=== PATIENT | female | born 1935 | race Caucasian/White ===

== ENCOUNTER 2017-11-04 12:04 | Inpatient (IN) | payer MEDICARE, SELFPAY ==
[2017-11-04 13:09] VITALS: BP 139/64; PULSE 83; RESP 16; TEMP 37.3; O2SAT 90
[2017-11-04 13:35] VITALS: BMI 18.8
--- NOTE | 2017-11-04 13:47 | NURSING ---
Pt admitted to room 20 from [facility], call light system explained.
[2017-11-04 13:49] VITALS: BMI 18.9
--- NOTE | 2017-11-04 14:08 | PCM.HP.STD ---
Problem List (1) Fall Status: Acute (2) Closed right hip fracture Status: Acute (3) Right clavicle fracture Status: Acute (4) Anxiety Status: Chronic (5) Hypertension Status: Chronic (6) Vitamin D deficiency Status: Acute (7) Neuropathic pain Status: Chronic (8) Glaucoma Status: Chronic (9) Compression fracture of thoracic vertebra Status: Chronic (10) Compression fracture of lumbar vertebra Status: Chronic (11) Osteoporosis Status: Chronic (12) COPD (chronic obstructive pulmonary disease) Status: Acute Qualifiers: (13) Macular degeneration Status: Chronic Qualifiers: (14) Mass of right lung Status: Chronic Comment: enlarging since CT scan in 2014 History of Present Illness Date of Admission: 11/04/17 Chief Complaint: Here for rehabilitation, strengthening, prior to discharg home alone. The patient is a 82 year old Female with below past medical history presented to [facility] Emergency Department 10/31/2017 with fall. 10/31/2017 CT brain chronic involutional changes. 10/31/2017 Chest X-ray negative. 10/31/2017 EKG normal sinus rhythm, normal EKG. 10/31/2017 X-ray Cervical spine showed degenerative changes. 10/31/2017 X-ray right elbow normal. 10/31/2017 X-ray right forearm demineralization. 10/31/2017 X-ray right pelvis, right hip showed right hip fracture, constipation. 10/31/2017 X-ray right shoulder, right distal clavicle fracture. 10/31/2017 X-ray right clavicle, right distal clavicle fracture on healing old clavicle fracture. Fall backwards, Right upper extremity pain, Right hip pain. Headache, vomiting Multiple doses Morphine, Zofran given. 10/31/2017 CT right hip, comminuted impacted right intertrochanteric fracture, vertical fracture extending into proximal femoral shaft. 10/31/2017 Admit to Hospital. Recommend proceed with surgery. 11/01/2017 Dr. Shirley performed right hip cephalo-medullary nail fixation. Recommend non-operative management right clavicle fracture for now. 11/03/2017 CT chest right lower lobe spiculated nodule 2.6CM, right upper lobe spiculated nodule. Cancer until proven otherwise. Patient would like to consult with Dr. Huang regarding further evaluation of lung mass. Of note, she continues to smoke. 11/04/2017 Admit to TCU for rehabilitation, strengthening, prior to discharge home. Past Medical History Past Medical History (Chronic Problems): Chronic Problems Macular degeneration (Chronic) Mass of right lung (Chronic) enlarging since CT scan in 2015 Tobacco abuse (Chronic) Anxiety (Chronic) Hypertension (Chronic) Neuropathic pain (Chronic) Glaucoma (Chronic) Compression fracture of thoracic vertebra (Chronic) Compression fracture of lumbar vertebra (Chronic) Osteoporosis (Chronic) Allergies acetaminophen [From Percocet] Adverse Reaction (Verified 11/03/17 19:12) Itching oxycodone [From Percocet] Adverse Reaction (Verified 11/03/17 19:12) Itching Home Medications: Ambulatory Orders Medication Instructions Recorded Budesonide/Formoterol 160/4.5 2 puff INHALATION BID 08/05/14 [Symbicort 160/4.5 Mcg Inhaler (SP)] Lisinopril [Zestril] 5 mg PO BID 08/05/14 Lorazepam 0.25 mg PO TID 08/05/14 Tiotropium [place] [Spiriva] 1 puff INHALATION DAILY 08/05/14 Ergocalciferol [Vitamin D] 50,000 unit PO JOSE 10/31/17 Gabapentin [Neurontin] 100 mg PO TID PRN 10/31/17 Peg 400/Hypromellose/Glycerin 1 drop EACH EYE Q1H PRN 10/31/17 [Artificial Tears Drops] Travoprost 0.004% [Travatan-Z 1 drop EACHEYE DAILY 10/31/17 0.004% Eye Drop] Acetaminophen [Tylenol] 1,000 mg PO Q8H 11/04/17 Albuterol Aerosols [Ventolin 2.5 mg INHALATION Q2H PRN PRN 11/04/17 Aerosols] vial.neb. 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 Lives: Alone Smoking Status: Current every day smoker Tobacco Use: Cigarettes Alcohol: None Drugs: None - *Family History Maternal History Items: No pertinent history Paternal History Items: No pertinent history Review of Systems Constitutional: Denies: Chills, Fever, Weight Change HEENT: Denies: Head Aches, Sinus Congestion, Sinus Drainage Cardiovascular: Denies: Chest Pain, Palpitations Respiratory: Denies: Cough, Shortness of breath at rest, Sputum production Gastrointestinal: Denies: Abdominal Pain, Nausea, Vomiting Genitourinary: Denies: Dysuria Musculoskeletal: Denies: Joint Pain, Joint Tenderness Skin: Denies: Rash, Wounds Neurological: Denies: Numbness, Tingling, Focal weakness Psychiatric: Denies: Anxiety, Depression, Homicidal Ideations, Suicidal Ideations Hematologic/ Lymphatic: Denies: Easy Bruising, Easy Bleeding VTE Information - Inpt Only VTE Present on Admission: No VTE Mechan Device Prophylaxis: Knee High YANELIS Hose VTE Pharm Prophylaxis ordered?: Yes Patient Problems: Active and Suspected Problems Fall (Acute) Closed right hip fracture (Acute) Right clavicle fracture (Acute) Vitamin D deficiency (Acute) - Physical Exam General: Alert, Oriented x3, Cooperative HEENT: Atraumatic, PERRLA, EOMI, Normocephalic Neck: Supple, No JVD, Negative Carotid Bruits Lungs: Clear to auscultation, Normal air movement Cardiovascular: Regular rate, No murmurs Abdomen: Bowel Sounds Present, Soft, Non Tender Extremities: No edema, Capillary Refill Less than 3 Seconds Skin: No rashes, No breakdown Musculoskeletal: No Tenderness to Palpation of Joints or Extremities Neurological: Cranial nerves II-XII grossly intact Psych/Mental Status: Normal Affect, Appropriate Weight: 42.4 kg Body Mass Index (BMI) 18.8 Assessment/Plan Active and Suspected Problems Fall (Acute) Closed right hip fracture (Acute) Right clavicle fracture (Acute) Vitamin D deficiency (Acute) 82 year old female with below past medical history hospitalized after fall with right hip fracture, right clavicle fracture, underwent right hip cephalo-medullary nail fixation 11/01/[address] Shirley, complicated by right lower lobe and right upper lobe spiculated nodules highly suspicious for cancer, admitted to TCU for rehabilitation, strengthening, prior to discharge home. Debility - PT/OT. Pain - Tylenol 1000MG Q8H, Oxycodone 5MG Q4H PRN moderate to severe pain. Bowel - Miralax 17GM daily, Senna/colace 2 tablets BID, Dulcolax 10MG PO daily PRN, Mag citrate 300ML PO x 1 dose. Pneumonia vaccination - Administer Prevnar 13 and/or Pneumovax 23 as necessary. DVT prophylaxis - Lovenox 30MG SC daily. COPD - Symbicort 160/4.5MG 2 puffs BID, Spiriva 18MCG daily, Albuterol 2.5MG Q2H PRN. Dry eyes - Artificial Tears 1GTT OU Q1H PRN. Nutrition - Ensure Enlive 120ML 4x/day. Vitamin D deficiency - D2 50,000 units per week. Neuropathic pain - Gabapentin 100MG TID PRN. Glaucoma - Xalatan 0.005% 1GTT OU QHS, Travatan 0.004% 1GTT OU QHS. Hypertension - Lisinopril 5MG BID. Anxiety - Ativan 0.25MG TID (Beer's List drug chronic [facility] use) GERD - Pantoprazole 20MG daily, Mylanta 2 30ML Q6H PRN. Right lower lobe mass - Consult Dr. Huang for evaluation.
--- NOTE | 2017-11-04 14:22 | HP.PCM_ITS ---
Problem List (1) Fall Status: Acute (2) Closed right hip fracture Status: Acute (3) Right clavicle fracture Status: Acute (4) Anxiety Status: Chronic (5) Hypertension Status: Chronic (6) Vitamin D deficiency Status: Acute (7) Neuropathic pain Status: Chronic (8) Glaucoma Status: Chronic (9) Compression fracture of thoracic vertebra Status: Chronic (10) Compression fracture of lumbar vertebra Status: Chronic (11) Osteoporosis Status: Chronic (12) COPD (chronic obstructive pulmonary disease) Status: Acute Qualifiers: (13) Macular degeneration Status: Chronic Qualifiers: (14) Mass of right lung Status: Chronic Comment: enlarging since CT scan in 2014 History of Present Illness Date of Admission: 11/04/17 Chief Complaint: Here for rehabilitation, strengthening, prior to discharg home alone. The patient is a 82 year old Female with below past medical history presented to [facility] Emergency Department 10/31/2017 with fall. 10/31/2017 CT brain chronic involutional changes. 10/31/2017 Chest X-ray negative. 10/31/2017 EKG normal sinus rhythm, normal EKG. 10/31/2017 X-ray Cervical spine showed degenerative changes. 10/31/2017 X-ray right elbow normal. 10/31/2017 X-ray right forearm demineralization. 10/31/2017 X-ray right pelvis, right hip showed right hip fracture, constipation. 10/31/2017 X-ray right shoulder, right distal clavicle fracture. 10/31/2017 X-ray right clavicle, right distal clavicle fracture on healing old clavicle fracture. Fall backwards, Right upper extremity pain, Right hip pain. Headache, vomiting Multiple doses Morphine, Zofran given. 10/31/2017 CT right hip, comminuted impacted right intertrochanteric fracture, vertical fracture extending into proximal femoral shaft. 10/31/2017 Admit to Hospital. Recommend proceed with surgery. 11/01/2017 Dr. Shirley performed right hip cephalo-medullary nail fixation. Recommend non-operative management right clavicle fracture for now. 11/03/2017 CT chest right lower lobe spiculated nodule 2.6CM, right upper lobe spiculated nodule. Cancer until proven otherwise. Patient would like to consult with Dr. Huang regarding further evaluation of lung mass. Of note, she continues to smoke. 11/04/2017 Admit to TCU for rehabilitation, strengthening, prior to discharge home. Past Medical History Past Medical History (Chronic Problems): Chronic Problems Macular degeneration (Chronic) Mass of right lung (Chronic) enlarging since CT scan in 2015 Tobacco abuse (Chronic) Anxiety (Chronic) Hypertension (Chronic) Neuropathic pain (Chronic) Glaucoma (Chronic) Compression fracture of thoracic vertebra (Chronic) Compression fracture of lumbar vertebra (Chronic) Osteoporosis (Chronic) Allergies acetaminophen [From Percocet] Adverse Reaction (Verified 11/03/17 19:12) Itching oxycodone [From Percocet] Adverse Reaction (Verified 11/03/17 19:12) Itching Home Medications: Ambulatory Orders Medication Instructions Recorded Budesonide/Formoterol 160/4.5 2 puff INHALATION BID 08/05/14 [Symbicort 160/4.5 Mcg Inhaler (SP)] Lisinopril [Zestril] 5 mg PO BID 08/05/14 Lorazepam 0.25 mg PO TID 08/05/14 Tiotropium [place] [Spiriva] 1 puff INHALATION DAILY 08/05/14 Ergocalciferol [Vitamin D] 50,000 unit PO JOSE 10/31/17 Gabapentin [Neurontin] 100 mg PO TID PRN 10/31/17 Peg 400/Hypromellose/Glycerin 1 drop EACH EYE Q1H PRN 10/31/17 [Artificial Tears Drops] Travoprost 0.004% [Travatan-Z 1 drop EACHEYE DAILY 10/31/17 0.004% Eye Drop] Acetaminophen [Tylenol] 1,000 mg PO Q8H 11/04/17 Albuterol Aerosols [Ventolin 2.5 mg INHALATION Q2H PRN PRN 11/04/17 Aerosols] vial.neb. 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 Lives: Alone Smoking Status: Current every day smoker Tobacco Use: Cigarettes Alcohol: None Drugs: None - *Family History Maternal History Items: No pertinent history Paternal History Items: No pertinent history Review of Systems Constitutional: Denies: Chills, Fever, Weight Change HEENT: Denies: Head Aches, Sinus Congestion, Sinus Drainage Cardiovascular: Denies: Chest Pain, Palpitations Respiratory: Denies: Cough, Shortness of breath at rest, Sputum production Gastrointestinal: Denies: Abdominal Pain, Nausea, Vomiting Genitourinary: Denies: Dysuria Musculoskeletal: Denies: Joint Pain, Joint Tenderness Skin: Denies: Rash, Wounds Neurological: Denies: Numbness, Tingling, Focal weakness Psychiatric: Denies: Anxiety, Depression, Homicidal Ideations, Suicidal Ideations Hematologic/ Lymphatic: Denies: Easy Bruising, Easy Bleeding VTE Information - Inpt Only VTE Present on Admission: No VTE Mechan Device Prophylaxis: Knee High YANELIS Hose VTE Pharm Prophylaxis ordered?: Yes Patient Problems: Active and Suspected Problems Fall (Acute) Closed right hip fracture (Acute) Right clavicle fracture (Acute) Vitamin D deficiency (Acute) - Physical Exam General: Alert, Oriented x3, Cooperative HEENT: Atraumatic, PERRLA, EOMI, Normocephalic Neck: Supple, No JVD, Negative Carotid Bruits Lungs: Clear to auscultation, Normal air movement Cardiovascular: Regular rate, No murmurs Abdomen: Bowel Sounds Present, Soft, Non Tender Extremities: No edema, Capillary Refill Less than 3 Seconds Skin: No rashes, No breakdown Musculoskeletal: No Tenderness to Palpation of Joints or Extremities Neurological: Cranial nerves II-XII grossly intact Psych/Mental Status: Normal Affect, Appropriate Weight: 42.4 kg Body Mass Index (BMI) 18.8 Assessment/Plan Active and Suspected Problems Fall (Acute) Closed right hip fracture (Acute) Right clavicle fracture (Acute) Vitamin D deficiency (Acute) 82 year old female with below past medical history hospitalized after fall with right hip fracture, right clavicle fracture, underwent right hip cephalo- medullary nail fixation 11/01/[address] Shirley, complicated by right lower lobe and right upper lobe spiculated nodules highly suspicious for cancer, admitted to TCU for rehabilitation, strengthening, prior to discharge home. * Debility - PT/OT. * Pain - Tylenol 1000MG Q8H, Oxycodone 5MG Q4H PRN moderate to severe pain. * Bowel - Miralax 17GM daily, Senna/colace 2 tablets BID, Dulcolax 10MG PO daily PRN, Mag citrate 300ML PO x 1 dose. * Pneumonia vaccination - Administer Prevnar 13 and/or Pneumovax 23 as necessary. * DVT prophylaxis - Lovenox 30MG SC daily. * COPD - Symbicort 160/4.5MG 2 puffs BID, Spiriva 18MCG daily, Albuterol 2.5MG Q2H PRN. * Dry eyes - Artificial Tears 1GTT OU Q1H PRN. * Nutrition - Ensure Enlive 120ML 4x/day. * Vitamin D deficiency - D2 50,000 units per week. * Neuropathic pain - Gabapentin 100MG TID PRN. * Glaucoma - Xalatan 0.005% 1GTT OU QHS, Travatan 0.004% 1GTT OU QHS. * Hypertension - Lisinopril 5MG BID. * Anxiety - Ativan 0.25MG TID (Beer's List drug chronic half-way use) * GERD - Pantoprazole 20MG daily, Mylanta 2 30ML Q6H PRN. * Right lower lobe mass - Consult Dr. Huang for evaluation.
[2017-11-04] MEDS: LORazepam 0.5 MG Tablet 0.25 MG PO ×2 (15:12→21:23)
[2017-11-04] MEDS: Acetaminophen 500 MG Tablet 1000 MG PO ×2 (15:12→21:23)
[2017-11-04] MEDS: oxyCODONE 5 MG Tablet PO (16:18)
[2017-11-04] MEDS: Magnesium Citrate 300 ML PO (18:17)
[2017-11-04] MEDS: Senna/Docusate Sodium 1 Tablet 2 TABLET PO (18:21)
[2017-11-04] MEDS: Lisinopril 5 MG Tablet PO (18:21)
[2017-11-05] MEDS: LORazepam 0.5 MG Tablet 0.25 MG PO ×3 (06:19→21:16)
[2017-11-05] MEDS: Enoxaparin 30 MG/0.3 ML Syringe SC (06:20)
[2017-11-05] MEDS: Acetaminophen 500 MG Tablet 1000 MG PO ×3 (06:20→21:16)
[2017-11-05] MEDS: Polyethylene Glycol 3350 17 GM PACKET PO (06:20)
[2017-11-05 06:51] LABS: Absolute Lymphocyte Count 1.24 X10^3/ul (0.83-4.51); Absolute Neutrophil Count 2.7 X10^3/uL (2.0-7.7); Basophil# 0.01 X10^3/uL; Basophil% 0.2 % (0-1); Eosinophil# 0.16 X10^3/uL; Eosinophils% 3.6 % (0-5); Hematocrit 25.7 % (37-47); Hemoglobin 8.4 g/dl (12.0-15.0); Lymphocyte # 1.24 X10^3/ul (4.0); Lymphocyte % 27.9 % (19-41); Mean Corp Hgb Conc 32.7 g/gl (32-36); Mean Corpuscular Hgb 31.5 pg (27.0-32.0); Mean Corpuscular Volume 96.3 fL (81-99); Mean Platelet Vol. 9.6 fl (6.2-12.0); Monocyte# 0.34 X10^3/uL; Monocyte% 7.6 % (0-10); Neutrophil # 2.69 X10^3/uL (2.7-7.7); Neutrophil % 60.5 % (47-70); Platelet Count 299 K/mm3 (150-450); RBC Distribution Width CV 14.2 % (11.6-14.6); RBC Distribution Width SD 46.9 fl (35.1-43.9); Red Blood Count 2.67 M/mm3 (4.2-5.4); White Blood Count 4.5 K/mm3 (4.4-11.0)
[2017-11-05 06:57] LABS: POSITIVE COUNT NO; POSITIVE DIFFERENTIAL NO; POSITIVE MORPHOLOGY NO
[2017-11-05 07:27] LABS: Anion Gap 8 (5-15); BUN 15 mg/dL (7-18); Calcium,Total 8.4 mg/dL (8.5-10.1); Chloride 106 mmol/L (98-107); Creatinine, Serum 0.52 mg/dL (0.55-1.02); EST Glomerular Filtration Rate 120 mL/min (>60); Est Glom Filt Rate - Afr Amer 146 mL/min (>60); Estimated Creatinine Clearance 33.55 ml/min; Glucose 107 mg/dL (70-110); Potassium 4.4 mmol/L (3.5-5.1); Sodium Level 142 mmol/L (136-145)
[2017-11-05 08:04] VITALS: O2SAT 91
[2017-11-05] MEDS: Senna/Docusate Sodium 1 Tablet 2 TABLET PO ×2 (09:28→18:15)
[2017-11-05] MEDS: Pantoprazole Sodium 20 MG Tablet PO (09:28)
[2017-11-05] MEDS: Lisinopril 5 MG Tablet PO ×2 (09:28→18:16)
[2017-11-05] MEDS: oxyCODONE 5 MG Tablet PO ×2 (09:30→15:40)
[2017-11-05] MEDS: Tuberculin,Purif.prot.deriv. 50 TU/ML Vial 5 ML ID (12:00)
--- NOTE | 2017-11-05 14:24 | NURSING ---
Moderate amount of green drainage from left hip incision, no redness or warmth, pitting edema. Pt is afebrile. Dr. Shirley made aware, came to look at incision, states area looks good, continue to monitor.
--- NOTE | 2017-11-05 14:30 | PN.ORTHO_ITS ---
Patient Problems: Active and Suspected Problems Fall (Acute) Closed right hip fracture (Acute) Right clavicle fracture (Acute) Vitamin D deficiency (Acute) Subjective: Postop day 4 status post right hip cephalo-medullary nail for displaced intertrochanteric femur fracture. I was called by the nursing staff in the transitional care unit that they had concerns about the patient's right hip. He reported having some greenish colored drainage to the right hip. Patient denies any increasing pain to that site. Patient was noted not to have a white count or be febrile. There is simply asking for evaluation the wound if there was concerns. Patient does have jose j in place at this point time. No other issues at this point. - Physical Exam General: Alert, Oriented x3, Cooperative, No apparent distress Musculoskeletal: - - Right hip examination shows no signs of any erythema. Typical serous drainage currently to the wounds. Patient does have staple technique in place. I could not express any greenish fluid at this point time. That may have been response to the jose j and/or Xeroform gauze reaction. Wound otherwise looks well. Vital Signs Temp Pulse Resp BP Pulse Ox 99.1 F 83 16 139/64 H 91 11/04/17 13:09 11/04/17 13:09 11/04/17 13:09 11/04/17 13:09 11/05/17 08:04 Oxygen Delivery Method Room Air Weight: 108 lb 0.424 oz Body Mass Index (BMI) 18.8 Intake and Output for Last 24 Hours 11/03/17 11/04/17 11/05/17 23:59 23:59 23:59 Intake Total 120 / 120 360 / 360 Output Total 950 / 950 450 / 450 Balance -830 / -830 -90 / -90 Laboratory Tests Past 24 Hrs 11/05/17 11/05/17 06:31 06:31 WBC 4.5 RBC 2.67 L Hgb 8.4 L Hct 25.7 L MCV 96.3 MCH 31.5 MCHC 32.7 RDW 14.2 RDW Differential 46.9 H Plt Count 299 MPV 9.6 Immature Gran % (Auto) 0.200 Neut % (Auto) 60.5 Lymph % (Auto) 27.9 [place] % (Auto) 7.6 Eos % (Auto) 3.6 Baso % (Auto) 0.2 Absolute Neuts (auto) 2.7 Absolute Lymphs (auto) 1.24 Total Counted Not Reportable Sodium 142 Potassium 4.4 Chloride 106 Carbon Dioxide 28.0 Anion Gap 8 BUN 15 Creatinine 0.52 L Estim Creat Clear Calc 33.55 Est GFR (MDRD) Af Amer 146 Est GFR (MDRD) Non-Af 120 BUN/Creatinine Ratio 29.0 H Glucose 107 Calcium 8.4 L Assessment/Plan Active and Suspected Problems Fall (Acute) Closed right hip fracture (Acute) Right clavicle fracture (Acute) Vitamin D deficiency (Acute) Assessment: Postop day 4 status post right hip cephalo-medullary nail for displaced intertrochanteric femur fracture. Plan: At this point time the wound looks good. Reiterated to the family into the nursing staff that trochanteric fractures can drain for a period of time and not to be overly concerned. Just continue to apply apply a compressive wrap. If the patient is still on chemical prophylaxis this may increase the serosanguineous drainage. But currently there is no signs of infection there is no white count no shift and no changes in platelets. I would continue to follow this conservatively. If there is any other major concerns I will contact Dr. Rojo for evaluation during the week.
[2017-11-05 16:00] VITALS: BP 146/77; PULSE 93; RESP 14; TEMP 37.3; O2SAT 93
[2017-11-05] MEDS: Latanoprost 0.005% 1 Bottle 1 DRP EACH EYE (21:17)
[2017-11-06] MEDS: oxyCODONE 5 MG Tablet PO (06:48)
[2017-11-06] MEDS: Enoxaparin 30 MG/0.3 ML Syringe SC (06:49)
[2017-11-06] MEDS: LORazepam 0.5 MG Tablet 0.25 MG PO ×3 (06:49→20:59)
[2017-11-06] MEDS: Senna/Docusate Sodium 1 Tablet 2 TABLET PO (08:55)
[2017-11-06] MEDS: Iron Polysaccharide Complex 150 MG CAPSULE PO (08:55)
[2017-11-06] MEDS: Lisinopril 5 MG Tablet PO ×2 (08:55→17:00)
[2017-11-06] MEDS: Pantoprazole Sodium 20 MG Tablet PO (08:55)
[2017-11-06] MEDS: oxyCODONE 5 MG Tablet 10 MG PO (12:49)
[2017-11-06] MEDS: Acetaminophen 500 MG Tablet 1000 MG PO ×2 (14:05→20:58)
[2017-11-06 14:45] VITALS: O2SAT 94
--- NOTE | 2017-11-06 15:14 | PCM.PN.RX ---
<KaiaGonzalo blandon D - Last Filed: 11/06/17 15:14> Progress Note - Pharmacy Subjective: TCU Admission Objective: Allergies acetaminophen [From Percocet] Adverse Reaction (Verified 11/03/17 19:12) Itching oxycodone [From Percocet] Adverse Reaction (Verified 11/03/17 19:12) Itching Home Medications Medication Instructions Recorded Budesonide/Formoterol 160/4.5 2 puff INHALATION BID 08/05/14 [Symbicort 160/4.5 Mcg Inhaler (SP)] Lisinopril [Zestril] 5 mg PO BID 08/05/14 Lorazepam 0.25 mg PO TID 08/05/14 Tiotropium [place] [Spiriva] 1 puff INHALATION DAILY 08/05/14 Ergocalciferol [Vitamin D] 50,000 unit PO JOSE 10/31/17 Gabapentin [Neurontin] 100 mg PO TID PRN 10/31/17 Peg 400/Hypromellose/Glycerin 1 drop EACH EYE Q1H PRN 10/31/17 [Artificial Tears Drops] Travoprost 0.004% [Travatan-Z 1 drop EACHEYE DAILY 10/31/17 0.004% Eye Drop] Acetaminophen [Tylenol] 1,000 mg PO Q8H 11/04/17 Albuterol Aerosols [Ventolin 2.5 mg INHALATION Q2H PRN PRN 11/04/17 Aerosols] vial.neb. Bisacodyl [Dulcolax] 10 mg PO DAILY PRN PRN tablet 11/04/17 Enoxaparin [Lovenox] 40 mg SC DAILY@0600 11/04/17 Ensure Enlive 120 ml PO 4X/DAY 11/04/17 Latanoprost 0.005% [Xalatan 1 drop EACH EYE QHS 11/04/17 Opthalmic] Mag Hydrox/Al Hydrox/Simeth 30 ml PO Q6H PRN PRN udc 11/04/17 [Mylanta II] Magnesium Hydroxide [Milk Of 30 ml PO DAILY PRN PRN udc 11/04/17 Magnesia] Oxycodone [Oxyir] 5 mg PO Q4H PRN PRN #30 tablet 11/04/17 Pantoprazole Sodium [Protonix] 20 mg PO DAILY 11/04/17 Polyethylene Glycol 3350 [Miralax] 17 gm PO DAILY 11/04/17 Current Medications Generic Name Dose Route Start Last Admin Trade Name Freq PRN Reason Stop Dose Admin Acetaminophen 1,000 mg 11/04/17 14:00 11/06/17 14:05 Tylenol PO 1,000 mg Q8 [facility] Administration Al Hydroxide/Mg Hydroxide 30 ml 11/04/17 13:29 Mylanta Ii PO Q6H PRN PRN Gastric Burning Albuterol Sulfate 2.5 mg 11/04/17 13:29 Ventolin Aerosols INHALATION Q2H PRN PRN DYSPNEA Artificial Tears 1 drop 11/04/17 13:46 Tears Naturale, Artificial Tears EACH EYE Q1H PRN PRN DRY EYES Bisacodyl 10 mg 11/04/17 13:29 Dulcolax PO DAILY PRN PRN Constipation Enoxaparin Sodium 30 mg 11/05/17 06:00 11/06/17 06:49 Lovenox SC 30 mg DAILY@0600 [facility] Administration Ergocalciferol 50,000 unit 11/05/17 06:00 11/05/17 12:04 Vitamin D PO 50,000 unit JOSE [facility] Administration Gabapentin 100 mg 11/04/17 13:29 Neurontin PO TID PRN NERVE PAIN Latanoprost 1 drop 11/04/17 22:00 11/05/17 21:17 Xalatan Opthalmic EACH EYE 1 drop QHS [facility] Administration Lisinopril 5 mg 11/04/17 18:00 11/06/17 08:55 Zestril PO 5 mg BID [facility] Administration Lorazepam 0.25 mg 11/04/17 14:00 11/06/17 14:05 Ativan PO 0.25 mg TID [facility] Administration Nutritional Formula (Lactose Free) 120 ml 11/04/17 17:00 11/06/17 11:45 Ensure Enlive PO 120 ml 4X/DAY [facility] Administration Oxycodone HCl 10 mg 11/06/17 08:42 11/06/17 12:49 Oxyir PO 10 mg Q4H PRN PRN Administration MOD-SEVERE PAIN (4-10/10) Pantoprazole Sodium 20 mg 11/05/17 06:00 11/06/17 08:55 Protonix PO 20 mg DAILY [facility] Administration Polyethylene Glycol 17 gm 11/05/17 06:00 11/06/17 06:30 Miralax PO Not Given DAILY [facility] Polysaccharide Iron Complex 150 mg 11/06/17 08:00 11/06/17 08:55 Ferrex 150 PO 150 mg DAILYCM [facility] Administration Fluticasone/Salmeterol 1 puff 11/04/17 18:00 11/06/17 08:55 Advair 250/50 Mcg Diskus INHALATION 1 puff BID [facility] Administration Senna/Docusate Sodium 2 tablet 11/04/17 18:00 11/06/17 08:55 Senokot-S, Arianna-Colace PO 2 tablet BID [facility] Administration Tiotropium [place] 1 puff 11/05/17 06:00 11/06/17 08:55 Spiriva 18 Mcg INHALATION 1 puff DAILY [facility] Administration Tuberculin PPD 5 tu 11/12/17 10:00 Tubersol, Aplisol, Ppd ID 11/12/17 10:01 X1 ONE Problem List Fall (Acute) Closed right hip fracture (Acute) Right clavicle fracture (Acute) Anxiety (Chronic) Hypertension (Chronic) Vitamin D deficiency (Acute) Neuropathic pain (Chronic) Glaucoma (Chronic) Compression fracture of thoracic vertebra (Chronic) Compression fracture of lumbar vertebra (Chronic) Osteoporosis (Chronic) Vital Signs Temp Pulse Resp BP Pulse Ox 99.1 F 93 14 146/77 H 93 11/05/17 16:00 11/05/17 16:00 11/05/17 16:00 11/05/17 16:00 11/05/17 16:00 Oxygen Delivery Method Room Air Weight: 49 kg Body Mass Index (BMI) 18.8 Sodium 142 mmol/L (136-145) 11/05/17 06:31 Potassium 4.4 mmol/L (3.5-5.1) 11/05/17 06:31 Chloride 106 mmol/L (98-107) 11/05/17 06:31 Carbon Dioxide 28.0 mmol/L (21.0-32.0) 11/05/17 06:31 Anion Gap 8 (5-15) 11/05/17 06:31 BUN 15 mg/dL (7-18) 11/05/17 06:31 Creatinine 0.52 mg/dL (0.55-1.02) L 11/05/17 06:31 Est GFR (MDRD) Af Amer 146 mL/min (>60) 11/05/17 06:31 Est GFR (MDRD) Non-Af 120 mL/min (>60) 11/05/17 06:31 BUN/Creatinine Ratio 29.0 RATIO (10-20) H 11/05/17 06:31 Glucose 107 mg/dL (70-110) 11/05/17 06:31 Assessment/Plan: 1) Pain APAP scheduled, oxycodone for moderate-severe pain, gabapentin for nerve pain. Continue to monitor prn medication use, daily pain scores. 2) Pulm Tiotropium inh, Advair inh, albuterol aerosols prn. Continue to monitor prn medication use, for s/s exacerbation. 3) HTN Lisinopril daily. Avg BP near goal, K wnl, BUN/SCr at baseline. Continue to monitor BP/HR, renal function, electrolytes. 4) GI Pantoprazole daily, Maalox prn. Continue to monitor prn medication use, s/s GI distress. 5) Ophtho Latanoprost daily, tears as needed. Continue to monitor clinically. 6) DVT PPx Enoxaparin daily. Continue to monitor s/s bleeding/clot. 7) Nutrition Ergocalciferol, Fe, Ensure. Continue to monitor clinically. Psychotropic Medications: 8) Anxiety Lorazepam 3x daily. Continue to monitor for s/s anxiety. Unnecessary Medications: None Bowel Regimen: 9) Senna/s, PEG, prn bisacodyl. Continue to monitor prn medication use, for constipation/diarrhea. Date of Note:: 11/06/17 - Provider Comments Provider responsibility: Provider responsible to enter orders to implement recommendations <Donny Verma Chi - Last Filed: 11/06/17 17:14> Progress Note - Pharmacy Subjective: [] Objective: Allergies acetaminophen [From Percocet] Adverse Reaction (Verified 11/03/17 19:12) Itching oxycodone [From Percocet] Adverse Reaction (Verified 11/03/17 19:12) Itching Home Medications Medication Instructions Recorded Budesonide/Formoterol 160/4.5 2 puff INHALATION BID 08/05/14 [Symbicort 160/4.5 Mcg Inhaler (SP)] Lisinopril [Zestril] 5 mg PO BID 08/05/14 Lorazepam 0.25 mg PO TID 10/21/14 Tiotropium [place] [Spiriva] 1 puff INHALATION DAILY 08/05/14 Ergocalciferol [Vitamin D] 50,000 unit PO JOSE 10/31/17 Gabapentin [Neurontin] 100 mg PO TID PRN 10/31/17 Peg 400/Hypromellose/Glycerin 1 drop EACH EYE Q1H PRN 10/31/17 [Artificial Tears Drops] Travoprost 0.004% [Travatan-Z 1 drop EACHEYE DAILY 10/31/17 0.004% Eye Drop] Acetaminophen [Tylenol] 1,000 mg PO Q8H 11/04/17 Albuterol Aerosols [Ventolin 2.5 mg INHALATION Q2H PRN PRN 11/04/17 Aerosols] vial.neb. Bisacodyl [Dulcolax] 10 mg PO DAILY PRN PRN tablet 11/04/17 Enoxaparin [Lovenox] 40 mg SC DAILY@0600 11/04/17 Ensure Enlive 120 ml PO 4X/DAY 11/04/17 Latanoprost 0.005% [Xalatan 1 drop EACH EYE QHS 11/04/17 Opthalmic] Mag Hydrox/Al Hydrox/Simeth 30 ml PO Q6H PRN PRN udc 11/04/17 [Mylanta II] Magnesium Hydroxide [Milk Of 30 ml PO DAILY PRN PRN udc 11/04/17 Magnesia] Oxycodone [Oxyir] 5 mg PO Q4H PRN PRN #30 tablet 11/04/17 Pantoprazole Sodium [Protonix] 20 mg PO DAILY 11/04/17 Polyethylene Glycol 3350 [Miralax] 17 gm PO DAILY 11/04/17 Current Medications Generic Name Dose Route Start Last Admin Trade Name Freq PRN Reason Stop Dose Admin Acetaminophen 1,000 mg 11/04/17 14:00 11/06/17 14:05 Tylenol PO 1,000 mg Q8 [facility] Administration Al Hydroxide/Mg Hydroxide 30 ml 11/04/17 13:29 Mylanta Ii PO Q6H PRN PRN Gastric Burning Albuterol Sulfate 2.5 mg 11/04/17 13:29 Ventolin Aerosols INHALATION Q2H PRN PRN DYSPNEA Artificial Tears 1 drop 11/04/17 13:46 Tears Naturale, Artificial Tears EACH EYE Q1H PRN PRN DRY EYES Bisacodyl 10 mg 11/04/17 13:29 Dulcolax PO DAILY PRN PRN Constipation Enoxaparin Sodium 30 mg 11/05/17 06:00 11/06/17 06:49 Lovenox SC 30 mg DAILY@0600 [facility] Administration Ergocalciferol 50,000 unit 11/05/17 06:00 11/05/17 12:04 Vitamin D PO 50,000 unit JOSE [facility] Administration Gabapentin 100 mg 11/04/17 13:29 Neurontin PO TID PRN NERVE PAIN Latanoprost 1 drop 11/04/17 22:00 11/05/17 21:17 Xalatan Opthalmic EACH EYE 1 drop QHS [facility] Administration Lisinopril 5 mg 11/04/17 18:00 11/06/17 17:00 Zestril PO 5 mg BID [facility] Administration Lorazepam 0.25 mg 11/04/17 14:00 11/06/17 14:05 Ativan PO 0.25 mg TID [facility] Administration Nutritional Formula (Lactose Free) 120 ml 11/04/17 17:00 11/06/17 16:57 Ensure Enlive PO 120 ml 4X/DAY [facility] Administration Oxycodone HCl 10 mg 11/06/17 08:42 11/06/17 12:49 Oxyir PO 10 mg Q4H PRN PRN Administration MOD-SEVERE PAIN (4-10/10) Pantoprazole Sodium 20 mg 11/05/17 06:00 11/06/17 08:55 Protonix PO 20 mg DAILY [facility] Administration Polyethylene Glycol 17 gm 11/05/17 06:00 11/06/17 06:30 Miralax PO Not Given DAILY [facility] Polysaccharide Iron Complex 150 mg 11/06/17 08:00 11/06/17 08:55 Ferrex 150 PO 150 mg DAILYCM [facility] Administration Fluticasone/Salmeterol 1 puff 11/04/17 18:00 11/06/17 16:58 Advair 250/50 Mcg Diskus INHALATION 1 puff BID [facility] Administration Senna/Docusate Sodium 2 tablet 11/04/17 18:00 11/06/17 16:54 Senokot-S, Arianna-Colace PO Not Given BID [facility] Tiotropium [place] 1 puff 11/05/17 06:00 11/06/17 08:55 Spiriva 18 Mcg INHALATION 1 puff DAILY [facility] Administration Tuberculin PPD 5 tu 11/12/17 10:00 Tubersol, Aplisol, Ppd ID 11/12/17 10:01 X1 ONE Problem List Fall (Acute) Closed right hip fracture (Acute) Right clavicle fracture (Acute) Anxiety (Chronic) Hypertension (Chronic) Vitamin D deficiency (Acute) Neuropathic pain (Chronic) Glaucoma (Chronic) Compression fracture of thoracic vertebra (Chronic) Compression fracture of lumbar vertebra (Chronic) Osteoporosis (Chronic) Vital Signs Temp Pulse Resp BP Pulse Ox 99.0 F 87 16 134/60 H 94 11/06/17 15:41 11/06/17 15:41 11/06/17 15:41 11/06/17 15:41 11/06/17 15:41 Oxygen Delivery Method Room Air Weight: 49 kg Body Mass Index (BMI) 18.8 Sodium 142 mmol/L (136-145) 11/05/17 06:31 Potassium 4.4 mmol/L (3.5-5.1) 11/05/17 06:31 Chloride 106 mmol/L (98-107) 11/05/17 06:31 Carbon Dioxide 28.0 mmol/L (21.0-32.0) 11/05/17 06:31 Anion Gap 8 (5-15) 11/05/17 06:31 BUN 15 mg/dL (7-18) 11/05/17 06:31 Creatinine 0.52 mg/dL (0.55-1.02) L 11/05/17 06:31 Est GFR (MDRD) Af Amer 146 mL/min (>60) 11/05/17 06:31 Est GFR (MDRD) Non-Af 120 mL/min (>60) 11/05/17 06:31 BUN/Creatinine Ratio 29.0 RATIO (10-20) H 11/05/17 06:31 Glucose 107 mg/dL (70-110) 11/05/17 06:31 Assessment/Plan: Psychotropic Medications: Unnecessary Medications: Bowel Regimen: - Provider Comments Provider responsibility: Provider responsible to enter orders to implement recommendations Provider Comments to Recommendations by Pharmacy: Agree
--- NOTE | 2017-11-06 15:20 | PHA.CONS_ITS ---
<KaiaGonzalo blandon D - Last Filed: 11/06/17 15:14> Progress Note - Pharmacy Subjective: TCU Admission Objective: Allergies acetaminophen [From Percocet] Adverse Reaction (Verified 11/03/17 19:12) Itching oxycodone [From Percocet] Adverse Reaction (Verified 11/03/17 19:12) Itching Home Medications Medication Instructions Recorded Budesonide/Formoterol 160/4.5 2 puff INHALATION BID 08/05/14 [Symbicort 160/4.5 Mcg Inhaler (SP)] Lisinopril [Zestril] 5 mg PO BID 08/05/14 Lorazepam 0.25 mg PO TID 08/05/14 Tiotropium [place] [Spiriva] 1 puff INHALATION DAILY 08/05/14 Ergocalciferol [Vitamin D] 50,000 unit PO JOSE 10/31/17 Gabapentin [Neurontin] 100 mg PO TID PRN 10/31/17 Peg 400/Hypromellose/Glycerin 1 drop EACH EYE Q1H PRN 10/31/17 [Artificial Tears Drops] Travoprost 0.004% [Travatan-Z 1 drop EACHEYE DAILY 10/31/17 0.004% Eye Drop] Acetaminophen [Tylenol] 1,000 mg PO Q8H 11/04/17 Albuterol Aerosols [Ventolin 2.5 mg INHALATION Q2H PRN PRN 11/04/17 Aerosols] vial.neb. Bisacodyl [Dulcolax] 10 mg PO DAILY PRN PRN tablet 11/04/17 Enoxaparin [Lovenox] 40 mg SC DAILY@0600 11/04/17 Ensure Enlive 120 ml PO 4X/DAY 11/04/17 Latanoprost 0.005% [Xalatan 1 drop EACH EYE QHS 11/04/17 Opthalmic] Mag Hydrox/Al Hydrox/Simeth 30 ml PO Q6H PRN PRN udc 11/04/17 [Mylanta II] Magnesium Hydroxide [Milk Of 30 ml PO DAILY PRN PRN udc 11/04/17 Magnesia] Oxycodone [Oxyir] 5 mg PO Q4H PRN PRN #30 tablet 11/04/17 Pantoprazole Sodium [Protonix] 20 mg PO DAILY 11/04/17 Polyethylene Glycol 3350 [Miralax] 17 gm PO DAILY 11/04/17 Current Medications Generic Name Dose Route Start Last Admin Trade Name Freq PRN Reason Stop Dose Admin Acetaminophen 1,000 mg 11/04/17 14:00 11/06/17 14:05 Tylenol PO 1,000 mg Q8 [facility] Administration Al Hydroxide/Mg Hydroxide 30 ml 11/04/17 13:29 Mylanta Ii PO Q6H PRN PRN Gastric Burning Albuterol Sulfate 2.5 mg 11/04/17 13:29 Ventolin Aerosols INHALATION Q2H PRN PRN DYSPNEA Artificial Tears 1 drop 11/04/17 13:46 Tears Naturale, Artificial Tears EACH EYE Q1H PRN PRN DRY EYES Bisacodyl 10 mg 11/04/17 13:29 Dulcolax PO DAILY PRN PRN Constipation Enoxaparin Sodium 30 mg 11/05/17 06:00 11/06/17 06:49 Lovenox SC 30 mg DAILY@0600 [facility] Administration Ergocalciferol 50,000 unit 11/05/17 06:00 11/05/17 12:04 Vitamin D PO 50,000 unit JOSE [facility] Administration Gabapentin 100 mg 11/04/17 13:29 Neurontin PO TID PRN NERVE PAIN Latanoprost 1 drop 11/04/17 22:00 11/05/17 21:17 Xalatan Opthalmic EACH EYE 1 drop QHS [facility] Administration Lisinopril 5 mg 11/04/17 18:00 11/06/17 08:55 Zestril PO 5 mg BID [facility] Administration Lorazepam 0.25 mg 11/04/17 14:00 11/06/17 14:05 Ativan PO 0.25 mg TID [facility] Administration Nutritional Formula (Lactose Free) 120 ml 11/04/17 17:00 11/06/17 11:45 Ensure Enlive PO 120 ml 4X/DAY [facility] Administration Oxycodone HCl 10 mg 11/06/17 08:42 11/06/17 12:49 Oxyir PO 10 mg Q4H PRN PRN Administration MOD-SEVERE PAIN (4-10/10) Pantoprazole Sodium 20 mg 11/05/17 06:00 11/06/17 08:55 Protonix PO 20 mg DAILY [facility] Administration Polyethylene Glycol 17 gm 11/05/17 06:00 11/06/17 06:30 Miralax PO Not Given DAILY [facility] Polysaccharide Iron Complex 150 mg 11/06/17 08:00 11/06/17 08:55 Ferrex 150 PO 150 mg DAILYCM [facility] Administration Fluticasone/Salmeterol 1 puff 11/04/17 18:00 11/06/17 08:55 Advair 250/50 Mcg Diskus INHALATION 1 puff BID [facility] Administration Senna/Docusate Sodium 2 tablet 11/04/17 18:00 11/06/17 08:55 Senokot-S, Arianna-Colace PO 2 tablet BID [facility] Administration Tiotropium [place] 1 puff 11/05/17 06:00 11/06/17 08:55 Spiriva 18 Mcg INHALATION 1 puff DAILY [facility] Administration Tuberculin PPD 5 tu 11/12/17 10:00 Tubersol, Aplisol, Ppd ID 11/12/17 10:01 X1 ONE Problem List Fall (Acute) Closed right hip fracture (Acute) Right clavicle fracture (Acute) Anxiety (Chronic) Hypertension (Chronic) Vitamin D deficiency (Acute) Neuropathic pain (Chronic) Glaucoma (Chronic) Compression fracture of thoracic vertebra (Chronic) Compression fracture of lumbar vertebra (Chronic) Osteoporosis (Chronic) Vital Signs Temp Pulse Resp BP Pulse Ox 99.1 F 93 14 146/77 H 93 11/05/17 16:00 11/05/17 16:00 11/05/17 16:00 11/05/17 16:00 11/05/17 16:00 Oxygen Delivery Method Room Air Weight: 49 kg Body Mass Index (BMI) 18.8 Sodium 142 mmol/L (136-145) 11/05/17 06:31 Potassium 4.4 mmol/L (3.5-5.1) 11/05/17 06:31 Chloride 106 mmol/L (98-107) 11/05/17 06:31 Carbon Dioxide 28.0 mmol/L (21.0-32.0) 11/05/17 06:31 Anion Gap 8 (5-15) 11/05/17 06:31 BUN 15 mg/dL (7-18) 11/05/17 06:31 Creatinine 0.52 mg/dL (0.55-1.02) L 11/05/17 06:31 Est GFR (MDRD) Af Amer 146 mL/min (>60) 11/05/17 06:31 Est GFR (MDRD) Non-Af 120 mL/min (>60) 11/05/17 06:31 BUN/Creatinine Ratio 29.0 RATIO (10-20) H 11/05/17 06:31 Glucose 107 mg/dL (70-110) 11/05/17 06:31 Assessment/Plan: 1) Pain APAP scheduled, oxycodone for moderate-severe pain, gabapentin for nerve pain. Continue to monitor prn medication use, daily pain scores. 2) Pulm Tiotropium inh, Advair inh, albuterol aerosols prn. Continue to monitor prn medication use, for s/s exacerbation. 3) HTN Lisinopril daily. Avg BP near goal, K wnl, BUN/SCr at baseline. Continue to monitor BP/HR, renal function, electrolytes. 4) GI Pantoprazole daily, Maalox prn. Continue to monitor prn medication use, s/s GI distress. 5) Ophtho Latanoprost daily, tears as needed. Continue to monitor clinically. 6) DVT PPx Enoxaparin daily. Continue to monitor s/s bleeding/clot. 7) Nutrition Ergocalciferol, Fe, Ensure. Continue to monitor clinically. Psychotropic Medications: 8) Anxiety Lorazepam 3x daily. Continue to monitor for s/s anxiety. Unnecessary Medications: None Bowel Regimen: 9) Senna/s, PEG, prn bisacodyl. Continue to monitor prn medication use, for constipation/diarrhea. Date of Note:: 11/06/17 - Provider Comments Provider responsibility: Provider responsible to enter orders to implement recommendations <Donny Verma Chi - Last Filed: 11/06/17 17:14> Progress Note - Pharmacy Subjective: [] Objective: Allergies acetaminophen [From Percocet] Adverse Reaction (Verified 11/03/17 19:12) Itching oxycodone [From Percocet] Adverse Reaction (Verified 11/03/17 19:12) Itching Home Medications Medication Instructions Recorded Budesonide/Formoterol 160/4.5 2 puff INHALATION BID 08/05/14 [Symbicort 160/4.5 Mcg Inhaler (SP)] Lisinopril [Zestril] 5 mg PO BID 08/05/14 Lorazepam 0.25 mg PO TID 10/21/14 Tiotropium [place] [Spiriva] 1 puff INHALATION DAILY 08/05/14 Ergocalciferol [Vitamin D] 50,000 unit PO JOSE 10/31/17 Gabapentin [Neurontin] 100 mg PO TID PRN 10/31/17 Peg 400/Hypromellose/Glycerin 1 drop EACH EYE Q1H PRN 10/31/17 [Artificial Tears Drops] Travoprost 0.004% [Travatan-Z 1 drop EACHEYE DAILY 10/31/17 0.004% Eye Drop] Acetaminophen [Tylenol] 1,000 mg PO Q8H 11/04/17 Albuterol Aerosols [Ventolin 2.5 mg INHALATION Q2H PRN PRN 11/04/17 Aerosols] vial.neb. Bisacodyl [Dulcolax] 10 mg PO DAILY PRN PRN tablet 11/04/17 Enoxaparin [Lovenox] 40 mg SC DAILY@0600 11/04/17 Ensure Enlive 120 ml PO 4X/DAY 11/04/17 Latanoprost 0.005% [Xalatan 1 drop EACH EYE QHS 11/04/17 Opthalmic] Mag Hydrox/Al Hydrox/Simeth 30 ml PO Q6H PRN PRN udc 11/04/17 [Mylanta II] Magnesium Hydroxide [Milk Of 30 ml PO DAILY PRN PRN udc 11/04/17 Magnesia] Oxycodone [Oxyir] 5 mg PO Q4H PRN PRN #30 tablet 11/04/17 Pantoprazole Sodium [Protonix] 20 mg PO DAILY 11/04/17 Polyethylene Glycol 3350 [Miralax] 17 gm PO DAILY 11/04/17 Current Medications Generic Name Dose Route Start Last Admin Trade Name Freq PRN Reason Stop Dose Admin Acetaminophen 1,000 mg 11/04/17 14:00 11/06/17 14:05 Tylenol PO 1,000 mg Q8 [facility] Administration Al Hydroxide/Mg Hydroxide 30 ml 11/04/17 13:29 Mylanta Ii PO Q6H PRN PRN Gastric Burning Albuterol Sulfate 2.5 mg 11/04/17 13:29 Ventolin Aerosols INHALATION Q2H PRN PRN DYSPNEA Artificial Tears 1 drop 11/04/17 13:46 Tears Naturale, Artificial Tears EACH EYE Q1H PRN PRN DRY EYES Bisacodyl 10 mg 11/04/17 13:29 Dulcolax PO DAILY PRN PRN Constipation Enoxaparin Sodium 30 mg 11/05/17 06:00 11/06/17 06:49 Lovenox SC 30 mg DAILY@0600 [facility] Administration Ergocalciferol 50,000 unit 11/05/17 06:00 11/05/17 12:04 Vitamin D PO 50,000 unit JOSE [facility] Administration Gabapentin 100 mg 11/04/17 13:29 Neurontin PO TID PRN NERVE PAIN Latanoprost 1 drop 11/04/17 22:00 11/05/17 21:17 Xalatan Opthalmic EACH EYE 1 drop QHS [facility] Administration Lisinopril 5 mg 11/04/17 18:00 11/06/17 17:00 Zestril PO 5 mg BID [facility] Administration Lorazepam 0.25 mg 11/04/17 14:00 11/06/17 14:05 Ativan PO 0.25 mg TID [facility] Administration Nutritional Formula (Lactose Free) 120 ml 11/04/17 17:00 11/06/17 16:57 Ensure Enlive PO 120 ml 4X/DAY [facility] Administration Oxycodone HCl 10 mg 11/06/17 08:42 11/06/17 12:49 Oxyir PO 10 mg Q4H PRN PRN Administration MOD-SEVERE PAIN (4-10/10) Pantoprazole Sodium 20 mg 11/05/17 06:00 11/06/17 08:55 Protonix PO 20 mg DAILY [facility] Administration Polyethylene Glycol 17 gm 11/05/17 06:00 11/06/17 06:30 Miralax PO Not Given DAILY [facility] Polysaccharide Iron Complex 150 mg 11/06/17 08:00 11/06/17 08:55 Ferrex 150 PO 150 mg DAILYCM [facility] Administration Fluticasone/Salmeterol 1 puff 11/04/17 18:00 11/06/17 16:58 Advair 250/50 Mcg Diskus INHALATION 1 puff BID [facility] Administration Senna/Docusate Sodium 2 tablet 11/04/17 18:00 11/06/17 16:54 Senokot-S, Arianna-Colace PO Not Given BID [facility] Tiotropium Anderson 1 puff 11/05/17 06:00 11/06/17 08:55 Spiriva 18 Mcg INHALATION 1 puff DAILY [facility] Administration Tuberculin PPD 5 tu 11/12/17 10:00 Tubersol, Aplisol, Ppd ID 11/12/17 10:01 X1 ONE Problem List Fall (Acute) Closed right hip fracture (Acute) Right clavicle fracture (Acute) Anxiety (Chronic) Hypertension (Chronic) Vitamin D deficiency (Acute) Neuropathic pain (Chronic) Glaucoma (Chronic) Compression fracture of thoracic vertebra (Chronic) Compression fracture of lumbar vertebra (Chronic) Osteoporosis (Chronic) Vital Signs Temp Pulse Resp BP Pulse Ox 99.0 F 87 16 134/60 H 94 11/06/17 15:41 11/06/17 15:41 11/06/17 15:41 11/06/17 15:41 11/06/17 15:41 Oxygen Delivery Method Room Air Weight: 49 kg Body Mass Index (BMI) 18.8 Sodium 142 mmol/L (136-145) 11/05/17 06:31 Potassium 4.4 mmol/L (3.5-5.1) 11/05/17 06:31 Chloride 106 mmol/L (98-107) 11/05/17 06:31 Carbon Dioxide 28.0 mmol/L (21.0-32.0) 11/05/17 06:31 Anion Gap 8 (5-15) 11/05/17 06:31 BUN 15 mg/dL (7-18) 11/05/17 06:31 Creatinine 0.52 mg/dL (0.55-1.02) L 11/05/17 06:31 Est GFR (MDRD) Af Amer 146 mL/min (>60) 11/05/17 06:31 Est GFR (MDRD) Non-Af 120 mL/min (>60) 11/05/17 06:31 BUN/Creatinine Ratio 29.0 RATIO (10-20) H 11/05/17 06:31 Glucose 107 mg/dL (70-110) 11/05/17 06:31 Assessment/Plan: Psychotropic Medications: Unnecessary Medications: Bowel Regimen: - Provider Comments Provider responsibility: Provider responsible to enter orders to implement recommendations Provider Comments to Recommendations by Pharmacy: Agree
--- NOTE | 2017-11-06 15:27 | NURSING ---
pt having difficulty with urinary emptying, gregory reinserted today. Dr Verma aware, new order to consult urology.
[2017-11-06 15:41] VITALS: BP 134/60; PULSE 87; RESP 16; TEMP 37.2; O2SAT 94
--- NOTE | 2017-11-06 18:13 | PCM.CONS.U ---
Problem List (1) Urinary retention Status: Acute Reason for Consult Date of Consultation: 11/06/17 Reason for Consultation: Urinary retention after surgery for a broken hip History of Present Illness: The patient is a 82 year old female who fell at home and had a fractured hip she underwent anesthesia and placement of a nail. At this point she is in transitional care unit for improving and rehab. Catheter was removed and she was not able to urinate. About 600 cc came from the bladder she did not have any pressure or pain. No sense of retention of urine. She states that this happened to her also after gallbladder surgery. She has been moving her bowels okay. Not taking too much pain medicine. But she is not ambulatory. Past Medical History Past Medical History (Chronic Problems): Chronic Problems Macular degeneration (Chronic) Mass of right lung (Chronic) enlarging since CT scan in 2014 Tobacco abuse (Chronic) Anxiety (Chronic) Hypertension (Chronic) Neuropathic pain (Chronic) Glaucoma (Chronic) Compression fracture of thoracic vertebra (Chronic) Compression fracture of lumbar vertebra (Chronic) Osteoporosis (Chronic) Allergies acetaminophen [From Percocet] Adverse Reaction (Verified 11/03/17 19:12) Itching oxycodone [From Percocet] Adverse Reaction (Verified 11/03/17 19:12) Itching Home Medications: Ambulatory Orders Medication Instructions Recorded Budesonide/Formoterol 160/4.5 2 puff INHALATION BID 08/05/14 [Symbicort 160/4.5 Mcg Inhaler (SP)] Lisinopril [Zestril] 5 mg PO BID 08/05/14 Lorazepam 0.25 mg PO TID 08/05/14 Tiotropium [place] [Spiriva] 1 puff INHALATION DAILY 08/05/14 Ergocalciferol [Vitamin D] 50,000 unit PO JOSE 10/31/17 Gabapentin [Neurontin] 100 mg PO TID PRN 10/31/17 Peg 400/Hypromellose/Glycerin 1 drop EACH EYE Q1H PRN 10/31/17 [Artificial Tears Drops] Travoprost 0.004% [Travatan-Z 1 drop EACHEYE DAILY 10/31/17 0.004% Eye Drop] Acetaminophen [Tylenol] 1,000 mg PO Q8H 11/04/17 Albuterol Aerosols [Ventolin 2.5 mg INHALATION Q2H PRN PRN 11/04/17 Aerosols] vial.neb. Bisacodyl [Dulcolax] 10 mg PO DAILY PRN PRN tablet 11/04/17 Enoxaparin [Lovenox] 40 mg SC DAILY@0600 11/04/17 Ensure Enlive 120 ml PO 4X/DAY 11/04/17 Latanoprost 0.005% [Xalatan 1 drop EACH EYE QHS 11/04/17 Opthalmic] Mag Hydrox/Al Hydrox/Simeth 30 ml PO Q6H PRN PRN udc 11/04/17 [Mylanta II] Magnesium Hydroxide [Milk Of 30 ml PO DAILY PRN PRN udc 11/04/17 Magnesia] Oxycodone [Oxyir] 5 mg PO Q4H PRN PRN #30 tablet 11/04/17 Pantoprazole Sodium [Protonix] 20 mg PO DAILY 11/04/17 Polyethylene Glycol 3350 [Miralax] 17 gm PO DAILY 11/04/17 Surgical History: cataract Psychiatric History: Anxiety CRYSTAL SLICER History: No pertinent CRYSTAL SLICER history Lives: Alone Smoking Status: Current every day smoker Tobacco Use: Cigarettes Alcohol: None Drugs: None - *Family History Maternal History Items: No pertinent history Paternal History Items: No pertinent history Review of Systems Constitutional: Denies: Chills, Fever, Weight Change HEENT: Denies: Head Aches, Sinus Congestion, Sinus Drainage Cardiovascular: Denies: Chest Pain, Palpitations Respiratory: Denies: Cough, Shortness of breath at rest, Sputum production Gastrointestinal: Denies: Abdominal Pain, Nausea, Vomiting Genitourinary: Reports: Retention Musculoskeletal: Denies: Joint Pain, Joint Tenderness Skin: Denies: Rash, Wounds Neurological: Denies: Numbness, Tingling, Focal weakness Psychiatric: Denies: Anxiety, Depression, Homicidal Ideations, Suicidal Ideations Physical Exam - Physical Exam Vital Signs Temp 99.0 F 11/06/17 15:41 Pulse 87 11/06/17 15:41 Resp 16 11/06/17 15:41 BP 134/60 H 11/06/17 15:41 Pulse Ox 94 11/06/17 15:41 Intake & Output 11/04/17 11/05/17 11/06/17 23:59 23:59 23:59 Intake Total 120 / 120 600 / 600 480 / 480 Output Total 950 / 950 450 / 450 1450 / 1450 Balance -830 / -830 150 / 150 -970 / -970 Weight: 49 kg 49 kg Intake: Oral 120 / 120 600 / 600 480 / 480 Output: Urine 950 / 950 450 / 450 1450 / 1450 Other: Number of Bowel Movements 1 General: Alert, Oriented x3 HEENT: Atraumatic Oral: Moist Mucosa Neck: Supple Lungs: Normal air movement Cardiovascular: Regular rate Abdomen: Soft Rectal: Exam deferred Assessment/Plan Active and Suspected Problems Fall (Acute) Closed right hip fracture (Acute) Right clavicle fracture (Acute) Vitamin D deficiency (Acute) Urinary retention (Acute) 82-year-old female in transitional care unit for rehab, and improving, she developed acute urinary retention postop probably this is temporary. Has had problems with this before. We will have her try low-dose Flomax and bethanechol. We will start this today I think we can take the catheter out in about 2 days for voiding trial and do intermittent catheterization for 2-3 days if fails we can replace a Pierce. Call me with questions.
[2017-11-06] MEDS: BETHANECHOL CHLORIDE 25 MG TABLET PO (20:59)
[2017-11-06] MEDS: Latanoprost 0.005% 1 Bottle 1 DRP EACH EYE (21:16)
[2017-11-07] MEDS: LORazepam 0.5 MG Tablet 0.25 MG PO ×3 (05:45→21:21)
[2017-11-07] MEDS: Acetaminophen 500 MG Tablet 1000 MG PO ×3 (05:50→21:21)
[2017-11-07] MEDS: Enoxaparin 30 MG/0.3 ML Syringe SC (05:50)
[2017-11-07] MEDS: Pantoprazole Sodium 20 MG Tablet PO (05:50)
[2017-11-07] MEDS: Lisinopril 5 MG Tablet PO ×2 (05:50→17:42)
[2017-11-07] MEDS: BETHANECHOL CHLORIDE 25 MG TABLET PO ×3 (05:50→21:21)
[2017-11-07] MEDS: Iron Polysaccharide Complex 150 MG CAPSULE PO (08:02)
--- NOTE | 2017-11-07 10:45 | NURSING ---
notified Dr Rojo office to get order for staple removal, office will return call.
--- NOTE | 2017-11-07 10:56 | NURSING ---
Addendum entered by Hannah Alonzo 11/07/17 10:59: Reported to CARLOS A Palacios. Original Note: Resident reports feeling dizzy with activity. Physical therapy in room and wanting to work with resident. BP 142/64 sitting down and 89/41 while standing up. Pulse 95.
[2017-11-07 11:58] VITALS: O2SAT 95
--- NOTE | 2017-11-07 12:56 | CASEMGMT ---
Insurance Clinical information faxed. Pending continued stay approval at this time. Auth#[id number] Yoselin ZAIDI, MDS MANAGER
[2017-11-07 15:40] VITALS: BP 144/63; PULSE 80; RESP 16; TEMP 36.8; O2SAT 97
[2017-11-07] MEDS: oxyCODONE 5 MG Tablet 10 MG PO (16:28)
[2017-11-07] MEDS: Tamsulosin HCl 0.4 MG Capsule PO (17:40)
--- NOTE | 2017-11-07 18:38 | NURSING ---
Addendum entered by Trish Campbell 11/08/17 19:57: Ortho BPs taken again, Dr. Verma aware that pt agreed to 1L fluid bolus Original Note: Addendum entered by Trish Campbell 11/08/17 10:53: DR. VERMA AWARE PT REFUSED FLUID BOLUS LAST EVENING, N.O. TO RECHECK ORTHOSTATIC BPS Original Note: Addendum entered by Mary Brice 11/07/17 23:16: Reason for IVF explained to pt. Pt refusing one liter bolus. Pt stated, I do not feel that is necessary. I consume enough fluids as it is. I consume more fluids than I do water. Will update Dr Verma. Original Note: DR VERMA UPDATED ON PT DIZZINESS DURING THERAPY TODAY, BP LOW. NEW ORDER BOLUS 1 LITER, THEN RECHECK ORTHOSTATS. D/C LISINOPRIL
[2017-11-07] MEDS: Latanoprost 0.005% 1 Bottle 1 DRP EACH EYE (21:21)
[2017-11-08] MEDS: Senna/Docusate Sodium 1 Tablet 2 TABLET PO (06:03)
[2017-11-08] MEDS: Acetaminophen 500 MG Tablet 1000 MG PO ×3 (06:03→21:07)
[2017-11-08] MEDS: Enoxaparin 30 MG/0.3 ML Syringe SC (06:04)
[2017-11-08] MEDS: BETHANECHOL CHLORIDE 25 MG TABLET PO ×3 (06:04→21:07)
[2017-11-08] MEDS: LORazepam 0.5 MG Tablet 0.25 MG PO ×3 (06:04→21:06)
[2017-11-08] MEDS: Pantoprazole Sodium 20 MG Tablet PO (06:04)
[2017-11-08 07:11] VITALS: O2SAT 96
[2017-11-08] MEDS: Iron Polysaccharide Complex 150 MG CAPSULE PO (08:10)
[2017-11-08 10:55] VITALS: BP 123/77; BP 125/102; BP 129/52; PULSE 101; PULSE 62; PULSE 83
[2017-11-08] MEDS: 0.9% Normal Saline 1,000 ML 999 ML IV (13:27)
[2017-11-08] MEDS: oxyCODONE 5 MG Tablet 10 MG PO (15:10)
[2017-11-08 15:36] VITALS: BP 165/72; PULSE 92; RESP 24; TEMP 36.7; O2SAT 97
--- NOTE | 2017-11-08 16:53 | NURSING ---
Dr. Rojo here to see pt
[2017-11-08] MEDS: Tamsulosin HCl 0.4 MG Capsule PO (16:59)
[2017-11-08] MEDS: Latanoprost 0.005% 1 Bottle 1 DRP EACH EYE (21:09)
[2017-11-09] MEDS: Pantoprazole Sodium 20 MG Tablet PO (05:43)
[2017-11-09] MEDS: Acetaminophen 500 MG Tablet 1000 MG PO ×3 (05:43→21:52)
[2017-11-09] MEDS: BETHANECHOL CHLORIDE 25 MG TABLET PO ×3 (05:43→21:53)
[2017-11-09] MEDS: LORazepam 0.5 MG Tablet 0.25 MG PO ×3 (05:43→21:49)
[2017-11-09] MEDS: Senna/Docusate Sodium 1 Tablet 2 TABLET PO ×2 (05:43→17:10)
[2017-11-09] MEDS: Enoxaparin 30 MG/0.3 ML Syringe SC (05:49)
[2017-11-09 06:37] VITALS: O2SAT 95
--- NOTE | 2017-11-09 07:33 | NURSING ---
Per orders, Patient's gregory d/c'd at this time. Patient tolerated procedure well.
--- NOTE | 2017-11-09 08:20 | PCM.PN.ORT ---
Patient Problems: Active and Suspected Problems Urinary retention (Acute) Vitamin D deficiency (Acute) Right clavicle fracture (Acute) Closed right hip fracture (Acute) Fall (Acute) Subjective: Patient with questionable right hip erythema called by nursing staff for evaluation. Patient is status post right cephalo-medullary hip nailing for displaced inotropic and has ipsilateral clavicle fracture as well. Patient states no pain or fevers chills or other than normal postop pain she has clavicle pain but is not wearing her sling as she states it does not help her actually gets in her way of doing activities. She is having less pain in her clavicle. She has no shortness of breath chest pain fevers chills or other constitutional symptoms. - Physical Exam General: Alert, Oriented x3, Cooperative HEENT: Atraumatic, PERRLA, EOMI, Normocephalic Neck: Supple, No JVD, Negative Carotid Bruits Lungs: Clear to auscultation, Normal air movement Cardiovascular: Regular rate, No murmurs Abdomen: Bowel Sounds Present, Soft, Non Tender Extremities: No edema, Capillary Refill Less than 3 Seconds Skin: No rashes, No breakdown, Incision - Dry and intact no signs of infection no hematoma no fluctuance no erythema Musculoskeletal: Tenderness - Right clavicle, no fluctuance negative Homans no calf pain compartment soft sensation grossly intact active range of motion passive range of motion in ankle intact, Neurological: Cranial nerves II-XII grossly intact Psych/Mental Status: Normal Affect, Appropriate Vital Signs Temp Pulse Resp BP Pulse Ox 98.0 F 92 24 H 165/72 H 97 11/08/17 15:36 11/08/17 15:36 11/08/17 15:36 11/08/17 15:36 11/08/17 15:36 Oxygen Delivery Method Room Air Weight: 108 lb 0.424 oz Body Mass Index (BMI) 18.8 Orthostatic Vital Signs Start: 11/08/17 10:02 Freq: q24h Status: Active Protocol: Activity Type Activity Date Activity User E-Sign Co-Sign Detail Recorded Client Recorded Date Recorded By Document 11/08/17 10:55 MJM [id number] 11/08/17 12:01 MJM 11/08/17 10:55 Orthostatic Vitals Standing -Blood Pressure (90/60-120/80) 125/102 H -Extremity Use Left Arm -Pulse Rate (60-100) 62 Sitting -Blood Pressure (90/60-120/80) 123/77 H -Extremity Use Left Arm -Pulse Rate (60-100) 101 H Lying -Blood Pressure (90/60-120/80) 129/52 H -Extremity Use Left Arm -Pulse Rate (60-100) 83 Intake and Output for Last 24 Hours 11/07/17 11/08/17 11/09/17 23:59 23:59 23:59 Intake Total 540 / 540 700 / 700 Output Total 1750 / 1750 1650 / 1650 550 / 550 Balance -1210 / -1210 -950 / -950 -550 / -550 Assessment/Plan Active and Suspected Problems Urinary retention (Acute) Vitamin D deficiency (Acute) Right clavicle fracture (Acute) Closed right hip fracture (Acute) Fall (Acute) Status post right cephalo-medullary nailing for hip in her troches fracture and has ipsilateral displaced clavicle fracture. She is treated nonoperatively for her right clavicle fracture is actually an acute on chronic fracture. She is doing well but she still to be nonweightbearing right upper extremity, she is also has a displaced intertrochanteric tree with cephalo-medullary nailing and she is doing well from that standpoint. She is up walking she has no signs of infection she has neurovascularly intact and doing well from a postop standpoint next Follow-up in her routine 2 week postop check jose j at that time she still the TCU will see her here Follow-up with her call me with any increased pain numbness tingling further issues arise [phone] This note was generated with [employer] software. It may contain incorrect words, spelling, and punctuation that were not noted in checking the note before signing.
[2017-11-09] MEDS: Iron Polysaccharide Complex 150 MG CAPSULE PO (09:10)
[2017-11-09] MEDS: oxyCODONE 5 MG Tablet 10 MG PO ×3 (11:13→21:52)
[2017-11-09] MEDS: Albuterol 2.5 MG/3 ML VIAL.NEB. INHALATION (11:39)
[2017-11-09 11:40] VITALS: PULSE 92; RESP 18; O2SAT 94
--- NOTE | 2017-11-09 12:52 | CASEMGMT ---
Insurance Continued stay approved with next update due on 11/14/17. Auth#[id number] Yoselin ZAIDI, PEDODONTIST
[2017-11-09 16:00] VITALS: BP 142/50; PULSE 95; RESP 16; TEMP 37.2; O2SAT 96
[2017-11-09] MEDS: Tamsulosin HCl 0.4 MG Capsule PO (17:11)
--- NOTE | 2017-11-09 18:49 | NURSING ---
Addendum entered by Flor Lizarraga 11/09/17 22:11: Dr. Verma notified of patient not wanting to be straight cathed and the difficulty of straight catheing patient. Patient still does not have to urge to void. Orders given to reinsert gregory. Original Note: Pt has not urinated since catheter removed at 0730. Bladder scan shows 300mL, patient has no complaints of pressure, fullness or discomfort. Unable to urinate on BSC. Refusing to be straight cathed. Dr. Verma made aware, nno. Continue to monitor.
[2017-11-09] MEDS: Latanoprost 0.005% 1 Bottle 1 DRP EACH EYE (21:55)
[2017-11-10] MEDS: LORazepam 0.5 MG Tablet 0.25 MG PO ×3 (05:51→21:08)
[2017-11-10] MEDS: Acetaminophen 500 MG Tablet 1000 MG PO ×3 (05:53→21:07)
[2017-11-10] MEDS: BETHANECHOL CHLORIDE 25 MG TABLET PO ×3 (05:54→21:06)
[2017-11-10] MEDS: Polyethylene Glycol 3350 17 GM PACKET PO (05:55)
[2017-11-10] MEDS: Senna/Docusate Sodium 1 Tablet 2 TABLET PO ×2 (05:55→17:37)
[2017-11-10] MEDS: Enoxaparin 30 MG/0.3 ML Syringe SC (05:55)
[2017-11-10] MEDS: Pantoprazole Sodium 20 MG Tablet PO (05:56)
[2017-11-10] MEDS: Iron Polysaccharide Complex 150 MG CAPSULE PO (08:27)
[2017-11-10] MEDS: oxyCODONE 5 MG Tablet 10 MG PO ×3 (08:32→21:46)
--- NOTE | 2017-11-10 11:08 | CASEMGMT ---
Social Work BIMS and PHQ9 interview completed for MDS assessment. BIMS score 13/15. PHQ9 score 10/27. Throughout interview pt stating that she does want to get well and return home but that she cannot find the motivation to participate with therapy or get out of bed. Pt confirms that she is feeling depressed and bad about her situation. She states her family is supportive of her and attempts to motivate her which she appreciates, however she does not find this is helpful in overcoming her feelings or actions. Reviewed with pt different coping skills. Pt states she has not been on anti depressants in the past. SW spoke with RN and discussed pt mood. RN to discuss with Dr. Verma. DEJUAN Carmen
--- NOTE | 2017-11-10 14:52 | NURSING ---
Dr. Verma updated that pt is stating that she is depressed, N.O. for Lexapro daily, pt aware.
--- NOTE | 2017-11-10 15:28 | MDS.RN ---
Pain interview for ANUPAM 11/11/17 completed.
[2017-11-10 16:06] VITALS: BP 147/73; PULSE 89; RESP 16; TEMP 36.4; O2SAT 97
[2017-11-10] MEDS: Tamsulosin HCl 0.4 MG Capsule PO (17:38)
[2017-11-10] MEDS: 0.9% Saline Lock 10 ML Syringe IV (17:39)
--- NOTE | 2017-11-10 17:47 | NURSING ---
NO BM IN THREE DAYS. OFFERED R/S. WANTS TO WAIT UNTIL AM.
[2017-11-10] MEDS: Bisacodyl 5 MG Tablet 10 MG PO (19:43)
[2017-11-10] MEDS: Latanoprost 0.005% 1 Bottle 1 DRP EACH EYE (21:08)
[2017-11-11] MEDS: LORazepam 0.5 MG Tablet 0.25 MG PO ×3 (06:38→21:05)
[2017-11-11] MEDS: Enoxaparin 30 MG/0.3 ML Syringe SC (06:39)
[2017-11-11] MEDS: Escitalopram Oxalate 10 MG Tablet PO (06:39)
[2017-11-11] MEDS: BETHANECHOL CHLORIDE 25 MG TABLET PO ×3 (06:39→21:08)
[2017-11-11] MEDS: Senna/Docusate Sodium 1 Tablet 2 TABLET PO ×2 (06:39→17:48)
[2017-11-11] MEDS: Pantoprazole Sodium 20 MG Tablet PO (06:39)
[2017-11-11] MEDS: Acetaminophen 500 MG Tablet 1000 MG PO ×3 (06:40→21:08)
[2017-11-11] MEDS: Iron Polysaccharide Complex 150 MG CAPSULE PO (08:30)
[2017-11-11] MEDS: oxyCODONE 5 MG Tablet 10 MG PO ×3 (08:38→21:05)
[2017-11-11 15:38] VITALS: BP 161/62; PULSE 83; RESP 16; TEMP 37.1; O2SAT 95
[2017-11-11] MEDS: Tamsulosin HCl 0.4 MG Capsule PO (17:48)
--- NOTE | 2017-11-11 18:30 | NURSING ---
daughter concerned regarding odorous and cloudy urine. Pierce tubing with white sediment. pt denies issues. New order to check UA.
[2017-11-11] MEDS: Latanoprost 0.005% 1 Bottle 1 DRP EACH EYE (21:07)
[2017-11-11 22:13] LABS: Color, Urine Yellow (Yellow); Glucose, Dipstick Normal (Normal); Ketone-Dipstick Negative (Negative); Leukocyte Esterase-Dipstick 500 /ul (Negative); Nitrite-Dipstick Positive (Negative); Occult Blood-Urine 150 /ul (Negative); Protein-Dipstick 30 mg/dl (Negative); Urine Bilirubin Dipstick Negative (Negative); Urine Clarity Cloudy (Clear); Urine Urobilinogen Normal (Normal)
[2017-11-11 22:26] LABS: White Blood Cells >100 SEEN /hpf (0-5)
[2017-11-11 22:29] LABS: Bacteria 4+ /hpf (None Seen); Mucous, Urine RARE /hpf (<or=2+); Red Blood Cells-Urine 0-5 SEEN /hpf (0-5); Squamous Epithelial Cells - UA 0-5 SEEN /hpf (5-10)
--- NOTE | 2017-11-11 23:09 | NURSING ---
Dr Verma aware of UA. Vu Santillan and culture.
[2017-11-11] MEDS: Cefadroxil 500 MG CAPSULE PO (23:20)
[2017-11-12 06:29] LABS: Absolute Lymphocyte Count 1.32 X10^3/ul (0.83-4.51); Absolute Neutrophil Count 4.1 X10^3/uL (2.0-7.7); Basophil# 0.01 X10^3/uL; Basophil% 0.2 % (0-1); Eosinophil# 0.09 X10^3/uL; Eosinophils% 1.5 % (0-5); Hematocrit 26.8 % (37-47); Hemoglobin 8.5 g/dl (12.0-15.0); Lymphocyte # 1.32 X10^3/ul (4.0); Lymphocyte % 22.5 % (19-41); Mean Corp Hgb Conc 31.7 g/gl (32-36); Mean Corpuscular Hgb 31.3 pg (27.0-32.0); Mean Corpuscular Volume 98.5 fL (81-99); Mean Platelet Vol. 8.8 fl (6.2-12.0); Monocyte# 0.34 X10^3/uL; Monocyte% 5.8 % (0-10); Neutrophil # 4.08 X10^3/uL (2.7-7.7); Neutrophil % 69.5 % (47-70); Platelet Count 545 K/mm3 (150-450); RBC Distribution Width CV 17.3 % (11.6-14.6); RBC Distribution Width SD 58.4 fl (35.1-43.9); Red Blood Count 2.72 M/mm3 (4.2-5.4); White Blood Count 5.9 K/mm3 (4.4-11.0)
[2017-11-12 06:34] LABS: POSITIVE COUNT NO; POSITIVE DIFFERENTIAL NO; POSITIVE MORPHOLOGY NO
[2017-11-12] MEDS: LORazepam 0.5 MG Tablet 0.25 MG PO ×3 (06:35→21:02)
[2017-11-12] MEDS: Escitalopram Oxalate 10 MG Tablet PO (06:36)
[2017-11-12] MEDS: Polyethylene Glycol 3350 17 GM PACKET PO (06:36)
[2017-11-12] MEDS: Acetaminophen 500 MG Tablet 1000 MG PO ×3 (06:36→21:01)
[2017-11-12] MEDS: Pantoprazole Sodium 20 MG Tablet PO (06:36)
[2017-11-12] MEDS: BETHANECHOL CHLORIDE 25 MG TABLET PO ×3 (06:36→21:01)
[2017-11-12] MEDS: Senna/Docusate Sodium 1 Tablet 2 TABLET PO ×2 (06:36→17:08)
[2017-11-12] MEDS: Enoxaparin 30 MG/0.3 ML Syringe SC (06:37)
[2017-11-12] MEDS: Cefadroxil 500 MG CAPSULE PO ×2 (06:38→17:08)
[2017-11-12 06:40] LABS: Anion Gap 8 (5-15); BUN 14 mg/dL (7-18); BUN/Creat Ratio 28.3 RATIO (10-20); Calcium,Total 8.6 mg/dL (8.5-10.1); Chloride 104 mmol/L (98-107); Creatinine, Serum 0.49 mg/dL (0.55-1.02); EST Glomerular Filtration Rate 127 mL/min (>60); Est Glom Filt Rate - Afr Amer 154 mL/min (>60); Estimated Creatinine Clearance 33.55 ml/min; Glucose 98 mg/dL (70-110); Potassium 4.1 mmol/L (3.5-5.1); Sodium Level 137 mmol/L (136-145)
[2017-11-12] MEDS: Iron Polysaccharide Complex 150 MG CAPSULE PO (08:27)
[2017-11-12] MEDS: Bisacodyl 5 MG Tablet 10 MG PO (08:27)
[2017-11-12] MEDS: Tuberculin,Purif.prot.deriv. 50 TU/ML Vial 5 ML ID (11:39)
[2017-11-12 16:00] VITALS: BP 152/55; PULSE 80; RESP 16; TEMP 37.1; O2SAT 93
[2017-11-12] MEDS: Tamsulosin HCl 0.4 MG Capsule PO (17:08)
[2017-11-12] MEDS: Latanoprost 0.005% 1 Bottle 1 DRP EACH EYE (21:01)
[2017-11-12] MEDS: oxyCODONE 5 MG Tablet 10 MG PO (21:01)
[2017-11-13] MEDS: LORazepam 0.5 MG Tablet 0.25 MG PO ×3 (06:42→20:47)
[2017-11-13] MEDS: Polyethylene Glycol 3350 17 GM PACKET PO (06:43)
[2017-11-13] MEDS: Senna/Docusate Sodium 1 Tablet 2 TABLET PO ×2 (06:43→17:58)
[2017-11-13] MEDS: Enoxaparin 30 MG/0.3 ML Syringe SC (06:43)
[2017-11-13] MEDS: Acetaminophen 500 MG Tablet 1000 MG PO ×3 (06:43→20:47)
[2017-11-13] MEDS: Pantoprazole Sodium 20 MG Tablet PO (06:43)
[2017-11-13] MEDS: Cefadroxil 500 MG CAPSULE PO ×2 (06:44→17:58)
[2017-11-13] MEDS: BETHANECHOL CHLORIDE 25 MG TABLET PO ×3 (06:44→20:47)
[2017-11-13] MEDS: Escitalopram Oxalate 10 MG Tablet PO (06:44)
--- NOTE | 2017-11-13 07:46 | NURSING ---
Pt abd distended. Pt c/o discomfort to abd. Pt inserted fingers into rectum. Will update Dr Verma.
[2017-11-13] MEDS: Iron Polysaccharide Complex 150 MG CAPSULE PO (08:59)
[2017-11-13] MEDS: oxyCODONE 5 MG Tablet 10 MG PO ×2 (09:06→18:03)
--- NOTE | 2017-11-13 15:49 | NURSING ---
Dr. Huang will be in to see patient on Monday, patient and family aware.
[2017-11-13 16:00] VITALS: BP 155/67; PULSE 82; RESP 16; TEMP 36.9; O2SAT 93
[2017-11-13] MEDS: Tamsulosin HCl 0.4 MG Capsule PO (17:58)
--- NOTE | 2017-11-13 18:42 | NURSING ---
Addendum entered by [place] Malloy 11/13/17 18:47: Dr. Byaron maldonado, NNO, continue to monitor. Fluids encouraged. Original Note: Patient having dizziness with therapy. Orthos: laying-157/65, sitting-128/65, standing- 103/54
[2017-11-13] MEDS: Latanoprost 0.005% 1 Bottle 1 DRP EACH EYE (20:47)
--- NOTE | 2017-11-13 22:59 | NURSING ---
Dr Verma aware of final urine culture. N.N.O.
[2017-11-14] MEDS: oxyCODONE 5 MG Tablet 10 MG PO ×2 (06:10→22:13)
[2017-11-14] MEDS: Senna/Docusate Sodium 1 Tablet 2 TABLET PO ×2 (06:11→17:53)
[2017-11-14] MEDS: LORazepam 0.5 MG Tablet 0.25 MG PO ×3 (06:11→22:12)
[2017-11-14] MEDS: Polyethylene Glycol 3350 17 GM PACKET PO (06:11)
[2017-11-14] MEDS: Pantoprazole Sodium 20 MG Tablet PO (06:12)
[2017-11-14] MEDS: Acetaminophen 500 MG Tablet 1000 MG PO ×3 (06:12→22:13)
[2017-11-14] MEDS: BETHANECHOL CHLORIDE 25 MG TABLET PO ×3 (06:12→22:13)
[2017-11-14] MEDS: Enoxaparin 30 MG/0.3 ML Syringe SC (06:12)
[2017-11-14] MEDS: Escitalopram Oxalate 10 MG Tablet PO (06:12)
[2017-11-14] MEDS: Cefadroxil 500 MG CAPSULE PO ×2 (06:12→17:52)
[2017-11-14] MEDS: Iron Polysaccharide Complex 150 MG CAPSULE PO (09:23)
[2017-11-14] MEDS: Gabapentin 100 MG Capsule PO (09:23)
--- NOTE | 2017-11-14 11:34 | NURSING ---
DR CURRY NOTIFIED THAT THERAPY IS ASKING AGAIN WHAT TO DO ABOUT PT ORTHOSTATIC HYPOTENSION. THERAPY STATES THEY DON'T GET TOO FAR W/PT D/T LIGHTHEADEDNESS AND FEELING LIKE SHE'S GOING TO PASS OUT. NEW ORDER RECEIVED FOR CANDIDO.
--- NOTE | 2017-11-14 13:48 | CASEMGMT ---
Insurance Clinical information faxed. Pending continued stay approval at this time. Auth#[id number] Yoselin ZAIDI, SOLUTIONS ARCHITECT
[2017-11-14 16:18] VITALS: BP 152/81; PULSE 86; RESP 18; TEMP 37; O2SAT 93
--- NOTE | 2017-11-14 17:11 | PCA ---
went into patients room at 16:55 to ask patient if she wanted up in her chair for dinner, family member was present in room patient refused the offer, said that she was up for lunch
--- NOTE | 2017-11-14 17:51 | NURSING ---
When asked if she has pain she nods her head No and states not too much.
[2017-11-14] MEDS: Tamsulosin HCl 0.4 MG Capsule PO (17:52)
[2017-11-14] MEDS: Bisacodyl 5 MG Tablet 10 MG PO (17:55)
[2017-11-14] MEDS: Latanoprost 0.005% 1 Bottle 1 DRP EACH EYE (22:13)
[2017-11-15] MEDS: Cefadroxil 500 MG CAPSULE PO ×2 (06:35→17:41)
[2017-11-15] MEDS: Pantoprazole Sodium 20 MG Tablet PO (06:35)
[2017-11-15] MEDS: Acetaminophen 500 MG Tablet 1000 MG PO ×3 (06:35→22:11)
[2017-11-15] MEDS: Escitalopram Oxalate 10 MG Tablet PO (06:35)
[2017-11-15] MEDS: Senna/Docusate Sodium 1 Tablet 2 TABLET PO ×2 (06:35→17:41)
[2017-11-15] MEDS: BETHANECHOL CHLORIDE 25 MG TABLET PO ×3 (06:35→22:11)
[2017-11-15] MEDS: Polyethylene Glycol 3350 17 GM PACKET PO (06:35)
[2017-11-15] MEDS: LORazepam 0.5 MG Tablet 0.25 MG PO ×3 (06:36→22:10)
[2017-11-15] MEDS: Enoxaparin 30 MG/0.3 ML Syringe SC (06:36)
[2017-11-15] MEDS: Fludrocortisone Acetate 0.1 MG Tablet PO (08:44)
[2017-11-15] MEDS: Iron Polysaccharide Complex 150 MG CAPSULE PO (08:44)
[2017-11-15 08:48] VITALS: BP 132/59; PULSE 79
--- NOTE | 2017-11-15 09:00 | NURSING ---
DR TEMPLETON IN THIS AM AND WANTS PT TO HAVE PET SCAN DONE TO R/O CANCER. PT DECLINED CHEMOTHERAPY. WILL GET PREAUTH FROM INSURANCE.
--- NOTE | 2017-11-15 09:28 | CON.PCM_ITS ---
Reason for Consult Date of Consultation: 11/15/17 History of Present Illness: The patient is a 82 year old F with copd now with nodule in chest pt [place] w[place] [address] [place]. pt had small r sided nodules then f/u x ray here at [facility] for hip fx showed lesions are larger pt had no sx. pt has no cough, hemopt, wheeze, chest pain, wt loss ct fu shows larger lesions in r chest over 3 yr period[] Past Medical History Past Medical History (Chronic Problems): Chronic Problems Macular degeneration (Chronic) Mass of right lung (Chronic) enlarging since CT scan in 2014 Tobacco abuse (Chronic) Anxiety (Chronic) Hypertension (Chronic) Neuropathic pain (Chronic) Glaucoma (Chronic) Compression fracture of thoracic vertebra (Chronic) Compression fracture of lumbar vertebra (Chronic) Osteoporosis (Chronic) Allergies acetaminophen [From Percocet] Adverse Reaction (Verified 11/03/17 19:12) Itching oxycodone [From Percocet] Adverse Reaction (Verified 11/03/17 19:12) Itching Home Medications: Ambulatory Orders Medication Instructions Recorded Budesonide/Formoterol 160/4.5 2 puff INHALATION BID 08/05/14 [Symbicort 160/4.5 Mcg Inhaler (SP)] Lisinopril [Zestril] 5 mg PO BID 08/05/14 Lorazepam 0.25 mg PO TID 08/05/14 Tiotropium [place] [Spiriva] 1 puff INHALATION DAILY 08/05/14 Ergocalciferol [Vitamin D] 50,000 unit PO JOSE 10/31/17 Gabapentin [Neurontin] 100 mg PO TID PRN 10/31/17 Peg 400/Hypromellose/Glycerin 1 drop EACH EYE Q1H PRN 10/31/17 [Artificial Tears Drops] Travoprost 0.004% [Travatan-Z 1 drop EACHEYE DAILY 10/31/17 0.004% Eye Drop] Acetaminophen [Tylenol] 1,000 mg PO Q8H 11/04/17 Albuterol Aerosols [Ventolin 2.5 mg INHALATION Q2H PRN PRN 11/04/17 Aerosols] vial.neb. Bisacodyl [Dulcolax] 10 mg PO DAILY PRN PRN tablet 11/04/17 Enoxaparin [Lovenox] 40 mg SC DAILY@0600 11/04/17 Ensure Enlive 120 ml PO 4X/DAY 11/04/17 Latanoprost 0.005% [Xalatan 1 drop EACH EYE QHS 11/04/17 Opthalmic] Mag Hydrox/Al Hydrox/Simeth 30 ml PO Q6H PRN PRN udc 11/04/17 [Mylanta II] Magnesium Hydroxide [Milk Of 30 ml PO DAILY PRN PRN udc 11/04/17 Magnesia] Oxycodone [Oxyir] 5 mg PO Q4H PRN PRN #30 tablet 11/04/17 Pantoprazole Sodium [Protonix] 20 mg PO DAILY 11/04/17 Polyethylene Glycol 3350 [Miralax] 17 gm PO DAILY 11/04/17 Surgical History: cataract Psychiatric History: Anxiety MEDIA TRAFFIC MANAGER History: No pertinent MEDIA TRAFFIC MANAGER history Lives: Alone Smoking Status: Current every day smoker Tobacco Use: Cigarettes Alcohol: None Drugs: None - *Family History Maternal History Items: No pertinent history Paternal History Items: No pertinent history Review of Systems Constitutional: Denies: Chills, Fever, Weight Change HEENT: Denies: Head Aches, Sinus Congestion, Sinus Drainage Cardiovascular: Denies: Chest Pain, Palpitations Respiratory: Denies: Cough, Shortness of breath at rest, Sputum production Gastrointestinal: Denies: Abdominal Pain, Nausea, Vomiting Genitourinary: Denies: Dysuria Musculoskeletal: Denies: Joint Pain, Joint Tenderness Skin: Denies: Rash, Wounds Neurological: Denies: Numbness, Tingling, Focal weakness Psychiatric: Denies: Anxiety, Depression, Homicidal Ideations, Suicidal Ideations Hematologic/ Lymphatic: Denies: Easy Bruising, Easy Bleeding Patient Problems: Active and Suspected Problems Fall (Acute) Closed right hip fracture (Acute) Right clavicle fracture (Acute) Vitamin D deficiency (Acute) Urinary retention (Acute) - Physical Exam General: Alert, Oriented x3, Cooperative HEENT: Atraumatic, EOMI, Normocephalic Neck: Supple, No JVD, Negative Carotid Bruits Lungs: - - dec bs, no cough, no wheeze, long exp i to e 1-2 no rales no rhonchi, bruising of chest and r shoulder Cardiovascular: Regular rate, No murmurs Abdomen: Bowel Sounds Present, Soft, Non Tender Extremities: No edema, Capillary Refill Less than 3 Seconds, - - leg tender to palp Skin: No rashes, No breakdown Musculoskeletal: No Tenderness to Palpation of Joints or Extremities Neurological: Cranial nerves II-XII grossly intact Psych/Mental Status: Normal Affect, Appropriate Vital Signs Temp Pulse Resp BP Pulse Ox 98.6 F 79 18 132/59 H 93 11/14/17 16:18 11/15/17 08:48 11/14/17 16:18 11/15/17 08:48 11/14/17 16:18 Oxygen Delivery Method Room Air Weight: 49 kg Body Mass Index (BMI) 18.8 Orthostatic Vital Signs Start: 11/08/17 10:02 Freq: Status: Active Protocol: Activity Type Activity Date Activity User E-Sign Co-Sign Detail Recorded Client Recorded Date Recorded By Document 11/08/17 10:55 MJM [id number] 11/08/17 12:01 MJM 11/08/17 10:55 Orthostatic Vitals Standing -Blood Pressure (90/60-120/80) 125/102 H -Extremity Use Left Arm -Pulse Rate (60-100) 62 Sitting -Blood Pressure (90/60-120/80) 123/77 H -Extremity Use Left Arm -Pulse Rate (60-100) 101 H Lying -Blood Pressure (90/60-120/80) 129/52 H -Extremity Use Left Arm -Pulse Rate (60-100) 83 Intake and Output for Last 24 Hours 11/13/17 11/14/17 11/15/17 23:59 23:59 23:59 Intake Total 940 / 940 720 / 720 Output Total 1850 / 1850 800 / 800 300 / 300 Balance -910 / -910 -80 / -80 -300 / -300 Microbiology Past 72 Hours 11/11/17 22:00 Urine Culture - Final Urine, Catheterized Escherichia coli Assessment/Plan Active and Suspected Problems Fall (Acute) Closed right hip fracture (Acute) Right clavicle fracture (Acute) Vitamin D deficiency (Acute) Urinary retention (Acute) copd, fx hip, nodules pt has enlargement of nodules she has no interest in chemo or radiation pt may have two primaries as both lesions are enlarging non ca is in ddx as well recommended course PET scan. IF neg then no further w/u If pos and no rx then inform pt Discussed SBRT as an option but out of town rx is needed. Pt will decide on pet scan cont w/ advair. avoid flu contacts nebs of alb as needed.
--- NOTE | 2017-11-15 10:42 | NURSING ---
Dr Verma aware final culture results. no new orders
--- NOTE | 2017-11-15 12:09 | NURSING ---
therapy reported blood pressures sitting 152/75-78 and standing 109/54-90
[2017-11-15] MEDS: oxyCODONE 5 MG Tablet 10 MG PO ×2 (12:12→19:53)
--- NOTE | 2017-11-15 13:40 | CASEMGMT ---
Insurance Continued stay approved with next update due on 11/20/17. Auth#[id number] Yoselin ZAIDI, FIBERGLASS CONTAINER WINDING OPERATOR
--- NOTE | 2017-11-15 13:47 | CASEMGMT ---
Plan of care meeting held. Resident present as well as resident family. No discharge date set at this time. Resident plans to continue with further care and treatment on the Transitional Care Unit. Resident plans to discharge home with daughter at time of discharge. Resident next insurance update is due on 11/20/17. Will continue to follow. Yoselin ZAIDI, BOILER HOUSE SUPERVISOR
--- NOTE | 2017-11-15 15:49 | CHAPLAIN ---
Type of Pastoral Visit _x__ Initial Visit ___ Follow-up Visit ___ On-call Visit ___ General Patient Visit ___ Spiritual Assessment ___ Family Conference ___ Bereavement ___ Rapid Response ___ Code Blue ___ Other (describe below) Pastoral Care Referral From _x__ Patient ___ Family ___ Nurse ___ Physician ___ Litigation Examiner ___ Behavioral Health Professional ___ Other (describe below) Sacrament/Intervention _x__ Active listening ___ Anointing ___ Christianity ___ Bereavement ___ Communion ___ Ute exploration ___ ___ Life review _x__ Prayer ___ Reconciliation ___ Sacrament of Sick ___ Supportive presence ___ Wedding ___ Other (describe below) Pastoral Comments
[2017-11-15 16:00] VITALS: BP 135/67; PULSE 82; RESP 16; TEMP 36.8; O2SAT 95
[2017-11-15] MEDS: Tamsulosin HCl 0.4 MG Capsule PO (17:41)
[2017-11-15] MEDS: Latanoprost 0.005% 1 Bottle 1 DRP EACH EYE (22:12)
[2017-11-16] MEDS: Pantoprazole Sodium 20 MG Tablet PO (06:37)
[2017-11-16] MEDS: Enoxaparin 30 MG/0.3 ML Syringe SC (06:37)
[2017-11-16] MEDS: Escitalopram Oxalate 10 MG Tablet PO (06:37)
[2017-11-16] MEDS: Senna/Docusate Sodium 1 Tablet 2 TABLET PO ×2 (06:37→16:59)
[2017-11-16] MEDS: Acetaminophen 500 MG Tablet 1000 MG PO ×3 (06:37→22:07)
[2017-11-16] MEDS: Cefadroxil 500 MG CAPSULE PO ×2 (06:37→16:59)
[2017-11-16] MEDS: BETHANECHOL CHLORIDE 25 MG TABLET PO ×3 (06:37→22:07)
[2017-11-16] MEDS: LORazepam 0.5 MG Tablet 0.25 MG PO ×3 (06:39→22:06)
[2017-11-16] MEDS: Fludrocortisone Acetate 0.1 MG Tablet PO (08:34)
[2017-11-16] MEDS: Iron Polysaccharide Complex 150 MG CAPSULE PO (08:34)
[2017-11-16] MEDS: oxyCODONE 5 MG Tablet 10 MG PO ×2 (14:21→22:35)
[2017-11-16 16:00] VITALS: BP 142/65; PULSE 79; RESP 18; TEMP 36.8; O2SAT 94
[2017-11-16] MEDS: Tamsulosin HCl 0.4 MG Capsule PO (16:59)
[2017-11-16] MEDS: Latanoprost 0.005% 1 Bottle 1 DRP EACH EYE (22:07)
[2017-11-16 22:15] VITALS: PULSE 82; O2SAT 96
[2017-11-17] MEDS: LORazepam 0.5 MG Tablet 0.25 MG PO ×3 (06:42→21:26)
[2017-11-17] MEDS: Acetaminophen 500 MG Tablet 1000 MG PO ×3 (06:43→21:26)
[2017-11-17] MEDS: Polyethylene Glycol 3350 17 GM PACKET PO (06:43)
[2017-11-17] MEDS: Cefadroxil 500 MG CAPSULE PO ×2 (06:44→17:36)
[2017-11-17] MEDS: Enoxaparin 30 MG/0.3 ML Syringe SC (06:44)
[2017-11-17] MEDS: Escitalopram Oxalate 10 MG Tablet PO (06:44)
[2017-11-17] MEDS: BETHANECHOL CHLORIDE 25 MG TABLET PO ×3 (06:44→21:26)
[2017-11-17] MEDS: Pantoprazole Sodium 20 MG Tablet PO (06:45)
[2017-11-17] MEDS: Senna/Docusate Sodium 1 Tablet 2 TABLET PO ×2 (06:45→17:36)
[2017-11-17] MEDS: Fludrocortisone Acetate 0.1 MG Tablet PO (08:57)
[2017-11-17] MEDS: Iron Polysaccharide Complex 150 MG CAPSULE PO (08:57)
--- NOTE | 2017-11-17 12:35 | CASEMGMT ---
Brief interview for mental status (BIMS) and resident mood interview (PHQ-9) completed on this day. BIMS score 08/30. PHQ-9 score 01/09
--- NOTE | 2017-11-17 15:51 | NURSING ---
SOAP SUDS ENEMA GIVEN WITH LARGE RESULTS, LARGE GREEN/BLACK STOOL.
[2017-11-17 16:00] VITALS: BP 165/57; PULSE 84; RESP 18; TEMP 37; O2SAT 93
[2017-11-17] MEDS: Tamsulosin HCl 0.4 MG Capsule PO (17:36)
[2017-11-17] MEDS: oxyCODONE 5 MG Tablet 10 MG PO (21:26)
[2017-11-17] MEDS: Latanoprost 0.005% 1 Bottle 1 DRP EACH EYE (21:28)
[2017-11-18] MEDS: Polyethylene Glycol 3350 17 GM PACKET PO (06:17)
[2017-11-18] MEDS: Cefadroxil 500 MG CAPSULE PO ×2 (06:18→17:22)
[2017-11-18] MEDS: Enoxaparin 30 MG/0.3 ML Syringe SC (06:18)
[2017-11-18] MEDS: Pantoprazole Sodium 20 MG Tablet PO (06:18)
[2017-11-18] MEDS: Acetaminophen 500 MG Tablet 1000 MG PO ×3 (06:18→20:59)
[2017-11-18] MEDS: BETHANECHOL CHLORIDE 25 MG TABLET PO ×3 (06:18→21:00)
[2017-11-18] MEDS: Senna/Docusate Sodium 1 Tablet 2 TABLET PO ×2 (06:18→17:22)
[2017-11-18] MEDS: Escitalopram Oxalate 10 MG Tablet PO (06:19)
[2017-11-18] MEDS: LORazepam 0.5 MG Tablet 0.25 MG PO ×3 (06:26→20:59)
[2017-11-18] MEDS: Fludrocortisone Acetate 0.1 MG Tablet PO (09:33)
[2017-11-18] MEDS: Iron Polysaccharide Complex 150 MG CAPSULE PO (09:33)
[2017-11-18] MEDS: oxyCODONE 5 MG Tablet 10 MG PO ×2 (11:35→21:01)
[2017-11-18 15:36] VITALS: BP 135/58; PULSE 76; RESP 18; TEMP 36.8; O2SAT 94
[2017-11-18] MEDS: Tamsulosin HCl 0.4 MG Capsule PO (17:22)
[2017-11-18] MEDS: Latanoprost 0.005% 1 Bottle 1 DRP EACH EYE (21:04)
[2017-11-19] MEDS: Acetaminophen 500 MG Tablet 1000 MG PO ×3 (05:41→21:09)
[2017-11-19] MEDS: LORazepam 0.5 MG Tablet 0.25 MG PO ×3 (05:41→21:08)
[2017-11-19] MEDS: Senna/Docusate Sodium 1 Tablet 2 TABLET PO ×2 (05:42→17:35)
[2017-11-19] MEDS: Polyethylene Glycol 3350 17 GM PACKET PO (05:42)
[2017-11-19] MEDS: Cefadroxil 500 MG CAPSULE PO ×2 (05:42→17:34)
[2017-11-19] MEDS: BETHANECHOL CHLORIDE 25 MG TABLET PO ×3 (05:42→21:09)
[2017-11-19] MEDS: Escitalopram Oxalate 10 MG Tablet PO (05:42)
[2017-11-19] MEDS: Pantoprazole Sodium 20 MG Tablet PO (05:43)
[2017-11-19] MEDS: Enoxaparin 30 MG/0.3 ML Syringe SC (05:47)
[2017-11-19 07:58] LABS: Absolute Lymphocyte Count 0.99 X10^3/ul (0.83-4.51); Absolute Neutrophil Count 2.6 X10^3/uL (2.0-7.7); Basophil# 0.01 X10^3/uL; Basophil% 0.2 % (0-1); Eosinophil# 0.06 X10^3/uL; Eosinophils% 1.5 % (0-5); Hematocrit 31.2 % (37-47); Hemoglobin 9.7 g/dl (12.0-15.0); Lymphocyte # 0.99 X10^3/ul (4.0); Lymphocyte % 24.1 % (19-41); Mean Corp Hgb Conc 31.1 g/gl (32-36); Mean Corpuscular Hgb 31.3 pg (27.0-32.0); Mean Corpuscular Volume 100.6 fL (81-99); Mean Platelet Vol. 8.8 fl (6.2-12.0); Monocyte# 0.42 X10^3/uL; Monocyte% 10.2 % (0-10); Neutrophil # 2.62 X10^3/uL (2.7-7.7); Platelet Count 436 K/mm3 (150-450); RBC Distribution Width CV 17.8 % (11.6-14.6); RBC Distribution Width SD 65.8 fl (35.1-43.9); White Blood Count 4.1 K/mm3 (4.4-11.0)
[2017-11-19 08:01] LABS: Differential Indicated SCAN CRITERIA MET; POSITIVE COUNT NO; POSITIVE DIFFERENTIAL NO; POSITIVE MORPHOLOGY YES
[2017-11-19 08:06] LABS: Anion Gap 7 (5-15); BUN 13 mg/dL (7-18); BUN/Creat Ratio 23.5 RATIO (10-20); Calcium,Total 8.8 mg/dL (8.5-10.1); Chloride 105 mmol/L (98-107); Creatinine, Serum 0.55 mg/dL (0.55-1.02); EST Glomerular Filtration Rate 112 mL/min (>60); Est Glom Filt Rate - Afr Amer 135 mL/min (>60); Estimated Creatinine Clearance 33.55 ml/min; Glucose 108 mg/dL (74-106); Potassium 4.2 mmol/L (3.5-5.1); Sodium Level 139 mmol/L (136-145)
[2017-11-19 09:08] LABS: Anisocytosis 1+; Differential Comment SCAN; Hypochromasia 1+; Microcytosis 1+; Polychromasia 1+
[2017-11-19] MEDS: Fludrocortisone Acetate 0.1 MG Tablet PO (09:13)
[2017-11-19] MEDS: Iron Polysaccharide Complex 150 MG CAPSULE PO (09:14)
[2017-11-19] MEDS: oxyCODONE 5 MG Tablet 10 MG PO (13:58)
[2017-11-19 14:00] VITALS: RESP 18
[2017-11-19 15:46] VITALS: BP 157/71; PULSE 69; RESP 18; TEMP 36.8; O2SAT 94
[2017-11-19] MEDS: Tamsulosin HCl 0.4 MG Capsule PO (17:34)
[2017-11-19] MEDS: Latanoprost 0.005% 1 Bottle 1 DRP EACH EYE (21:10)
[2017-11-20] MEDS: LORazepam 0.5 MG Tablet 0.25 MG PO ×3 (05:32→21:20)
[2017-11-20] MEDS: Senna/Docusate Sodium 1 Tablet 2 TABLET PO ×2 (05:33→16:39)
[2017-11-20] MEDS: BETHANECHOL CHLORIDE 25 MG TABLET PO ×3 (05:33→21:20)
[2017-11-20] MEDS: Escitalopram Oxalate 10 MG Tablet PO (05:33)
[2017-11-20] MEDS: Pantoprazole Sodium 20 MG Tablet PO (05:33)
[2017-11-20] MEDS: Acetaminophen 500 MG Tablet 1000 MG PO ×3 (05:33→21:20)
[2017-11-20] MEDS: Cefadroxil 500 MG CAPSULE PO ×2 (05:35→16:39)
[2017-11-20] MEDS: Enoxaparin 30 MG/0.3 ML Syringe SC (05:35)
[2017-11-20] MEDS: Iron Polysaccharide Complex 150 MG CAPSULE PO (08:01)
[2017-11-20] MEDS: Fludrocortisone Acetate 0.1 MG Tablet PO (08:01)
--- NOTE | 2017-11-20 10:43 | NURSING ---
Addendum entered by Suzanne Bowers 11/21/17 11:44: Office returned call with order for hip xray and NWB rt shoulder x6 weeks, sling for 6 weeks from injury Original Note: Notified Dr Rojo's office regarding family requesting about xrays of hip. Therapy also wanting to know wt bearing status to RT shoulder and sling order. Pt has been refusing to wear sling. Dr Rojo out of office today but will address it 11/21/17 and call us back with orders.
--- NOTE | 2017-11-20 12:45 | CASEMGMT ---
Insurance Clinical information faxed. Pending continued stay approval at this time. Auth#[id number] Yoselin ZAIDI, QUALITY CONTROL CLERK
[2017-11-20] MEDS: oxyCODONE 5 MG Tablet 10 MG PO ×2 (13:42→20:06)
[2017-11-20 15:26] VITALS: BP 136/69; PULSE 69; RESP 18; TEMP 37.1; O2SAT 95
[2017-11-20] MEDS: Tamsulosin HCl 0.4 MG Capsule PO (16:39)
[2017-11-20 20:09] VITALS: O2SAT 97
[2017-11-20] MEDS: Latanoprost 0.005% 1 Bottle 1 DRP EACH EYE (21:20)
[2017-11-21] MEDS: Enoxaparin 30 MG/0.3 ML Syringe SC (06:04)
[2017-11-21] MEDS: LORazepam 0.5 MG Tablet 0.25 MG PO ×3 (06:05→21:31)
[2017-11-21] MEDS: Senna/Docusate Sodium 1 Tablet 2 TABLET PO ×2 (06:05→16:45)
[2017-11-21] MEDS: Pantoprazole Sodium 20 MG Tablet PO (06:05)
[2017-11-21] MEDS: Acetaminophen 500 MG Tablet 1000 MG PO ×3 (06:05→21:31)
[2017-11-21] MEDS: Escitalopram Oxalate 10 MG Tablet PO (06:05)
[2017-11-21] MEDS: BETHANECHOL CHLORIDE 25 MG TABLET PO ×3 (06:05→21:32)
[2017-11-21] MEDS: Cefadroxil 500 MG CAPSULE PO ×2 (06:06→16:46)
[2017-11-21] MEDS: Fludrocortisone Acetate 0.1 MG Tablet PO (08:17)
[2017-11-21] MEDS: Iron Polysaccharide Complex 150 MG CAPSULE PO (08:17)
--- NOTE | 2017-11-21 11:41 | RAD_ITS ---
STUDY: X-RAY - PELVIS AND RIGHT HIP REASON FOR EXAM: Female, 82 years old. Follow-up of fracture. TECHNIQUE: Radiological exam, hip, unilateral, with pelvis when performed; 2 or 3 views. COMPARISON: November 01, 2017 FINDINGS: There is a non-specific bowel gas pattern. Normal visualized soft tissue structures. There is generalized osteopenia unchanged. The intramedullary ben with interlocking femoral head and neck nail is stable in appearance. The avulsion fracture of the lesser trochanter is stable. No complications are noted. RAD/Hip 2-3 Views with Pelvis IMPRESSION: Stable appearance of the proximal femoral fixation with no complications. Electronically Signed: Alex Kebede MD at 15:06 EST , Service support ,
[2017-11-21] MEDS: oxyCODONE 5 MG Tablet 10 MG PO ×2 (15:10→21:31)
[2017-11-21 15:17] VITALS: BP 139/66; PULSE 82; RESP 18; TEMP 36.6; O2SAT 93
[2017-11-21] MEDS: Tamsulosin HCl 0.4 MG Capsule PO (16:46)
[2017-11-21] MEDS: Latanoprost 0.005% 1 Bottle 1 DRP EACH EYE (21:32)
[2017-11-22] MEDS: BETHANECHOL CHLORIDE 25 MG TABLET PO ×3 (05:57→21:23)
[2017-11-22] MEDS: Pantoprazole Sodium 20 MG Tablet PO (05:57)
[2017-11-22] MEDS: Escitalopram Oxalate 10 MG Tablet PO (05:57)
[2017-11-22] MEDS: LORazepam 0.5 MG Tablet 0.25 MG PO ×3 (05:57→21:23)
[2017-11-22] MEDS: Acetaminophen 500 MG Tablet 1000 MG PO ×3 (05:57→21:23)
[2017-11-22] MEDS: Senna/Docusate Sodium 1 Tablet 2 TABLET PO (05:57)
[2017-11-22] MEDS: Enoxaparin 30 MG/0.3 ML Syringe SC (05:58)
--- NOTE | 2017-11-22 06:12 | NURSING ---
Stan was DC'd this AM per orders.
[2017-11-22] MEDS: Iron Polysaccharide Complex 150 MG CAPSULE PO (08:59)
[2017-11-22] MEDS: Fludrocortisone Acetate 0.1 MG Tablet PO (08:59)
--- NOTE | 2017-11-22 09:41 | CASEMGMT ---
Insurance Continued stay approved with next update due on11/27/17. Auth#[id number] Yoselin ZAIDI, HOTEL ADMINISTRATIVE ASSISTANT
[2017-11-22 16:00] VITALS: BP 155/68; PULSE 72; RESP 18; TEMP 36.9; O2SAT 93
[2017-11-22] MEDS: Tamsulosin HCl 0.4 MG Capsule PO (17:10)
[2017-11-22] MEDS: oxyCODONE 5 MG Tablet 10 MG PO (18:42)
[2017-11-22] MEDS: Latanoprost 0.005% 1 Bottle 1 DRP EACH EYE (21:24)
[2017-11-23] MEDS: Acetaminophen 500 MG Tablet 1000 MG PO ×3 (06:05→21:25)
[2017-11-23] MEDS: LORazepam 0.5 MG Tablet 0.25 MG PO ×3 (06:05→21:24)
[2017-11-23] MEDS: Enoxaparin 30 MG/0.3 ML Syringe SC (06:05)
[2017-11-23] MEDS: Escitalopram Oxalate 10 MG Tablet PO (06:05)
[2017-11-23] MEDS: Pantoprazole Sodium 20 MG Tablet PO (06:06)
[2017-11-23] MEDS: BETHANECHOL CHLORIDE 25 MG TABLET PO ×3 (06:06→21:25)
--- NOTE | 2017-11-23 06:55 | NURSING ---
Patient bladder scanned for 453. Patient states that she does not have the urge to void. Refusing to go to the bathroom at this time. Will continue to monitor and assess.
[2017-11-23] MEDS: Iron Polysaccharide Complex 150 MG CAPSULE PO (09:32)
[2017-11-23] MEDS: Fludrocortisone Acetate 0.1 MG Tablet PO (09:32)
[2017-11-23] MEDS: oxyCODONE 5 MG Tablet 10 MG PO (14:33)
[2017-11-23 15:50] VITALS: BP 130/59; PULSE 74; RESP 18; TEMP 37.2; O2SAT 95
[2017-11-23] MEDS: Tamsulosin HCl 0.4 MG Capsule PO (18:04)
[2017-11-23] MEDS: Senna/Docusate Sodium 1 Tablet 2 TABLET PO (18:04)
[2017-11-23] MEDS: Latanoprost 0.005% 1 Bottle 1 DRP EACH EYE (21:25)
[2017-11-24] MEDS: Escitalopram Oxalate 10 MG Tablet PO (07:04)
[2017-11-24] MEDS: Pantoprazole Sodium 20 MG Tablet PO (07:04)
[2017-11-24] MEDS: Enoxaparin 30 MG/0.3 ML Syringe SC (07:04)
[2017-11-24] MEDS: BETHANECHOL CHLORIDE 25 MG TABLET PO ×3 (07:04→21:10)
[2017-11-24] MEDS: Acetaminophen 500 MG Tablet 1000 MG PO ×3 (07:05→21:11)
[2017-11-24] MEDS: LORazepam 0.5 MG Tablet 0.25 MG PO ×3 (07:06→21:09)
[2017-11-24] MEDS: Fludrocortisone Acetate 0.1 MG Tablet PO (08:47)
[2017-11-24] MEDS: Iron Polysaccharide Complex 150 MG CAPSULE PO (08:47)
--- NOTE | 2017-11-24 09:58 | CASEMGMT ---
Brief interview for mental status (BIMS) and resident mood interview (PHQ-9) completed on this day. BIMS score 05/30. PHQ-9 score 01/09
[2017-11-24] MEDS: oxyCODONE 5 MG Tablet 10 MG PO ×2 (11:32→21:19)
[2017-11-24 16:14] VITALS: BP 144/62; PULSE 75; RESP 16; TEMP 36.6; O2SAT 95
[2017-11-24] MEDS: Tamsulosin HCl 0.4 MG Capsule PO (16:53)
[2017-11-24] MEDS: Latanoprost 0.005% 1 Bottle 1 DRP EACH EYE (21:10)
[2017-11-25] MEDS: LORazepam 0.5 MG Tablet 0.25 MG PO ×3 (05:49→21:19)
[2017-11-25] MEDS: Acetaminophen 500 MG Tablet 1000 MG PO ×3 (05:49→21:20)
[2017-11-25] MEDS: BETHANECHOL CHLORIDE 25 MG TABLET PO ×3 (05:50→21:19)
[2017-11-25] MEDS: Pantoprazole Sodium 20 MG Tablet PO (05:50)
[2017-11-25] MEDS: Senna/Docusate Sodium 1 Tablet 2 TABLET PO ×2 (05:50→17:00)
[2017-11-25] MEDS: Escitalopram Oxalate 10 MG Tablet PO (05:51)
[2017-11-25] MEDS: Enoxaparin 30 MG/0.3 ML Syringe SC (05:51)
[2017-11-25] MEDS: Iron Polysaccharide Complex 150 MG CAPSULE PO (08:29)
[2017-11-25] MEDS: Fludrocortisone Acetate 0.1 MG Tablet PO (08:29)
[2017-11-25 16:00] VITALS: BP 141/71; PULSE 71; RESP 18; TEMP 36.6; O2SAT 96
[2017-11-25] MEDS: Tamsulosin HCl 0.4 MG Capsule PO (17:00)
[2017-11-25] MEDS: Latanoprost 0.005% 1 Bottle 1 DRP EACH EYE (21:20)
[2017-11-25 21:30] VITALS: PULSE 81
[2017-11-26] MEDS: oxyCODONE 5 MG Tablet 10 MG PO ×3 (00:31→19:31)
[2017-11-26] MEDS: Escitalopram Oxalate 10 MG Tablet PO (05:54)
[2017-11-26] MEDS: Acetaminophen 500 MG Tablet 1000 MG PO ×3 (05:54→21:13)
[2017-11-26] MEDS: BETHANECHOL CHLORIDE 25 MG TABLET PO ×3 (05:54→21:13)
[2017-11-26] MEDS: Pantoprazole Sodium 20 MG Tablet PO (05:54)
[2017-11-26] MEDS: Senna/Docusate Sodium 1 Tablet 2 TABLET PO ×2 (05:54→18:06)
[2017-11-26] MEDS: Enoxaparin 30 MG/0.3 ML Syringe SC (05:54)
[2017-11-26] MEDS: LORazepam 0.5 MG Tablet 0.25 MG PO ×3 (05:56→21:13)
[2017-11-26 08:08] LABS: Absolute Lymphocyte Count 1.09 X10^3/ul (0.83-4.51); Absolute Neutrophil Count 2.5 X10^3/uL (2.0-7.7); Basophil# 0.02 X10^3/uL; Basophil% 0.5 % (0-1); Eosinophil# 0.07 X10^3/uL; Eosinophils% 1.7 % (0-5); Hemoglobin 10.7 g/dl (12.0-15.0); Lymphocyte # 1.09 X10^3/ul (4.0); Lymphocyte % 26.7 % (19-41); Mean Corp Hgb Conc 32.4 g/gl (32-36); Mean Corpuscular Hgb 32.8 pg (27.0-32.0); Mean Corpuscular Volume 101.2 fL (81-99); Mean Platelet Vol. 9.2 fl (6.2-12.0); Monocyte# 0.35 X10^3/uL; Monocyte% 8.6 % (0-10); Neutrophil # 2.53 X10^3/uL (2.7-7.7); Platelet Count 292 K/mm3 (150-450); RBC Distribution Width CV 16.5 % (11.6-14.6); RBC Distribution Width SD 59.4 fl (35.1-43.9); Red Blood Count 3.26 M/mm3 (4.2-5.4); White Blood Count 4.1 K/mm3 (4.4-11.0)
[2017-11-26 08:15] LABS: POSITIVE COUNT NO; POSITIVE DIFFERENTIAL NO; POSITIVE MORPHOLOGY NO
[2017-11-26 08:42] LABS: Anion Gap 8 (5-15); BUN 13 mg/dL (7-18); BUN/Creat Ratio 25.7 RATIO (10-20); Calcium,Total 8.8 mg/dL (8.5-10.1); Chloride 109 mmol/L (98-107); EST Glomerular Filtration Rate 124 mL/min (>60); Est Glom Filt Rate - Afr Amer 150 mL/min (>60); Glucose 108 mg/dL (74-106); Potassium 3.6 mmol/L (3.5-5.1); Sodium Level 142 mmol/L (136-145)
[2017-11-26] MEDS: Iron Polysaccharide Complex 150 MG CAPSULE PO (09:29)
[2017-11-26] MEDS: Fludrocortisone Acetate 0.1 MG Tablet PO (09:29)
--- NOTE | 2017-11-26 13:19 | NURSING ---
Addendum entered by [place] Malloy 11/26/17 15:08: Patient wanted to attempt to void once more before inserting catheter. Was able to void a large amount of yellow, clear urine without difficulty. Post void bladder scan of 90mL. Will not reinsert catheter at this time per patient request, will continue to monitor. Original Note: Patient retaining urine, bladder scans 401 and 453. Patient has c/o of fullness and is unable to urinate very much. Dr. Verma made aware, NO to reinsert gregory and have patient follow up with urology on op basis after discharge.
[2017-11-26 16:00] VITALS: BP 157/77; PULSE 75; RESP 18; TEMP 37; O2SAT 96
[2017-11-26] MEDS: Tamsulosin HCl 0.4 MG Capsule PO (18:06)
[2017-11-26] MEDS: Latanoprost 0.005% 1 Bottle 1 DRP EACH EYE (21:14)
[2017-11-26 21:20] VITALS: PULSE 81; O2SAT 96
[2017-11-27] MEDS: LORazepam 0.5 MG Tablet 0.25 MG PO ×3 (05:58→20:05)
[2017-11-27] MEDS: BETHANECHOL CHLORIDE 25 MG TABLET PO ×3 (05:58→20:05)
[2017-11-27] MEDS: Escitalopram Oxalate 10 MG Tablet PO (05:58)
[2017-11-27] MEDS: Pantoprazole Sodium 20 MG Tablet PO (05:59)
[2017-11-27] MEDS: Senna/Docusate Sodium 1 Tablet 2 TABLET PO ×2 (05:59→16:43)
[2017-11-27] MEDS: Enoxaparin 30 MG/0.3 ML Syringe SC (05:59)
[2017-11-27] MEDS: Acetaminophen 500 MG Tablet 1000 MG PO ×3 (05:59→20:05)
[2017-11-27] MEDS: Iron Polysaccharide Complex 150 MG CAPSULE PO (08:44)
[2017-11-27] MEDS: Fludrocortisone Acetate 0.1 MG Tablet PO (08:44)
[2017-11-27] MEDS: oxyCODONE 5 MG Tablet 10 MG PO ×2 (11:40→20:10)
--- NOTE | 2017-11-27 12:51 | CASEMGMT ---
Insurance Clinical information faxed. Pending continued stay approval at this time. Auth#[id number] Yoselin ZAIDI, GEOSCIENCES ASSOCIATE PROFESSOR
[2017-11-27 15:52] VITALS: BP 133/81; PULSE 72; RESP 18; TEMP 36.7; O2SAT 95
[2017-11-27] MEDS: Tamsulosin HCl 0.4 MG Capsule PO (16:43)
--- NOTE | 2017-11-27 19:38 | PCM.TCUNOT ---
Subjective: Resident has no complaints. She feels well, and is happy with how therapy is going. She is less encephalopathic today, per daughter, resident's mind is clear. She does not recognize but I met her on admission when her mind was still foggy. Vitals/I&O's: Vital Signs Temp Pulse Resp BP Pulse Ox 98.1 F 72 18 133/81 H 95 11/27/17 15:52 11/27/17 15:52 11/27/17 15:52 11/27/17 15:52 11/27/17 15:52 Oxygen Delivery Method Room Air Weight: 46 kg Body Mass Index (BMI) 18.8 Orthostatic Vital Signs Start: 11/08/17 10:02 Freq: Status: Active Protocol: Activity Type Activity Date Activity User E-Sign Co-Sign Detail Recorded Client Recorded Date Recorded By Document 11/08/17 10:55 MJM [id number] 11/08/17 12:01 MJM 11/08/17 10:55 Orthostatic Vitals Standing -Blood Pressure (90/60-120/80) 125/102 H -Extremity Use Left Arm -Pulse Rate (60-100) 62 Sitting -Blood Pressure (90/60-120/80) 123/77 H -Extremity Use Left Arm -Pulse Rate (60-100) 101 H Lying -Blood Pressure (90/60-120/80) 129/52 H -Extremity Use Left Arm -Pulse Rate (60-100) 83 Intake and Output for Last 24 Hours 11/25/17 11/26/17 11/27/17 23:59 23:59 23:59 Intake Total 600 / 600 720 / 720 360 / 360 Balance 600 / 600 720 / 720 360 / 360 Past Medical History Past Medical History (Chronic Problems): Chronic Problems Mass of right lung (Chronic) enlarging since CT scan in 2015 Macular degeneration (Chronic) Osteoporosis (Chronic) Compression fracture of lumbar vertebra (Chronic) Compression fracture of thoracic vertebra (Chronic) Glaucoma (Chronic) Neuropathic pain (Chronic) Hypertension (Chronic) Anxiety (Chronic) Tobacco abuse (Chronic) Allergies acetaminophen [From Percocet] Adverse Reaction (Verified 11/03/17 19:12) Itching oxycodone [From Percocet] Adverse Reaction (Verified 11/03/17 19:12) Itching Home Medications: Ambulatory Orders Medication Instructions Recorded Budesonide/Formoterol 160/4.5 2 puff INHALATION BID 08/05/14 [Symbicort 160/4.5 Mcg Inhaler (SP)] Lisinopril [Zestril] 5 mg PO BID 08/05/14 Lorazepam 0.25 mg PO TID 08/05/14 Tiotropium [place] [Spiriva] 1 puff INHALATION DAILY 08/05/14 Ergocalciferol [Vitamin D] 50,000 unit PO JOSE 10/31/17 Gabapentin [Neurontin] 100 mg PO TID PRN 10/31/17 Peg 400/Hypromellose/Glycerin 1 drop EACH EYE Q1H PRN 10/31/17 [Artificial Tears Drops] Travoprost 0.004% [Travatan-Z 1 drop EACHEYE DAILY 10/31/17 0.004% Eye Drop] Acetaminophen [Tylenol] 1,000 mg PO Q8H 11/04/17 Albuterol Aerosols [Ventolin 2.5 mg INHALATION Q2H PRN PRN 11/04/17 Aerosols] vial.neb. Bisacodyl [Dulcolax] 10 mg PO DAILY PRN PRN tablet 11/04/17 Enoxaparin [Lovenox] 40 mg SC DAILY@0600 11/04/17 Ensure Enlive 120 ml PO 4X/DAY 11/04/17 Latanoprost 0.005% [Xalatan 1 drop EACH EYE QHS 11/04/17 Opthalmic] Mag Hydrox/Al Hydrox/Simeth 30 ml PO Q6H PRN PRN udc 11/04/17 [Mylanta II] Magnesium Hydroxide [Milk Of 30 ml PO DAILY PRN PRN udc 11/04/17 Magnesia] Oxycodone [Oxyir] 5 mg PO Q4H PRN PRN #30 tablet 11/04/17 Pantoprazole Sodium [Protonix] 20 mg PO DAILY 11/04/17 Polyethylene Glycol 3350 [Miralax] 17 gm PO DAILY 11/04/17 Surgical History: cataract Psychiatric History: Anxiety MANAGER CAR History: No pertinent MANAGER CAR history Lives: Alone Smoking Status: Current every day smoker Tobacco Use: Cigarettes Alcohol: None Drugs: None - *Family History Maternal History Items: No pertinent history Paternal History Items: No pertinent history Review of Systems Constitutional: Denies: Chills, Fever, Weight Change HEENT: Denies: Head Aches, Sinus Congestion, Sinus Drainage Cardiovascular: Denies: Chest Pain, Palpitations Respiratory: Denies: Cough, Shortness of breath at rest, Sputum production Gastrointestinal: Denies: Abdominal Pain, Nausea, Vomiting Genitourinary: Denies: Dysuria Musculoskeletal: Denies: Joint Pain, Joint Tenderness Skin: Denies: Rash, Wounds Neurological: Denies: Numbness, Tingling, Focal weakness Psychiatric: Denies: Anxiety, Depression, Homicidal Ideations, Suicidal Ideations Hematologic/ Lymphatic: Denies: Easy Bruising, Easy Bleeding Patient Problems: Active and Suspected Problems Urinary retention (Acute) Vitamin D deficiency (Acute) Right clavicle fracture (Acute) Closed right hip fracture (Acute) Fall (Acute) - Physical Exam General: Alert, Oriented x3, Cooperative HEENT: Atraumatic, PERRLA, EOMI, Normocephalic Neck: Supple, No JVD, Negative Carotid Bruits Lungs: Clear to auscultation, Normal air movement Cardiovascular: Regular rate, No murmurs Abdomen: Bowel Sounds Present, Soft, Non Tender, - - Indwelling gregory catheter. Extremities: No edema, Capillary Refill Less than 3 Seconds Skin: No rashes, No breakdown Musculoskeletal: No Tenderness to Palpation of Joints or Extremities Neurological: Cranial nerves II-XII grossly intact Psych/Mental Status: Normal Affect, Appropriate Vital Signs Temp Pulse Resp BP Pulse Ox 98.1 F 72 18 133/81 H 95 11/27/17 15:52 11/27/17 15:52 11/27/17 15:52 11/27/17 15:52 11/27/17 15:52 Oxygen Delivery Method Room Air Weight: 46 kg Body Mass Index (BMI) 18.8 Orthostatic Vital Signs Start: 11/08/17 10:02 Freq: Status: Active Protocol: Activity Type Activity Date Activity User E-Sign Co-Sign Detail Recorded Client Recorded Date Recorded By Document 11/08/17 10:55 MJM [id number] 11/08/17 12:01 MJM 11/08/17 10:55 Orthostatic Vitals Standing -Blood Pressure (90/60-120/80) 125/102 H -Extremity Use Left Arm -Pulse Rate (60-100) 62 Sitting -Blood Pressure (90/60-120/80) 123/77 H -Extremity Use Left Arm -Pulse Rate (60-100) 101 H Lying -Blood Pressure (90/60-120/80) 129/52 H -Extremity Use Left Arm -Pulse Rate (60-100) 83 Intake and Output for Last 24 Hours 11/25/17 11/26/17 11/27/17 23:59 23:59 23:59 Intake Total 600 / 600 720 / 720 360 / 360 Balance 600 / 600 720 / 720 360 / 360 Assessment/Plan Active and Suspected Problems Urinary retention (Acute) Vitamin D deficiency (Acute) Right clavicle fracture (Acute) Closed right hip fracture (Acute) Fall (Acute) 82 year old female with below past medical history hospitalized after fall with right hip fracture, right clavicle fracture, underwent right hip cephalo-medullary nail fixation 11/01/[address] Shirley, complicated by right lower lobe and right upper lobe spiculated nodules highly suspicious for cancer, admitted to TCU for rehabilitation, strengthening, prior to discharge home. Debility - PT/OT. Pain - Tylenol 1000MG Q8H, Oxycodone 5MG Q4H PRN moderate to severe pain. Bowel - Miralax 17GM daily, Senna/colace 2 tablets BID, Dulcolax 10MG PO daily PRN. DVT prophylaxis - Lovenox 30MG SC daily. COPD - Symbicort 160/4.5MG 2 puffs BID, Spiriva 18MCG daily, Albuterol 2.5MG Q2H PRN. Dry eyes - Artificial Tears 1GTT OU Q1H PRN. Vitamin D deficiency - D2 50,000 units per week. Neuropathic pain - Gabapentin 100MG TID PRN. Glaucoma - Xalatan 0.005% 1GTT OU QHS, Travatan 0.004% 1GTT OU QHS. Orthostatic hypotension - resident often orthostatic during therapy, her lisinopril was stopped, and she is now on Florinef 0.1MG daily, no furhter complaints of lightheadedness during surgery. 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 Right lower lobe mass - Appreciate Dr. Huang's input. Resident has decided not to have PET scan. Urinary retention - Appreciate Dr. Wlesh's input. Resident on Bethanechol 25MG TID, Tamsulosin 0.4MG daily, failed voiding trial, has indwelling gregory catheter, follow up with Dr. Welsh after discharge from TCU. Depression - Lexapro 10MG daily, her mood today is good.
--- NOTE | 2017-11-27 19:45 | PN_ITS ---
Subjective: Resident has no complaints. She feels well, and is happy with how therapy is going. She is less encephalopathic today, per daughter, resident's mind is clear. She does not recognize but I met her on admission when her mind was still foggy. Vitals/I&O's: Vital Signs Temp Pulse Resp BP Pulse Ox 98.1 F 72 18 133/81 H 95 11/27/17 15:52 11/27/17 15:52 11/27/17 15:52 11/27/17 15:52 11/27/17 15:52 Oxygen Delivery Method Room Air Weight: 46 kg Body Mass Index (BMI) 18.8 Orthostatic Vital Signs Start: 11/08/17 10:02 Freq: Status: Active Protocol: Activity Type Activity Date Activity User E-Sign Co-Sign Detail Recorded Client Recorded Date Recorded By Document 11/08/17 10:55 MJM [id number] 11/08/17 12:01 MJM 11/08/17 10:55 Orthostatic Vitals Standing -Blood Pressure (90/60-120/80) 125/102 H -Extremity Use Left Arm -Pulse Rate (60-100) 62 Sitting -Blood Pressure (90/60-120/80) 123/77 H -Extremity Use Left Arm -Pulse Rate (60-100) 101 H Lying -Blood Pressure (90/60-120/80) 129/52 H -Extremity Use Left Arm -Pulse Rate (60-100) 83 Intake and Output for Last 24 Hours 11/25/17 11/26/17 11/27/17 23:59 23:59 23:59 Intake Total 600 / 600 720 / 720 360 / 360 Balance 600 / 600 720 / 720 360 / 360 Past Medical History Past Medical History (Chronic Problems): Chronic Problems Mass of right lung (Chronic) enlarging since CT scan in 2015 Macular degeneration (Chronic) Osteoporosis (Chronic) Compression fracture of lumbar vertebra (Chronic) Compression fracture of thoracic vertebra (Chronic) Glaucoma (Chronic) Neuropathic pain (Chronic) Hypertension (Chronic) Anxiety (Chronic) Tobacco abuse (Chronic) Allergies acetaminophen [From Percocet] Adverse Reaction (Verified 11/03/17 19:12) Itching oxycodone [From Percocet] Adverse Reaction (Verified 11/03/17 19:12) Itching Home Medications: Ambulatory Orders Medication Instructions Recorded Budesonide/Formoterol 160/4.5 2 puff INHALATION BID 08/05/14 [Symbicort 160/4.5 Mcg Inhaler (SP)] Lisinopril [Zestril] 5 mg PO BID 08/05/14 Lorazepam 0.25 mg PO TID 08/05/14 Tiotropium [place] [Spiriva] 1 puff INHALATION DAILY 08/05/14 Ergocalciferol [Vitamin D] 50,000 unit PO JOSE 10/31/17 Gabapentin [Neurontin] 100 mg PO TID PRN 10/31/17 Peg 400/Hypromellose/Glycerin 1 drop EACH EYE Q1H PRN 10/31/17 [Artificial Tears Drops] Travoprost 0.004% [Travatan-Z 1 drop EACHEYE DAILY 10/31/17 0.004% Eye Drop] Acetaminophen [Tylenol] 1,000 mg PO Q8H 11/04/17 Albuterol Aerosols [Ventolin 2.5 mg INHALATION Q2H PRN PRN 11/04/17 Aerosols] vial.neb. 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 CONTROLLED ATMOSPHERIC FURNACE History: No pertinent BRAZER CONTROLLED ATMOSPHERIC FURNACE history Lives: Alone Smoking Status: Current every day smoker Tobacco Use: Cigarettes Alcohol: None Drugs: None - *Family History Maternal History Items: No pertinent history Paternal History Items: No pertinent history Review of Systems Constitutional: Denies: Chills, Fever, Weight Change HEENT: Denies: Head Aches, Sinus Congestion, Sinus Drainage Cardiovascular: Denies: Chest Pain, Palpitations Respiratory: Denies: Cough, Shortness of breath at rest, Sputum production Gastrointestinal: Denies: Abdominal Pain, Nausea, Vomiting Genitourinary: Denies: Dysuria Musculoskeletal: Denies: Joint Pain, Joint Tenderness Skin: Denies: Rash, Wounds Neurological: Denies: Numbness, Tingling, Focal weakness Psychiatric: Denies: Anxiety, Depression, Homicidal Ideations, Suicidal Ideations Hematologic/ Lymphatic: Denies: Easy Bruising, Easy Bleeding Patient Problems: Active and Suspected Problems Urinary retention (Acute) Vitamin D deficiency (Acute) Right clavicle fracture (Acute) Closed right hip fracture (Acute) Fall (Acute) - Physical Exam General: Alert, Oriented x3, Cooperative HEENT: Atraumatic, PERRLA, EOMI, Normocephalic Neck: Supple, No JVD, Negative Carotid Bruits Lungs: Clear to auscultation, Normal air movement Cardiovascular: Regular rate, No murmurs Abdomen: Bowel Sounds Present, Soft, Non Tender, - - Indwelling gregory catheter. Extremities: No edema, Capillary Refill Less than 3 Seconds Skin: No rashes, No breakdown Musculoskeletal: No Tenderness to Palpation of Joints or Extremities Neurological: Cranial nerves II-XII grossly intact Psych/Mental Status: Normal Affect, Appropriate Vital Signs Temp Pulse Resp BP Pulse Ox 98.1 F 72 18 133/81 H 95 11/27/17 15:52 11/27/17 15:52 11/27/17 15:52 11/27/17 15:52 11/27/17 15:52 Oxygen Delivery Method Room Air Weight: 46 kg Body Mass Index (BMI) 18.8 Orthostatic Vital Signs Start: 11/08/17 10:02 Freq: Status: Active Protocol: Activity Type Activity Date Activity User E-Sign Co-Sign Detail Recorded Client Recorded Date Recorded By Document 11/08/17 10:55 MJM [id number] 11/08/17 12:01 MJM 11/08/17 10:55 Orthostatic Vitals Standing -Blood Pressure (90/60-120/80) 125/102 H -Extremity Use Left Arm -Pulse Rate (60-100) 62 Sitting -Blood Pressure (90/60-120/80) 123/77 H -Extremity Use Left Arm -Pulse Rate (60-100) 101 H Lying -Blood Pressure (90/60-120/80) 129/52 H -Extremity Use Left Arm -Pulse Rate (60-100) 83 Intake and Output for Last 24 Hours 11/25/17 11/26/17 11/27/17 23:59 23:59 23:59 Intake Total 600 / 600 720 / 720 360 / 360 Balance 600 / 600 720 / 720 360 / 360 Assessment/Plan Active and Suspected Problems Urinary retention (Acute) Vitamin D deficiency (Acute) Right clavicle fracture (Acute) Closed right hip fracture (Acute) Fall (Acute) 82 year old female with below past medical history hospitalized after fall with right hip fracture, right clavicle fracture, underwent right hip cephalo- medullary nail fixation 11/01/[address] Shirley, complicated by right lower lobe and right upper lobe spiculated nodules highly suspicious for cancer, admitted to TCU for rehabilitation, strengthening, prior to discharge home. * Debility - PT/OT. * Pain - Tylenol 1000MG Q8H, Oxycodone 5MG Q4H PRN moderate to severe pain. * Bowel - Miralax 17GM daily, Senna/colace 2 tablets BID, Dulcolax 10MG PO daily PRN. * DVT prophylaxis - Lovenox 30MG SC daily. * COPD - Symbicort 160/4.5MG 2 puffs BID, Spiriva 18MCG daily, Albuterol 2.5MG Q2H PRN. * Dry eyes - Artificial Tears 1GTT OU Q1H PRN. * Vitamin D deficiency - D2 50,000 units per week. * Neuropathic pain - Gabapentin 100MG TID PRN. * Glaucoma - Xalatan 0.005% 1GTT OU QHS, Travatan 0.004% 1GTT OU QHS. * Orthostatic hypotension - resident often orthostatic during therapy, her lisinopril was stopped, and she is now on Florinef 0.1MG daily, no furhter complaints of lightheadedness during surgery. * Anxiety - Ativan 0.25MG TID (Beer's List drug chronic long-term use) * GERD - Pantoprazole 20MG daily, Mylanta 2 30ML Q6H PRN. * Right lower lobe mass - Appreciate Dr. Huang's input. Resident has decided not to have PET scan. * Urinary retention - Appreciate Dr. Welsh's input. Resident on Bethanechol 25MG TID, Tamsulosin 0.4MG daily, failed voiding trial, has indwelling gregory catheter, follow up with Dr. Welsh after discharge from TCU. * Depression - Lexapro 10MG daily, her mood today is good.
[2017-11-27] MEDS: Latanoprost 0.005% 1 Bottle 1 DRP EACH EYE (20:06)
[2017-11-28] MEDS: Pantoprazole Sodium 20 MG Tablet PO (05:32)
[2017-11-28] MEDS: Senna/Docusate Sodium 1 Tablet 2 TABLET PO ×2 (05:32→16:53)
[2017-11-28] MEDS: BETHANECHOL CHLORIDE 25 MG TABLET PO ×3 (05:32→20:59)
[2017-11-28] MEDS: Acetaminophen 500 MG Tablet 1000 MG PO ×3 (05:32→20:59)
[2017-11-28] MEDS: Escitalopram Oxalate 10 MG Tablet PO (05:32)
[2017-11-28] MEDS: Enoxaparin 30 MG/0.3 ML Syringe SC (05:32)
[2017-11-28] MEDS: LORazepam 0.5 MG Tablet 0.25 MG PO ×3 (05:33→20:59)
[2017-11-28] MEDS: Fludrocortisone Acetate 0.1 MG Tablet PO (08:10)
[2017-11-28] MEDS: Iron Polysaccharide Complex 150 MG CAPSULE PO (08:10)
[2017-11-28] MEDS: oxyCODONE 5 MG Tablet 10 MG PO ×2 (12:43→21:03)
[2017-11-28 15:44] VITALS: BP 151/49; PULSE 69; RESP 16; TEMP 36.2; O2SAT 94
--- NOTE | 2017-11-28 16:05 | CASEMGMT ---
Insurance Continued stay approved with next update due on 11/30/17. Auth#[id number] Yoselin ZAIDI, ICT TEACHER
[2017-11-28] MEDS: Tamsulosin HCl 0.4 MG Capsule PO (16:52)
--- NOTE | 2017-11-28 18:04 | NURSING ---
DR. CURRY NOTIFIED OF BLADDER SCANS. N.O. FOR ST CATH NEEDED FOR BLADDER SCANS >500CC.
[2017-11-28] MEDS: Latanoprost 0.005% 1 Bottle 1 DRP EACH EYE (21:06)
--- NOTE | 2017-11-28 21:20 | NURSING ---
Addendum entered by Flor Lizarraga 11/28/17 22:21: Dr. Verma notified of chest xray results, no new orders given. Original Note: Rhonchi noted in all shah of lungs. Patient has a moist productive cough. Patient has no distress when breathing. Dr. Verma notified. New orders given.
--- NOTE | 2017-11-28 21:25 | RAD_ITS ---
STUDY: X-RAY CHEST REASON FOR EXAM: Female, 82 years old. Cough TECHNIQUE: Single AP portable view of the chest. COMPARISON: CT scan 11/03/2017.. FINDINGS: Hyperexpansion of the lungs. Mild diffuse fibrosis. 1.2 cm nodule in the right upper lobe. 3 cm mass in the lower right lung base. These are also seen on the CT scan. No effusions. Normal size heart. Normal mediastinum and geovanna. Normal visualized pulmonary arteries. There is atherosclerotic calcification of the aortic arch with tortuosity. Normal visualized thoracic spine. Normal visualized ribs, clavicles, and shoulders. There is no demonstrated abnormality of the visualized soft tissue structures of the upper abdomen. RAD/Chest 1 View (Portable) IMPRESSION: COPD. No infiltrates or effusions. Right upper lobe nodule and right lower lobe mass also seen on CT scan. Electronically Signed: Clark Pierson MD at 21:50 EST , Service support ,
[2017-11-28 22:27] VITALS: PULSE 67; RESP 18
[2017-11-28] MEDS: Albuterol 2.5 MG/3 ML VIAL.NEB. INHALATION (22:27)
[2017-11-29] MEDS: LORazepam 0.5 MG Tablet 0.25 MG PO ×3 (05:44→20:36)
[2017-11-29] MEDS: Acetaminophen 500 MG Tablet 1000 MG PO ×3 (05:47→20:37)
[2017-11-29] MEDS: Enoxaparin 30 MG/0.3 ML Syringe SC (05:47)
[2017-11-29] MEDS: Pantoprazole Sodium 20 MG Tablet PO (05:47)
[2017-11-29] MEDS: Senna/Docusate Sodium 1 Tablet 2 TABLET PO ×2 (05:47→17:11)
[2017-11-29] MEDS: Escitalopram Oxalate 10 MG Tablet PO (05:47)
[2017-11-29] MEDS: BETHANECHOL CHLORIDE 25 MG TABLET PO ×3 (05:47→20:37)
[2017-11-29] MEDS: Iron Polysaccharide Complex 150 MG CAPSULE PO (08:03)
[2017-11-29] MEDS: Fludrocortisone Acetate 0.1 MG Tablet PO (08:03)
[2017-11-29] MEDS: oxyCODONE 5 MG Tablet 10 MG PO ×3 (11:19→20:36)
[2017-11-29 14:59] VITALS: BP 187/83; PULSE 77; RESP 18; TEMP 36.6; O2SAT 93
--- NOTE | 2017-11-29 15:32 | RAD_ITS ---
STUDY: X-RAY - RIGHT CLAVICLE REASON FOR EXAM: Female, 82 years old. Fracture follow-up. TECHNIQUE: 2 view(s) of the clavicle. COMPARISON: 10/31/2017 FINDINGS: There is an incompletely healed deformed fracture of the distal clavicle. There is some bridging bone, but there is a persistent fracture line through at least a portion of the new bone formation. Distal fracture fragment is inferior to proximal fracture fragment. Sternoclavicular and acromioclavicular joints are intact. Diffuse demineralization. RAD/Clavicle IMPRESSION: Incompletely healed malaligned fracture of the distal right clavicle. Electronically Signed: Clark Pierson MD at 16:21 EST , Service support ,
--- NOTE | 2017-11-29 15:33 | VDLE_ITS ---
Reason For Study: LEG SWELLING RIGHT LEFT GSV is normal. CFV is compressible, spontaneous, phasic, CFV is compressible, spontaneous, phasic, competent, and demonstrates normal competent and demonstrates normal augmentation. augmentation. FV is compressible, spontaneous, phasic, competent and demonstrates normal augmentation. POP V is compressible, spontaneous, phasic, competent and demonstrates normal augmentation. T/P Trunk is compressible. PTV is compressible. RT PerV is compressible. Procedure Exam performed portable in patient room. A preliminary report was called and/or faxed to TCU. Interpretation Summary Deep veins of the right lower extremity are patent and compressible segmentally. There is no evidence of right lower extremity deep vein thrombosis. Valvular competence appears intact within the proximal deep venous system on the right . The right greater saphenous vein appears patent and compressible segmentally. Ordering Physician: Moni Rojo Performed By: Bettie Johnston RVT
--- NOTE | 2017-11-29 15:54 | PCM.PN.ORT ---
Patient Problems: Active and Suspected Problems Urinary retention (Acute) Vitamin D deficiency (Acute) Right clavicle fracture (Acute) Closed right hip fracture (Acute) Fall (Acute) Subjective: patient seen and examined at bedside with friend. able to ambulate with 4 pronged crutch. right shoulder pain improving (clavicle fracture) and right hip improving as well. complains of increased swelling and calf pain right leg. denies fever, chills, sob, chest pain, or other constitutional symptoms other than right calf pain. states that she is ready to go home. - Physical Exam General: Alert, Oriented x3, Cooperative HEENT: Atraumatic, PERRLA, EOMI, Normocephalic Neck: Supple, No JVD, Negative Carotid Bruits Lungs: Clear to auscultation, Normal air movement Cardiovascular: Regular rate, No murmurs Abdomen: Bowel Sounds Present, Soft, Non Tender Extremities: No edema, Capillary Refill Less than 3 Seconds Skin: No rashes, No breakdown Musculoskeletal: Tenderness - right calf pain, pos homans; right shoulder pain with overhead movement; incision clean/dry/intact Neurological: Cranial nerves II-XII grossly intact Psych/Mental Status: Normal Affect, Appropriate Vital Signs Temp Pulse Resp BP Pulse Ox 97.9 F 77 18 187/83 H 93 11/29/17 14:59 11/29/17 14:59 11/29/17 14:59 11/29/17 14:59 11/29/17 14:59 Oxygen Delivery Method Room Air Weight: 101 lb 6.602 oz Body Mass Index (BMI) 18.8 Orthostatic Vital Signs Start: 11/08/17 10:02 Freq: Status: Active Protocol: Activity Type Activity Date Activity User E-Sign Co-Sign Detail Recorded Client Recorded Date Recorded By Document 11/08/17 10:55 MJM [id number] 11/08/17 12:01 MJM 11/08/17 10:55 Orthostatic Vitals Standing -Blood Pressure (90/60-120/80) 125/102 H -Extremity Use Left Arm -Pulse Rate (60-100) 62 Sitting -Blood Pressure (90/60-120/80) 123/77 H -Extremity Use Left Arm -Pulse Rate (60-100) 101 H Lying -Blood Pressure (90/60-120/80) 129/52 H -Extremity Use Left Arm -Pulse Rate (60-100) 83 Intake and Output for Last 24 Hours 11/27/17 11/28/17 11/29/17 23:59 23:59 23:59 Intake Total 580 / 580 780 / 780 360 / 360 Output Total 200 / 200 1250 / 1250 350 / 350 Balance 380 / 380 -470 / -470 Assessment/Plan Active and Suspected Problems Urinary retention (Acute) Vitamin D deficiency (Acute) Right clavicle fracture (Acute) Closed right hip fracture (Acute) Fall (Acute) Status post right cephalo-medullary nailing for hip in her troches fracture and has ipsilateral displaced clavicle fracture. She is treated nonoperatively for her right clavicle fracture is actually an acute on chronic fracture. She is doing well but she still, she is also has a displaced intertrochanteric tree with cephalo-medullary nailing and she is doing well from that standpoint. She is up walking she has no signs of infection she has neurovascularly intact and doing well from a postop standpoint next may start using right arm for weight bearing ultrasound of right le ordered bc of pain and swelling in leg- pos homans follow up in office for 6 week postop visit or sooner if issues arise Follow-up with her call me with any increased pain numbness tingling further issues arise [phone] This note was generated with [employer] dictation software. It may contain incorrect words, spelling, and punctuation that were not noted in checking the note before signing.
[2017-11-29] MEDS: Tamsulosin HCl 0.4 MG Capsule PO (17:11)
[2017-11-29] MEDS: Latanoprost 0.005% 1 Bottle 1 DRP EACH EYE (20:36)
[2017-11-30] MEDS: LORazepam 0.5 MG Tablet 0.25 MG PO ×3 (05:46→21:19)
[2017-11-30] MEDS: Acetaminophen 500 MG Tablet 1000 MG PO ×3 (05:48→21:20)
[2017-11-30] MEDS: BETHANECHOL CHLORIDE 25 MG TABLET PO ×3 (05:48→21:20)
[2017-11-30] MEDS: Senna/Docusate Sodium 1 Tablet 2 TABLET PO ×2 (05:48→17:42)
[2017-11-30] MEDS: Pantoprazole Sodium 20 MG Tablet PO (05:49)
[2017-11-30] MEDS: Enoxaparin 30 MG/0.3 ML Syringe SC (05:49)
[2017-11-30] MEDS: Escitalopram Oxalate 10 MG Tablet PO (05:49)
[2017-11-30] MEDS: Iron Polysaccharide Complex 150 MG CAPSULE PO (08:07)
[2017-11-30] MEDS: Fludrocortisone Acetate 0.1 MG Tablet PO (08:07)
--- NOTE | 2017-11-30 09:42 | NURSING ---
Dr Rojo notified of x-ray results, NNO.
--- NOTE | 2017-11-30 11:08 | MDS.RN ---
Information for the mds was obtained from review of the clinical record, interview of resident, staff, and direct observation of resident's care.
[2017-11-30] MEDS: oxyCODONE 5 MG Tablet 10 MG PO ×2 (11:28→21:19)
--- NOTE | 2017-11-30 13:20 | CASEMGMT ---
Brief interview for mental status (BIMS) and resident mood interview (PHQ-9) completed on this day. BIMS score 14/15. PHQ-9 score 01/09
[2017-11-30] MEDS: Bisacodyl 5 MG Tablet 10 MG PO (14:03)
--- NOTE | 2017-11-30 14:37 | CASEMGMT ---
Insurance Clinical information faxed. Pending continued stay approval at this time. Auth#[id number] Yoselin ZAIDI, EVENT REPRESENTATIVE
--- NOTE | 2017-11-30 15:05 | MDS.RN ---
Pain interview for ANUPAM 12/02/17 completed.
[2017-11-30 16:00] VITALS: BP 164/78; PULSE 72; RESP 18; TEMP 37.2; O2SAT 92
[2017-11-30] MEDS: Tamsulosin HCl 0.4 MG Capsule PO (17:42)
[2017-11-30] MEDS: Latanoprost 0.005% 1 Bottle 1 DRP EACH EYE (21:20)
[2017-12-01] MEDS: LORazepam 0.5 MG Tablet 0.25 MG PO ×3 (05:49→21:27)
[2017-12-01] MEDS: Polyethylene Glycol 3350 17 GM PACKET PO (05:51)
[2017-12-01] MEDS: Enoxaparin 30 MG/0.3 ML Syringe SC (05:52)
[2017-12-01] MEDS: Escitalopram Oxalate 10 MG Tablet PO (05:52)
[2017-12-01] MEDS: Pantoprazole Sodium 20 MG Tablet PO (05:52)
[2017-12-01] MEDS: Acetaminophen 500 MG Tablet 1000 MG PO ×3 (05:52→21:27)
[2017-12-01] MEDS: Senna/Docusate Sodium 1 Tablet 2 TABLET PO ×2 (05:52→17:54)
[2017-12-01] MEDS: BETHANECHOL CHLORIDE 25 MG TABLET PO ×3 (05:53→21:27)
[2017-12-01] MEDS: Fludrocortisone Acetate 0.1 MG Tablet PO (09:11)
[2017-12-01] MEDS: Iron Polysaccharide Complex 150 MG CAPSULE PO (09:11)
[2017-12-01 10:00] VITALS: PULSE 92; RESP 18; O2SAT 94
[2017-12-01] MEDS: oxyCODONE 5 MG Tablet 10 MG PO (10:48)
--- NOTE | 2017-12-01 11:40 | RAD_ITS ---
STUDY: X-RAY - RIGHT FOOT CLINICAL: Increased swelling. TECHNIQUE: 3 view(s) of the foot. COMPARISON: None. FINDINGS: Normal talus and tarsal bones. There are small posterior and plantar calcaneal enthesophytes. Normal visualized subtalar, talonavicular, calcaneocuboid and tarsal articulations. There is joint space narrowing of the first through third tarsometatarsal joints. Normal metatarsi. Normal metatarsophalangeal joint of the great toe. Normal tibial and fibular sesamoid bones. Normal interphalangeal joint of the great toe. Normal phalanges of the great toe. Normal second through fifth metatarsophalangeal joints. Normal interphalangeal joints and phalanges of the lesser toes. There is soft tissue swelling. 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 Osteopenia. Soft tissue swelling. No demonstrated fracture. Electronically Signed: Francesco Silver MD at 14:40 EST Tel , Service support ,
--- NOTE | 2017-12-01 12:27 | NURSING ---
Therapy came and got this nurse with concerns about Pt ankle. Pt unable to get shoe on and painful to put any wt on R leg. Pt had walked to therapy yesterday without complaint. Pt Right ankle and foot very swollen and warm, no redness noted at this time. RN serene notified and she is placing a call to Dr. lock.
--- NOTE | 2017-12-01 12:40 | RAD_ITS ---
STUDY: X-RAY - RIGHT ANKLE REASON FOR EXAM: Increased swelling. TECHNIQUE: 3 view(s) of the ankle. COMPARISON: None. FINDINGS: There is osteopenia. Normal visualized distal tibia and fibula. Normal medial and lateral malleoli. Normal tibiotalar articulation and ankle mortise. Normal visualized talus. There are small posterior and plantar calcaneal enthesophytes. The visualized subtalar, talonavicular, calcaneocuboid and tarsal articulations are normal. There is soft tissue swelling. RAD/Ankle min 3 Views IMPRESSION: Soft tissue swelling. Osteopenia. No demonstrated fracture. Electronically Signed: Francesco Silver MD at 14:40 EST Tel , Service support ,
[2017-12-01 16:00] VITALS: BP 155/87; PULSE 81; RESP 18; TEMP 37.2; O2SAT 93
[2017-12-01] MEDS: Tamsulosin HCl 0.4 MG Capsule PO (17:54)
[2017-12-01] MEDS: Latanoprost 0.005% 1 Bottle 1 DRP EACH EYE (21:28)
[2017-12-02] MEDS: LORazepam 0.5 MG Tablet 0.25 MG PO ×3 (05:59→21:53)
[2017-12-02] MEDS: Enoxaparin 30 MG/0.3 ML Syringe SC (06:01)
[2017-12-02] MEDS: BETHANECHOL CHLORIDE 25 MG TABLET PO ×3 (06:01→21:53)
[2017-12-02] MEDS: Escitalopram Oxalate 10 MG Tablet PO (06:01)
[2017-12-02] MEDS: Pantoprazole Sodium 20 MG Tablet PO (06:02)
[2017-12-02] MEDS: Senna/Docusate Sodium 1 Tablet 2 TABLET PO ×2 (06:02→16:53)
[2017-12-02] MEDS: Acetaminophen 500 MG Tablet 1000 MG PO ×3 (06:02→21:52)
[2017-12-02] MEDS: Iron Polysaccharide Complex 150 MG CAPSULE PO (08:33)
[2017-12-02] MEDS: Fludrocortisone Acetate 0.1 MG Tablet PO (08:33)
[2017-12-02] MEDS: oxyCODONE 5 MG Tablet 10 MG PO ×2 (11:51→21:54)
[2017-12-02 16:00] VITALS: BP 154/69; PULSE 76; RESP 18; TEMP 36.8; O2SAT 93
[2017-12-02] MEDS: Tamsulosin HCl 0.4 MG Capsule PO (16:53)
[2017-12-02] MEDS: Latanoprost 0.005% 1 Bottle 1 DRP EACH EYE (21:53)
[2017-12-03] MEDS: oxyCODONE 5 MG Tablet 10 MG PO ×3 (03:29→21:30)
[2017-12-03] MEDS: Enoxaparin 30 MG/0.3 ML Syringe SC (06:01)
[2017-12-03] MEDS: Escitalopram Oxalate 10 MG Tablet PO (06:01)
[2017-12-03] MEDS: Pantoprazole Sodium 20 MG Tablet PO (06:01)
[2017-12-03] MEDS: Acetaminophen 500 MG Tablet 1000 MG PO ×3 (06:01→21:30)
[2017-12-03] MEDS: LORazepam 0.5 MG Tablet 0.25 MG PO ×3 (06:02→21:30)
[2017-12-03] MEDS: BETHANECHOL CHLORIDE 25 MG TABLET PO ×3 (06:04→21:32)
[2017-12-03 06:47] LABS: Absolute Lymphocyte Count 0.91 X10^3/ul (0.83-4.51); Absolute Neutrophil Count 3.7 X10^3/uL (2.0-7.7); Basophil# 0.01 X10^3/uL; Basophil% 0.2 % (0-1); Eosinophil# 0.05 X10^3/uL; Hemoglobin 11.9 g/dl (12.0-15.0); Lymphocyte # 0.91 X10^3/ul (4.0); Lymphocyte % 17.7 % (19-41); Mean Corp Hgb Conc 32.2 g/gl (32-36); Mean Corpuscular Hgb 32.5 pg (27.0-32.0); Mean Corpuscular Volume 101.1 fL (81-99); Mean Platelet Vol. 9.4 fl (6.2-12.0); Monocyte# 0.44 X10^3/uL; Monocyte% 8.6 % (0-10); Neutrophil # 3.71 X10^3/uL (2.7-7.7); Neutrophil % 72.3 % (47-70); Platelet Count 347 K/mm3 (150-450); RBC Distribution Width CV 15.7 % (11.6-14.6); RBC Distribution Width SD 56.9 fl (35.1-43.9); Red Blood Count 3.66 M/mm3 (4.2-5.4); White Blood Count 5.1 K/mm3 (4.4-11.0)
[2017-12-03 06:50] LABS: POSITIVE COUNT NO; POSITIVE DIFFERENTIAL NO; POSITIVE MORPHOLOGY NO
[2017-12-03 07:13] LABS: Anion Gap 8 (5-15); BUN 9 mg/dL (7-18); BUN/Creat Ratio 17.4 RATIO (10-20); Calcium,Total 9.1 mg/dL (8.5-10.1); Chloride 107 mmol/L (98-107); Creatinine, Serum 0.52 mg/dL (0.55-1.02); EST Glomerular Filtration Rate 121 mL/min (>60); Est Glom Filt Rate - Afr Amer 146 mL/min (>60); Glucose 112 mg/dL (74-106); Potassium 3.3 mmol/L (3.5-5.1); Sodium Level 141 mmol/L (136-145)
[2017-12-03] MEDS: Iron Polysaccharide Complex 150 MG CAPSULE PO (08:12)
[2017-12-03] MEDS: Fludrocortisone Acetate 0.1 MG Tablet PO (08:12)
--- NOTE | 2017-12-03 09:18 | NURSING ---
Dr Verma reviewed labs, new order to start kdur and recheck bmp in am
--- NOTE | 2017-12-03 13:41 | NURSING ---
Pt hgb 11.9 today, pt requesting that ferrex be stopped now, causing constipation. new order received.
[2017-12-03 15:38] VITALS: BP 150/64; PULSE 77; RESP 16; TEMP 37; O2SAT 94
[2017-12-03] MEDS: Senna/Docusate Sodium 1 Tablet 2 TABLET PO (17:02)
[2017-12-03] MEDS: Tamsulosin HCl 0.4 MG Capsule PO (17:02)
[2017-12-03] MEDS: Latanoprost 0.005% 1 Bottle 1 DRP EACH EYE (21:32)
[2017-12-04] MEDS: LORazepam 0.5 MG Tablet 0.25 MG PO ×3 (06:04→21:29)
[2017-12-04] MEDS: Senna/Docusate Sodium 1 Tablet 2 TABLET PO ×2 (06:06→16:36)
[2017-12-04] MEDS: Pantoprazole Sodium 20 MG Tablet PO (06:07)
[2017-12-04] MEDS: Acetaminophen 500 MG Tablet 1000 MG PO ×3 (06:07→21:32)
[2017-12-04] MEDS: Escitalopram Oxalate 10 MG Tablet PO (06:07)
[2017-12-04] MEDS: BETHANECHOL CHLORIDE 25 MG TABLET PO ×3 (06:07→21:32)
[2017-12-04] MEDS: Enoxaparin 30 MG/0.3 ML Syringe SC (06:08)
[2017-12-04 06:09] LABS: Anion Gap 7 (5-15); BUN 19 mg/dL (7-18); BUN/Creat Ratio 28.3 RATIO (10-20); Calcium,Total 9.1 mg/dL (8.5-10.1); Chloride 106 mmol/L (98-107); Creatinine, Serum 0.67 mg/dL (0.55-1.02); EST Glomerular Filtration Rate 89 mL/min (>60); Est Glom Filt Rate - Afr Amer 108 mL/min (>60); Glucose 95 mg/dL (74-106); Potassium 3.7 mmol/L (3.5-5.1); Sodium Level 141 mmol/L (136-145)
[2017-12-04] MEDS: Fludrocortisone Acetate 0.1 MG Tablet PO (07:50)
[2017-12-04] MEDS: oxyCODONE 5 MG Tablet 10 MG PO ×2 (11:59→21:31)
--- NOTE | 2017-12-04 13:11 | CASEMGMT ---
Insurance Continued stay denied with a last cover day of 12/06/17 and a discharge on 12/07/17. Auth#[id number] Yoselin ZAIDI, FORGING OPERATOR
--- NOTE | 2017-12-04 13:12 | CASEMGMT ---
Social Work Spoke with resident in room. This social media campaign manager communicating to resident that continued stay has been denied at this time with a last cover day of 12/06/17 and a discharge or resident financial responsibility to begin on 12/07/17. Resident choosing to discharge on 12/07/17 to home with family. Telephone call to resident daughter, voicemail left for resident daughter to contact this social media campaign manager back in regards to discharge planing/discharge notification. Support given. Proposed discharge date: 12/07/17 PLAN: Discharge home with family. Yoselin ZAIDI, CIDER PRESS OPERATOR
[2017-12-04 15:36] VITALS: BP 141/64; PULSE 71; RESP 18; TEMP 37.1; O2SAT 92
[2017-12-04] MEDS: Tamsulosin HCl 0.4 MG Capsule PO (16:35)
[2017-12-04] MEDS: Latanoprost 0.005% 1 Bottle 1 DRP EACH EYE (21:33)
[2017-12-05] MEDS: LORazepam 0.5 MG Tablet 0.25 MG PO ×3 (06:19→20:59)
[2017-12-05] MEDS: BETHANECHOL CHLORIDE 25 MG TABLET PO ×3 (06:20→20:59)
[2017-12-05] MEDS: Escitalopram Oxalate 10 MG Tablet PO (06:21)
[2017-12-05] MEDS: Acetaminophen 500 MG Tablet 1000 MG PO ×3 (06:22→20:59)
[2017-12-05] MEDS: Pantoprazole Sodium 20 MG Tablet PO (06:22)
[2017-12-05] MEDS: Senna/Docusate Sodium 1 Tablet 2 TABLET PO ×2 (06:22→16:32)
[2017-12-05] MEDS: Enoxaparin 30 MG/0.3 ML Syringe SC (06:22)
[2017-12-05] MEDS: Fludrocortisone Acetate 0.1 MG Tablet PO (08:11)
--- NOTE | 2017-12-05 09:29 | PCM.DC ---
- Discharge Diagnoses Current Active Problems: Current Active and Chronic Problems Urinary retention (Acute) Osteoporosis (Chronic) Compression fracture of lumbar vertebra (Chronic) Compression fracture of thoracic vertebra (Chronic) Glaucoma (Chronic) Neuropathic pain (Chronic) Vitamin D deficiency (Acute) Hypertension (Chronic) Anxiety (Chronic) Right clavicle fracture (Acute) Closed right hip fracture (Acute) Fall (Acute) You will use the following diet at home:: No restrictions, Regular Your food should be the consistency of: Regular Your liquids should be the consistency of: Regular/Thin Discharge Activity: Return to Normal Activity, Use Walker Weight Bearing Status: Weight bearing as tolerated Call your doctor if you observe: Fever of 101 or Higher, Inability to urinate, Inability to have a bowel movement, Chest pain, Increased palpitations (irregular heartbeat), Uncontrolled pain Allergies/Adverse Reactions: Allergies acetaminophen [From Percocet] Adverse Reaction (Verified 11/03/17 19:12) Itching oxycodone [From Percocet] Adverse Reaction (Verified 11/03/17 19:12) Itching Medications to take at Discharge Budesonide/Formoterol 160/4.5 [Symbicort 160/4.5 Mcg Inhaler (SP)] 2 puff INHALATION BID 08/05/14 Lorazepam 0.25 mg PO TID 08/05/14 Tiotropium [place] [Spiriva] 1 puff INHALATION DAILY 08/05/14 Ergocalciferol [Vitamin D] 50,000 unit PO JOSE 10/31/17 Gabapentin [Neurontin] 100 mg PO TID PRN 10/31/17 Peg 400/Hypromellose/Glycerin [Artificial Tears Drops] 1 drop EACH EYE Q1H PRN 10/31/17 Travoprost 0.004% [Travatan-Z 0.004% Eye Drop] 1 drop EACHEYE DAILY 10/31/17 Acetaminophen [Tylenol] 1,000 mg PO Q8H 11/04/17 Latanoprost 0.005% [Xalatan Opthalmic] 1 drop EACH EYE QHS 11/04/17 Albuterol Aerosols [Ventolin Aerosols] 2.5 mg INHALATION Q2H PRN PRN #120 vial.neb. 12/05/17 Bethanechol Chloride 25 mg PO TID #90 tab 12/05/17 Escitalopram Oxalate [Lexapro] 10 mg PO DAILY #30 tab 12/05/17 Fludrocortisone Acetate [Florinef] 0.1 mg PO DAILY@0800 #30 tab 12/05/17 Oxycodone [Oxyir] 5 mg PO Q4H PRN PRN #30 tab 12/05/17 Pantoprazole Sodium [Protonix] 20 mg PO DAILY #60 tab 12/05/17 Polyethylene Glycol 3350 [Miralax] 17 gm PO DAILY #30 packet 12/05/17 Tamsulosin HCl [Flomax] 0.4 mg PO DAILY@1730 #30 cap 12/05/17 The following prescriptions were given: Albuterol Aerosols [Ventolin Aerosols] 2.5 mg INHALATION Q2H PRN PRN #120 vial.neb. PRN Reason: Dyspnea Oxycodone [Oxyir] 5 mg PO Q4H PRN PRN #30 tab PRN Reason: Mod-Severe Pain (4-07/25) Escitalopram Oxalate [Lexapro] 10 mg PO DAILY #30 tab Fludrocortisone Acetate [Florinef] 0.1 mg PO DAILY@0800 #30 tab Pantoprazole Sodium [Protonix] 20 mg PO DAILY #60 tab Polyethylene Glycol 3350 [Miralax] 17 gm PO DAILY #30 packet Tamsulosin HCl [Flomax] 0.4 mg PO DAILY@1730 #30 cap Bethanechol Chloride 25 mg PO TID #90 tab Primary Care Physician: Mauricio Leyva DO [Primary Care Provider] - Please follow up with your Primary Care Physician in: 1 week. Please Follow Up With: Dr. Leyva When: 1 week after discharge Please Follow Up With: Dr. Rojo When: 2 weeks Please Follow Up With: Boyd Welsh MD When: after discharge Proposed Discharge Date: 12/07/17
--- NOTE | 2017-12-05 09:30 | PCM.DC.SUM ---
Discharge Date and Diagnosis - Problem List Patient Problems: Active and Suspected Problems Urinary retention (Acute) Vitamin D deficiency (Acute) Right clavicle fracture (Acute) Closed right hip fracture (Acute) Fall (Acute) Date of Admission: 11/04/17 Date of Discharge: 12/07/17 - Primary Discharge Diagnosis Active and Suspected Problems Urinary retention (Acute) Vitamin D deficiency (Acute) Right clavicle fracture (Acute) Closed right hip fracture (Acute) Fall (Acute) - Secondary Discharge Diagnosis Chronic Problems Mass of right lung (Chronic) enlarging since CT scan in 2014 Macular degeneration (Chronic) Osteoporosis (Chronic) Compression fracture of lumbar vertebra (Chronic) Compression fracture of thoracic vertebra (Chronic) Glaucoma (Chronic) Neuropathic pain (Chronic) Hypertension (Chronic) Anxiety (Chronic) Tobacco abuse (Chronic) Hospital Course and Treatment Imaging Results: 11/04/17 13:43 Diet: Regular Diet Is pt able to select menu?: Yes Diet Comments: PLEASE ONLY VANILLA OR CHOCALTE ENSURE, NO STRAWBERRY! Clinical Impression(s) from Imaging Studies Hip/Pelvis X-Ray 11/21/17 11:41 IMPRESSION: Stable appearance of the proximal femoral fixation with no complications. Electronically Signed: Alex Kebede MD at 15:06 EST , Service support , Chest X-Ray 11/28/17 21:25 IMPRESSION: COPD. No infiltrates or effusions. Right upper lobe nodule and right lower lobe mass also seen on CT scan. Electronically Signed: Clark Pierson MD at 21:50 EST , Service support , Clavicle X-Ray 11/29/17 15:32 IMPRESSION: Incompletely healed malaligned fracture of the distal right clavicle. 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 Osteopenia. Soft tissue swelling. No demonstrated fracture. Electronically Signed: Francesco Silver MD at 14:40 EST Tel , Service support , Ankle X-Ray 12/01/17 12:40 IMPRESSION: Soft tissue swelling. Osteopenia. No demonstrated fracture. Electronically Signed: Francesco Silver MD at 14:40 EST Tel , Service support , Labs (Last 48 Hours) 12/04/17 05:25 Sodium 141 Potassium 3.7 Chloride 106 Carbon Dioxide 28.0 Anion Gap 7 BUN 19 H Creatinine 0.67 Estim Creat Clear Calc 31.50 Est GFR (MDRD) Af Amer 108 Est GFR (MDRD) Non-Af 89 BUN/Creatinine Ratio 28.3 H Glucose 95 Calcium 9.1 Operations: None, - - ORIF R hip intertrochanteric fracture 11/[address] Rojo Procedures: None Summary of Care Provided: The patient is a 82 year old Female with below past medical history hospitalized after fall with right hip fracture, right clavicle fracture, underwent right hip cephalo-medullary nail fixation 11/01/[address] Shirley, complicated by right lower lobe and right upper lobe spiculated nodules highly suspicious for cancer, admitted to TCU for rehabilitation, strengthening, prior to discharge home. [] On TCU, resident seen by Dr. Huang regarding lung mass, she declined further evaluation with PET scan. She developed orthostatic hypotension, which was treated with Florinef 0.1MG daily, maybe discontinued later. She had urinary retention, has indwelling gregory catheter, Dr. Welsh consulted, on Flomax, Bethanechol, discontinue gregory catheter with Dr. Welsh as outpatient. Will discharge home with family. Home health for PT/OT. Discharge Diet: No Restrictions Discharge Activity: Return to Normal Activity, Use Walker Weight Bearing Status: Weight bearing as tolerated Call your doctor if you observe: Fever of 101 or Higher, Inability to urinate, Inability to have a bowel movement, Chest pain, Increased palpitations (irregular heartbeat), Uncontrolled pain Home Medications: Medications to take at Discharge Budesonide/Formoterol 160/4.5 [Symbicort 160/4.5 Mcg Inhaler (SP)] 2 puff INHALATION BID 08/05/14 Lorazepam 0.25 mg PO TID 08/05/14 Tiotropium [place] [Spiriva] 1 puff INHALATION DAILY 08/05/14 Ergocalciferol [Vitamin D] 50,000 unit PO JOSE 10/31/17 Gabapentin [Neurontin] 100 mg PO TID PRN 10/31/17 Peg 400/Hypromellose/Glycerin [Artificial Tears Drops] 1 drop EACH EYE Q1H PRN 10/31/17 Travoprost 0.004% [Travatan-Z 0.004% Eye Drop] 1 drop EACHEYE DAILY 10/31/17 Acetaminophen [Tylenol] 1,000 mg PO Q8H 11/04/17 Latanoprost 0.005% [Xalatan Opthalmic] 1 drop EACH EYE QHS 11/04/17 Albuterol Aerosols [Ventolin Aerosols] 2.5 mg INHALATION Q2H PRN PRN #120 vial.neb. 12/05/17 Bethanechol Chloride 25 mg PO TID #90 tab 12/05/17 Escitalopram Oxalate [Lexapro] 10 mg PO DAILY #30 tab 12/05/17 Fludrocortisone Acetate [Florinef] 0.1 mg PO DAILY@0800 #30 tab 12/05/17 Oxycodone [Oxyir] 5 mg PO Q4H PRN PRN #30 tab 12/05/17 Pantoprazole Sodium [Protonix] 20 mg PO DAILY #60 tab 12/05/17 Polyethylene Glycol 3350 [Miralax] 17 gm PO DAILY #30 packet 12/05/17 Tamsulosin HCl [Flomax] 0.4 mg PO DAILY@1730 #30 cap 12/05/17 Following Prescrptions Were Given to Patient: Albuterol Aerosols [Ventolin Aerosols] 2.5 mg INHALATION Q2H PRN PRN #120 vial.neb. PRN Reason: Dyspnea Oxycodone [Oxyir] 5 mg PO Q4H PRN PRN #30 tab PRN Reason: Mod-Severe Pain (4-10) Escitalopram Oxalate [Lexapro] 10 mg PO DAILY #30 tab Fludrocortisone Acetate [Florinef] 0.1 mg PO DAILY@0800 #30 tab Pantoprazole Sodium [Protonix] 20 mg PO DAILY #60 tab Polyethylene Glycol 3350 [Miralax] 17 gm PO DAILY #30 packet Tamsulosin HCl [Flomax] 0.4 mg PO DAILY@1730 #30 cap Bethanechol Chloride 25 mg PO TID #90 tab Primary Care Physician: Mauricio Leyva DO [Primary Care Provider] - Please follow up with your Primary Care Physician in: 1 week. Please Follow Up With: Dr. Leyva When: 1 week after discharge Please Follow Up With: Dr. Rojo When: 2 weeks Please Follow Up With: Boyd Welsh MD When: after discharge Disposition: Home with Home Health Minutes spent on discharge:: 35 Patient Condition:: Stable Meaningful Use Info Meaningful Use Diagnoses (Choose all that apply): None applicable
--- NOTE | 2017-12-05 09:34 | DS.PCM_ITS ---
Discharge Date and Diagnosis - Problem List Patient Problems: Active and Suspected Problems Urinary retention (Acute) Vitamin D deficiency (Acute) Right clavicle fracture (Acute) Closed right hip fracture (Acute) Fall (Acute) Date of Admission: 11/04/17 Date of Discharge: 12/07/17 - Primary Discharge Diagnosis Active and Suspected Problems Urinary retention (Acute) Vitamin D deficiency (Acute) Right clavicle fracture (Acute) Closed right hip fracture (Acute) Fall (Acute) - Secondary Discharge Diagnosis Chronic Problems Mass of right lung (Chronic) enlarging since CT scan in 2014 Macular degeneration (Chronic) Osteoporosis (Chronic) Compression fracture of lumbar vertebra (Chronic) Compression fracture of thoracic vertebra (Chronic) Glaucoma (Chronic) Neuropathic pain (Chronic) Hypertension (Chronic) Anxiety (Chronic) Tobacco abuse (Chronic) Hospital Course and Treatment Imaging Results: 11/04/17 13:43 Diet: Regular Diet Is pt able to select menu?: Yes Diet Comments: PLEASE ONLY VANILLA OR CHOCALTE ENSURE, NO STRAWBERRY! Clinical Impression(s) from Imaging Studies Hip/Pelvis X-Ray 11/21/17 11:41 IMPRESSION: Stable appearance of the proximal femoral fixation with no complications. Electronically Signed: Alex Kebede MD at 15:06 EST , Service support , Chest X-Ray 11/28/17 21:25 IMPRESSION: COPD. No infiltrates or effusions. Right upper lobe nodule and right lower lobe mass also seen on CT scan. Electronically Signed: Clark Pierson MD at 21:50 EST , Service support , Clavicle X-Ray 11/29/17 15:32 IMPRESSION: Incompletely healed malaligned fracture of the distal right clavicle. 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 Osteopenia. Soft tissue swelling. No demonstrated fracture. Electronically Signed: Francesco Silver MD at 14:40 EST Tel , Service support , Ankle X-Ray 12/01/17 12:40 IMPRESSION: Soft tissue swelling. Osteopenia. No demonstrated fracture. Electronically Signed: Francesco Silver MD at 14:40 EST Tel , Service support , Labs (Last 48 Hours) 12/04/17 05:25 Sodium 141 Potassium 3.7 Chloride 106 Carbon Dioxide 28.0 Anion Gap 7 BUN 19 H Creatinine 0.67 Estim Creat Clear Calc 31.50 Est GFR (MDRD) Af Amer 108 Est GFR (MDRD) Non-Af 89 BUN/Creatinine Ratio 28.3 H Glucose 95 Calcium 9.1 Operations: None, - - ORIF R hip intertrochanteric fracture 11/[address] Rojo Procedures: None Summary of Care Provided: The patient is a 82 year old Female with below past medical history hospitalized after fall with right hip fracture, right clavicle fracture, underwent right hip cephalo-medullary nail fixation 11/01/[address] Shirley, complicated by right lower lobe and right upper lobe spiculated nodules highly suspicious for cancer, admitted to TCU for rehabilitation, strengthening, prior to discharge home. [] On TCU, resident seen by Dr. Huang regarding lung mass, she declined further evaluation with PET scan. She developed orthostatic hypotension, which was treated with Florinef 0.1MG daily, maybe discontinued later. She had urinary retention, has indwelling gregory catheter, Dr. Welsh consulted, on Flomax, Bethanechol, discontinue gregory catheter with Dr. Welsh as outpatient. Will discharge home with family. Home health for PT/OT. Discharge Diet: No Restrictions Discharge Activity: Return to Normal Activity, Use Walker Weight Bearing Status: Weight bearing as tolerated Call your doctor if you observe: Fever of 101 or Higher, Inability to urinate, Inability to have a bowel movement, Chest pain, Increased palpitations ( irregular heartbeat), Uncontrolled pain Home Medications: Medications to take at Discharge Budesonide/Formoterol 160/4.5 [Symbicort 160/4.5 Mcg Inhaler (SP)] 2 puff INHALATION BID 08/05/14 Lorazepam 0.25 mg PO TID 08/05/14 Tiotropium [place] [Spiriva] 1 puff INHALATION DAILY 08/05/14 Ergocalciferol [Vitamin D] 50,000 unit PO JOSE 10/31/17 Gabapentin [Neurontin] 100 mg PO TID PRN 10/31/17 Peg 400/Hypromellose/Glycerin [Artificial Tears Drops] 1 drop EACH EYE Q1H PRN 10/31/17 Travoprost 0.004% [Travatan-Z 0.004% Eye Drop] 1 drop EACHEYE DAILY 10/31/17 Acetaminophen [Tylenol] 1,000 mg PO Q8H 11/04/17 Latanoprost 0.005% [Xalatan Opthalmic] 1 drop EACH EYE QHS 11/04/17 Albuterol Aerosols [Ventolin Aerosols] 2.5 mg INHALATION Q2H PRN PRN #120 vial.neb. 12/05/17 Bethanechol Chloride 25 mg PO TID #90 tab 12/05/17 Escitalopram Oxalate [Lexapro] 10 mg PO DAILY #30 tab 12/05/17 Fludrocortisone Acetate [Florinef] 0.1 mg PO DAILY@0800 #30 tab 12/05/17 Oxycodone [Oxyir] 5 mg PO Q4H PRN PRN #30 tab 12/05/17 Pantoprazole Sodium [Protonix] 20 mg PO DAILY #60 tab 12/05/17 Polyethylene Glycol 3350 [Miralax] 17 gm PO DAILY #30 packet 12/05/17 Tamsulosin HCl [Flomax] 0.4 mg PO DAILY@1730 #30 cap 12/05/17 Following Prescrptions Were Given to Patient: Albuterol Aerosols [Ventolin Aerosols] 2.5 mg INHALATION Q2H PRN PRN #120 vial.neb. PRN Reason: Dyspnea Oxycodone [Oxyir] 5 mg PO Q4H PRN PRN #30 tab PRN Reason: Mod-Severe Pain (4-10) Escitalopram Oxalate [Lexapro] 10 mg PO DAILY #30 tab Fludrocortisone Acetate [Florinef] 0.1 mg PO DAILY@0800 #30 tab Pantoprazole Sodium [Protonix] 20 mg PO DAILY #60 tab Polyethylene Glycol 3350 [Miralax] 17 gm PO DAILY #30 packet Tamsulosin HCl [Flomax] 0.4 mg PO DAILY@1730 #30 cap Bethanechol Chloride 25 mg PO TID #90 tab Primary Care Physician: Mauricio Leyva DO [Primary Care Provider] - Please follow up with your Primary Care Physician in: 1 week. Please Follow Up With: Dr. Leyva When: 1 week after discharge Please Follow Up With: Dr. Rojo When: 2 weeks Please Follow Up With: Boyd Welsh MD When: after discharge Disposition: Home with Home Health Minutes spent on discharge:: 35 Patient Condition:: Stable Meaningful Use Info Meaningful Use Diagnoses (Choose all that apply): None applicable
--- NOTE | 2017-12-05 09:35 | HHNOTE_ITS ---
Home Health Note - Plan Overview of reason of hospitalization: The patient is a 82 year old Female with below past medical history hospitalized after fall with right hip fracture, right clavicle fracture, underwent right hip cephalo-medullary nail fixation 11/01/[address] Shirley, complicated by right lower lobe and right upper lobe spiculated nodules highly suspicious for cancer, admitted to TCU for rehabilitation, strengthening, prior to discharge home. [] On TCU, resident seen by Dr. Huang regarding lung mass, she declined further evaluation with PET scan. She developed orthostatic hypotension, which was treated with Florinef 0.1MG daily, maybe discontinued later. She had urinary retention, has indwelling gregory catheter, Dr. Welsh consulted, on Flomax, Bethanechol, discontinue gregory catheter with Dr. Welsh as outpatient. Will discharge home with family. Home health for PT/OT. Problems: Patient was seen for Urinary retention (Acute) Osteoporosis (Chronic) Compression fracture of lumbar vertebra (Chronic) Compression fracture of thoracic vertebra (Chronic) Glaucoma (Chronic) Neuropathic pain (Chronic) Vitamin D deficiency (Acute) Hypertension (Chronic) Anxiety (Chronic) Right clavicle fracture (Acute) Closed right hip fracture (Acute) Fall (Acute) Complete List of Medical Problems Fracture, clavicle (Acute) Anemia due to blood loss, acute (Acute) Mass of right lung (Chronic) Generalized anxiety disorder (Acute) Macular degeneration (Chronic) COPD (chronic obstructive pulmonary disease) (Acute) Urinary retention (Acute) Osteoporosis (Chronic) Compression fracture of lumbar vertebra (Chronic) Hip fracture, right (Acute) Compression fracture of thoracic vertebra (Chronic) Glaucoma (Chronic) Neuropathic pain (Chronic) Vitamin D deficiency (Acute) Hypertension (Chronic) Anxiety (Chronic) Right clavicle fracture (Acute) Closed right hip fracture (Acute) Fall (Acute) Tobacco abuse (Chronic) - Requirements and Reasons Disciplines Needed/Ordered: Physical Therapy Reason for Disciplines: Disease Specific Monitoring/education, Medication Management/Knowledge Deficit, Gait Training, Stair Training, Fall Prevention, Home Safety/Equipment Instruction, Balance and/or Posture Training, Transfer Training Related To: Change in Medical Treatment Plan, Shortness of Breath with Activity , Physical Impairments, Unsteady Gait/Balance, Fall Risk Patient is unable to leave the home: Without Aid of Supportive Devices (crutches , cane, wheelchair, walker), Without the assistance of another person Medically Contraindicated related to: Weight Bearing Status - Additional Disciplines Additional Disciplines Needed/Ordered: Occupational Therapy
[2017-12-05] MEDS: Mag Hydrox/Al Hydrox/Simeth 30 ML UDC PO (10:52)
--- NOTE | 2017-12-05 10:59 | CASEMGMT ---
Social Work Spoke with resident in room. This addiction social worker collaborating on discharge plan. This addiction social worker communicating to resident that therapy is recommending for resident to have continued physical and occupational therapy services within the home at time of discharge. Resident is agreeable to recommendation and requesting for home health services to be set up through [facility] ([facility] Resident reporting to have a quad cane already set up within the home. Resident family planning to provide transportation home for resident at time of discharge. Resident agreeable to this addiction social worker contact resident daughter, Stephanie about discharge information. Telephone call to Stephanie, damaris adams. Stephanie is aware of discharge as determined from a prior conversation this addiction social worker has with Stephanie. Support given. [facility] This addiction social worker making referral for physical and occupational therapy. Order completed. Proposed discharge date: 12/07/17 PLAN: Discharge home with family and home health services. Yoselin ZAIDI, CONFERENCE RESERVATIONIST
[2017-12-05] MEDS: oxyCODONE 5 MG Tablet 10 MG PO ×2 (13:12→21:00)
[2017-12-05 15:27] VITALS: BP 147/59; PULSE 80; RESP 16; TEMP 37.1; O2SAT 94
[2017-12-05] MEDS: Tamsulosin HCl 0.4 MG Capsule PO (16:32)
[2017-12-05] MEDS: Latanoprost 0.005% 1 Bottle 1 DRP EACH EYE (21:00)
--- NOTE | 2017-12-06 04:29 | NURSING ---
Pt used call light to call for assistance to bathroom. This nurse answered light and patient was assisted to bathroom with cane/gait belt. Bed and green protective pad saturated requiring full bed change. Pt also incontinent just before sitting on toilet, getting urine on floor and on socks, which was cleaned before assisting back to bed. Pt usually continent and seemed distressed about this. Agreeable to wearing a brief instead of only panties, and assured pt it was nothing to fret over. Pt very kind and appreciative to staff care. Repositioned comfortably in bed, continuing to monitor. Both RNs on duty aware.
[2017-12-06] MEDS: LORazepam 0.5 MG Tablet 0.25 MG PO ×3 (06:17→21:00)
[2017-12-06] MEDS: Acetaminophen 500 MG Tablet 1000 MG PO ×3 (06:18→21:02)
[2017-12-06] MEDS: Pantoprazole Sodium 20 MG Tablet PO (06:18)
[2017-12-06] MEDS: BETHANECHOL CHLORIDE 25 MG TABLET PO ×3 (06:19→21:02)
[2017-12-06] MEDS: Escitalopram Oxalate 10 MG Tablet PO (06:19)
[2017-12-06] MEDS: Enoxaparin 30 MG/0.3 ML Syringe SC (06:19)
[2017-12-06] MEDS: Fludrocortisone Acetate 0.1 MG Tablet PO (08:05)
[2017-12-06] MEDS: oxyCODONE 5 MG Tablet 10 MG PO ×2 (11:29→21:00)
[2017-12-06 15:55] VITALS: BP 145/60; PULSE 73; RESP 18; TEMP 37; O2SAT 95
[2017-12-06] MEDS: Tamsulosin HCl 0.4 MG Capsule PO (16:52)
[2017-12-06] MEDS: Latanoprost 0.005% 1 Bottle 1 DRP EACH EYE (21:02)
[2017-12-07] MEDS: LORazepam 0.5 MG Tablet 0.25 MG PO (06:13)
[2017-12-07] MEDS: Acetaminophen 500 MG Tablet 1000 MG PO (06:15)
[2017-12-07] MEDS: Senna/Docusate Sodium 1 Tablet 2 TABLET PO (06:15)
[2017-12-07] MEDS: BETHANECHOL CHLORIDE 25 MG TABLET PO (06:15)
[2017-12-07] MEDS: Escitalopram Oxalate 10 MG Tablet PO (06:16)
[2017-12-07] MEDS: Pantoprazole Sodium 20 MG Tablet PO (06:16)
[2017-12-07] MEDS: Enoxaparin 30 MG/0.3 ML Syringe SC (06:16)
[2017-12-07] MEDS: Fludrocortisone Acetate 0.1 MG Tablet PO (08:13)
[2017-12-07] MEDS: oxyCODONE 5 MG Tablet 10 MG PO (08:14)
[2017-12-07 11:08] VITALS: BP 153/83; PULSE 75; TEMP 36.4; O2SAT 93
--- NOTE | 2017-12-07 12:22 | NURSING ---
dr nichols notified of pt elevated BP's, new order to naseem/juanis nagy. updated daughter for discharge and reviewed all meds with pt and daughter.
--- NOTE | 2017-12-07 13:18 | CASEMGMT ---
Insurance Notified resident insurance of resident discharge on 12/07/17 to home with family and home health services. Auth#[id number] Yoselin ZAIDI, PACK OPERATOR
--- NOTE | 2017-12-14 13:30 | MDS.RN ---
Information for the mds was obtained from review of the clinical record, interview of resident, staff, and direct observation of resident's care.
== END 2017-12-07 13:00 | disposition home health service (06) | DRG 561 ==
PROVIDERS: Admitting Provider Family Medicine Geriatric Medicine; Family Provider Family Medicine; PCP Family Medicine; Visit Provider Family Medicine Geriatric Medicine
DX: S72.141D Displaced intertrochanteric fracture of right femur, subsequent encounter for closed fracture with routine healing (principal); J44.9 Chronic obstructive pulmonary disease, unspecified; I10 Essential (primary) hypertension; S42.001D Fracture of unspecified part of right clavicle, subsequent encounter for fracture with routine healing; W19.XXXD Unspecified fall, subsequent encounter; H40.9 Unspecified glaucoma; R91.8 Other nonspecific abnormal finding of lung field; H35.30 Unspecified macular degeneration; F17.210 Nicotine dependence, cigarettes, uncomplicated; E55.9 Vitamin D deficiency, unspecified; F32.9 Major depressive disorder, single episode, unspecified; R33.9 Retention of urine, unspecified; K21.9 Gastro-esophageal reflux disease without esophagitis; Z79.51 Long term (current) use of inhaled steroids; Z79.899 Other long term (current) drug therapy; Z79.01 Long term (current) use of anticoagulants; F41.1 Generalized anxiety disorder
CPT/HCPCS: 36415; 71045; 73000; 73502; 73610; 73630; 80048; 81001; 85025; 87077; 87086; 87088; 87186; 93971; 94640; 97110; 97116; 97163; 97166; 97530; 97535; 97802; 99406; J7030; A4216

== ENCOUNTER → 2017-12-14 17:36 | Outpatient (CLI) | payer MEDICARE, SELFPAY | PROVIDERS: Visit Provider Nurse Practitioner Adult Health | DX: R82.99 Other abnormal findings in urine (principal) | CPT/HCPCS: 87086; 87088; 87186 ==

== ENCOUNTER 2017-12-18 19:36 | Emergency (ER) | payer MEDICARE, SELFPAY ==
[2017-12-18 19:38] VITALS: BP 170/87; PULSE 90; RESP 18; TEMP 37.4; O2SAT 94; BMI 19.8
--- NOTE | 2017-12-18 21:02 | CT_ITS ---
CT Head or Brain W/O Contrast INDICATION: CONFUSION, HTN COMPARISON: October 31, 2017 TECHNIQUE: Noncontrast axial CT examination of the brain. Radiation dose optimization technique applied. Coronal and sagittal reformatted images are provided. FINDINGS: The ventricular system is normal in size and symmetric. Cortical sulci and basal cisterns are well seen. Grace-white matter junction is distinct. There are bilateral patchy and confluent periventricular low densities appreciated, nonspecific, most compatible with chronic ischemic microvascular white matter changes. A punctate calcification is noted in the left castro radiata, nonspecific. There is no evidence of acute intracranial hemorrhage, mass effect, midline shift, or abnormal extra-axial collection. The calvarium is intact and the visualized paranasal sinuses and mastoid clear. CT/Brain/Head without Contrast IMPRESSION: Stable examination without acute intracranial abnormality by noncontrast CT. Chronic ischemic microvascular white matter changes. at 2205 Reported and signed by: Mary Bishop MD Electronically Signed: Mary Bishop MD at 21:03 EST Tel , Service support ,
[2017-12-18] MEDS: oxyCODONE 5 MG Tablet PO (21:18)
[2017-12-18 21:21] LABS: Absolute Lymphocyte Count 0.56 X10^3/ul (0.83-4.51); Absolute Neutrophil Count 7.9 X10^3/uL (2.0-7.7); Basophil# 0.01 X10^3/uL; Basophil% 0.1 % (0-1); Hematocrit 39.1 % (37-47); Hemoglobin 12.5 g/dl (12.0-15.0); Lymphocyte # 0.56 X10^3/ul (4.0); Mean Corpuscular Hgb 30.9 pg (27.0-32.0); Mean Corpuscular Volume 96.5 fL (81-99); Mean Platelet Vol. 9.8 fl (6.2-12.0); Monocyte# 0.85 X10^3/uL; Monocyte% 9.1 % (0-10); Neutrophil # 7.94 X10^3/uL (2.7-7.7); Neutrophil % 84.6 % (47-70); Platelet Count 293 K/mm3 (150-450); RBC Distribution Width CV 14.5 % (11.6-14.6); RBC Distribution Width SD 51.7 fl (35.1-43.9); Red Blood Count 4.05 M/mm3 (4.2-5.4); White Blood Count 9.4 K/mm3 (4.4-11.0)
[2017-12-18 21:23] LABS: Differential Indicated SCAN CRITERIA MET; POSITIVE COUNT NO; POSITIVE DIFFERENTIAL YES; POSITIVE MORPHOLOGY NO
[2017-12-18 21:27] LABS: Anion Gap 8 (5-15); BUN 19 mg/dL (7-18); BUN/Creat Ratio 29.9 RATIO (10-20); Calcium,Total 9.2 mg/dL (8.5-10.1); Chloride 106 mmol/L (98-107); Creatinine, Serum 0.64 mg/dL (0.55-1.02); EST Glomerular Filtration Rate 95 mL/min (>60); Est Glom Filt Rate - Afr Amer 115 mL/min (>60); Estimated Creatinine Clearance 30.44 ml/min; Glucose 136 mg/dL (74-106); Potassium 3.5 mmol/L (3.5-5.1); Sodium Level 140 mmol/L (136-145)
[2017-12-18 21:31] LABS: Lactic Acid 0.8 mmol/L (0.4-2.0)
[2017-12-18] MEDS: Ceftriaxone 1 GM/50 ML BAG IV (21:35)
--- NOTE | 2017-12-18 21:45 | RAD_ITS ---
XR Chest 2 Views INDICATION: FEVER, COUGH, HEADACHE, UTI, CONFUSED, LETHARGIC, PRODUCITIVE COUGH COMPARISON: CT chest November 03, 2017 TECHNIQUE: PA and lateral chest x-ray FINDINGS: Lungs are hyperinflated with flattening of the diaphragm compatible with COPD/emphysema. Interstitial markings are coarsened. There is redemonstration of a spiculated 1 cm nodule projecting in the right upper lung shah and an additional approximately 4 cm spiculated mass in the right infrahilar region. Findings are concerning for malignancy. The left lung is clear. The heart size is normal. The osseous structures are grossly unremarkable. RAD/Chest PA and Lateral IMPRESSION: 2 right pulmonary masses as detailed above, better seen on prior CT. Malignancy not excluded. Underlying COPD/emphysema. at 2208 Reported and signed by: Mary Bishop MD Electronically Signed: Mary Bishop MD at 21:07 EST Tel , Service support ,
[2017-12-18 21:49] LABS: Differential Comment SCANNED
[2017-12-18 22:01] VITALS: BP 175/77; PULSE 77; RESP 20; O2SAT 94
--- NOTE | 2017-12-18 22:36 | ED.DCSUM_ITS ---
- ER Visit Summary Date of Service: 12/18/17 Chief Complaint: Confused and unsteady History of Present Illness: The patient is a [address] Leyva and Dr. Huang. Family reports that she saw Dr. Welsh 3 days ago and had a urinalysis obtained. The urine culture returned today and showed a UTI. She was called in amoxicillin was taken 1 dose today. Family reports that she has had a fever to 101? and chills. She has had a cough for the past week that is productive yellow sputum. She has a sore throat is 6 out of 10 severity. She has had mild shortness of breath. She also complains of a headache that is 5 out of 10 severity. It began today. She does not have a history of similar headaches. Physical Examination: Vitals: Stable. Afebrile. General: Well-nourished and well-developed. Head: Normocephalic atraumatic. Neck: Supple, no lymphadenopathy. No JVD. Nontender. Cardiovascular: Regular rate and rhythm. No murmurs. Respiratory: No respiratory distress. Clear to auscultation bilaterally. Abdominal: Soft, nontender, nondistended, normal bowel sounds. No guarding, rebound, or peritoneal signs. Back: Nontender. Extremities: Nontender, no edema. Skin: Normal color, no rash. Neurologic: Alert and oriented ?3. Cranial nerves II through XII are intact. Normal strength and sensation. Psych: Normal affect. Test Results: CBC is marked for segment neutrophils 85 and lymphocytes of 6. Chem-7 is more for glucose 136 and BUN of 19. Lactic acid 0.8. Chest x-ray shows chronic changes of COPD. There is a 1 cm right upper lobe mass and 4 cm right infrahilar mass. CT brain shows chronic changes. Urine culture from December 14 shows E. coli that is pansensitive. Emergency Department Course and Treatment: Patient was treated with Rocephin IV. Treatment Plan: Had a prolonged discussion the family about treatment options. They would like to take the patient home. Her urine cultures returned and it is pansensitive I feel this is reasonable course of action. I also discussed with him the fact that she has masses on her CT of her chest in October and on the x-ray today. They report that they have seen Dr. Huang and decided to be conservative treatment for this. They do not want any further evaluation for lung cancer. Return to the emergency department for any worsening symptoms. Disposition: To home in improved and stable condition. Impression: 1. UTI. 2. Confusion. 3. Lung cancer. This note was generated with [employer] dictation software. It may contain incorrect words, spelling, and punctuation that were not noted in review of the chart prior to signing ED Disposition - Plan for ED Patient: Disposition: Home or Assisted Living Chief Complaint: General Illness Instructions: ED Kidney Infec Female Referrals: Mauricio Leyva DO [Primary Care Provider] - 3-5 Days if not improving
[2017-12-18 23:11] VITALS: BP 167/76; PULSE 75; RESP 23; O2SAT 94
== END 2017-12-18 23:12 | disposition home or self-care (01) ==
PROVIDERS: Emergency Provider Emergency Medicine; Family Provider Family Medicine; PCP Family Medicine
DX: N39.0 Urinary tract infection, site not specified (principal); R41.0 Disorientation, unspecified; C80.1 Malignant (primary) neoplasm, unspecified; J02.9 Acute pharyngitis, unspecified; H40.9 Unspecified glaucoma; J44.9 Chronic obstructive pulmonary disease, unspecified; H35.30 Unspecified macular degeneration; F17.200 Nicotine dependence, unspecified, uncomplicated
CPT/HCPCS: 36415; 70450; 71046; 80048; 83605; 85025; 87040; 87077; 87086; 87088; 87186; 96365; 99285; J7030; J7040; A4216

== ENCOUNTER → 2017-12-20 10:41 | Outpatient (CLI) | payer MEDICARE, SELFPAY ==
[2017-12-20 12:40] LABS: Absolute Lymphocyte Count 0.82 X10^3/ul (0.83-4.51); Basophil# 0.01 X10^3/uL; Basophil% 0.2 % (0-1); Eosinophil# 0.02 X10^3/uL; Eosinophils% 0.3 % (0-5); Hematocrit 37.8 % (37-47); Hemoglobin 12.1 g/dl (12.0-15.0); Lymphocyte # 0.82 X10^3/ul (4.0); Lymphocyte % 12.7 % (19-41); Mean Corpuscular Hgb 31.4 pg (27.0-32.0); Mean Corpuscular Volume 98.2 fL (81-99); Mean Platelet Vol. 10.2 fl (6.2-12.0); Monocyte# 0.59 X10^3/uL; Monocyte% 9.1 % (0-10); Neutrophil # 5.01 X10^3/uL (2.7-7.7); Neutrophil % 77.2 % (47-70); Platelet Count 308 K/mm3 (150-450); RBC Distribution Width CV 14.3 % (11.6-14.6); RBC Distribution Width SD 50.2 fl (35.1-43.9); Red Blood Count 3.85 M/mm3 (4.2-5.4); White Blood Count 6.5 K/mm3 (4.4-11.0)
[2017-12-20 12:59] LABS: POSITIVE COUNT NO; POSITIVE DIFFERENTIAL NO; POSITIVE MORPHOLOGY NO
[2017-12-20 13:04] LABS: Anion Gap 9 (5-15); BUN 20 mg/dL (7-18); BUN/Creat Ratio 29.3 RATIO (10-20); Calcium,Total 9.3 mg/dL (8.5-10.1); Chloride 107 mmol/L (98-107); Creatinine, Serum 0.68 mg/dL (0.55-1.02); EST Glomerular Filtration Rate 88 mL/min (>60); Est Glom Filt Rate - Afr Amer 106 mL/min (>60); Glucose 90 mg/dL (74-106); Potassium 3.3 mmol/L (3.5-5.1); Sodium Level 139 mmol/L (136-145)
== END ==
PROVIDERS: Family Provider Family Medicine; PCP Family Medicine; Visit Provider Family Medicine
DX: R78.81 Bacteremia (principal); N39.0 Urinary tract infection, site not specified
CPT/HCPCS: 36415; 80048; 85025; 87040

== ENCOUNTER → 2017-12-21 13:15 | Outpatient (CLI) | payer MEDICARE, SELFPAY ==
--- NOTE | 2017-12-21 13:17 | RAD_ITS ---
STUDY: X-RAY - PELVIS AND RIGHT HIP REASON FOR EXAM: Female, 82 years old. Fracture TECHNIQUE: Radiological exam, hip, unilateral, with pelvis when performed; 2 or 3 views. COMPARISON: 11/21/2017 FINDINGS: There is fixation of the proximal right femur. Osteopenia. The joint spaces are well-maintained. The SI joints are intact. There is mild curvature with degenerative disease of the lumbar spine. Suggestion of fracture deformities at the lumbar region. Arterial calcification. RAD/Hip 2-3 Views with Pelvis IMPRESSION: Status post fixation, right femur Marked osteopenia Electronically Signed: Sven Gonzalez MD at 22:10 EST Tel , Service support ,
== END ==
PROVIDERS: Family Provider Family Medicine; PCP Family Medicine; Visit Provider Orthopaedic Surgery
DX: M25.551 Pain in right hip (principal)
CPT/HCPCS: 73502

== ENCOUNTER 2018-01-07 14:30 | Emergency (ER) | payer MEDICARE, SELFPAY ==
[2018-01-07 14:31] VITALS: BP 179/81; PULSE 66; RESP 14; TEMP 37; O2SAT 96; BMI 19.8
--- NOTE | 2018-01-07 15:06 | RAD_ITS ---
STUDY: X-RAY - UNILATERAL RIBS ( LEFT ) WITH CHEST REASON FOR EXAM: Female, 82 years old. Increased confusion. Fall. Left-sided pain. TECHNIQUE - RIBS: 2 view(s) of the ribs. TECHNIQUE - CHEST: Single frontal view of the chest. COMPARISON: December 18, 2012 FINDINGS - RIBS: There is marked generalized osteopenia of all of the osseous structures. There is a nondisplaced fracture of the left seventh rib laterally. FINDINGS - CHEST: The lungs are hyperexpanded and there is a right lower lobe pulmonary nodule unchanged in appearance, compared to the prior study. There is no demonstrated pleural abnormality. There is cardiomegaly unchanged. Normal mediastinum and geovanna. Normal visualized pulmonary arteries. There is aortic tortuosity with calcification unchanged. Normal visualized thoracic spine. Normal visualized ribs, clavicles, and shoulders. There is no demonstrated abnormality of the visualized soft tissue structures of the upper abdomen. RAD/Ribs Uni Min 3V w/PA Chest IMPRESSION: RIBS: Nondisplaced left rib fracture as described. CHEST: Stable appearance of the chest. See discussion above. Electronically Signed: Alex Kebede MD at 16:42 EDT , Service support ,
--- NOTE | 2018-01-07 15:06 | EKG12_ITS ---
Test Reason : ILLNESS Blood Pressure : / mmHG Vent. Rate : 075 BPM Atrial Rate : 075 BPM P-R Int : 124 ms QRS Dur : 070 ms QT Int : 406 ms P-R-T Axes : 070 054 039 degrees QTc Int : 453 ms Sinus rhythm with Premature supraventricular complexes Otherwise normal ECG Confirmed by JULIA NG, URSULA ([id number]), brands editor JAIDA GORDON ([id number] on 01/09/2018 12:58:19 PM Referred By: WIN Confirmed By:URSULA DUMONT MD
[2018-01-07 15:20] LABS: Absolute Lymphocyte Count 1.57 X10^3/ul (0.83-4.51); Absolute Neutrophil Count 4.5 X10^3/uL (2.0-7.7); Basophil# 0.01 X10^3/uL; Basophil% 0.2 % (0-1); Eosinophil# 0.03 X10^3/uL; Eosinophils% 0.5 % (0-5); Hematocrit 37.6 % (37-47); Hemoglobin 12.2 g/dl (12.0-15.0); Lymphocyte # 1.57 X10^3/ul (4.0); Lymphocyte % 23.8 % (19-41); Mean Corp Hgb Conc 32.4 g/gl (32-36); Mean Corpuscular Volume 95.7 fL (81-99); Mean Platelet Vol. 10.1 fl (6.2-12.0); Monocyte# 0.47 X10^3/uL; Monocyte% 7.1 % (0-10); Neutrophil # 4.52 X10^3/uL (2.7-7.7); Neutrophil % 68.2 % (47-70); POSITIVE COUNT NO; POSITIVE DIFFERENTIAL NO; POSITIVE MORPHOLOGY NO; Platelet Count 304 K/mm3 (150-450); RBC Distribution Width CV 14.2 % (11.6-14.6); RBC Distribution Width SD 48.4 fl (35.1-43.9); Red Blood Count 3.93 M/mm3 (4.2-5.4); White Blood Count 6.6 K/mm3 (4.4-11.0)
[2018-01-07 15:33] LABS: Anion Gap 9 (5-15); BUN 20 mg/dL (7-18); BUN/Creat Ratio 28.4 RATIO (10-20); Calcium,Total 9.1 mg/dL (8.5-10.1); Chloride 107 mmol/L (98-107); EST Glomerular Filtration Rate 85 mL/min (>60); Est Glom Filt Rate - Afr Amer 102 mL/min (>60); Estimated Creatinine Clearance 29.51 ml/min; Glucose 90 mg/dL (74-106); Potassium 3.8 mmol/L (3.5-5.1); Sodium Level 142 mmol/L (136-145)
--- NOTE | 2018-01-07 15:59 | ED.VISSUMM ---
- ER Visit Summary Date of Service: 01/07/18 Chief Complaint: Rib pain and weakness History of Present Illness: The patient is a 82 F presenting for evaluation secondary to fall. Patient has recent medical history of having a fall with hip surgery in October and a stay in the rehab unit until . Patient apparently has had intermittent issues with weakness caused by urinary tract infections. Patient apparently was doing well, but yesterday started to feel generally weak and when she got out of bed she suffered some dizziness and a fall in her bedroom. She struck the left side of her ribs against her bed stand, and also suffered some skin tears on her right arm. Denies hitting her head or loss of consciousness. Patient's daughter states that she has been having some increased confusion recently which is also consistent with when she has urinary tract infections. Patient denies any fevers nausea vomiting diarrhea chest pain shortness of breath or dysuria. Review of systems otherwise negative. Physical Examination: Vital signs notable for hypertension 179/81. Well-nourished elderly female no acute distress. Head normocephalic atraumatic PRL, EOMI moist mucous membranes noted. Neck supple. Heart was regular rate with a 2 out of 6 systolic murmur and occasional extrasystoles. Lung sounds were clear to auscultation bilaterally respirations nondistressed. There is left posterior rib pain with an overlying abrasion without any evidence of subcutaneous emphysema flail chest or other deformity. This is approximately around the T10 region of the ribs. Abdomen soft nontender. Peripheral pulses 2+ and symmetric ?4. There is evidence of skin tears on the patient's right arm. Patient is alert and oriented ?4 at this time with no lateralizing neurological deficits. Test Results: EKG shows sinus rate [address] segments normal T waves and occasional PACs. No evidence of acute ischemia or arrhythmia. CBC unremarkable, chemistry unremarkable, troponin negative. Urinalysis shows positive nitrites greater than 100 white cells and 3+ bacteria. Chest x-ray with rib series shows the patient's right-sided lung mass that appears unchanged, no evidence of infiltrate, and evidence of a nondisplaced seventh rib fracture per radiology. Emergency Department Course and Treatment: Patient presented with fall and rib pain and concerns for having a UTI. Patient's workup as noted above showed no evidence of fracture but did demonstrate UTI without any evidence of sepsis. Patient's pain was addressed with a lidocaine patch, and urinary tract infection will be treated with Bactrim first dose given in the emergency department. An extensive conversation with the patient and her daughter about this hospital treatment versus home, they are comfortable with the patient going home at this point I believe that this is the appropriate disposition. Patient's urine will be cultured she will be sent home with a course of lidocaine patches and Bactrim, and follow-up with her PCP sometime this week. Disposition: Discharge Impression: 1. Urinary tract infection 2. Left-sided rib fracture This note was generated with [employer] dictation software. It may contain incorrect words, spelling, and punctuation that were not noted in review of the chart prior to signing ED Disposition - Plan for ED Patient: Disposition: Home or Assisted Living Chief Complaint: Confusion Diagnosis: UTI (urinary tract infection), Rib contusion Instructions: ED Contusion Rib, ED UTI Cystitis Female Prescriptions: Lidocaine [Lidoderm] 1 ea TP DAILY #10 adh..patch Smz/Tmp Ds [Bactrim Ds] 1 tab PO BID #20 tab Referrals: Mauricio Leyva DO [Primary Care Provider] - 3-5 Days
--- NOTE | 2018-01-07 16:02 | ED.DCSUM_ITS ---
- ER Visit Summary Date of Service: 01/07/18 Chief Complaint: Rib pain and weakness History of Present Illness: The patient is a 82 F presenting for evaluation secondary to fall. Patient has recent medical history of having a fall with hip surgery in October and a stay in the rehab unit until . Patient apparently has had intermittent issues with weakness caused by urinary tract infections. Patient apparently was doing well, but yesterday started to feel generally weak and when she got out of bed she suffered some dizziness and a fall in her bedroom. She struck the left side of her ribs against her bed stand , and also suffered some skin tears on her right arm. Denies hitting her head or loss of consciousness. Patient's daughter states that she has been having some increased confusion recently which is also consistent with when she has urinary tract infections. Patient denies any fevers nausea vomiting diarrhea chest pain shortness of breath or dysuria. Review of systems otherwise negative. Physical Examination: Vital signs notable for hypertension 179/81. Well- nourished elderly female no acute distress. Head normocephalic atraumatic PRL, EOMI moist mucous membranes noted. Neck supple. Heart was regular rate with a 2 out of 6 systolic murmur and occasional extrasystoles. Lung sounds were clear to auscultation bilaterally respirations nondistressed. There is left posterior rib pain with an overlying abrasion without any evidence of subcutaneous emphysema flail chest or other deformity. This is approximately around the T10 region of the ribs. Abdomen soft nontender. Peripheral pulses 2 + and symmetric ?4. There is evidence of skin tears on the patient's right arm. Patient is alert and oriented ?4 at this time with no lateralizing neurological deficits. Test Results: EKG shows sinus rate [address] segments normal T waves and occasional PACs. No evidence of acute ischemia or arrhythmia. CBC unremarkable, chemistry unremarkable, troponin negative. Urinalysis shows positive nitrites greater than 100 white cells and 3+ bacteria. Chest x-ray with rib series shows the patient's right-sided lung mass that appears unchanged , no evidence of infiltrate, and evidence of a nondisplaced seventh rib fracture per radiology. Emergency Department Course and Treatment: Patient presented with fall and rib pain and concerns for having a UTI. Patient's workup as noted above showed no evidence of fracture but did demonstrate UTI without any evidence of sepsis. Patient's pain was addressed with a lidocaine patch, and urinary tract infection will be treated with Bactrim first dose given in the emergency department. An extensive conversation with the patient and her daughter about this hospital treatment versus home, they are comfortable with the patient going home at this point I believe that this is the appropriate disposition. Patient's urine will be cultured she will be sent home with a course of lidocaine patches and Bactrim, and follow-up with her PCP sometime this week. Disposition: Discharge Impression: 1. Urinary tract infection 2. Left-sided rib fracture This note was generated with [employer] dictation software. It may contain incorrect words, spelling, and punctuation that were not noted in review of the chart prior to signing ED Disposition - Plan for ED Patient: Disposition: Home or Assisted Living Chief Complaint: Confusion Diagnosis: UTI (urinary tract infection), Rib contusion Instructions: ED Contusion Rib, ED UTI Cystitis Female Prescriptions: Lidocaine [Lidoderm] 1 ea TP DAILY #10 adh..patch Smz/Tmp Ds [Bactrim Ds] 1 tab PO BID #20 tab Referrals: Mauricio Leyva DO [Primary Care Provider] - 3-5 Days
[2018-01-07 16:10] LABS: Mucous, Urine 0 SEEN /hpf (<or=2+)
[2018-01-07 16:13] LABS: Color, Urine Yellow (Yellow); Glucose, Dipstick Normal (Normal); Ketone-Dipstick Negative (Negative); Leukocyte Esterase-Dipstick 500 /ul (Negative); Nitrite-Dipstick Positive (Negative); Occult Blood-Urine 150 /ul (Negative); Protein-Dipstick 30 mg/dl (Negative); Specific Gravity, Urine 1.015 (1.002-1.030); Urine Bilirubin Dipstick Negative (Negative); Urine Clarity Sl. Cloudy (Clear); Urine Urobilinogen Normal (Normal); Urine pH 6.5 (5.0 - 8.0)
[2018-01-07 16:30] LABS: White Blood Cells >100 SEEN /hpf (0-5)
[2018-01-07 16:31] LABS: Bacteria 3+ /hpf (None Seen); Red Blood Cells-Urine 0-5 SEEN /hpf (0-5); Squamous Epithelial Cells - UA 0-5 SEEN /hpf (5-10)
[2018-01-07 16:40] VITALS: BP 166/69; RESP 16; O2SAT 97
[2018-01-07] MEDS: Lidocaine 5% Patch 1 PATCH TOPICAL (17:15)
[2018-01-07] MEDS: Smz/Tmp Ds Tablet 1 TABLET PO (17:15)
[2018-01-07 17:23] VITALS: BP 175/92; PULSE 80; RESP 16; O2SAT 96
--- NOTE | 2018-01-07 17:24 | ED.RN ---
PT AND DAUGHTER GIVEN WRITTEN AND VERBAL DISCHARGE INSTRUCTIONS AND HOME GOING PRESCRIPTIONS. PT IV D.C AND COVERED WITH 2X2 GAUZE DRESSING, MINIMAL BLEEDING NOTED. PT ASSISTED IN DRESSING AND MOVED TO WHEELCHAIR. ASSISTED OUT BY FAMILY.
== END 2018-01-07 17:32 | disposition home or self-care (01) ==
PROVIDERS: Emergency Provider Emergency Medicine; Family Provider Family Medicine; PCP Family Medicine
DX: N39.0 Urinary tract infection, site not specified (principal); S22.32XA Fracture of one rib, left side, initial encounter for closed fracture; W18.09XA Striking against other object with subsequent fall, initial encounter; Y93.9 Activity, unspecified; Y92.003 Bedroom of unspecified non-institutional (private) residence as the place of occurrence of the external cause; R01.1 Cardiac murmur, unspecified; I10 Essential (primary) hypertension; J44.9 Chronic obstructive pulmonary disease, unspecified; Z72.0 Tobacco use
CPT/HCPCS: 71101; 80048; 81001; 84484; 85025; 87086; 87088; 87186; 93005; 99285; J7030; A4216

== ENCOUNTER 2018-01-12 14:29 | Inpatient (IN) | payer MEDICARE, SELFPAY ==
[2018-01-12 14:30] VITALS: BP 154/60; PULSE 64; RESP 16; TEMP 36.7; O2SAT 95
[2018-01-12] MEDS: Diphth,Pertuss(Acell),Tet Vac 0.5 ML Vial IM (15:03)
--- NOTE | 2018-01-12 15:08 | RAD_ITS ---
STUDY: X-RAY - RIGHT TIBIA AND FIBULA REASON FOR EXAM: Female, 82 years old. Right lower leg pain TECHNIQUE: 3 view(s) of the tibia and fibula were obtained. COMPARISON: None. FINDINGS: There is demineralization of the tibia. There is demineralization of the fibula. There is no demonstrated acute fracture. The soft tissue structures are unremarkable. RAD/Tibia & Fibula 2 Views IMPRESSION: No acute findings Electronically Signed: Jose Pisano DO at 16:00 EDT Tel , Service support ,
[2018-01-12 16:29] VITALS: BP 156/68; PULSE 86; RESP 22; O2SAT 95
--- NOTE | 2018-01-12 17:24 | ED.DCSUM_ITS ---
- ER Visit Summary Date of Service: 01/12/18 Chief Complaint: Mechanical fall injury and right upper extremity History of Present Illness: The patient is a 82 F fell backwards striking the child protective guard on an outlet. She sustained a laceration to the posterior aspect of her right upper extremity. Immunizations not up-to-date. There was no head trauma. There is no reported loss conscious, amnesia or being dazed. She denies headache. She denies any visual, ocular auditory symptoms. She denies neck pain. She denies extremity pain. She denies back pain. There is a history of compression fractures. She is on no anticoagulant. Physical Examination: Vital signs are unremarkable. Head is atraumatic normocephalic. Pupils are equal round reactive. Extraocular muscles are intact. TMs are pearly white with landmarks noted. Nares patent with no drainage. Posterior pharynx without erythema or exudate. Uvula is midline. There is no dysphonia or dysphasia. Trachea is midline. There is no stridor with auscultation of the neck. Heart is regular without murmur, gallop or rub. S1 and S2 are normal. Lungs are clear to auscultation with good movement of air bilaterally. GCS is 15. Patient is alert and oriented ?3. Motor is 5/5. Sensation is intact. DTRs are symmetric without clonus or Babinski. Cranial nerves II through XII are intact. Finger to nose to finger was performed adequately. Patient has an extensive laceration posterior right upper extremity from the mid arm to the proximal portion of the right forearm. Axillary, median, radial and ulnar function intact. Radial pulses palpable. Test Results: Two-view tibia-fibula x-ray was obtained to provide me as negative for any acute process. Emergency Department Course and Treatment: Patient complained of pain over the right leg with palpation. In light of her multiple orthopedic fractures that was obtained to evaluate for fracture. The laceration does require suturing. After patient use the restroom I informed patient I would her laceration. The daughter asked me what are you going to do about her hallucinations . I asked her I was not told she was having hallucinations. She apparently has had visual hallucinations today. She was diagnosed with a UTI on January 07. Culture is presumptively positive for E. coli. Sensitivity is not known. She was prescribed Bactrim. The devitalized tissue was excised. The dermis and subcutaneous tissue was approximated to determine if suturing or jose j would be better. The wound was anesthetized with 1% lidocaine by local infiltration. A total of 5 cc was infiltrated. The wound was irrigated with 250 cc of normal saline. Since there is exposed muscle and tendon will add cephalexin to her present antibiotic course. The wound was stapled with good approximation. The upper extremity was cleansed and a sterile dressing was applied. Treatment Plan: If patient goes home will prescribe 5 day course of cephalexin. If she requires admission hospitalist can determine what antibiotic they deem appropriate for appropriate wound coverage. Disposition: In light of the new complaint of hallucination a CBC and BMP were obtained. Case was turned over to Dr. Ashok Dueñas who will make disposition once lab results have returned. Impression: 1. Mechanical fall 2. 9 cm laceration right upper extremity 3. Visual hallucinations unknown etiology 4. Recent diagnosis of UTI presumptively secondary to E. coli 5. History of COPD 6. History of hypertension 7. History of lung cancer This note was generated with [employer] dictation software. It may contain incorrect words, spelling, and punctuation that were not noted in review of the chart prior to signing ED Disposition - Plan for ED Patient: Disposition: Home or Assisted Living Chief Complaint: Fall Instructions: ED Mechanical Fall, ED Laceration Ext Sutr Stap Tape Prescriptions: Cephalexin 500 mg PO TID #14 cap Referrals: Mauriico Leyva DO [Primary Care Provider] - 10-14 Days suture removal Additional Instructions: May remove dressing after 2 days. Thereafter dressing changes 2-3 times a day. Recommend cleaning wound with peroxide and Q-tip 3 times a day then applying bacitracin ointment. Evaluation for staple remover in 14 days.
[2018-01-12 18:36] LABS: Absolute Lymphocyte Count 1.49 X10^3/ul (0.83-4.51); Absolute Neutrophil Count 4.7 X10^3/uL (2.0-7.7); Basophil# 0.01 X10^3/uL; Basophil% 0.1 % (0-1); Eosinophil# 0.05 X10^3/uL; Eosinophils% 0.7 % (0-5); Hematocrit 38.5 % (37-47); Hemoglobin 12.8 g/dl (12.0-15.0); Lymphocyte # 1.49 X10^3/ul (4.0); Lymphocyte % 21.9 % (19-41); Mean Corp Hgb Conc 33.2 g/gl (32-36); Mean Corpuscular Hgb 30.5 pg (27.0-32.0); Mean Corpuscular Volume 91.7 fL (81-99); Mean Platelet Vol. 9.8 fl (6.2-12.0); Monocyte# 0.55 X10^3/uL; Monocyte% 8.1 % (0-10); Neutrophil # 4.68 X10^3/uL (2.7-7.7); Neutrophil % 69.1 % (47-70); Platelet Count 295 K/mm3 (150-450); RBC Distribution Width CV 14.5 % (11.6-14.6); RBC Distribution Width SD 48.9 fl (35.1-43.9); White Blood Count 6.8 K/mm3 (4.4-11.0)
[2018-01-12 18:43] LABS: Anion Gap 10 (5-15); BUN 17 mg/dL (7-18); BUN/Creat Ratio 18.5 RATIO (10-20); Calcium,Total 9.4 mg/dL (8.5-10.1); Chloride 106 mmol/L (98-107); Creatinine, Serum 0.92 mg/dL (0.55-1.02); EST Glomerular Filtration Rate 62 mL/min (>60); Est Glom Filt Rate - Afr Amer 75 mL/min (>60); Estimated Creatinine Clearance 33.42 ml/min; Glucose 78 mg/dL (74-106); Potassium 4.1 mmol/L (3.5-5.1); Sodium Level 139 mmol/L (136-145)
[2018-01-12 18:53] LABS: POSITIVE COUNT NO; POSITIVE DIFFERENTIAL NO; POSITIVE MORPHOLOGY NO
[2018-01-12 18:57] VITALS: BP 152/84; PULSE 84; RESP 18; O2SAT 96
[2018-01-12] MEDS: Ceftriaxone 1 GM/50 mL Premix x1 IV (19:57)
[2018-01-12 20:00] VITALS: PULSE 90; RESP 21
[2018-01-12 20:02] VITALS: BP 186/68; PULSE 88; RESP 20; O2SAT 95
--- NOTE | 2018-01-12 20:32 | HP.PCM_ITS ---
Problem List (1) COPD (chronic obstructive pulmonary disease) Status: Acute Qualifiers: (2) Closed right hip fracture Status: Acute (3) Fracture, clavicle Status: Acute Comment: right (4) Generalized anxiety disorder Status: Acute (5) Hip fracture, right Status: Acute Qualifiers: Encounter type: initial encounter Fracture type: closed Qualified Code(s) : S72.001A - Fracture of unspecified part of neck of right femur, initial encounter for closed fracture (6) Compression fracture of lumbar vertebra Status: Chronic (7) Compression fracture of thoracic vertebra Status: Chronic (8) Macular degeneration Status: Chronic Qualifiers: (9) Mass of right lung Status: Chronic Comment: enlarging since CT scan in 2014 History of Present Illness Date of Admission: 01/12/18 Chief Complaint: UTI The patient is a 82 year old female w/ h/o COPD, HTN, and compression fracture admitted for UTI. Pt has had several episode of UTIs in the past. She recently finished a course of antibiotic. Her food intake has been poor and has resulted in constipation. She has explosive diarrhea from time to time. She also has worsening dementia and has been falling from time to time. She had a mechanical fall today that resulted striking a child protective guard on an outlet. She lacerated the posterior aspect of her right upper extremity. She also developed hallucination today. Hallucination appears benign and pt is not bothered by it. Nothing makes the hallucination better or worse. The hallucination has been constant. She lives with her daughter and feels she is unable to care for herself given the hallucination. Hallucination is not associated with any other symptoms. Past Medical History Past Medical History (Chronic Problems): Chronic Problems Mass of right lung (Chronic) enlarging since CT scan in 2014 Macular degeneration (Chronic) Osteoporosis (Chronic) Compression fracture of lumbar vertebra (Chronic) Compression fracture of thoracic vertebra (Chronic) Glaucoma (Chronic) Neuropathic pain (Chronic) Hypertension (Chronic) Anxiety (Chronic) Tobacco abuse (Chronic) Allergies oxycodone [From Percocet] Adverse Reaction (Verified 01/12/18 14:32) Itching Home Medications: Ambulatory Orders Medication Instructions Recorded Budesonide/Formoterol 160/4.5 2 puff INHALATION BID 08/05/14 [Symbicort 160/4.5 Mcg Inhaler (SP)] Lorazepam 0.25 mg PO TID 08/05/14 Tiotropium [place] [Spiriva] 1 puff INHALATION DAILY 08/05/14 Ergocalciferol [Vitamin D] 50,000 unit PO JOSE 10/31/17 Peg 400/Hypromellose/Glycerin 1 drop EACH EYE Q1H PRN 10/31/17 [Artificial Tears Drops] Travoprost 0.004% [Travatan-Z 1 drop EACHEYE QHS 10/31/17 0.004% Eye Drop] Albuterol Aerosols [Ventolin 2.5 mg INHALATION Q2H PRN PRN #120 12/05/17 Aerosols] vial.neb. 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 INTEGRITY ENGINEER history Smoking Status: Current every day smoker - *Family History Maternal History Items: No pertinent history Paternal History Items: No pertinent history Review of Systems Constitutional: Denies: Chills, Fever, Weight Change HEENT: Denies: Head Aches, Sinus Congestion, Sinus Drainage Cardiovascular: Denies: Chest Pain, Palpitations Respiratory: Denies: Cough, Shortness of breath at rest, Sputum production Gastrointestinal: Denies: Abdominal Pain, Nausea, Vomiting Genitourinary: Denies: Dysuria Musculoskeletal: Denies: Joint Pain, Joint Tenderness Skin: Denies: Rash, Wounds Neurological: Denies: Numbness, Tingling, Focal weakness Psychiatric: Denies: Anxiety, Depression, Homicidal Ideations, Suicidal Ideations Hematologic/ Lymphatic: Denies: Easy Bruising, Easy Bleeding VTE Information - Inpt Only VTE Present on Admission: No VTE Mechan Device Prophylaxis: SCD's VTE Pharm Prophylaxis ordered?: Yes - Physical Exam General: Alert, Oriented x3, Cooperative HEENT: Atraumatic, PERRLA, EOMI, Normocephalic Neck: Supple, No JVD, Negative Carotid Bruits Lungs: Clear to auscultation, Normal air movement Cardiovascular: Regular rate, No murmurs Abdomen: Bowel Sounds Present, Soft, Non Tender Extremities: No edema, Capillary Refill Less than 3 Seconds Skin: No rashes, No breakdown Musculoskeletal: No Tenderness to Palpation of Joints or Extremities Neurological: Cranial nerves II-XII grossly intact Psych/Mental Status: Normal Affect, Appropriate Vital Signs Temp Pulse Resp BP Pulse Ox 98.1 F 88 20 H 186/68 H 95 01/12/18 14:30 01/12/18 20:02 01/12/18 20:02 01/12/18 20:02 01/12/18 20:02 Oxygen Delivery Method Room Air Weight: 44.9 kg Body Mass Index (BMI) 20.0 Laboratory Tests Past 24 Hrs 01/12/18 01/12/18 17:50 17:50 WBC 6.8 RBC 4.20 Hgb 12.8 Hct 38.5 MCV 91.7 MCH 30.5 MCHC 33.2 RDW 14.5 RDW Differential 48.9 H Plt Count 295 MPV 9.8 Immature Gran % (Auto) 0.100 Neut % (Auto) 69.1 Lymph % (Auto) 21.9 [place] % (Auto) 8.1 Eos % (Auto) 0.7 Baso % (Auto) 0.1 Absolute Neuts (auto) 4.7 Absolute Lymphs (auto) 1.49 Total Counted Not Reportable Sodium 139 Potassium 4.1 Chloride 106 Carbon Dioxide 23.0 Anion Gap 10 BUN 17 Creatinine 0.92 Estim Creat Clear Calc 33.42 Est GFR (MDRD) Af Amer 75 Est GFR (MDRD) Non-Af 62 BUN/Creatinine Ratio 18.5 Glucose 78 Calcium 9.4 Assessment/Plan 82 year old female w/ h/o COPD, HTN, and compression fracture admitted for UTI. 1) UTI: C/w ceftriaxone. Likely secondary to poor hygiene. Cultures pending. 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 Ammonia, TSH, and folate wnl. B12 and RPR pending. Will hold sedative meds as this can worsen dementia. 3) HTN: Resume home meds. Monitor. 4) Prophylaxis: SCD / heparin.
[2018-01-12 21:53] VITALS: BP 161/68; PULSE 87; RESP 18; TEMP 36.7; O2SAT 93
[2018-01-12 22:25] VITALS: BMI 18.7
[2018-01-12 22:31] VITALS: BMI 18.7
[2018-01-12] MEDS: Acetaminophen 325 MG Tablet 650 MG PO (22:45)
[2018-01-12 23:05] LABS: Thyroid Stim Hormone (TSH) 1.03 uIU/mL (0.358-3.74)
[2018-01-13] VITALS (9 sets, daily range): BP systolic 145–158; BP diastolic 53–89; PULSE 68–90; RESP 16–18; TEMP 35.8–36.9; O2SAT 93–97
[2018-01-13] MEDS: Ipratropium/Albuterol Sulfate 3 ML AMPUL.NEB INHALATION ×3 (07:15→19:38)
[2018-01-13] MEDS: Budesonide Respules 0.5 MG/2 ML AMPUL.NEB. INHALATION ×2 (07:15→19:40)
[2018-01-13 07:17] LABS: Absolute Lymphocyte Count 1.36 X10^3/ul (0.83-4.51); Absolute Neutrophil Count 2.5 X10^3/uL (2.0-7.7); Basophil# 0.01 X10^3/uL; Basophil% 0.2 % (0-1); Eosinophil# 0.11 X10^3/uL; Eosinophils% 2.5 % (0-5); Hematocrit 35.8 % (37-47); Hemoglobin 11.7 g/dl (12.0-15.0); Lymphocyte # 1.36 X10^3/ul (4.0); Lymphocyte % 30.7 % (19-41); Mean Corp Hgb Conc 32.7 g/gl (32-36); Mean Corpuscular Hgb 30.5 pg (27.0-32.0); Mean Corpuscular Volume 93.2 fL (81-99); Mean Platelet Vol. 9.9 fl (6.2-12.0); Monocyte# 0.44 X10^3/uL; Monocyte% 9.9 % (0-10); Neutrophil # 2.51 X10^3/uL (2.7-7.7); Neutrophil % 56.7 % (47-70); POSITIVE COUNT NO; POSITIVE DIFFERENTIAL NO; POSITIVE MORPHOLOGY NO; Platelet Count 291 K/mm3 (150-450); RBC Distribution Width CV 14.2 % (11.6-14.6); RBC Distribution Width SD 46.7 fl (35.1-43.9); Red Blood Count 3.84 M/mm3 (4.2-5.4); White Blood Count 4.4 K/mm3 (4.4-11.0)
[2018-01-13 07:52] LABS: ALB/GLOB Ratio 1.1 RATIO (0.9-2.4); AST(SGOT) 23 U/L (15-37); Alanine Aminotransfer ALT/SGPT 18 U/L (13-56); Albumin, Serum 3.1 g/dL (3.2-5.0); Alkaline Phosphatase 90 U/L (45-117); Anion Gap 10 (5-15); BUN 17 mg/dL (7-18); BUN/Creat Ratio 20.9 RATIO (10-20); Calcium,Total 8.9 mg/dL (8.5-10.1); Chloride 107 mmol/L (98-107); Creatinine, Serum 0.81 mg/dL (0.55-1.02); EST Glomerular Filtration Rate 72 mL/min (>60); Est Glom Filt Rate - Afr Amer 87 mL/min (>60); Estimated Creatinine Clearance 34.32 ml/min; Globulin 2.9 g/dL (2.2-4.2); Glucose 102 mg/dL (74-106); Potassium 3.9 mmol/L (3.5-5.1); Sodium Level 139 mmol/L (136-145)
[2018-01-13] MEDS: Escitalopram Oxalate 10 MG Tablet PO (08:27)
[2018-01-13] MEDS: Pantoprazole Sodium 20 MG Tablet PO (08:27)
[2018-01-13] MEDS: Ceftriaxone 1 GM/50 ML BAG IV (10:31)
[2018-01-13] MEDS: 0.9% Normal Saline 1,000 ML 100 ML IV (10:32)
[2018-01-13] MEDS: Albuterol 2.5 MG/3 ML VIAL.NEB. INHALATION (10:43)
--- NOTE | 2018-01-13 11:24 | CASEMGMT ---
Social Work Referral as patient has had a recent stay on the Transitional Care Unit and just had a fall at home. Met with patient in room. This family welfare social work professor introduced self as well as social work role. Patient reporting to live at home with daughter and to have 24hr care within the home. Patient reporting to have a 2-story home but to have a 1st floor set up. Patient has a walker and uses a cane at home. Patient current with home health services for nursing through [facility]. Patient was current with therapies within the home but has discontinued as patient was doing well. Patient reporting to have some depression and to be feeling down now that patient has readmitted to the hospital. Patient plans to discharge home with daughter. Patient has support within the home and community. Telephone call to patient daughter, patient daughter confirming plan for patient to return home with daughter. Patient unsure about continuing therapies after discharge within the home. Patient aware that patient can speak with home health nurse and that home health nurse could assist in facilitating getting therapy active within the home if needed as well. Support given. PLAN: Discharge home with daughter and home health services (nursing) possibly therapies if patient decides to begin therapies again. Yoselin ZAIDI, PRODUCT CONTROL AND LOGISTICS ANALYST
--- NOTE | 2018-01-13 11:32 | PN_ITS ---
Subjective: Patient has history of frequent UTI, almost every month and on multiple rounds of antibiotic. No fever or tachycardia. Vitals/I&O's: Vital Signs Temp Pulse Resp BP Pulse Ox 96.5 F L 68 16 147/89 H 94 01/13/18 08:29 01/13/18 10:43 01/13/18 10:43 01/13/18 08:29 01/13/18 08:29 Oxygen Delivery Method Room Air Weight: 89 lb 8.123 oz Body Mass Index (BMI) 18.7 Intake and Output for Last 24 Hours 01/11/18 01/12/18 01/13/18 23:59 23:59 23:59 Intake Total 1058 / 1058 Output Total 400 / 400 Balance 658 / 658 General: Alert, Oriented x3, Cooperative HEENT: Atraumatic, PERRLA, EOMI, Normocephalic Neck: Supple, No JVD, Negative Carotid Bruits Lungs: No rhonchi, No wheeze, Diminished Cardiovascular: Regular rate, Regular Rhythm, Normal S1, Normal S2, No murmurs Abdomen: Bowel Sounds Present, Soft, Non Tender, Non-Distended Extremities: No edema, Capillary Refill Less than 3 Seconds Skin: No rashes, No breakdown Musculoskeletal: No Tenderness to Palpation of Joints or Extremities Neurological: Cranial nerves II-XII grossly intact Psych/Mental Status: Normal Affect, Appropriate Laboratory Results 01/12/18 22:12: Ammonia 11.0 01/12/18 22:12: Folate 13.20 01/12/18 22:12: TSH 1.03 01/12/18 22:12: Vitamin B12 Pending 01/13/18 06:40: WBC 4.4, RBC 3.84 L, Hgb 11.7 L, Hct 35.8 L, MCV 93.2, MCH 30.5 , MCHC 32.7, RDW 14.2, RDW Differential 46.7 H, Plt Count 291, MPV 9.9, Immature Gran % (Auto) 0.000, Neut % (Auto) 56.7, Lymph % (Auto) 30.7, [place] % ( Auto) 9.9, Eos % (Auto) 2.5, Baso % (Auto) 0.2, Absolute Neuts (auto) 2.5, Absolute Lymphs (auto) 1.36, Total Counted Not Reportable 01/13/18 06:40: Sodium 139, Potassium 3.9, Chloride 107, Carbon Dioxide 22.0, Anion Gap 10, BUN 17, Creatinine 0.81, Estim Creat Clear Calc 34.32, Est GFR ( MDRD) Af Amer 87, Est GFR (MDRD) Non-Af 72, BUN/Creatinine Ratio 20.9 H, Glucose 102, Calcium 8.9, Total Bilirubin 0.40, AST 23, ALT 18, Alkaline Phosphatase 90, Total Protein 6.0 L, Albumin 3.1 L, Globulin 2.9, Albumin/ Globulin Ratio 1.1 01/13/18 06:40: RPR Pending Current Medications Acetaminophen (Tylenol) 650 mg PO Q4H PRN PRN PRN Reason: PAIN Last Admin: 01/12/18 22:45 Dose: 650 mg Albuterol Sulfate (Proair Hfa (Sp) Surgery/Vent Pts) 2 puff INHALATION Q4H PRN PRN PRN Reason: WHEEZING Last Admin: 01/12/18 19:57 Dose: 2 puff Albuterol Sulfate (Ventolin Aerosols) 2.5 mg INHALATION Q2H PRN PRN PRN Reason: DYSPNEA Last Admin: 01/13/18 10:43 Dose: 2.5 mg Albuterol/Ipratropium (Duoneb) 3 ml INHALATION Q6HWA.RT [facility] Last Admin: 01/13/18 07:15 Dose: 3 ml Artificial Tears (Tears Naturale, Artificial Tears) 1 drop EACH EYE Q1H PRN PRN PRN Reason: DRY EYES Last Admin: 01/12/18 22:45 Dose: 1 drop Budesonide (Pulmicort Aerosol) 0.5 mg INHALATION Q12H.RT [facility] Last Admin: 01/13/18 07:15 Dose: 0.5 mg Ergocalciferol (Vitamin D) 50,000 unit PO JOSE [facility] Escitalopram Oxalate (Lexapro) 10 mg PO DAILY [facility] Last Admin: 01/13/18 08:27 Dose: 10 mg Heparin Sodium (Porcine) (Heparin Na) 5,000 unit SC Q8 [facility] Last Admin: 01/13/18 06:40 Dose: 5,000 units Ceftriaxone Sodium (Rocephin) 1 gm in 50 mls @ 100 mls/hr IV Q24 [facility] Last Admin: 01/13/18 10:31 Dose: 100 mls/hr Sodium Chloride () 1,000 mls @ 100 mls/hr IV .Q10H [facility] Last Admin: 01/13/18 10:32 Dose: 100 mls/hr Magnesium Hydroxide (Milk Of Magnesia) 30 ml PO DAILY PRN PRN PRN Reason: Constipation Nutritional Formula (Lactose Free) (Ensure Enlive) 120 ml PO 4X/DAY [facility] Last Admin: 01/13/18 08:29 Dose: 120 ml Pantoprazole Sodium (Protonix) 20 mg PO DAILY [facility] Last Admin: 01/13/18 08:27 Dose: 20 mg Medical Necessity - Tobacco Use Smoking Status: Current every day smoker Assessment/Plan This is a 82 year old female w/ h/o COPD, HTN, and compression fracture admitted for UTI. 1) UTI: C/w ceftriaxone. Urine culture is pending. Discussed the nature of UTI in elderly woman. She was educated about pyuria and many times may be from colonization of urine tract and probably may not to be treated every time. Likely secondary to poor hygiene. Cultures pending. 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 Ammonia, TSH, and folate wnl. B12 and RPR pending. Will hold sedative meds as this can worsen dementia. 3) HTN: Resume home meds. Monitor. 4) Prophylaxis: SCD / heparin. Course and treatment of UTI, urine colonization and sometimes contamination discussed with the patient's daughter. This note was generated with [employer] dictation software. Every effort was made to ensure accuracy, however computerized section chief mistakes may persist. Code Visit Inpatient E&M: 67334 [facility] Hosp L3
[2018-01-13] MEDS: Acetaminophen 325 MG Tablet 650 MG PO ×2 (11:41→21:18)
[2018-01-13] MEDS: guaiFENesin 1,200 MG Tablet 1200 MG PO (21:19)
[2018-01-14 02:57] VITALS: BP 147/81; PULSE 85; RESP 18; TEMP 36.9; O2SAT 93
[2018-01-14 06:51] VITALS: PULSE 80; RESP 16; O2SAT 98
[2018-01-14] MEDS: Ipratropium/Albuterol Sulfate 3 ML AMPUL.NEB INHALATION (06:51)
[2018-01-14] MEDS: Budesonide Respules 0.5 MG/2 ML AMPUL.NEB. INHALATION (06:51)
[2018-01-14 08:00] VITALS: BP 156/86; PULSE 88; RESP 16; TEMP 36.9; O2SAT 93
[2018-01-14] MEDS: guaiFENesin 1,200 MG Tablet 1200 MG PO (09:45)
[2018-01-14] MEDS: Ceftriaxone 1 GM/50 ML BAG IV (09:45)
[2018-01-14] MEDS: Escitalopram Oxalate 10 MG Tablet PO (09:45)
[2018-01-14] MEDS: Pantoprazole Sodium 20 MG Tablet PO (09:45)
--- NOTE | 2018-01-14 12:03 | DS.PCM_ITS ---
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 - Secondary Discharge Diagnosis Chronic Problems Mass of right lung (Chronic) enlarging since CT scan in 2014 Macular degeneration (Chronic) Osteoporosis (Chronic) Compression fracture of lumbar vertebra (Chronic) Compression fracture of thoracic vertebra (Chronic) Glaucoma (Chronic) Neuropathic pain (Chronic) Hypertension (Chronic) Anxiety (Chronic) Tobacco abuse (Chronic) Hospital Course and Treatment Operations: None, - - ORIF R hip intertrochanteric fracture 11/[address] Rojo Summary of Care Provided: [] This is a 82 year old female w/ h/o COPD, HTN, and compression fracture admitted for UTI. General: Alert, Oriented x3, Cooperative HEENT: Atraumatic, PERRLA, EOMI, Normocephalic Neck: Supple, No JVD, Negative Carotid Bruits Lungs: No rhonchi, No wheeze, Diminished Cardiovascular: Regular rate, Regular Rhythm, Normal S1, Normal S2, No murmurs Abdomen: Bowel Sounds Present, Soft, Non Tender, Non-Distended Extremities: No edema, Capillary Refill Less than 3 Seconds Skin: No rashes, No breakdown Musculoskeletal: No Tenderness to Palpation of Joints or Extremities Neurological: Cranial nerves II-XII grossly intact Psych/Mental Status: Normal Affect, Appropriate 1) possible treated UTI: The patient was admitted on the regular MedSurg floor. She took about 6 days of Bactrim before admitted. Here she was started on IV ceftriaxone. Even though, UA from 01/07/2018 shows more than 100 WBC cells, leukocyte esterase and nitrite positive, the urine culture from 01/12/2018 is negative reported as no growth probably treated by outpatient 6 days of Bactrim. Discussed the nature of UTI in elderly woman. She was educated about pyuria and many times may be from colonization of urine tract and probably may not to be treated every time. Likely secondary to poor hygiene. 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 Patient is on 0.25 mg Ativan 3 times daily at home. Advised to take it as needed for anxiety. Ammonia, TSH, and folate wnl. B12 and RPR pending; Follow-up the PCP 3) HTN: Resume home meds. Monitor. 4) Prophylaxis: SCD / heparin. Course and treatment of UTI, urine colonization and sometimes contamination discussed with the patient's daughter. Discharge medication reconciliation done. Patient does not need antibiotic as it is already been treated. This was complicated to the patient and her daughter. Total time spent, exact 32 minutes on discharge meds reconciliation, examination , review of imaging and blood test and discussion with the patient on follow-up instructions. This note was generated with [employer] dictation software. Every effort was made to ensure accuracy, however computerized customer service associate mistakes may persist. Discharge Activity: May Not Drive Weight Bearing Status: Weight bearing as tolerated Home Medications: Medications to take at Discharge Budesonide/Formoterol 160/4.5 [Symbicort 160/4.5 Mcg Inhaler (SP)] 2 puff INHALATION BID 08/05/14 Lorazepam 0.25 mg PO TID 08/05/14 Tiotropium [place] [Spiriva] 1 puff INHALATION DAILY 08/05/14 Ergocalciferol [Vitamin D] 50,000 unit PO JOSE 10/31/17 Peg 400/Hypromellose/Glycerin [Artificial Tears Drops] 1 drop EACH EYE Q1H PRN 10/31/17 Travoprost 0.004% [Travatan-Z 0.004% Eye Drop] 1 drop EACHEYE QHS 10/31/17 Albuterol Aerosols [Ventolin Aerosols] 2.5 mg INHALATION Q2H PRN PRN #120 vial.neb. 12/05/17 Escitalopram Oxalate [Lexapro] 10 mg PO DAILY #30 tab 12/05/17 Oxycodone [Oxyir] 5 mg PO Q4H PRN PRN #30 tab 12/05/17 Pantoprazole Sodium [Protonix] 20 mg PO DAILY #60 tab 12/05/17 Lisinopril [Zestril] 2.5 mg PO DAILY 01/12/18 Primary Care Physician: Mauricio Leyva DO [Primary Care Provider] - 10-14 Days suture removal Please follow up with your Primary Care Physician in: in 2 weeks Please Follow Up With: Boyd Welsh MD When: IN 3-4 weeks for recurrent UTI Patient Instructions: ED Mechanical Fall, ED Laceration Ext Sutr Stap Tape Medical Necessity - Tobacco Use Smoking Status: Current every day smoker Meaningful Use Info Meaningful Use Diagnoses (Choose all that apply): None applicable Code Visit Inpatient E&M: 10494 Disch Hosp
[2018-01-15 10:06] LABS: Vitamin B12 231 pg/mL (211-911)
[2018-01-19 02:33] LABS: Rapid Plasmin Reagin (RPR) NONREACTIVE (NONREACTIVE)
== END 2018-01-14 13:24 | disposition home or self-care (01) | DRG 690 ==
LOC: ED 18:38 → MS3 01-13 07:25
PROVIDERS: Emergency Medicine; Admitting Provider Internal Medicine; Emergency Provider Emergency Medicine; Family Provider Family Medicine; PCP Family Medicine; Visit Provider Internal Medicine
DX: N39.0 Urinary tract infection, site not specified (principal); S22.009A Unspecified fracture of unspecified thoracic vertebra, initial encounter for closed fracture; S32.009A Unspecified fracture of unspecified lumbar vertebra, initial encounter for closed fracture; S72.001D Fracture of unspecified part of neck of right femur, subsequent encounter for closed fracture with routine healing; J44.9 Chronic obstructive pulmonary disease, unspecified; S51.811A Laceration without foreign body of right forearm, initial encounter; W18.00XA Striking against unspecified object with subsequent fall, initial encounter; F03.90 Unspecified dementia, unspecified severity, without behavioral disturbance, psychotic disturbance, mood disturbance, and anxiety; R44.1 Visual hallucinations; I10 Essential (primary) hypertension; H35.30 Unspecified macular degeneration; M81.0 Age-related osteoporosis without current pathological fracture; F41.9 Anxiety disorder, unspecified; F41.1 Generalized anxiety disorder; F17.200 Nicotine dependence, unspecified, uncomplicated; Z87.440 Personal history of urinary (tract) infections; Z85.118 Personal history of other malignant neoplasm of bronchus and lung; Y93.9 Activity, unspecified; Y92.89 Other specified places as the place of occurrence of the external cause; Y99.9 Unspecified external cause status
CPT/HCPCS: 36415; 73590; 80048; 80053; 82140; 82607; 82746; 84443; 85025; 86592; 87040; 87086; 90715; 94640; 97162; 97166; 97530; 97802; 99285; 99406; J7030; A4216

== ENCOUNTER → 2018-02-27 13:15 | Outpatient (CLI) | payer MEDICARE, SELFPAY ==
--- NOTE | 2018-02-27 13:19 | RAD_ITS ---
STUDY: X-RAY - RIGHT SHOULDER REASON FOR EXAM: Pain. TECHNIQUE: 3 view(s) of the shoulder. COMPARISON: Radiographs 11/29/2017 and 10/31/2017. FINDINGS: There is osteopenia. Normal glenohumeral articulation. There is mild joint space narrowing of the acromioclavicular joint. Normal acromion. There is chronic deformity of the distal clavicle with osseous bridging. Normal humeral head and visualized proximal humerus. The soft tissue structures are unremarkable. There is a mass in the region of the superior segment of the right lower lobe as described on the CT of the chest 11/03/2017, incompletely included in the [id number] on today's study. RAD/Shoulder min 2 Views IMPRESSION: Healed fracture deformity of the distal clavicle. Mild acromioclavicular arthrosis. Right lung mass as previously described. Electronically Signed: Francesco Silver MD at 14:02 EDT Tel , Service support ,
--- NOTE | 2018-02-27 13:20 | RAD_ITS ---
STUDY: X-RAY - PELVIS AND RIGHT HIP REASON FOR EXAM: Pain. TECHNIQUE: Radiological exam, hip, unilateral, with pelvis when performed; 2 or 3 views. COMPARISON: Radiographs 12/21/2017. FINDINGS: There is vascular calcification and a possible abdominal aortic aneurysm as on the prior study. There is osteopenia. Normal bilateral iliac wings, sacroiliac joints and visualized sacrum. Normal bilateral superior and inferior pubic rami. Normal pubic symphysis. Normal bilateral ischial tuberosities. There is an intramedullary ben with compression nail transfixing a right intertrochanteric fracture without interval change. There is avulsion fracture of the lesser trochanter as on the prior study. RAD/Hip 2-3 Views with Pelvis IMPRESSION: No interval change of proximal femoral fixation. Vascular calcification with possible abdominal aortic aneurysm. Electronically Signed: Francesoc Silver MD at 10:40 EDT Tel , Service support ,
== END ==
PROVIDERS: Family Provider Family Medicine; PCP Family Medicine; Visit Provider Orthopaedic Surgery
DX: S72.141A Displaced intertrochanteric fracture of right femur, initial encounter for closed fracture (principal); S42.009A Fracture of unspecified part of unspecified clavicle, initial encounter for closed fracture
CPT/HCPCS: 73030; 73502

== ENCOUNTER → 2018-03-07 11:21 | Outpatient (CLI) | payer MEDICARE, SELFPAY ==
--- NOTE | 2018-03-07 11:26 | BD_ITS ---
STUDY: DUAL ENERGY X-RAY ABSORPTIOMETRY / DXA REASON FOR EXAM: Female, 82 years old. The patient is postmenopausal. Loss of height. TECHNIQUE: Bone Mineral Density (BMD) measurements of lumbar spine and left hip were obtained. COMPARISON: Comparison is made with prior study dated December 30, 2009. FINDINGS: Lumbar Spine (L1-L4): g/cm2 (0.761) / T-score (-3.5) / Z-score (-1.6) Findings are suggestive of osteoporosis with a high fracture risk. Left Femur Total: g/cm2 (0.382) / T-score (-5.0) / Z-score (-2.8) Left Femoral Neck: g/cm2 (0.425) / T-score (-4.4) / Z-score (-2.1) The T-Scores on the most recent prior examination were: Lumbar Spine (L1-L4): There has been improvement of bone density since the previous examination. Left Femur Total: which represents a worsening of 29%. BD/Dexa Bone Density Study IMPRESSION: The patient is considered osteoporotic as outlined below according to World Jarad Organization (WHO) criteria with a high fracture risk. There has been worsening of bone density since the previous examination. Reference Information: The T-score is the number of standard deviations above or below the standard which is normal for young adults at their peak bone mineral density. The World Health Organization (WHO) interprets the T-scores as follows: Above -1 Normal bone density Between -1 and -2.5 Osteopenia Equal to / or below -2.5 Osteoporosis As a practical clinical guideline, osteopenia may be graded as follows: Mild -1 through -1.5 Moderate -1.6 through -2.0 Severe -2.1 through -2.4 The Z-score is the number of standard deviations above or below age-matched controls. A Z-score of less than -1.5 would be considered abnormal. References: 1. NIH Osteoporosis and Related Bone Diseases http://www.osteo.org 2. International Society for Clinical Densitometry http://www.iscd.org 3. National Osteoporosis Foundation http://www.nof.org Electronically Signed: Singh Chavis MD at 12:35 EDT Tel [phone], Service support ,
== END ==
PROVIDERS: Family Provider Family Medicine; PCP Family Medicine; Visit Provider Family Medicine
DX: Z78.0 Asymptomatic menopausal state (principal); S72.90XA Unspecified fracture of unspecified femur, initial encounter for closed fracture; S42.009A Fracture of unspecified part of unspecified clavicle, initial encounter for closed fracture
CPT/HCPCS: 77080

== ENCOUNTER → 2018-06-14 14:09 | Outpatient (CLI) | payer MEDICARE, SELFPAY | PROVIDERS: Family Provider Family Medicine; PCP Family Medicine; Visit Provider Orthopaedic Surgery | DX: S72.141A Displaced intertrochanteric fracture of right femur, initial encounter for closed fracture (principal) | CPT/HCPCS: 73502 ==

== ENCOUNTER → 2018-07-10 15:45 | Outpatient (CLI) | payer MEDICARE, SELFPAY ==
--- NOTE | 2018-07-10 15:48 | RAD_ITS ---
STUDY: X-RAY - LUMBAR SPINE REASON FOR EXAM: Female, 82 years old. Low back pain TECHNIQUE: 5 view(s) of the lumbar spine were obtained. COMPARISON: None FINDINGS: Exam limited by demineralization and extensive overlying bowel gas. There is straightening. Normal alignment. There are very numerous compression fractures of indeterminate age including T11, T12, L1, L3, and L4. There is multilevel degenerative disc disease. There is multilevel facet joint degenerative disease. There is marked calcification of the aorta with a 3.8 cm distal aortic aneurysm. RAD/L/S Spine Min 4 Views IMPRESSION: Severe demineralization. Very numerous compression fractures of indeterminate age. Aortic aneurysm. Electronically Signed: Clark Pierson MD at 16:27 EDT , Service support ,
--- NOTE | 2018-07-10 16:04 | RAD_ITS ---
STUDY: X-RAY - PELVIS AND LEFT HIP REASON FOR EXAM: Female, 82 years old. Pain. TECHNIQUE: Radiological exam, hip, unilateral, with pelvis when performed; 2 or 3 views. COMPARISON: 06/14/2018. FINDINGS: No definite change. Severe demineralization. No definite acute fracture or dislocation is seen. Previously repaired fracture of the right hip, with displaced lesser trochanter fragment, stable. Prominently calcified vascular structures again seen. RAD/HIP, UNI W/ Pelvis 2-3 Views IMPRESSION: No definite change or acute abnormality. Electronically Signed: Clark Pierson MD at 23:36 EDT , Service support ,
== END ==
PROVIDERS: Family Provider Family Medicine; PCP Family Medicine; Referring Provider Family Medicine; Visit Provider Family Medicine
DX: M25.552 Pain in left hip (principal); M54.5 Low back pain
CPT/HCPCS: 72110; 73502

== ENCOUNTER → 2018-08-27 12:38 | Outpatient (CLI) | payer MEDICARE, SELFPAY | PROVIDERS: Family Provider Family Medicine; PCP Family Medicine; Referring Provider Nurse Practitioner Adult Health; Visit Provider Nurse Practitioner Adult Health | DX: N39.0 Urinary tract infection, site not specified (principal) | CPT/HCPCS: 87086; 87088 ==

== ENCOUNTER → 2018-09-19 14:35 | Outpatient (CLI) | payer MEDICARE, SELFPAY ==
--- NOTE | 2018-09-19 14:38 | BI_ITS ---
MAMMOGRAPHY - BILATERAL SCREENING REASON FOR EXAM: Female, 83 years old. Routine annual screening examination. PERTINENT HISTORY: Aunt with breast cancer. Occasional breast tenderness. TECHNIQUE: Digital bilateral breast jennifer (3D mammographic acquisition) in the CC and MLO projections. 2-D mediolateral oblique (MLO) and craniocaudad (CC) views of both breasts were obtained. CAD: Full Field Digital Mammography with Computer Added Detection was performed. COMPARISON: Comparison is made with prior study dated June 21, 2017 and August 26, 2015. FINDINGS: Breast Composition: The breasts are heterogeneously dense, which may obscure small masses. There are no dominant masses or suspicious calcifications. No other significant abnormalities are identified. There has been no significant change since the prior study. BI/SCREENING MAMM (CAD), BILAT IMPRESSION: Stable bilateral screening mammogram. Yearly follow-up mammogram recommended. (A) ASSESSMENT CATEGORY: BIRADS Category 1: Negative. A letter regarding these results will be sent to the patient by the facility within 30 days. Approximately 10% of breast cancers are not detected by mammography. A normal mammogram should not delay biopsy of a clinically suspicious abnormality. [id number] Electronically Signed: Singh Chavis MD at 15:25 EST Tel [phone], Service support ,
== END ==
PROVIDERS: Family Provider Family Medicine; PCP Family Medicine; Visit Provider Family Medicine
DX: Z12.31 Encounter for screening mammogram for malignant neoplasm of breast (principal)
CPT/HCPCS: 77063; 77067

== ENCOUNTER 2018-11-30 12:10 | Emergency (ER) | payer MEDICARE, SELFPAY ==
[2018-11-30 12:15] VITALS: BP 153/114; PULSE 69; RESP 16; TEMP 36.5; O2SAT 98; BMI 18.1
--- NOTE | 2018-11-30 14:30 | RAD_ITS ---
STUDY: X-RAY - LUMBAR SPINE REASON FOR EXAM: Female, 83 years old. Back pain following a fall. TECHNIQUE: 3 view(s) of the lumbar spine were obtained. COMPARISON: Comparison is made with prior study dated July 10, 2018. FINDINGS: There is straightening of the normal lumbar lordosis. There is no substantial scoliosis. There is a normal alignment of the vertebrae. There is diffuse demineralization with multi-level endplate spondylosis. There is multi-level degenerative disc disease with multi-level disc space narrowing. Stable loss of height of the T11, T12, L1, L3 and L4 vertebrae. There is atherosclerotic calcification of the abdominal aorta without a demonstrated aneurysm. RAD/Lumbar Spine 2 or 3 Views IMPRESSION: Degenerative changes of the spine, as detailed above. Stable loss of height of multiple vertebrae as described. Electronically Signed: Singh Chavis MD at 15:32 EST , Service support ,
--- NOTE | 2018-11-30 14:32 | ED.VISSUMM ---
- ER Visit Summary Date of Service: 11/30/18 Chief Complaint: Fall, back pain, right arm skin tear History of Present Illness: The patient is a 83 F who presents after a fall yesterday. The patient was carrying her medial back to the kitchen and lost her balance and fell. She normally walks with a walker but she was not using her walker when this fall happened. She denies hitting her head. No LOC. She planes of pain in her lower back. She does have previous compression fractures and takes oxycodone for this. Family's been trying to get her in to pain management but they have unable to get her an appointment thus far but they may have an appointment next Monday. She denies any paresthesias or anesthesia to the lower extremities. The skin tear on the right arm was dressed by the daughter who is an [employer]. Her tetanus is up-to-date. Physical Examination: Vital signs are reviewed. HEENT exam is unremarkable. Heart is regular rate and rhythm. Lungs are clear bilaterally. Abdomen soft and nontender. Back exam reveals diffuse lumbar spinal tenderness. Extremities reveal no edema or deformity. She has a skin tear near the right elbow, which measures approximately 2 cm and also on the right forearm, which measures approximately 7 cm. No erythema or drainage. Her GCS is 15. Her neurologic exam is at baseline according to family. Test Results: Lumbar spine x-rays reveal chronic changes. There are no new compression fractures. Emergency Department Course and Treatment: The patient's right arm skin tear was cleaned and dressed. Bacitracin was also applied. She was given morphine for pain. She does take chronic oxycodone at home. There are no new fractures. I do not feel she requires any further workup. She was encouraged to use ice and to use her walker at home. She will follow-up with her doctors. Treatment Plan: [] Disposition: Discharge Impression: Lumbar contusion Right arm skin tear, multiple This note was generated with [employer] dictation software. It may contain incorrect words, spelling, and punctuation that were not noted in review of the chart prior to signing ED Disposition - Plan for ED Patient: Referrals: Mauricio Leyva DO [Primary Care Provider] -
[2018-11-30] MEDS: morphine 8 MG/ML Syringe SC (14:41)
--- NOTE | 2018-11-30 15:40 | ED.DEP ---
ED Disposition - Plan for ED Patient: Disposition: Home or Assisted Living Instructions: ED Mechanical Fall Referrals: Mauricio Leyva DO [Primary Care Provider] -
[2018-11-30 15:50] VITALS: BP 161/73; PULSE 71; RESP 16; O2SAT 94
== END 2018-11-30 15:51 | disposition home or self-care (01) ==
PROVIDERS: Emergency Provider Emergency Medicine; Family Provider Family Medicine; PCP Family Medicine
DX: S30.0XXA Contusion of lower back and pelvis, initial encounter (principal); S41.111A Laceration without foreign body of right upper arm, initial encounter; W18.30XA Fall on same level, unspecified, initial encounter; Y93.9 Activity, unspecified; Y92.000 Kitchen of unspecified non-institutional (private) residence as the place of occurrence of the external cause; Y99.9 Unspecified external cause status; I10 Essential (primary) hypertension; J44.9 Chronic obstructive pulmonary disease, unspecified; F41.9 Anxiety disorder, unspecified
CPT/HCPCS: 72100; 96372; 99282

== ENCOUNTER → 2019-02-12 15:40 | Outpatient (CLI) | payer MEDICARE, SELFPAY ==
[2019-02-12 15:35] VITALS: BMI 18.1
--- NOTE | 2019-02-12 15:42 | RAD_ITS ---
STUDY: X-RAY - PELVIS AND RIGHT HIP REASON FOR EXAM: Female, 83 years old. Pain TECHNIQUE: 5 views of the pelvis and hip. In view of the pelvis 4 views of the right femur. COMPARISON: September 09, 2018 pelvis right hip femur x-ray FINDINGS: There is a non-specific bowel gas pattern. Normal visualized soft tissue structures. There is narrowing with cortical sclerosis and osteophyte formation of the sacroiliac joint consistent with degenerative osteoarthritic changes. Normal bilateral superior and inferior pubic rami. Normal pubic symphysis. Normal bilateral ischial tuberosities. There is bony osteopenia. There is a orthopedic nail intramedullary ben transfixing the right femur. There is no visualized evidence of an acute fracture. There is superficial femoral artery calcification. There are phleboliths in the pelvis. There is stable heterotopic bone adjacent to the medial side of the right proximal femur. There is atherosclerotic disease of the iliac arteries. There is mild degenerative change of the bilateral hip joints. RAD/HIP, UNI W/ Pelvis 2-3 Views IMPRESSION: Status post of open reduction internal fixation right femur no visualized acute fracture. Electronically Signed: Karla Stafford MD at 23:43 EDT Tel , Service support ,
== END ==
PROVIDERS: Family Provider Family Medicine; PCP Family Medicine; Referring Provider Orthopaedic Surgery; Visit Provider Orthopaedic Surgery
DX: M25.551 Pain in right hip (principal)
CPT/HCPCS: 73502

== ENCOUNTER → 2019-02-14 15:50 | Outpatient (CLI) | payer MEDICARE, SELFPAY ==
[2019-02-12 15:35] VITALS: BMI 18.1
[2019-02-14 17:05] LABS: Absolute Neutrophil Count 2.9 X10^3/uL (2.0-7.7); Basophil# 0.02 X10^3/uL; Basophil% 0.4 % (0-1); Eosinophil# 0.05 X10^3/uL; Hematocrit 39.3 % (37-47); Lymphocyte % 32.3 % (19-41); Mean Corp Hgb Conc 33.1 g/gl (32-36); Mean Corpuscular Volume 90.8 fL (81-99); Mean Platelet Vol. 9.9 fl (6.2-12.0); Monocyte# 0.39 X10^3/uL; Monocyte% 7.9 % (0-10); Neutrophil # 2.89 X10^3/uL (2.7-7.7); Neutrophil % 58.2 % (47-70); Platelet Count 275 K/mm3 (150-450); RBC Distribution Width SD 50.1 fl (35.1-43.9); Red Blood Count 4.33 M/mm3 (4.2-5.4)
[2019-02-14 17:07] LABS: POSITIVE COUNT NO; POSITIVE DIFFERENTIAL NO; POSITIVE MORPHOLOGY NO
[2019-02-14 17:22] LABS: ALB/GLOB Ratio 1.1 RATIO (0.9-2.4); AST(SGOT) 26 U/L (15-37); Alanine Aminotransfer ALT/SGPT 18 U/L (13-56); Albumin, Serum 3.3 g/dL (3.2-5.0); Alkaline Phosphatase 88 U/L (45-117); Anion Gap 5 (5-15); BUN 16 mg/dL (7-18); BUN/Creat Ratio 21.9 RATIO (10-20); Chloride 110 mmol/L (98-107); Creatinine, Serum 0.73 mg/dL (0.55-1.02); EST Glomerular Filtration Rate 81 mL/min (>60); Est Glom Filt Rate - Afr Amer 98 mL/min (>60); Globulin 3.1 g/dL (2.2-4.2); Glucose 87 mg/dL (74-106); Protein, Total 6.4 g/dL (6.4-8.2); Sodium Level 140 mmol/L (136-145)
[2019-02-14 17:37] LABS: Vitamin B12 367 pg/mL (211-911)
== END ==
PROVIDERS: Family Provider Family Medicine; PCP Family Medicine; Visit Provider Family Medicine
DX: D64.9 Anemia, unspecified (principal); Z51.81 Encounter for therapeutic drug level monitoring; E53.8 Deficiency of other specified B group vitamins
CPT/HCPCS: 36415; 80053; 82607; 85025

== ENCOUNTER 2019-04-01 22:56 | Observation (INO) | payer MEDICARE, SELFPAY ==
[2019-02-12 15:35] VITALS: BMI 18.1
[2019-04-01 22:57] VITALS: BP 164/78; PULSE 81; RESP 25; TEMP 37.3; O2SAT 92; BMI 20.2
--- NOTE | 2019-04-01 23:07 | EKG12_ITS ---
Test Reason : Blood Pressure : / mmHG Vent. Rate : 078 BPM Atrial Rate : 078 BPM P-R Int : 130 ms QRS Dur : 066 ms QT Int : 402 ms P-R-T Axes : 050 055 043 degrees QTc Int : 458 ms Normal sinus rhythm Cannot rule out Inferior infarct , age undetermined Abnormal ECG Confirmed by RONDA NG, NAKUL ([id number]), acquisition editor SHAWN MERCER ([id number]) on 04/03/2019 12:16:50 PM Referred By: LIZZIE Confirmed By:NAKUL BOND MD
--- NOTE | 2019-04-01 23:10 | RAD_ITS ---
STUDY: X-RAY CHEST REASON FOR EXAM: Female, 83 years old. Confusion. TECHNIQUE: Portable chest. COMPARISON: 12/18/2017. FINDINGS: There is a 3 cm soft tissue density in the right infrahilar region, with no significant change compared to December 2017. Lung shah are otherwise clear. There is no demonstrated pleural abnormality. Normal size heart. Normal mediastinum and geovanna. Normal visualized pulmonary arteries. There is atherosclerotic calcification of the aortic arch. Chronic thoracic compression fractures are noted. There is an old healed right clavicle fracture. There is no demonstrated abnormality of the visualized soft tissue structures of the upper abdomen. RAD/Chest 1 View (Portable) IMPRESSION: 1. No acute findings. 2. 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 3. Chronic changes are detailed above. Electronically Signed: Sonia Thomas MD at 23:40 EDT Tel , Service support ,
[2019-04-01 23:27] VITALS: TEMP 37.2
[2019-04-01] MEDS: Acetaminophen 325 MG Tablet 650 MG PO (23:28)
[2019-04-01] MEDS: 0.9% Normal Saline 1,000 ML 150 ML IV (23:29)
[2019-04-01 23:48] LABS: Absolute Lymphocyte Count 1.02 X10^3/ul (0.83-4.51); Absolute Neutrophil Count 9.1 X10^3/uL (2.0-7.7); Basophil# 0.01 X10^3/uL; Basophil% 0.1 % (0-1); Eosinophil# 0.01 X10^3/uL; Eosinophils% 0.1 % (0-5); Hematocrit 40.8 % (37-47); Hemoglobin 13.7 g/dl (12.0-15.0); Lymphocyte # 1.02 X10^3/ul (4.0); Lymphocyte % 9.5 % (19-41); Mean Corp Hgb Conc 33.6 g/gl (32-36); Mean Corpuscular Hgb 29.5 pg (27.0-32.0); Mean Corpuscular Volume 87.7 fL (81-99); Mean Platelet Vol. 9.8 fl (6.2-12.0); Monocyte# 0.64 X10^3/uL; Monocyte% 5.9 % (0-10); Neutrophil # 9.07 X10^3/uL (2.7-7.7); Neutrophil % 84.2 % (47-70); POSITIVE COUNT NO; POSITIVE DIFFERENTIAL NO; POSITIVE MORPHOLOGY NO; Platelet Count 266 K/mm3 (150-450); RBC Distribution Width CV 14.9 % (11.6-14.6); RBC Distribution Width SD 47.2 fl (35.1-43.9); Red Blood Count 4.65 M/mm3 (4.2-5.4); White Blood Count 10.8 K/mm3 (4.4-11.0)
[2019-04-02] VITALS (11 sets, daily range): BP systolic 120–172; BP diastolic 62–88; PULSE 63–80; RESP 14–21; TEMP 36.7–37.3; O2SAT 93–98; BMI 19.3; BMI 20.2
[2019-04-02] LABS: Mucous, Urine 0 SEEN /hpf (<or=2+); White Blood Cells 0 SEEN /hpf (0-5)
--- NOTE | 2019-04-02 | ED.VISSUMM ---
- ER Visit Summary Date of Service: 04/02/19 Chief Complaint: Confusion, weakness History of Present Illness: The patient is a 83 F with intermittent confusion and weakness since last evening. She felt warm but family did not check her temperature. She had mild cough. She did not really want to eat dinner tonight. She did have one episode of vomiting. Family states that she has had similar presentations with UTIs in the past. Past history significant for dementia, COPD, hypertension, kidney stones, anxiety, depression. Physical Examination: Blood pressure is 164/78, temperature 99.2, heart rate 81, respiratory rate 25, pulse ox 92% on room air. Patient is a cachectic appearing elderly female sitting upright in bed. She is in no acute distress. She answers questions but is slow to answer. Head and neck examination reveals no sign of trauma. Heart is regular rate and rhythm. Lung sounds clear. Abdomen is soft nontender. Neuro exam reveals patient to be alert. She is moving all 4 extremities. There does not appear to be any focal deficit. Test Results: EKG is sinus at 78 with no acute ischemia. Portable chest x-ray shows no acute findings. Right infrahilar mass concerning for malignancy is again noted but unchanged in size when compared to December. CT head per my review shows chronic changes. I do not have formal report back at this time. CBC was normal overall white count with a left shift. Chemistry studies significant with potassium 3.3. Lactate is normal. Urinalysis is unremarkable. Blood and urine cultures have been sent. Emergency Department Course and Treatment: Patient was given IV fluids and Tylenol here. She will be admitted for further treatment and evaluation. Treatment Plan: [] Disposition: Admit Impression: 1. Fever 2. Confusion 3. Generalized weakness This note was generated with [employer] dictation software. It may contain incorrect words, spelling, and punctuation that were not noted in review of the chart prior to signing ED Disposition - Plan for ED Patient: Referrals: Mauricio Leyva DO [Primary Care Provider] -
[2019-04-02 00:01] LABS: Color, Urine Yellow (Yellow); Glucose, Dipstick Normal (Normal); Ketone-Dipstick 15 mg/dl (Negative); Leukocyte Esterase-Dipstick Negative /ul (Negative); Nitrite-Dipstick Negative (Negative); Occult Blood-Urine 25 /ul (Negative); Protein-Dipstick Negative (Negative); Urine Bilirubin Dipstick Negative (Negative); Urine Clarity Clear (Clear); Urine Urobilinogen Normal (Normal)
[2019-04-02 00:01] LABS: Anion Gap 8 (5-15); BUN 11 mg/dL (7-18); BUN/Creat Ratio 14.3 RATIO (10-20); Calcium,Total 9.4 mg/dL (8.5-10.1); Chloride 103 mmol/L (98-107); Creatinine, Serum 0.77 mg/dL (0.55-1.02); EST Glomerular Filtration Rate 76 mL/min (>60); Est Glom Filt Rate - Afr Amer 92 mL/min (>60); Estimated Creatinine Clearance 29.54 ml/min; Glucose 125 mg/dL (74-106); Potassium 3.3 mmol/L (3.5-5.1); Sodium Level 139 mmol/L (136-145)
[2019-04-02 00:08] LABS: Bacteria RARE /hpf (None Seen); Red Blood Cells-Urine 0-5 SEEN /hpf (0-5); Squamous Epithelial Cells - UA 0-5 SEEN /hpf (5-10)
[2019-04-02 00:25] LABS: Lactic Acid 0.8 mmol/L (0.4-2.0)
--- NOTE | 2019-04-02 00:36 | PCM.HP.STD ---
Problem List (1) Altered mental status Status: Acute (2) Generalized anxiety disorder Status: Chronic (3) COPD (chronic obstructive pulmonary disease) Status: Chronic Qualifiers: (4) Neuropathic pain Status: Chronic (5) Hypertension Status: Chronic (6) Tobacco abuse Status: Chronic History of Present Illness Date of Admission: 04/02/19 Chief Complaint: altered mental status The patient is a 83 year old female with a past medical history of dementia COPD, hypertension, kidney stones, anxiety, depression who presents to the emergency room with altered mental status. His confusion and weakness began last evening, she described feeling warm but did not check her temperature at home. Scribes having a mild cough but has COPD at baseline. She complained of loss of appetite as well. She denies chest pain nausea or vomiting. In the past when she is presented this way that she has been found to have urinary tract infection. Her current urinalysis is unremarkable, she has a low-grade temperature, she has a mildly elevated white blood cell count, her chest x-ray is within normal limits, her CT scan is negative of the brain for hemorrhage, her potassium is 3.3 otherwise blood work is unremarkable. She will be admitted for monitoring of her mental status and MRI ordered for AM. Past Medical History Past Medical History (Chronic Problems): Chronic Problems Mass of right lung (Chronic) enlarging since CT scan in 2014 Generalized anxiety disorder (Chronic) Macular degeneration (Chronic) COPD (chronic obstructive pulmonary disease) (Chronic) Osteoporosis (Chronic) Compression fracture of lumbar vertebra (Chronic) Compression fracture of thoracic vertebra (Chronic) Glaucoma (Chronic) Neuropathic pain (Chronic) Hypertension (Chronic) Anxiety (Chronic) Tobacco abuse (Chronic) Allergies No Known Allergies Allergy (Verified 04/01/19 23:05) Home Medications: Ambulatory Orders Medication Instructions Recorded Budesonide/Formoterol 160/4.5 2 puff INHALATION BID 08/05/14 [Symbicort 160/4.5 Mcg Inhaler (SP)] Lorazepam 0.25 mg PO TID 08/05/14 Tiotropium [place] [Spiriva] 1 puff INHALATION DAILY 08/05/14 Ergocalciferol [Vitamin D] 50,000 unit PO JOSE 10/31/17 Peg 400/Hypromellose/Glycerin 1 drop EACH EYE Q1H PRN 10/31/17 [Artificial Tears] Travoprost 0.004% [Travatan-Z 1 drop EACHEYE QHS 10/31/17 0.004% Eye Drop] Albuterol Aerosols [Ventolin 2.5 mg INHALATION Q2H PRN PRN #120 12/05/17 Aerosols] vial.neb. Escitalopram Oxalate [Lexapro] 10 mg PO DAILY #30 tab 12/05/17 Oxycodone [Oxyir] 5 mg PO Q4H PRN PRN #30 tab 12/05/17 Pantoprazole Sodium [Protonix] 20 mg PO DAILY #60 tab 12/05/17 Lisinopril [Zestril] 2.5 mg PO DAILY 01/12/18 Surgical History: Surgical History (Last Updated 12/21/17 @ 13:19 by Mary Rust) S/P right hip fracture Z87.81 11/01/17 Surgical History: cataract Psychiatric History: Anxiety [employer] History: No pertinent [employer] history Smoking Status: Current every day smoker - *Family History Maternal History Items: No pertinent history Paternal History Items: No pertinent history Review of Systems Constitutional: Reports: Anorexia, Weakness, Fatigue. Denies: Chills, Fever, Weight Change HEENT: Denies: Head Aches, Sinus Congestion, Sinus Drainage Cardiovascular: Denies: Chest Pain, Palpitations Respiratory: Reports: Shortness of Breath. Denies: Cough, Shortness of breath at rest, Sputum production Gastrointestinal: Denies: Abdominal Pain, Nausea, Vomiting Genitourinary: Denies: Dysuria Musculoskeletal: Denies: Joint Pain, Joint Tenderness Skin: Denies: Rash, Wounds Neurological: Reports: Confusion, Incoordination. Denies: Focal weakness, Numbness, Tingling Psychiatric: Reports: Anxiety. Denies: Depression, Homicidal Ideations, Suicidal Ideations Hematologic/ Lymphatic: Denies: Easy Bruising, Easy Bleeding VTE Information - Inpt Only VTE Present on Admission: No VTE Mechan Device Prophylaxis: None VTE Pharm Prophylaxis ordered?: Yes Patient Problems: Active and Suspected Problems Altered mental status (Acute) - Physical Exam General: Alert, Confused HEENT: Atraumatic, PERRLA, EOMI, Normocephalic Neck: Supple Lungs: No rhonchi, No wheeze, No rales, Diminished Cardiovascular: Regular rate, Normal S1, Normal S2, No murmurs Abdomen: Bowel Sounds Present, Soft, Non Tender Extremities: No edema Skin: No rashes Musculoskeletal: No Tenderness to Palpation of Joints or Extremities Neurological: Neuro grossly intact Psych/Mental Status: Anxious, Restless Vital Signs Temp Pulse Resp BP Pulse Ox 99 F 81 25 H 164/78 H 92 04/01/19 23:27 04/01/19 22:57 04/01/19 22:57 04/01/19 22:57 04/01/19 22:57 Oxygen Delivery Method Room Air Weight: 96 lb 12.527 oz Body Mass Index (BMI) 20.2 Laboratory Tests Past 24 Hrs 04/01/19 04/01/19 04/01/19 23:30 23:30 23:30 WBC 10.8 RBC 4.65 Hgb 13.7 Hct 40.8 MCV 87.7 MCH 29.5 MCHC 33.6 RDW 14.9 H RDW Differential 47.2 H Plt Count 266 MPV 9.8 Immature Gran % (Auto) 0.200 Neut % (Auto) 84.2 H Lymph % (Auto) 9.5 L [place] % (Auto) 5.9 Eos % (Auto) 0.1 Baso % (Auto) 0.1 Absolute Neuts (auto) 9.1 H Absolute Lymphs (auto) 1.02 Total Counted Not Reportable Sodium 139 Potassium 3.3 L Chloride 103 Carbon Dioxide 28.0 Anion Gap 8 BUN 11 Creatinine 0.77 Estim Creat Clear Calc 29.54 Est GFR (MDRD) Af Amer 92 Est GFR (MDRD) Non-Af 76 BUN/Creatinine Ratio 14.3 Glucose 125 H Lactic Acid 0.8 Calcium 9.4 Troponin I < 0.015 Urine Color Urine Clarity Urine pH Ur Specific [place] Urine Protein Urine Glucose (UA) Urine Ketones Urine Occult Blood Urine Nitrite Urine Bilirubin Urine Urobilinogen Ur Leukocyte Esterase Urine RBC Urine WBC Ur Squamous Epith Cells Urine Bacteria Urine Mucus 04/01/19 23:55 WBC RBC Hgb Hct MCV MCH MCHC RDW RDW Differential Plt Count MPV Immature Gran % (Auto) Neut % (Auto) Lymph % (Auto) [place] % (Auto) Eos % (Auto) Baso % (Auto) Absolute Neuts (auto) Absolute Lymphs (auto) Total Counted Sodium Potassium Chloride Carbon Dioxide Anion Gap BUN Creatinine Estim Creat Clear Calc Est GFR (MDRD) Af Amer Est GFR (MDRD) Non-Af BUN/Creatinine Ratio Glucose Lactic Acid Calcium Troponin I Urine Color Yellow Urine Clarity Clear Urine pH 8.0 Ur Specific [place] 1.010 Urine Protein Negative Urine Glucose (UA) Normal Urine Ketones 15 H Urine Occult Blood 25 H Urine Nitrite Negative Urine Bilirubin Negative Urine Urobilinogen Normal Ur Leukocyte Esterase Negative Urine RBC 0-5 SEEN Urine WBC 0 SEEN Ur Squamous Epith Cells 0-5 SEEN Urine Bacteria RARE Urine Mucus 0 SEEN Assessment/Plan All Active Problems Altered mental status (Acute) Fracture, clavicle (Acute) Anemia due to blood loss, acute (Acute) Urinary retention (Acute) Hip fracture, right (Acute) Vitamin D deficiency (Acute) Right clavicle fracture (Acute) Closed right hip fracture (Acute) Fall (Acute) Assessment 1. Altered mental status 2. COPD 3. History of lung cancer 4. Anxiety disorder 5. Hypertension 6. History of tobacco abuse Plan 1. Mental status change?mid to progressive care unit, neuro checks every 4 hours, MRI brain in a.m., CBC BMP in the morning 2. hypokalemia?we will replace 3. COPD continue home medications and inhalers 4. Anxiety?hold psychotropic medications due to mental status change 5. Hypertension continue current medications 6. History of tobacco abuse?offer nicotine patch when patient is more alert 7. DVT prophylaxis?low molecular weight heparin 40 mg subcu daily Code Visit Inpatient E&M: [id number] Init Hosp L3
--- NOTE | 2019-04-02 01:43 | MRI_ITS ---
STUDY: MRI BRAIN WITHOUT CONTRAST REASON FOR EXAM: Female, 83 years old. Confusion since yesterday. TECHNIQUE: Standardized multiplanar fat and water weighted pulse sequences were obtained. COMPARISON: CT head 04/02/2019. FINDINGS: There is no intracranial mass, mass effect, or midline shift. There is no hemorrhage, territorial infarct, or acute ischemia. There is moderate cerebral atrophy with widening of the extra-axial spaces and ventricular dilatation. There are multiple confluent white matter hyperintensities, distributed throughout the deep white matter tracts of the cerebral hemispheres, consistent with severe chronic white matter ischemic changes. Normal bilateral basal ganglia. Normal thalami. There is no extra-axial fluid accumulation. Normal flow voids within the major intracranial circulation suggesting patency by spin echo criteria. Normal sella turcica, pituitary gland, infundibular stalk, optic chiasm and hypothalamus. Normal tectal plate and pineal gland. There are chronic white matter ischemic changes of the blessing. The midbrain and medulla are otherwise normal. Normal cerebellum. Normal basal cisterns. Normal bilateral temporal bones. Normal bilateral internal auditory canals. No demonstrated orbital abnormality, within the constraints of a routine brain study. Normal visualized paranasal sinuses. Normal calvarium and skull base. Normal visualized soft tissue structures. Degenerative changes of the upper cervical spine are noted. MRI/Brain without Contrast IMPRESSION: 1. No acute findings. 2. Extensive microvascular ischemia. Atrophy. Electronically Signed: Sonia Thomas MD at 16:28 EDT Tel , Service support ,
[2019-04-02 06:28] LABS: Anion Gap 7 (5-15); BUN 9 mg/dL (7-18); BUN/Creat Ratio 13.6 RATIO (10-20); Calcium,Total 8.6 mg/dL (8.5-10.1); Chloride 113 mmol/L (98-107); Cholesterol 144 mg/dL (200); Creatinine, Serum 0.66 mg/dL (0.55-1.02); EST Glomerular Filtration Rate 91 mL/min (>60); Est Glom Filt Rate - Afr Amer 110 mL/min (>60); Estimated Creatinine Clearance 27.25 ml/min; Glucose 127 mg/dL (74-106); High Density Lipoprotein 50 mg/dL; Potassium 3.7 mmol/L (3.5-5.1); Sodium Level 145 mmol/L (136-145); Triglycerides 52 mg/dL; Very Low Density Lipoprotein 10 mg/dL (5-40)
[2019-04-02] MEDS: Ipratropium/Albuterol Sulfate 3 ML AMPUL.NEB INHALATION ×2 (07:55→12:14)
[2019-04-02] MEDS: Budesonide Respules 0.5 MG/2 ML AMPUL.NEB. INHALATION (07:55)
[2019-04-02] MEDS: Lisinopril 2.5 MG Tablet PO (08:54)
[2019-04-02] MEDS: Enoxaparin 30 MG/0.3 ML Syringe SC (08:54)
[2019-04-02] MEDS: 0.9% Normal Saline 1,000 ML 150 ML IV (08:54)
[2019-04-02] MEDS: Pantoprazole Sodium 20 MG Tablet PO (08:57)
--- NOTE | 2019-04-02 09:48 | CASEMGMT ---
Assessment- SW completed assessment with patient. Living situation- Patient lives in a 2 story home with entry steps. Her daughter lives with her. Per patient she utilizes both floors. PCP: Dr Leyva Specialists: None Pharmacy: [facility] DME: Walker, shower chair, and raised toilet seat ADL's/IADL's: Patient gets help with bathing, medications, cleaning, meals, and driving. She uses her walker to get around. Past SNF/rehab: None per patient Past HH: Yes. Could not remember agency LW: Thinks she has one POA: No Patient is unsure of plan at this time. She would like to go home at d/c. She is aware RN CM and TREVOR will be following to assist with discharge planning. Review PT/OT evaluations once completed. Jennifer RANGEL MSW
--- NOTE | 2019-04-02 15:21 | PCM.HOSP.N ---
Hospitalist Note The patient was seen and examined. The patient was admitted with confusion, disorientation and brief episode of passing out. Patient has a history of mild dementia. She said last night when she returned from bathroom to bed she suddenly passed out and fell on the bed. It happened suddenly and does not remember the details of it. Patient denies any chest pain, arrhythmia. She is mildly disoriented with time, does not remember year but month. No shortness of breath. Chest x-ray and CT scan reviewed and does not show acute change. The patient has a history of COPD and lung cancer. Mild hypokalemia: Potassium replaced. UA is negative of pyuria, hematuria. Patient denies dysuria but has chronic increased frequency. Blood cultures x2 and urine culture pending. 2D echo and MRI pending. orthostatic vitals are negative. Patient declines for SNF placement.
--- NOTE | 2019-04-02 16:16 | NURSING ---
NIH & VS late d/t pt being off unit @ MRI
--- NOTE | 2019-04-02 17:06 | DCINST_ITS ---
- Discharge Diagnoses Current Active Problems: Current Active and Chronic Problems Altered mental status (Acute) You will use the following diet at home:: Cardiac Your food should be the consistency of: Regular Discharge Activity: May Not Drive Call your doctor if you observe: Fever of 101 or Higher, Inability to have a bowel movement, Shortness of breath, Dizziness, Fainting spells, Swelling in the ankles, Chest pain, Increased palpitations (irregular heartbeat), Calf discomfort Additional Instructions: Patient might have echo as an outpatient in 1 to 2 weeks. Patient does not want to stay for inpatient echo. Allergies/Adverse Reactions: Allergies No Known Allergies Allergy (Verified 04/01/19 23:05) Medications to take at Discharge Budesonide/Formoterol 160/4.5 [Symbicort 160/4.5 Mcg Inhaler (SP)] 2 puff INHALATION BID 08/05/14 Lorazepam 0.25 mg PO TID 08/05/14 Tiotropium [place] [Spiriva] 1 puff INHALATION DAILY 08/05/14 Ergocalciferol [Vitamin D] 50,000 unit PO JOSE 10/31/17 Peg 400/Hypromellose/Glycerin [Artificial Tears] 1 drop EACH EYE Q1H PRN 10/31/17 Travoprost 0.004% [Travatan-Z 0.004% Eye Drop] 1 drop EACHEYE QHS 10/31/17 Albuterol Aerosols [Ventolin Aerosols] 2.5 mg INHALATION Q2H PRN PRN #120 vial.neb. 12/05/17 Escitalopram Oxalate [Lexapro] 10 mg PO DAILY #30 tab 12/05/17 Oxycodone [Oxyir] 5 mg PO Q4H PRN PRN #30 tab 12/05/17 Pantoprazole Sodium [Protonix] 20 mg PO DAILY #60 tab 12/05/17 Alendronate Sodium [Fosamax] 10 mg PO DAILY@0700 04/02/19 Calcitonin,[place],Synthetic [Calcitonin-[place]] 200 units PO DAILY 04/02/19 Donepezil HCl [Aricept] 5 mg PO QHS 04/02/19 Lisinopril [Zestril] 5 mg PO DAILY #0 04/02/19 Primary Care Physician: Mauricio Leyva DO [Primary Care Provider] - Please follow up with your Primary Care Physician in: in 2 weeks Test Results: Test results from this visit will be discussed in further detail at your follow- up appointment, if applicable.
--- NOTE | 2019-04-02 17:08 | PCM.DC.SUM ---
Discharge Date and Diagnosis - Problem List Patient Problems: Active and Suspected Problems Altered mental status (Acute) Date of Admission: 04/02/19 Date of Discharge: 04/02/19 - Primary Discharge Diagnosis Active and Suspected Problems Altered mental status (Acute) - Secondary Discharge Diagnosis Chronic Problems Mass of right lung (Chronic) enlarging since CT scan in 2014 Generalized anxiety disorder (Chronic) Macular degeneration (Chronic) COPD (chronic obstructive pulmonary disease) (Chronic) Osteoporosis (Chronic) Compression fracture of lumbar vertebra (Chronic) Compression fracture of thoracic vertebra (Chronic) Glaucoma (Chronic) Neuropathic pain (Chronic) Hypertension (Chronic) Anxiety (Chronic) Tobacco abuse (Chronic) Hospital Course and Treatment Imaging Results: 04/02/19 10:35 Echo Complete W/ Contrast [ECHO] Routine 04/02/19 23:07 Brain/Head without Contrast [CT] Stat Operations: None, - - ORIF R hip intertrochanteric fracture 11/[address] Rojo Summary of Care Provided: The patient is a 83 year old F was admitted with confusion, disorientation and brief episode of passing out. Patient has a history of mild dementia. She said last night when she returned from bathroom to bed she suddenly passed out and fell on the bed. It happened suddenly and does not remember the details of it. Patient denies any chest pain, arrhythmia. No shortness of breath. orthostatic vitals are negative. Blood pressure is controlled. Chest x-ray and CT scan reviewed and does not show acute change. The patient has a history of COPD and lung cancer. Mild hypokalemia: Potassium replaced. UA is negative of pyuria, hematuria. Patient denies dysuria but has chronic increased frequency. Cultures x2 and urine culture are pending. History is unreliable as patient has dementia and not able to recall complete ROS. Blood cultures x2 and urine culture pending. MRI brain reported as extensive microvascular ischemia and atrophy but no acute findings. Do not want to stay for 2D echo which was ordered. Patient wants to go home and get it done as an outpatient which was recommended in 1 to 2 weeks. Follow with PCP in 1 to 2 weeks. Other comorbidities including COPD and dementia are controlled. Patient declines for SNF placement. Discharge medication reconciliation done. Discharge follow-up instructions completed. Discharge process discussed with the patient and all questions were answered to patient's satisfaction. Lisinopril dose increased from 2.5 mg to 5 mg daily. Total time spent, exact 35 minutes on discharge meds reconciliation, examination, review of imaging and blood test and discussion with the patient on follow-up instructions. Clinical Impression(s) from Imaging Studies Chest X-Ray 04/01/19 23:10 IMPRESSION: 1. No acute findings. 2. 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 3. Chronic changes are detailed above. Brain MRI 04/02/19 01:43 IMPRESSION: 1. No acute findings. 2. Extensive microvascular ischemia. Atrophy. Brain CT 04/02/19 23:07 IMPRESSION: Atrophy no evidence of acute hemorrhage infarct or edema. Inhomogeneous bony mineralization. Recommend follow-up bone scan could been patient's clinical history. Patient Problems: Active and Suspected Problems Altered mental status (Acute) Subjective: Seen and examined. Patient feels back to the normal. Denies chest pain, shortness of breath or palpitation. She has hard time in recall and recollection most probably secondary to dementia. - Physical Exam General: Alert, Cooperative, - - Oriented x2 HEENT: Atraumatic, PERRLA, EOMI, Normocephalic Neck: Supple, No JVD, Negative Carotid Bruits Lungs: Clear to auscultation, Normal air movement, No rhonchi, No wheeze, No rales Cardiovascular: Regular rate, Regular Rhythm, Normal S1, Normal S2, Murmur - Systolic murmur present over aortic region, LLSB and mitral region. Most of the aortic stenosis and MR. Abdomen: Bowel Sounds Present, Soft, Non Tender, Non-Distended Extremities: Capillary Refill Less than 3 Seconds, Edema Skin: No rashes, No breakdown Musculoskeletal: No Tenderness to Palpation of Joints or Extremities, Arthritic Changes, Muscle Wasting Neurological: Cranial nerves II-XII grossly intact, Deep Tendon Reflexes 2+/4 and Symmetrical, Neuro grossly intact Psych/Mental Status: Normal Affect, Appropriate Vital Signs Temp Pulse Resp BP Pulse Ox 98.6 F 63 16 154/71 H 98 04/02/19 15:30 04/02/19 16:04 04/02/19 15:30 04/02/19 15:30 04/02/19 15:30 Oxygen Delivery Method Room Air Weight: 89 lb 4.595 oz Body Mass Index (BMI) 19.3 Orthostatic Vital Signs Start: 04/02/19 11:17 Freq: q24h Status: Active Protocol: Activity Type Activity Date Activity User E-Sign Co-Sign Detail Recorded Client Recorded Date Recorded By Document 04/02/19 10:40 EY [id number] 04/02/19 11:18 EY 04/02/19 10:40 Orthostatic Vitals Standing -Blood Pressure (90/60-120/80 mm Hg) 149/67 H -Extremity Use Right Arm -Pulse Rate (60-100 beats/min) 80 Sitting -Blood Pressure (90/60-120/80 mm Hg) 159/62 H -Extremity Use Right Arm -Pulse Rate (60-100 beats/min) 70 Lying -Blood Pressure (90/60-120/80 mm Hg) 120/65 -Extremity Use Right Arm -Pulse Rate (60-100 beats/min) 75 Intake and Output for Last 24 Hours 03/31/19 04/01/19 04/02/19 23:59 23:59 23:59 Intake Total 922 / 922 Balance 922 / 922 Laboratory Tests Past 24 Hrs 04/01/19 04/01/19 04/01/19 23:30 23:30 23:30 WBC 10.8 RBC 4.65 Hgb 13.7 Hct 40.8 MCV 87.7 MCH 29.5 MCHC 33.6 RDW 14.9 H RDW Differential 47.2 H Plt Count 266 MPV 9.8 Immature Gran % (Auto) 0.200 Neut % (Auto) 84.2 H Lymph % (Auto) 9.5 L [place] % (Auto) 5.9 Eos % (Auto) 0.1 Baso % (Auto) 0.1 Absolute Neuts (auto) 9.1 H Absolute Lymphs (auto) 1.02 Total Counted Not Reportable Sodium 139 Potassium 3.3 L Chloride 103 Carbon Dioxide 28.0 Anion Gap 8 BUN 11 Creatinine 0.77 Estim Creat Clear Calc 29.54 Est GFR (MDRD) Af Amer 92 Est GFR (MDRD) Non-Af 76 BUN/Creatinine Ratio 14.3 Glucose 125 H Lactic Acid 0.8 Calcium 9.4 Troponin I < 0.015 Triglycerides Cholesterol LDL Cholesterol VLDL Cholesterol HDL Cholesterol Urine Color Urine Clarity Urine pH Ur Specific [place] Urine Protein Urine Glucose (UA) Urine Ketones Urine Occult Blood Urine Nitrite Urine Bilirubin Urine Urobilinogen Ur Leukocyte Esterase Urine RBC Urine WBC Ur Squamous Epith Cells Urine Bacteria Urine Mucus 04/01/19 04/02/19 04/02/19 23:55 02:37 05:24 WBC RBC Hgb Hct MCV MCH MCHC RDW RDW Differential Plt Count MPV Immature Gran % (Auto) Neut % (Auto) Lymph % (Auto) [place] % (Auto) Eos % (Auto) Baso % (Auto) Absolute Neuts (auto) Absolute Lymphs (auto) Total Counted Sodium 145 Potassium 3.7 Chloride 113 H Carbon Dioxide 25.0 Anion Gap 7 BUN 9 Creatinine 0.66 Estim Creat Clear Calc 27.25 Est GFR (MDRD) Af Amer 110 Est GFR (MDRD) Non-Af 91 BUN/Creatinine Ratio 13.6 Glucose 127 H Lactic Acid Calcium 8.6 Troponin I < 0.015 Triglycerides 52 Cholesterol 144 LDL Cholesterol 84 VLDL Cholesterol 10 HDL Cholesterol 50 Urine Color Yellow Urine Clarity Clear Urine pH 8.0 Ur Specific [place] 1.010 Urine Protein Negative Urine Glucose (UA) Normal Urine Ketones 15 H Urine Occult Blood 25 H Urine Nitrite Negative Urine Bilirubin Negative Urine Urobilinogen Normal Ur Leukocyte Esterase Negative Urine RBC 0-5 SEEN Urine WBC 0 SEEN Ur Squamous Epith Cells 0-5 SEEN Urine Bacteria RARE Urine Mucus 0 SEEN 04/02/19 05:24 WBC RBC Hgb Hct MCV MCH MCHC RDW RDW Differential Plt Count MPV Immature Gran % (Auto) Neut % (Auto) Lymph % (Auto) [place] % (Auto) Eos % (Auto) Baso % (Auto) Absolute Neuts (auto) Absolute Lymphs (auto) Total Counted Sodium Potassium Chloride Carbon Dioxide Anion Gap BUN Creatinine Estim Creat Clear Calc Est GFR (MDRD) Af Amer Est GFR (MDRD) Non-Af BUN/Creatinine Ratio Glucose Lactic Acid Calcium Troponin I < 0.015 Triglycerides Cholesterol LDL Cholesterol VLDL Cholesterol HDL Cholesterol Urine Color Urine Clarity Urine pH Ur Specific [place] Urine Protein Urine Glucose (UA) Urine Ketones Urine Occult Blood Urine Nitrite Urine Bilirubin Urine Urobilinogen Ur Leukocyte Esterase Urine RBC Urine WBC Ur Squamous Epith Cells Urine Bacteria Urine Mucus Discharge Activity: May Not Drive Call your doctor if you observe: Fever of 101 or Higher, Inability to have a bowel movement, Shortness of breath, Dizziness, Fainting spells, Swelling in the ankles, Chest pain, Increased palpitations (irregular heartbeat), Calf discomfort Home Medications: Medications to take at Discharge Budesonide/Formoterol 160/4.5 [Symbicort 160/4.5 Mcg Inhaler (SP)] 2 puff INHALATION BID 08/05/14 Lorazepam 0.25 mg PO TID 08/05/14 Tiotropium [place] [Spiriva] 1 puff INHALATION DAILY 08/05/14 Ergocalciferol [Vitamin D] 50,000 unit PO JOSE 10/31/17 Peg 400/Hypromellose/Glycerin [Artificial Tears] 1 drop EACH EYE Q1H PRN 10/31/17 Travoprost 0.004% [Travatan-Z 0.004% Eye Drop] 1 drop EACHEYE QHS 10/31/17 Albuterol Aerosols [Ventolin Aerosols] 2.5 mg INHALATION Q2H PRN PRN #120 vial.neb. 12/05/17 Escitalopram Oxalate [Lexapro] 10 mg PO DAILY #30 tab 12/05/17 Oxycodone [Oxyir] 5 mg PO Q4H PRN PRN #30 tab 12/05/17 Pantoprazole Sodium [Protonix] 20 mg PO DAILY #60 tab 12/05/17 Alendronate Sodium [Fosamax] 10 mg PO DAILY@0700 04/02/19 Calcitonin,[place],Synthetic [Calcitonin-[place]] 200 units PO DAILY 04/02/19 Donepezil HCl [Aricept] 5 mg PO QHS 04/02/19 Lisinopril [Zestril] 5 mg PO DAILY #0 04/02/19 Primary Care Physician: Mauricio Leyva DO [Primary Care Provider] - Please follow up with your Primary Care Physician in: in 2 weeks Medical Necessity - Tobacco Use Smoking Status: Former smoker Meaningful Use Info Meaningful Use Diagnoses (Choose all that apply): None applicable Code Visit Inpatient E&M: 40689 Disch Hosp
--- NOTE | 2019-04-02 17:50 | NURSING ---
MRI resulted negative, ECHO ordered but not done today. Dr Hutton notified & stated he would d/c pt and she can f/u for echo as OP. CM called this RN and stated that PT is recommending OP therapy. Educated patient to talk with her PCP about referral for OP Therapy. Pt verbalizes understanding and states that she has done it before.
--- NOTE | 2019-04-02 23:07 | CT_ITS ---
STUDY: CT BRAIN WITHOUT CONTRAST REASON FOR EXAM: Female, 83 years old. Confusion and fever history lung cancer RADIATION DOSAGE (If Supplied By Facility): CTDIvol = ( 44.99 ) mGy, DLP = ( 782.05 ) mGycm TECHNIQUE: Transaxial CT imaging of the brain was performed without administration of intravenous contrast material. Individualized dose optimization techniques were used for this CT. COMPARISON: December 18, 2017 FINDINGS: Normal soft tissue structures. Normal calvarium. There is mild cerebral atrophy with widening of the extra-axial spaces and ventricular dilatation. There are areas of decreased attenuation within the white matter tracts of the supratentorial brain, consistent with microvascular disease changes. Normal basal ganglia and thalami. Normal brainstem. There is mild cerebellar atrophy. There is a punctate calcification in the left periventricular white matter is stable since prior study. There is no intracranial hemorrhage. There are no findings of an acute ischemic infarction. Normal visualized paranasal sinuses. The bones are inhomogeneous. CT/Brain/Head without Contrast IMPRESSION: Atrophy no evidence of acute hemorrhage infarct or edema. Inhomogeneous bony mineralization. Recommend follow-up bone scan could been patient's clinical history. Electronically Signed: Karla Stafford MD at 1:01 EDT Tel , Service support ,
--- NOTE | 2019-04-03 15:01 | CASEMGMT ---
CARLOS A CM DC PHONE CALL DC DATE: 04/02/19 DC Disposition: Home Attempted call to patient. No answer and message did not have name identifier. Samina CROOKSN RN ACM
== END 2019-04-02 17:08 | disposition home or self-care (01) ==
LOC: ED 04-02 01:24 → PCU 04-02 02:01
PROVIDERS: Admitting Provider Family Medicine; Emergency Provider Emergency Medicine; Family Provider Family Medicine; PCP Family Medicine; Visit Provider Internal Medicine
DX: R41.82 Altered mental status, unspecified (principal); F41.1 Generalized anxiety disorder; J44.9 Chronic obstructive pulmonary disease, unspecified; I10 Essential (primary) hypertension; Z79.899 Other long term (current) drug therapy; Z79.51 Long term (current) use of inhaled steroids; H40.9 Unspecified glaucoma; H35.30 Unspecified macular degeneration; Z87.891 Personal history of nicotine dependence; F03.90 Unspecified dementia, unspecified severity, without behavioral disturbance, psychotic disturbance, mood disturbance, and anxiety; F32.9 Major depressive disorder, single episode, unspecified; E55.9 Vitamin D deficiency, unspecified; Z85.118 Personal history of other malignant neoplasm of bronchus and lung; E87.6 Hypokalemia; R94.31 Abnormal electrocardiogram [ECG] [EKG]; R53.1 Weakness; R50.9 Fever, unspecified; G31.9 Degenerative disease of nervous system, unspecified
CPT/HCPCS: 36415; 70450; 70551; 71045; 80048; 80061; 81001; 83605; 84484; 85025; 87040; 87086; 87088; 92523; 92610; 93005; 94640; 96360; 96361; 96372; 97162; 97166; 97802; 99218; 99285; 99406; J7030; A4216; G0378

== ENCOUNTER 2019-05-08 05:32 | Emergency (ER) | payer MEDICARE, SELFPAY ==
[2019-04-02 11:22] VITALS: BMI 19.3
[2019-05-08 05:34] VITALS: BP 169/71; PULSE 63; RESP 15; TEMP 36.5; O2SAT 95; BMI 18.6
--- NOTE | 2019-05-08 05:42 | RAD_ITS ---
HISTORY: S/P FALL C/O LT HUMERUS PAIN AND UNABLE TO MOVE ARM ADDITIONAL HISTORY: None provided. COMPARISON: None TECHNIQUE: Left humerus 3 views Number of images including paperwork: 3 FINDINGS: BONES: Completely displaced and overriding fracture of the surgical neck of the left humerus. Mineralization appears decreased. JOINTS: No subluxation. SOFT TISSUES: No distinct foreign body. RAD/Humerus min 2 Views IMPRESSION: Displaced left proximal humerus fracture. at 0651 Reported and signed by: Flor Jennings MD Electronically Signed: Flor Jennings MD at 6:51 EDT Tel , Service support ,
--- NOTE | 2019-05-08 05:42 | RAD_ITS ---
HISTORY: S/P FALLC/O LT HUMERUS PAIN AND UNABLE TO MOVE ARM ADDITIONAL HISTORY: None provided. COMPARISON: 07/10/2018 TECHNIQUE: AP pelvis Number of images including paperwork: 1 FINDINGS: BONES: No acute fracture. Right hip screw partially visualized. Mineralization appears decreased. JOINTS: No subluxation. Degenerative changes of the visualized spine, sacroiliac joints and hips. SOFT TISSUES: No distinct foreign body. Soft tissue ossification noted adjacent to the ischium, unchanged. Vascular calcifications. Infrarenal abdominal aortic aneurysm, calcified margins measure about 3.8 cm. RAD/Pelvis 1 or 2 Views IMPRESSION: 1. No acute osseous abnormality. 2. Degenerative and postoperative changes. 3. Infrarenal abdominal aortic aneurysm. at 0650 Reported and signed by: Flor Jennings MD Electronically Signed: Flor Jennings MD at 6:50 EDT Tel , Service support ,
--- NOTE | 2019-05-08 05:42 | CT_ITS ---
HISTORY: S/P FALL HX-LUNG CA SURG-NECK ADDITIONAL HISTORY: None provided COMPARISON: None TECHNIQUE: Noncontrast CT images of the cervical spine. 2D images were reviewed to aid in assessment of the cervical spine. A radiation dose optimization technique was used for this scan. Number of images including paperwork: 553 FINDINGS: BONES: No acute fracture. No suspicious bone lesion. Mineralization appears decreased. VERTEBRAL ALIGNMENT: No traumatic subluxation. Loss of normal cervical lordosis. DISCS AND JOINTS: Multilevel moderate discogenic degenerative changes. Facet arthropathy. Laminectomy C4-C6. SPINAL CANAL AND FORAMINA: No critical canal stenosis. SOFT TISSUES: No prevertebral soft tissue swelling. No pathologic-appearing cervical adenopathy. Vascular calcifications. LUNG APICES: Apical scarring. Emphysema. PARANASAL SINUSES: Unremarkable imaged portions if any. Adjunct Spanish Instructor view partially shows masslike opacity in the right lower lung. CT/Spine Cervical without Contras IMPRESSION: 1. No acute osseous abnormality. 2. Loss of normal cervical lordosis may be related to positioning or muscle spasm. 3. Cervical spondylosis and postoperative changes. 4. Adjunct Spanish Instructor view partially shows masslike opacity in the right lower lung. Individualized dose optimization techniques were used for this CT. at 0639 Reported and signed by: Flor Jennings MD Electronically Signed: Flor Jennings MD at 6:38 EDT Tel , Service support ,
--- NOTE | 2019-05-08 05:42 | CT_ITS ---
HISTORY: S/P FALL HX-LUNG CA SURG-NECK EXAMINATION: CT Head or Brain W/O Contrast TECHNIQUE: Multiple axial images were obtained of the brain without intravenous contrast. A radiation dose optimization technique was used for this scan. IV Contrast dosage and agent: None. COMPARISON: Cranial CT 04/02/2019 and MR brain 04/02/2019 FINDINGS: No significant change. Moderate cerebral cortical atrophy and mild cerebellar atrophy. No hydrocephalus. Stable prominence of the superior cerebellar cistern on the right. Bilateral white matter chronic ischemic changes, extensive in degree. Confluent white matter disease by previous MRI. On axial image #23, left semi-ovale deep white matter small calcification, unchanged. No intracranial mass, hemorrhage, or acute intracranial disease. Carotid and vertebrobasilar atherosclerotic calcifications. No suspicious extra-axial fluid collection. No calvarial fracture. The calvarium shows heterogenous attenuation without significant change CT/Brain/Head without Contrast IMPRESSION: 1. Negative for intracranial hemorrhage or acute disease. No significant interval change. 2. White matter chronic ischemic changes, extensive in degree. 3. Generalized atrophy. 4. Heterogenous mineralization of the calvarium, as before, and hyperparathyroidism would be included in the differential. Individualized dose optimization techniques were used for this CT. at 0704 Reported and signed by: Isma Juarez MD Electronically Signed: Isma Juarez, at 7:03 EDT Tel , Service support ,
[2019-05-08] MEDS: Morphine 2 MG/ML Syringe IV (05:55)
[2019-05-08] MEDS: Ondansetron 4 MG/2 ML Vial IV (05:55)
[2019-05-08 06:00] LABS: Absolute Lymphocyte Count 2.19 X10^3/uL (0.83-4.51); Absolute Neutrophil Count 4.4 X10^3/uL (2.0-7.7); Basophil# 0.02 X10^3/uL; Basophil% 0.3 % (0-1); Eosinophil# 0.11 X10^3/uL; Eosinophils% 1.5 % (0-5); Hematocrit 42.7 % (37-47); Hemoglobin 13.9 g/dL (12.0-15.0); Lymphocyte # 2.19 X10^3/ul (4.0); Lymphocyte % 30.2 % (19-41); Mean Corp Hgb Conc 32.6 g/dL (32-36); Mean Corpuscular Hgb 29.6 pg (27.0-32.0); Mean Platelet Vol. 9.7 fl (6.2-12.0); Monocyte# 0.49 X10^3/uL; Monocyte% 6.7 % (0-10); NRBC Flagged by Analyzer 0 % (0-5); Neutrophil # 4.42 X10^3/uL (2.7-7.7); Neutrophil % 60.9 % (47-70); Platelet Count 292 K/mm3 (150-450); RBC Distribution Width CV 14.3 % (11.6-14.6); RBC Distribution Width SD 47.8 fl (35.1-43.9); Red Blood Count 4.69 M/mm3 (4.2-5.4); White Blood Count 7.3 K/mm3 (4.4-11.0)
[2019-05-08] MEDS: 0.9% Normal Saline 1,000 ML 150 ML IV (06:04)
[2019-05-08 06:17] LABS: Anion Gap 10 (5-15); BUN 10 mg/dL (7-18); BUN/Creat Ratio 13.2 RATIO (10-20); Calcium,Total 9.1 mg/dL (8.5-10.1); Chloride 107 mmol/L (98-107); Creatinine, Serum 0.76 mg/dL (0.55-1.02); EST Glomerular Filtration Rate 78 mL/min (>60); Est Glom Filt Rate - Afr Amer 94 mL/min (>60); Glucose 167 mg/dL (74-106); Potassium 3.3 mmol/L (3.5-5.1); Sodium Level 145 mmol/L (136-145)
--- NOTE | 2019-05-08 07:14 | ED.VISSUMM ---
- ER Visit Summary Date of Service: 05/08/19 Chief Complaint: [Fall] History of Present Illness: The patient is a 83 F [resents to the emergency room with complaint of a fall that occurred this morning prior to arrival in the emergency department. Patient is an extremely poor historian due to history of dementia. Patient's daughter gives history and states that the other daughter who lives with the patient heard the patient fall. Patient was found on the ground and awake. She is complaining of left arm pain. On arrival patient really cannot verbalize much. Patient has history of hypertension. She is not anticoagulated.] Physical Examination: [HEENT-PERRLA, EOMI. Cranial nerves II through XII grossly intact. TMs clear. Mucous membranes moist. No adenopathy. Patient has some mild C-spine tenderness on palpation diffusely. Patient has faint ecchymosis and bruising to the left forehead just above the left eyebrow with some mild soft tissue swelling. No bony step-offs. Cardiovascular-regular rate and rhythm without murmur or ectopy Lungs-clear to auscultation, chest wall stable without crepitus or subcu emphysema Abdomen-normoactive bowel sounds, soft, nontender, no rebound or rigidity, no peritoneal signs. Extremities-intact ?4, normal range of motion, normal pulses. Left arm-patient has tenderness over the left glenohumeral joint with some mild soft tissue swelling noted. No ecchymosis or bruising. Patient has limited range of motion secondary to pain. Left elbow-patient has superficial skin tears measuring approximately 6 x 7 cm. No bony tenderness at the elbow.] Test Results: [CBC with differential is normal. Chemistries unremarkable. CT scan of the brain showed nothing acute. CT scan of C-spine on the scalp films showed a questionable mass right lung base however no fractures. X-rays of the pelvis showed no fractures. X-rays of the left humerus showed proximal humerus fracture.] Emergency Department Course and Treatment: [She was medicated with morphine and Zofran. Patient had a sling and swath placed.] Treatment Plan: [She is daughter is comfortable taking her home and caring for her. I will refer them to orthopedics as they have seen Dr. Swetha Barahona in the past. Patient will be given a prescription for [place] for pain.] Disposition: [Discharged home in stable condition.] Impression: [Medical fall Left humerus fracture Left elbow skin tear. Closed head injury] This note was generated with [employer] dictation software. It may contain incorrect words, spelling, and punctuation that were not noted in review of the chart prior to signing ED Disposition - Plan for ED Patient: Referrals: Mauricio Leyva DO [Primary Care Provider] -
[2019-05-08] MEDS: Diphth,Pertuss(Acell),Tet Vac 0.5 ML Vial IM (07:15)
--- NOTE | 2019-05-08 07:21 | ED.DEP ---
ED Disposition - Plan for ED Patient: Instructions: FALL, Mechanical, Skin Avulsion, FRACTURE, Upper Extremity, HEAD INJURY, No Wake-Up (Adult) Prescriptions: Hydrocodone Bitart/Apap 5-325 [[place] 5MG-325MG] 1 tab PO Q4H PRN PRN 2 Days #20 tab PRN Reason: Pain Prescription Printed Referrals: Mauircio Leyva DO [Primary Care Provider] - Guille Urias DO [STAFF PHYSICIAN] - 3-5 Days
[2019-05-08 07:40] VITALS: BP 171/62; PULSE 75; RESP 18; O2SAT 92
== END 2019-05-08 07:41 | disposition home or self-care (01) ==
LOC: ED 06:39
PROVIDERS: Emergency Provider Emergency Medicine; Family Provider Family Medicine; PCP Family Medicine
DX: S09.90XA Unspecified injury of head, initial encounter (principal); S51.012A Laceration without foreign body of left elbow, initial encounter; S42.202A Unspecified fracture of upper end of left humerus, initial encounter for closed fracture; F03.90 Unspecified dementia, unspecified severity, without behavioral disturbance, psychotic disturbance, mood disturbance, and anxiety; I10 Essential (primary) hypertension; I71.4 Abdominal aortic aneurysm, without rupture; Z85.118 Personal history of other malignant neoplasm of bronchus and lung; W19.XXXA Unspecified fall, initial encounter; Y93.9 Activity, unspecified; Y92.009 Unspecified place in unspecified non-institutional (private) residence as the place of occurrence of the external cause; Y99.9 Unspecified external cause status; Z72.0 Tobacco use
CPT/HCPCS: 70450; 72125; 72170; 73060; 80048; 85025; 90471; 90715; 96361; 96374; 96375; 99285; J7030; J2405

== ENCOUNTER → 2019-05-28 14:50 | Outpatient (CLI) | payer MEDICARE, SELFPAY ==
[2019-05-28 14:46] VITALS: BMI 18.6
--- NOTE | 2019-05-28 14:52 | RAD_ITS ---
STUDY: X-RAY CHEST REASON FOR EXAM: Female, 83 years old. Increasing shortness of breath. TECHNIQUE: Single AP portable view of the chest. COMPARISON: Comparison is made with prior study dated April 01, 2019. FINDINGS: Hyperinflation. Progressive infiltrates in both lower lobes. Persistent nodular density in the right infrahilar region. Blunting of the left costophrenic angle. Normal size heart. Normal mediastinum and geovanna. Normal visualized pulmonary arteries. There is atherosclerotic calcification of the aortic arch with tortuosity. There are diffuse degenerative changes of the visualized thoracic spine. Normal visualized ribs, clavicles, and shoulders. There is no demonstrated abnormality of the visualized soft tissue structures of the upper abdomen. RAD/Chest 1 View IMPRESSION: Progressive bibasilar infiltrates with small left pleural effusion. Right lower lobe mass. Electronically Signed: Singh Chavis, at 15:25 EDT , Service support ,
== END ==
PROVIDERS: Family Provider Family Medicine; PCP Family Medicine; Referring Provider Physician Assistant Surgical; Visit Provider Physician Assistant Surgical
DX: R06.02 Shortness of breath (principal)
CPT/HCPCS: 71045

== ENCOUNTER → 2019-06-21 15:31 | Outpatient (CLI) | payer MEDICARE, SELFPAY ==
[2019-05-28 14:46] VITALS: BMI 18.6
--- NOTE | 2019-06-21 15:34 | RAD_ITS ---
STUDY: X-RAY CHEST REASON FOR EXAM: Female, 83 years old. Follow-up pneumonia TECHNIQUE: Single AP portable view of the chest. COMPARISON: May 28, 2019 chest x-ray FINDINGS: There is a persistent right perihilar mass that measures 3.7 x 3.0 cm. There is a right apical mass measuring 0.9 cm. There is no demonstrated pleural abnormality. There is borderline cardiomegaly. Normal mediastinum and geovanna. Normal visualized pulmonary arteries. There is atherosclerotic tortuosity of the aortic arch and descending thoracic aorta. There are diffuse degenerative changes of the visualized thoracic spine. Normal visualized ribs, clavicles, and shoulders. There is no demonstrated abnormality of the visualized soft tissue structures of the upper abdomen. RAD/Chest PA and Lateral IMPRESSION: Persistent Right perihilar mass, right upper lobe nodule. Findings suspicious for neoplasm. Recommend consideration for follow-up CT scan of the chest. Electronically Signed: Karla Stafford MD at 16:11 EDT Tel , Service support ,
== END ==
PROVIDERS: Family Provider Family Medicine; PCP Family Medicine; Referring Provider Internal Medicine Pulmonary Disease; Visit Provider Internal Medicine Pulmonary Disease
DX: J44.9 Chronic obstructive pulmonary disease, unspecified (principal)
CPT/HCPCS: 71046

== ENCOUNTER → 2019-08-07 16:05 | Outpatient (CLI) | payer MEDICARE, SELFPAY ==
[2019-05-28 14:46] VITALS: BMI 18.6
--- NOTE | 2019-08-07 16:08 | RAD_ITS ---
STUDY: X-RAY - BILATERAL RIBS WITH CHEST REASON FOR EXAM: Female, 84 years old. Fall TECHNIQUE - RIBS: 4 view(s) of the ribs and chest. COMPARISON: 06/21/2019. FINDINGS - RIBS : Acute minimally displaced fracture of the lateral aspect of the right 11th rib FINDINGS - CHEST: Reidentified bilateral lung base masses and right apical nodule, similar in appearance to prior. Normal size heart. Normal mediastinum and geovanna. Normal visualized pulmonary arteries. Stents of atherosclerosis of the aortic knob. Multiple compression deformities of the visualized spine, similar to prior. RAD/Ribs Jatin Min 4V w/PA Chest IMPRESSION: RIBS: Acute minimally displaced fracture of the lateral right 11th rib. CHEST: Multiple pulmonary masses as above, similar to prior. These findings are concerning for malignancy and may be followed with a chest CT as clinically indicated. Electronically Signed: Obinna Morris, at 16:39 EDT Tel , Service support ,
== END ==
PROVIDERS: Family Provider Family Medicine; PCP Family Medicine; Referring Provider Physician Assistant; Visit Provider Physician Assistant
DX: R07.81 Pleurodynia (principal)
CPT/HCPCS: 71111

== ENCOUNTER → 2019-09-20 14:50 | Outpatient (CLI) | payer MEDICARE, SELFPAY ==
[2019-08-07 16:34] VITALS: BMI 18.6
--- NOTE | 2019-09-20 14:54 | BI_ITS ---
MAMMOGRAPHY - BILATERAL SCREENING REASON FOR EXAM: Female, 84 years old. Routine annual screening examination. PERTINENT HISTORY: Sister with breast cancer. Aunt with breast cancer. TECHNIQUE: 2-D mediolateral oblique (MLO) and craniocaudad (CC) views of both breasts were obtained. CAD: Full Field Digital Mammography with Computer Added Detection was performed. COMPARISON: Comparison is made with prior examination dated October 14, 2019. FINDINGS: Breast Composition: The breasts are heterogeneously dense, which may obscure small masses. There are no dominant masses or suspicious calcifications. No other significant abnormalities are identified. There has been no significant change since the prior study. BI/SCREENING MAMM (CAD), BILAT IMPRESSION: Stable bilateral screening mammogram. Yearly follow-up mammogram recommended. (A) ASSESSMENT CATEGORY: BIRADS Category 2: Benign. A letter regarding these results will be sent to the patient by the facility within 30 days. Approximately 10% of breast cancers are not detected by mammography. A normal mammogram should not delay biopsy of a clinically suspicious abnormality. [id number] Electronically Signed: Singh Chavis, at 8:23 EST , Service support ,
== END ==
PROVIDERS: Family Provider Family Medicine; PCP Family Medicine; Referring Provider Family Medicine; Visit Provider Family Medicine
DX: Z12.31 Encounter for screening mammogram for malignant neoplasm of breast (principal); F03.90 Unspecified dementia, unspecified severity, without behavioral disturbance, psychotic disturbance, mood disturbance, and anxiety; R22.2 Localized swelling, mass and lump, trunk; H61.22 Impacted cerumen, left ear; J44.9 Chronic obstructive pulmonary disease, unspecified; I10 Essential (primary) hypertension; Z85.118 Personal history of other malignant neoplasm of bronchus and lung; Z87.440 Personal history of urinary (tract) infections
CPT/HCPCS: 70450; 71045; 77067; 80048; 81001; 85025; 99284; A4216

== ENCOUNTER 2019-09-20 15:40 | Emergency (ER) | payer MEDICARE, SELFPAY ==
[2019-08-07 16:34] VITALS: BMI 18.6
[2019-09-20 15:42] VITALS: BP 146/102; PULSE 63; RESP 15; TEMP 36.3; O2SAT 93; BMI 18.6
--- NOTE | 2019-09-20 15:58 | CT_ITS ---
STUDY: CT BRAIN WITHOUT CONTRAST REASON FOR EXAM: Female, 84 years old. Increasing confusion and ear pain RADIATION DOSAGE (If Supplied By Facility): CTDIvol = ( 60.81 ) mGy, DLP = ( 998.67 ) mGycm TECHNIQUE: Transaxial CT imaging of the brain was performed without administration of intravenous contrast material. Individualized dose optimization techniques were used for this CT. COMPARISON: May 08, 2019 CT brain FINDINGS: Normal soft tissue structures. Normal calvarium. There is moderate cerebral atrophy with widening of the extra-axial spaces and ventricular dilatation. There are areas of decreased attenuation within the white matter tracts of the supratentorial brain, consistent with microvascular disease changes. Intracranial atherosclerosis. Normal basal ganglia and thalami. Normal brainstem. Normal cerebellum. There is no intracranial hemorrhage. There are no findings of an acute ischemic infarction. Normal visualized paranasal sinuses. CT/Brain/Head without Contrast IMPRESSION: Chronic involutional changes of the brain. Electronically Signed: Winston Navarro MD at 17:27 EST , Service support ,
--- NOTE | 2019-09-20 16:16 | ED.DCSUM_ITS ---
- ER Visit Summary Date of Service: 09/20/19 Chief Complaint: Confusion History of Present Illness: The patient is a 84 F who presents with family with complaints of confusion. They noticed is been increasing over the past 3 weeks. She does have a history of dementia and is on dementia medications. She had a recent UTI and finished Keflex. They state that her mental status has not returned back to normal. They are concerned about dehydration because she has not been eating or drinking much. They are wondering if she has fluid around her left ear because she has been complaining of muffling on that side. They deny any weakness of any arms or legs. No slurred speech or facial droop. Physical Examination: Vital signs reviewed. Patient is confused and alert to self only which is baseline according to family. HEENT exam reveals left cerumen impaction. Heart is regular rate and rhythm. Lungs are clear. Abdomen is soft. Her back is nontender. Extremities have no edema. She is alert to self only which is again her baseline. She has diffuse overall weakness but no slurred speech or facial droop. Test Results: Laboratory studies show a potassium 3.4. Chloride 109. She has 2+ episodes but only 5-10 white blood cells with rare bacteria. Chest x-ray shows no pneumonia but she does have masses that are increasing in size. CAT scan of the head is chronic. Emergency Department Course and Treatment: The patient would like to go home. She does have known masses of the chest that they are following with pulmonology for. I see no reason why this patient can go home. She was hydrated with some saline here. No signs of significant dehydration. This just may be a element of her dementia increasing. She will follow-up with her doctor Treatment Plan: [] Disposition: Discharge Impression: Dementia This note was generated with [employer] software. It may contain incorrect words, spelling, and punctuation that were not noted in review of the chart prior to signing ED Disposition - Plan for ED Patient: Referrals: Mauricio Leyva DO [Primary Care Provider] -
--- NOTE | 2019-09-20 16:26 | RAD_ITS ---
STUDY: X-RAY CHEST REASON FOR EXAM: Female, 84 years old. COPD TECHNIQUE: Single frontal view of the chest. COMPARISON: August 07, 2019 FINDINGS: Right perihilar mass and left lower quadrant mass appears slightly larger. There appears to be a apical mass understanding of slightly larger as well. There is no demonstrated pleural abnormality. Normal size heart. Normal mediastinum and geovanna. Normal visualized pulmonary arteries. Normal visualized aortic arch and descending thoracic aorta. Normal visualized thoracic spine. OLD fracture left humeral neck. There is no demonstrated abnormality of the visualized soft tissue structures of the upper abdomen. RAD/Chest 1 View (Portable) IMPRESSION: Multiple bilateral pulmonary masses slightly increased in size. CT chest with IV contrast would be more sensitive. Electronically Signed: Winston Navarro MD at 16:49 EST , Service support ,
[2019-09-20 16:29] LABS: Absolute Lymphocyte Count 1.43 X10^3/uL (0.83-4.51); Absolute Neutrophil Count 4.2 X10^3/uL (2.0-7.7); Basophil# 0.02 X10^3/uL; Basophil% 0.3 % (0-1); Eosinophil# 0.18 X10^3/uL; Eosinophils% 2.8 % (0-5); Hematocrit 40.6 % (37-47); Hemoglobin 13.5 g/dL (12.0-15.0); Lymphocyte # 1.43 X10^3/ul (4.0); Lymphocyte % 22.6 % (19-41); Mean Corp Hgb Conc 33.3 g/dL (32-36); Mean Corpuscular Hgb 28.8 pg (27.0-32.0); Mean Corpuscular Volume 86.8 fL (81-99); Mean Platelet Vol. 9.7 fl (6.2-12.0); Monocyte# 0.45 X10^3/uL; Monocyte% 7.1 % (0-10); NRBC Flagged by Analyzer 0 % (0-5); Neutrophil # 4.23 X10^3/uL (2.7-7.7); Platelet Count 272 K/mm3 (150-450); RBC Distribution Width CV 14.4 % (11.6-14.6); RBC Distribution Width SD 45.7 fl (35.1-43.9); Red Blood Count 4.68 M/mm3 (4.2-5.4); White Blood Count 6.3 K/mm3 (4.4-11.0)
[2019-09-20 16:34] LABS: Mucous, Urine 0 SEEN /hpf (<or=2+)
[2019-09-20 16:40] LABS: Anion Gap 6 (5-15); BUN 9 mg/dL (7-18); BUN/Creat Ratio 13.5 RATIO (10-20); Calcium,Total 9.7 mg/dL (8.5-10.1); Chloride 109 mmol/L (98-107); Creatinine, Serum 0.67 mg/dL (0.55-1.02); EST Glomerular Filtration Rate 89 mL/min (>60); Est Glom Filt Rate - Afr Amer 108 mL/min (>60); Estimated Creatinine Clearance 26.69 ml/min; Glucose 94 mg/dL (74-106); Potassium 3.4 mmol/L (3.5-5.1); Sodium Level 143 mmol/L (136-145)
[2019-09-20 16:49] LABS: Glucose, Dipstick Normal (Normal); Ketone-Dipstick Negative (Negative); Leukocyte Esterase-Dipstick 500 /ul (Negative); Nitrite-Dipstick Negative (Negative); Occult Blood-Urine 25 /ul (Negative); Protein-Dipstick 15 mg/dl (Negative); Urine Bilirubin Dipstick Negative (Negative); Urine Urobilinogen Normal (Normal)
[2019-09-20 17:19] LABS: Bacteria RARE /hpf (None Seen); Red Blood Cells-Urine 0-5 SEEN /hpf (0-5); Squamous Epithelial Cells - UA 0-5 SEEN /hpf (5-10); White Blood Cells 5-10 SEEN /hpf (0-5)
--- NOTE | 2019-09-20 18:06 | ED.DEP ---
ED Disposition - Plan for ED Patient: Disposition: Home or Assisted Living Instructions: Confusion Referrals: Mauricio Leyva DO [Primary Care Provider] -
[2019-09-20 18:35] VITALS: BP 213/84; PULSE 68; RESP 16; O2SAT 93
--- NOTE | 2019-09-20 18:59 | ED.RN ---
PT discharge BP is elevated, pt has lisinopril at home and will take once home, per family.
[2019-09-20 19:54] LABS: Color, Urine Yellow (Yellow); Urine Clarity Sl Cldy (Clear)
== END 2019-09-20 18:52 | disposition home or self-care (01) ==
PROVIDERS: Emergency Provider Emergency Medicine; Family Provider Family Medicine; PCP Family Medicine
DX: F03.90 Unspecified dementia, unspecified severity, without behavioral disturbance, psychotic disturbance, mood disturbance, and anxiety (principal); H61.22 Impacted cerumen, left ear; Z87.440 Personal history of urinary (tract) infections; J44.9 Chronic obstructive pulmonary disease, unspecified; I10 Essential (primary) hypertension; Z85.118 Personal history of other malignant neoplasm of bronchus and lung
CPT/HCPCS: 70450; 71045; 80048; 81001; 85025; 99284; A4216

== ENCOUNTER 2020-01-22 17:36 | Inpatient (IN) | payer MEDICARE, SELFPAY ==
[2020-01-22] VITALS (7 sets, daily range): BP systolic 178–217; BP diastolic 83–147; PULSE 73–86; RESP 14–22; TEMP 36.9–37.5; O2SAT 91–97; BMI 20.1; BMI 17.8
--- NOTE | 2020-01-22 18:06 | CT_ITS ---
STUDY: CT ABDOMEN AND PELVIS WITH CONTRAST REASON FOR EXAM: Female, 84 years old. CONSTIPATION X9 DAYS ,HEMOPTYSIS,SOB,FEVER. Hx of lung cancer, COPD, HTN and emphysema. Prior cholecystectomy RADIATION DOSAGE (If Supplied By Facility): CTDIvol = ( 14.39 ) mGy, DLP = ( 265.03 ) mGycm TECHNIQUE: Transaxial images were obtained from the dome of the diaphragm to the symphysis pubis without oral contrast. Oral and amp; IV Gastrografin and amp; 100mL Isovue-300 was administered. Sagittal and coronal images were reconstructed. Individualized dose optimization techniques were used for this CT. COMPARISON: September 02, 2011 FINDINGS: There is a large heterogeneous mass in the right lower lobe consistent with known neoplasm. There is a second similar-appearing but larger density at the left base in association atelectasis and extending into the soft tissues of the back. Heart is enlarged.. Normal liver. Gallbladder not visualized consistent with cholecystectomy.. Normal spleen. Normal pancreas. There are large bilateral solid adrenal masses larger on the left likely metastatic. Normal right kidney. Normal left kidney. Normal visualized stomach. Nonspecific ileus with diffuse fecal retention throughout the colon. No evidence for acute appendicitis. Atherosclerotic changes of the aorta with distal abdominal aortic aneurysm measuring approximately 3.55 x 3.6 cm Normal inferior vena cava. Normal retroperitoneum. Normal urinary bladder. Normal abdominal wall. Lumbar spine demonstrates degenerative changes and there are multilevel chronic compression deformities. There are postsurgical changes of the right hip. CT/Abdomen/Pelvis WITH Contrast IMPRESSION: Nonspecific ileus with diffuse fecal retention in the colon. Bilateral lung masses and adrenal masses consistent with known neoplasm.. Aneurysm of the distal aorta without evidence for periaortic leak or dissection Electronically Signed: Eldon Isaac MD at 20:27 EDT , Service support ,
--- NOTE | 2020-01-22 18:12 | ED.VISSUMM ---
- ER Visit Summary Date of Service: 01/22/20 Chief Complaint: Constipation History of Present Illness: The patient is a 84 F who presents with constipation that has been constant for the past 9 days. Patient has a history of dementia and is a poor historian. EMS reports that the patient was having some hemoptysis and shortness of breath today. When I asked the patient if she was having any cough or shortness of breath she said she was not. Patient does not answer very many questions. Physical Examination: Vital signs are stable. Patient is afebrile. Patient is in no acute distress. Oral mucosa is pink and moist. Neck is supple. Trachea is midline. There is no JVD. Heart was regular rate and rhythm. Lungs are clear and equal bilaterally. Abdomen is soft. Bowel sounds are normal. There is no distention. Cranial nerves II through XII are grossly intact. There are no focal motor or sensory deficits noted. Patient is moving all extremities. Test Results: CBC shows a leukocytosis of 20.2. Comprehensive metabolic profile shows a slightly elevated sodium of 147, chloride of 109, and CO2 of 34. Potassium was slightly low at 2.9. Calcium was elevated at 12.8. Urinalysis showed leukocyte esterase of 500 with 25-50 white blood cells and 2+ bacteria. Portable chest x-ray was obtained. There is a right lower lobe mass which is increased in size since the previous x-ray. CT scan of the abdomen pelvis was obtained. There is nonspecific ileus with constipation. There are bilateral lung and adrenal masses consistent with known neoplasm. This was interpreted by the radiologist and myself. Emergency Department Course and Treatment: Patient was given IV fluids. Patient was started on Rocephin here. Patient was also given a soapsuds enema. Blood cultures and urine culture was obtained. Case was discussed with the hospitalist. She will admit the patient to the PCU. Disposition: Admit to hospital Impression: 1. Urinary tract infection 2. Leukocytosis 3. Ileus This note was generated with [employer] dictation software. It may contain incorrect words, spelling, and punctuation that were not noted in review of the chart prior to signing ED Disposition - Plan for ED Patient: Disposition: Acute Care Hospital [facility] Diagnosis: Urinary tract infection, Leukocytosis, Ileus Referrals: Mauricio Leyva DO [Primary Care Provider] -
[2020-01-22 18:16] LABS: Absolute Lymphocyte Count 1.22 X10^3/uL (0.83-4.51); Absolute Neutrophil Count 16.8 X10^3/uL (2.0-7.7); Basophil# 0.04 X10^3/uL; Basophil% 0.2 % (0-1); Eosinophil# 0.58 X10^3/uL; Eosinophils% 2.9 % (0-5); Hematocrit 40.1 % (37-47); Hemoglobin 12.2 g/dL (12.0-15.0); Lymphocyte # 1.22 X10^3/ul (4.0); Mean Corp Hgb Conc 30.4 g/dL (32-36); Mean Corpuscular Hgb 27.4 pg (27.0-32.0); Mean Corpuscular Volume 90.1 fL (81-99); Monocyte# 1.27 X10^3/uL; Monocyte% 6.3 % (0-10); NRBC Flagged by Analyzer 0 % (0-5); Neutrophil # 16.83 X10^3/uL (2.7-7.7); Neutrophil % 83.2 % (47-70); Platelet Count 428 K/mm3 (150-450); RBC Distribution Width CV 14.5 % (11.6-14.6); RBC Distribution Width SD 47.3 fl (35.1-43.9); Red Blood Count 4.45 M/mm3 (4.2-5.4); White Blood Count 20.2 K/mm3 (4.4-11.0)
[2020-01-22 18:38] LABS: ALB/GLOB Ratio 0.7 RATIO (0.9-2.4); AST(SGOT) 16 U/L (15-37); Alanine Aminotransfer ALT/SGPT 10 U/L (13-56); Alkaline Phosphatase 69 U/L (45-117); Anion Gap 4 (5-15); BUN 24 mg/dL (7-18); BUN/Creat Ratio 23.3 RATIO (10-20); Chloride 109 mmol/L (98-107); Creatinine, Serum 1.03 mg/dL (0.55-1.02); EST Glomerular Filtration Rate 54 mL/min (>60); Est Glom Filt Rate - Afr Amer 66 mL/min (>60); Estimated Creatinine Clearance 26.12 ml/min; Globulin 4.3 g/dL (2.2-4.2); Glucose 158 mg/dL (74-106); Potassium 2.9 mmol/L (3.5-5.1); Protein, Total 7.3 g/dL (6.4-8.2); Sodium Level 147 mmol/L (136-145)
[2020-01-22] MEDS: 0.9% Normal Saline 1,000 ML 1000 ML IV (18:39)
[2020-01-22 18:40] LABS: Calcium,Total 12.8 mg/dL (8.5-10.1)
--- NOTE | 2020-01-22 19:02 | RAD_ITS ---
STUDY: X-RAY CHEST REASON FOR EXAM: Female, 84 years old. PER EMS, PT HAVING CONSTIPATION X9 DAYS, COUGHING UP BLOOD, AND SOB/FEVER TECHNIQUE: AP portable COMPARISON: September 20, 2019 FINDINGS: Mild chronic interstitial changes. There is a noncalcified mass in the right lower lobe measuring 4.35 x 3.6 cm suspicious for neoplasm.. There is blunted left costophrenic angle likely representing small effusion with mild basilar atelectasis. Normal size heart. Normal mediastinum and geovanna. Normal visualized pulmonary arteries. Mildly calcified aortic arch and descending thoracic aorta. Normal visualized thoracic spine. Normal visualized ribs, clavicles, and shoulders. There is no demonstrated abnormality of the visualized soft tissue structures of the upper abdomen. The right lower lobe mass has increased in size. RAD/Chest 1 View (Portable) IMPRESSION: Increasing size of right lower lobe mass likely neoplastic. Probable small left pleural effusion and mild basilar atelectasis Electronically Signed: Eldon Isaac MD at 19:49 EDT , Service support ,
[2020-01-22 19:04] LABS: Mucous, Urine 0 SEEN /hpf (<or=2+)
[2020-01-22 19:07] LABS: Color, Urine Yellow (Yellow); Glucose, Dipstick Normal (Normal); Ketone-Dipstick Negative (Negative); Leukocyte Esterase-Dipstick 500 /ul (Negative); Nitrite-Dipstick Negative (Negative); Occult Blood-Urine 50 /ul (Negative); Protein-Dipstick 15 mg/dl (Negative); Specific Gravity, Urine 1.015 (1.002-1.030); Urine Bilirubin Dipstick Negative (Negative); Urine Clarity Sl. Cloudy (Clear); Urine Urobilinogen Normal (Normal)
[2020-01-22 19:25] LABS: Bacteria 2+ /hpf (None Seen); Red Blood Cells-Urine 5-10 SEEN /hpf (0-5); Squamous Epithelial Cells - UA 5-10 SEEN /hpf (5-10); White Blood Cells 25-50 SEEN /hpf (0-5)
[2020-01-22 19:26] LABS: Amorphous Sediment 2+ URATE
--- NOTE | 2020-01-22 21:09 | ED.RN ---
This RN attempted to call daughter back at [phone] to let her know that her mother is being admitted. number went to voicemail box that is full
--- NOTE | 2020-01-22 21:14 | HP.PCM_ITS ---
Problem List (1) Urinary tract infection Status: Acute Qualifiers: Urinary tract infection type: site unspecified (2) Hypercalcemia Status: Acute (3) Ileus Status: Acute (4) Lung cancer Status: Suspected Qualifiers: Laterality: unspecified laterality Lung location: unspecified part of lung Qualified Code(s): C34.90 - Malignant neoplasm of unspecified part of unspecified bronchus or lung (5) Generalized anxiety disorder Status: Chronic (6) COPD (chronic obstructive pulmonary disease) Status: Chronic Qualifiers: COPD type: unspecified COPD Qualified Code(s): J44.9 - Chronic obstructive pulmonary disease, unspecified (7) Hypertension Status: Chronic Qualifiers: Hypertension type: essential hypertension Qualified Code(s): I10 - Essential (primary) hypertension (8) Tobacco abuse Status: Chronic (9) HLD (hyperlipidemia) Status: Chronic Qualifiers: Hyperlipidemia type: unspecified Qualified Code(s): E78.5 - Hyperlipidemia, unspecified (10) Dementia Status: Chronic Qualifiers: Dementia type: unspecified type (11) CKD (chronic kidney disease), stage IV Status: Chronic History of Present Illness Date of Admission: 01/22/20 Chief Complaint: Constipation, ? Hemoptysis. The patient is an 84 y/o F w/ PMHx: History of Lung CA (metastatic), CKD stage IV, Tobacco use, Anxiety and Depression, Chronic COPD, Chronic Dementia unclear type with unclear behavioral disturbance history, GERD who presents to the [facility] ED on 01/22/20 with history of ongoing constipation for at least the last 9 days with mild cough with EMS report of dyspnea complain as well as questionable hemoptysis prompting ED presentation. Patient denied any cough or dyspnea to ED physician but patient with underlying dementia. Discussed patient's status with her family and they noted concern for underlying malignancy but is never been worked up. They noted intention to transition patient to hospice program at home. They confirmed the patient occasionally has cough and occasional dyspnea but nothing acutely currently although EMS did report this with primary complaint of abdominal discomfort for family and no recent bowel movement. Work-up in the ED included T 98.9, heart rate 74, BP 178/147 initially with repeat 183/83, respiratory rate 18, 94% on room air, BC with WBC 20.2, hemoglobin 12.2, platelet 428 with left shift with mild lymphopenia noted but absolute normal, CMP with sodium 147, potassium 2.9, chloride 109, carbon dioxide 34, BUN/creatinine 24/1.03, glucose 158, calcium 12.8, analysis with specific gravity 1.015, protein 15, occult blood 50, negative nitrite, leukocyte esterase 500, WBCs 25-10, 5-10 squamous epithelial cells, 2+ bacteria, chest x- ray with increasing size right lower lobe mass likely neoplastic with a probable small left pleural effusion and mild basilar atelectasis, ET abdomen and pelvis with a nonspecific ileus with diffuse fecal retention in the colon, bilateral lung masses and adrenal masses consistent with neoplasm, aneurysm of the distal aorta without evidence of periaortic leak or dissection. In the ED patient ministered normal saline and Rocephin therapy. Past Medical History Past Medical History (Chronic Problems): Chronic Problems (Last Reviewed 08/07/19 @ 16:34 by Veena Edgar) HLD (hyperlipidemia) (Chronic) CKD (chronic kidney disease), stage IV (Chronic) Dementia (Chronic) COPD with exacerbation (Chronic) Mass of right lung (Chronic) enlarging since CT scan in 2014 Generalized anxiety disorder (Chronic) Macular degeneration (Chronic) COPD (chronic obstructive pulmonary disease) (Chronic) Osteoporosis (Chronic) Compression fracture of lumbar vertebra (Chronic) Compression fracture of thoracic vertebra (Chronic) Glaucoma (Chronic) Neuropathic pain (Chronic) Hypertension (Chronic) Anxiety (Chronic) Tobacco abuse (Chronic) Allergies acetaminophen [From Percocet] Adverse Reaction (Verified 09/20/19 15:41) Nausea/Vom/Diarrhea hydrocodone [From Vicodin] Adverse Reaction (Verified 09/20/19 15:41) Nausea/Vom/Diarrhea oxycodone [From Percocet] Adverse Reaction (Verified 09/20/19 15:41) Nausea/Vom/Diarrhea Home Medications: Ambulatory Orders Medication Instructions Recorded Budesonide/Formoterol 160/4.5 2 puff INHALATION BID 08/05/14 [Symbicort 160/4.5 Mcg Inhaler (SP)] Lorazepam 0.5 mg PO BID 08/05/14 Tiotropium [place] [Spiriva] 1 puff INHALATION DAILY 08/05/14 Ergocalciferol [Vitamin D] 50,000 unit PO JOSE 10/31/17 Peg 400/Hypromellose/Glycerin 1 drp EACH EYE Q1H PRN 10/31/17 [Artificial Tears] Travoprost 0.004% [Travatan-Z 1 drp HUGOEYE QHS 10/31/17 0.004% Eye Drop] Pantoprazole Sodium [Protonix] 20 mg PO DAILY #60 tab 12/05/17 Alendronate Sodium [Fosamax] 70 mg PO DAILY@0700 04/02/19 Donepezil HCl [Aricept] 10 mg PO QHS 04/02/19 albuterol sulfate 2.5 mg INHALATION Q2H PRN PRN #120 05/28/19 vial.neb. Methenamine 1 gm MC DAILY 09/20/19 Ascorbic Acid [Vitamin C] 500 mg PO DAILY 01/22/20 Docusate Sodium [Dok] 100 mg PO BID 01/22/20 Escitalopram Oxalate [Lexapro] 20 mg PO DAILY 01/22/20 Lisinopril [Zestril] 10 mg PO DAILY 01/22/20 Oxycodone [Oxyir] 2.5 mg PO BREAKFAST 01/22/20 Surgical History: Surgical History (Last Reviewed 08/07/19 @ 16:34 by Veena Edgar) S/P right hip fracture Z87.81 11/01/17 Surgical History: cataract, - - Right hip fracture repair, C3-C7 laminectomy. 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 Smoking Status: Current every day smoker - She has decreased over the last week, prior to this 3-5 cigarette per day. Tobacco Use: Cigarettes Alcohol: None Drugs: None - *Family History Maternal History Items: - - Her mother when she was 4 years old secondary to complications of PNA. Paternal History Items: Cancer - History of stomach cancer. Sibling History Items: Cancer - Sister with history of breast cancer. Review of Systems Constitutional: Reports: Malaise, Weakness, Fatigue. Denies: Anorexia, Chills, Fever, Weight Change HEENT: Denies: Head Aches, Sinus Congestion, Sinus Drainage Cardiovascular: Denies: Chest Pain, Palpitations Respiratory: Reports: Cough, Hemoptysis. Denies: Shortness of Breath, Shortness of breath at rest, Shortness of breath upon exertion, Sputum production Gastrointestinal: Reports: Abdominal Pain, Constipation. Denies: Nausea, Vomiti ng Genitourinary: Denies: Dysuria Musculoskeletal: Reports: Back Pain, Joint Pain. Denies: Joint Tenderness Skin: Denies: Rash, Wounds Neurological: Reports: Confusion. Denies: Focal weakness, Numbness, Tingling Psychiatric: Reports: Anxiety, Depression. Denies: Homicidal Ideations, Suicidal Ideations Hematologic/ Lymphatic: Denies: Easy Bruising, Easy Bleeding VTE Information - Inpt Only VTE Present on Admission: No VTE Mechan Device Prophylaxis: SCD's VTE Pharm Prophylaxis ordered?: No Reason prophylaxis not ordered:: Medical Contraindication Patient Problems: Active and Suspected Problems (Last Reviewed 08/07/19 @ 16:34 by Veena Edgar) Urinary tract infection (Acute) Leukocytosis (Acute) Ileus (Acute) Hypercalcemia (Acute) Subjective: Patient seated upright in the ED bed, pleasant, no acute distress evident and no complaints but underlying significant dementia. Objective: Physical Examination: General: awake, alert, oriented to self but significant dementia, cannot recall why she is presented, remains cooperative, seated upright in the ED bed, no obvious distress or complaints. Skin: normal color, turgor, no icterus, cyanosis. HEENT: AT/NC, EOMI, PERRLA, mildly dry MM, no carotid bruits or JVD noted. Lungs: Diminished breath sounds bilaterally, greater bases, moderate effort, no evidence of distress, no rales, ronchi or wheezing. Heart: Regular rate and rhythm; no gallop, rub audible. Abdomen: soft, despite constipation nontender to palpation and no suprapubic discomfort, ND, mildly hyperactive BS, no HSM. Extremities: no cyanosis, clubbing, or edema. Neurological: patient awake, alert, oriented as noted; cognitive function significant relief used baseline secondary to underlying dementia, unclear if baseline intact; pupils equally reactive to light and accomodation; cranial nerves II-XII grossly normal, moving all 4 extremities, no focal deficits, strength moderately to severely global decrease secondary to acute presentation and comorbidities. Psychiatric: affect appears normal, pleasant, underlying dementia, no acute evidence of depressive or anxiety feelings. - Physical Exam Vitals/I&O's: Vital Signs Temp Pulse Resp BP Pulse Ox 98.9 F 73 16 193/83 H 94 01/22/20 17:37 01/22/20 19:09 01/22/20 19:09 01/22/20 19:09 01/22/20 19:09 Oxygen Delivery Method Room Air Weight: 89 lb 11.65 oz Body Mass Index (BMI) 20.1 Laboratory Results 01/22/20 18:00: WBC 20.2 H, RBC 4.45, Hgb 12.2, Hct 40.1, MCV 90.1, MCH 27.4, MCHC 30.4 L, RDW Std Deviation 47.3 H, RDW Coeff of Sondra 14.5, Plt Count 428, MPV 10.0, Immature Gran % (Auto) 1.400 H, Neut % (Auto) 83.2 H, Lymph % (Auto) 6.0 L, [place] % (Auto) 6.3, Eos % (Auto) 2.9, Baso % (Auto) 0.2, Absolute Neuts (auto) 16.8 H, Absolute Lymphs (auto) 1.22, Nucleated RBC % 0 01/22/20 18:00: Sodium 147 H, Potassium 2.9 L, Chloride 109 H, Carbon Dioxide 34.0 H, Anion Gap 4 L, BUN 24 H, Creatinine 1.03 H, Estim Creat Clear Calc 26.12, Est GFR (MDRD) Af Amer 66, Est GFR (MDRD) Non-Af 54 L, BUN/Creatinine Ratio 23.3 H, Glucose 158 H, Calcium 12.8 H*, Total Bilirubin 0.50, AST 16, ALT 10 L, Alkaline Phosphatase 69, Total Protein 7.3, Albumin 3.0 L, Globulin 4.3 H, Albumin/Globulin Ratio 0.7 L 01/22/20 18:50: Urine Color Yellow, Urine Clarity Sl. Cloudy, Urine pH 6.0, Ur Specific [place] 1.015, Urine Protein 15 H, Urine Glucose (UA) Normal, Urine Ketones Negative, Urine Occult Blood 50 H, Urine Nitrite Negative, Urine Bilirubin Negative, Urine Urobilinogen Normal, Ur Leukocyte Esterase 500 H, Urine RBC 5-10 SEEN, Urine WBC 25-50 SEEN, Ur Squamous Epith Cells 5-10 SEEN, Amorphous Sediment 2+ URATE, Urine Bacteria 2+, Urine Mucus 0 SEEN Current Medications Ceftriaxone Sodium (Rocephin) 1 gm in 50 mls @ 100 mls/hr IV X1 ONE Stop: 01/22/20 21:27 Assessment/Plan All Active Problems (Last Reviewed 08/07/19 @ 16:34 by Veena Edgar) Altered mental status (Acute) Urinary tract infection (Acute) Leukocytosis (Acute) Ileus (Acute) Hypercalcemia (Acute) Pneumonia (Acute) Shortness of breath (Acute) Fracture, clavicle (Acute) Anemia due to blood loss, acute (Acute) Urinary retention (Acute) Hip fracture, right (Acute) Vitamin D deficiency (Acute) Right clavicle fracture (Acute) Closed right hip fracture (Acute) Fall (Acute) The patient is an 84 y/o F w/ PMHx: History of Lung CA, CKD stage IV, Tobacco use, Anxiety and Depression, Chronic COPD, Chronic Dementia unclear type with unclear behavioral disturbance history, GERD who presents to the [facility] ED on 01/22/20 with history of ongoing constipation for at least the last 9 days with m ild cough with EMS report of dyspnea complain as well as questionable hemoptysis prompting ED presentation. 1. Acute Urinary Tract Infection: Will admit to PCU given electrolyte disturbances, UA upon ED evaluation remarkable, pending UCx, admission CBC w/ WBC 8.2 with left shift, continue judicious IVFs, monitor I/Os, continue IV rocephin w/ transition as able pending sensitivities and speciation. Bld cx x 2 obtained in the ED. PT, OT, CM for discharge planning and will need referral for home hospice at discharge per discussion with family. 2. Hypercalcemia, likely related to metastatic cancer: Admission calcium 12.8, ionized calcium requested, will obtain vitamin D level (25-(OH)D, 1,25-(OH)2D), PTH, Mag, Phos, UCa levels to further assess, will continue judicious hydration and may need to consider Lasix administration as well as duration of patient home bisphosphonates as likely associated with metastatic disease. 3. Known Lung Cancer with Metastatic Disease w/ ? Dyspnea, hemoptysis: Unclear specific type, likely associated with acute findings on CT scans, evaluations and treatment as noted, questionable hemoptysis likely stated with her metastatic lung cancer, continue to closely monitor on telemetry, defer any chemoprophylaxis given this possibility, defer oncology involvement. Family interested in Hospice in the home. 4. Constipation, Acute, severe: Likely associated with acute presentation with hypercalcemia with ileus, maintain on hydration, initiate bowel regimen to assist with bowel movements with enema x 1 per ED. 5. Hypokalemia: Admission K+ 2.9, magnesium pending, supplementation given, repeat level in AM. 6. Chronic COPD: Will maintain on oxygen with wean as tolerated to room air, continue ATC duonebs, PRN albuterol, HOB, IS parameters. 7. Chronic Kidney Disease Stage IV: Admission BUN/Cr 24/1.03, baseline renal function 0.6-1.0, repeat BMP in AM. 8. Tobacco Abuse: Encouraged cessation, inpatient consultation per RT, NR if desired. 9. Hypertension: We will continue patient home lisinopril low-dose regimen although given renal function may necessitate altered regimen, PRN IV hydralazine. 10. Hyperlipidemia: Not on regimen, defer to outpatient. 11. Dementia, unclear type with unclear behavioral disturbance history: We will continue patient home Aricept regimen. 12. Anxiety and depression: We will continue patient home escitalopram and lorazepam regimen. 13. Chronic pain syndrome: We will continue patient home low-dose oxycodone regimen. 14. GERD: We will maintain on home PPI. 15. DVT prophylaxis: SCDs, defer chemoprophylaxis given possible mild hemoptysis with underlying pulmonary malignancies with metastatic disease. 16. CODE status: Patient THEE is her daughters including Jossy and Stephanie and living will is currently in place. Discussed CODE status at length including difference between FULL code, DNR-CCA and DNR-CC status. Following discussions about the differences in these status, requested DNR CCA, no intubation with no aggressive measures currently with plan transition once in hospice to DNR CC status. Patient and family members are interested in discharge to home with hospice once patient is clinically appropriate and improved as far as abdominal discomfort with constipation. Advanced Care Planning Face to Face Time: 16 minutes. Inpatient E&M: [id number] Init Hosp L3 Procedures: [id number] Advncd Care Plan 30 Min
[2020-01-22] MEDS: Ceftriaxone 1 GM/50 ML BAG IV (21:25)
[2020-01-22 23:02] LABS: Magnesium 2.1 mg/dL (1.6-2.6); Phosphorus 2.9 mg/dL (2.5-4.9)
[2020-01-23] VITALS (13 sets, daily range): BP systolic 108–173; BP diastolic 61–111; PULSE 62–98; RESP 16–20; TEMP 36.4–36.8; O2SAT 93–95
[2020-01-23] MEDS: Budesonide Respules 0.5 MG/2 ML AMPUL.NEB. INHALATION ×3 (00:48→19:00)
[2020-01-23] MEDS: Albuterol 2.5 MG/3 ML VIAL.NEB. INHALATION ×4 (00:48→19:00)
[2020-01-23] MEDS: 0.9% Saline Lock 10 ML Syringe IV (01:22)
[2020-01-23] MEDS: 0.9% Normal Saline 1,000 ML 125 ML IV (01:22)
[2020-01-23] MEDS: Donepezil HCl 10 MG Tablet PO ×2 (01:22→21:05)
[2020-01-23] MEDS: LORazepam 0.5 MG Tablet PO ×3 (01:27→21:05)
[2020-01-23 01:36] LABS: Vitamin D,25 Hydroxy 130.9 ng/mL
[2020-01-23 06:58] LABS: Calcium, Urine (Random) 9.3 mg/dL (Not Estab.)
[2020-01-23 07:35] LABS: Absolute Lymphocyte Count 1.27 X10^3/uL (0.83-4.51); Absolute Neutrophil Count 13.6 X10^3/uL (2.0-7.7); Basophil# 0.03 X10^3/uL; Basophil% 0.2 % (0-1); Eosinophil# 0.62 X10^3/uL; Eosinophils% 3.7 % (0-5); Hematocrit 31.8 % (37-47); Hemoglobin 9.7 g/dL (12.0-15.0); Lymphocyte # 1.27 X10^3/ul (4.0); Lymphocyte % 7.6 % (19-41); Mean Corp Hgb Conc 30.5 g/dL (32-36); Mean Corpuscular Hgb 26.6 pg (27.0-32.0); Mean Corpuscular Volume 87.4 fL (81-99); Monocyte% 6.6 % (0-10); NRBC Flagged by Analyzer 0 % (0-5); Neutrophil # 13.58 X10^3/uL (2.7-7.7); Neutrophil % 81.4 % (47-70); Platelet Count 350 K/mm3 (150-450); RBC Distribution Width CV 14.4 % (11.6-14.6); Red Blood Count 3.64 M/mm3 (4.2-5.4); White Blood Count 16.7 K/mm3 (4.4-11.0)
[2020-01-23 08:39] LABS: ALB/GLOB Ratio 0.7 RATIO (0.9-2.4); AST(SGOT) 16 U/L (15-37); Alanine Aminotransfer ALT/SGPT 9 U/L (13-56); Albumin, Serum 2.4 g/dL (3.2-5.0); Alkaline Phosphatase 61 U/L (45-117); Anion Gap 6 (5-15); BUN 20 mg/dL (7-18); BUN/Creat Ratio 27.7 RATIO (10-20); Calcium,Total 10.4 mg/dL (8.5-10.1); Chloride 109 mmol/L (98-107); Creatinine, Serum 0.72 mg/dL (0.55-1.02); EST Glomerular Filtration Rate 82 mL/min (>60); Est Glom Filt Rate - Afr Amer 99 mL/min (>60); Estimated Creatinine Clearance 24.73 ml/min; Globulin 3.5 g/dL (2.2-4.2); Glucose 116 mg/dL (74-106); Potassium 2.7 mmol/L (3.5-5.1); Protein, Total 5.9 g/dL (6.4-8.2); Sodium Level 147 mmol/L (136-145); Thyroid Stim Hormone (TSH) 0.65 uIU/mL (0.358-3.74)
[2020-01-23] MEDS: 0.9% Normal Saline 1,000 ML 75 ML IV ×2 (09:41→23:29)
[2020-01-23] MEDS: Lisinopril 10 MG Tablet PO (09:41)
[2020-01-23] MEDS: Pantoprazole Sodium 20 MG Tablet PO (09:41)
[2020-01-23] MEDS: oxyCODONE 5 MG Tablet 2.5 MG PO (09:41)
[2020-01-23] MEDS: Escitalopram Oxalate 20 MG Tablet PO (09:42)
--- NOTE | 2020-01-23 11:36 | CASEMGMT ---
Per physician patient's family would like Hospice at home when patient is discharged. TREVOR called patient's daughter, Mariela who is listed as her healthcare POA. She confirmed this is the plan and she is fine with [facility]. TREVOR told her that Hospice would be calling her to schedule an appt to talked with them. She said that is fine. TREVOR called [facility] and spoke with Radha. She said she spoke with family yesterday and is aware of patient. TREVOR faxed her the information and she will contact family. Jennifer RANGEL P[employer]CH [employer]TER
[2020-01-23] MEDS: hydrALAZINE 20 MG/ML Vial 10 MG IV (13:52)
--- NOTE | 2020-01-23 14:46 | PCM.PROGNOTE ---
<Trish Carpenter - Last Filed: 01/23/20 15:09> Patient Problems: Active and Suspected Problems (Last Reviewed 08/07/19 @ 16:34 by Veena Edgar) Urinary tract infection (Acute) Leukocytosis (Acute) Ileus (Acute) Hypercalcemia (Acute) Subjective: Patient seen and examined. Denies current complaints. Denies shortness of breath, fever, chills. Denies abdominal pain or constipation. - Physical Exam Vitals/I&O's: Vital Signs Temp Pulse Resp BP Pulse Ox 97.5 F L 71 20 H 170/90 H 93 01/23/20 09:37 01/23/20 13:52 01/23/20 13:43 01/23/20 13:52 01/23/20 09:37 Oxygen Delivery Method Room Air Weight: 82 lb 7.246 oz Body Mass Index (BMI) 17.8 Intake and Output for Last 24 Hours 01/21/20 01/22/20 01/23/20 23:59 23:59 23:59 Intake Total 1050 / 1050 1660 / 1660 Output Total 200 / 200 Balance 1050 / 1050 1460 / 1460 General: Alert, Cooperative, No apparent distress HEENT: Atraumatic, PERRLA, EOMI, Normocephalic Neck: Supple, No JVD, Negative Carotid Bruits Lungs: Clear to auscultation, Normal air movement Cardiovascular: Regular rate, No murmurs Abdomen: Bowel Sounds Present, Soft, Non Tender Extremities: No clubbing, No cyanosis, No edema, Capillary Refill Less than 3 Seconds Skin: No rashes, No breakdown Musculoskeletal: No Tenderness to Palpation of Joints or Extremities Neurological: Cranial nerves II-XII grossly intact, Neuro grossly intact Psych/Mental Status: Normal Affect, Appropriate Microbiology Past 72 Hours 01/22/20 18:50 Urine Catheter - Pierce Urine Culture - Preliminary GNR lactose election assistant Laboratory Results 01/22/20 18:00: WBC 20.2 H, RBC 4.45, Hgb 12.2, Hct 40.1, MCV 90.1, MCH 27.4, MCHC 30.4 L, RDW Std Deviation 47.3 H, RDW Coeff of Sondra 14.5, Plt Count 428, MPV 10.0, Immature Gran % (Auto) 1.400 H, Neut % (Auto) 83.2 H, Lymph % (Auto) 6.0 L, [place] % (Auto) 6.3, Eos % (Auto) 2.9, Baso % (Auto) 0.2, Absolute Neuts (auto) 16.8 H, Absolute Lymphs (auto) 1.22, Nucleated RBC % 0 01/22/20 18:00: Sodium 147 H, Potassium 2.9 L, Chloride 109 H, Carbon Dioxide 34.0 H, Anion Gap 4 L, BUN 24 H, Creatinine 1.03 H, Estim Creat Clear Calc 26.12, Est GFR (MDRD) Af Amer 66, Est GFR (MDRD) Non-Af 54 L, BUN/Creatinine Ratio 23.3 H, Glucose 158 H, Calcium 12.8 H*, Total Bilirubin 0.50, AST 16, ALT 10 L, Alkaline Phosphatase 69, Total Protein 7.3, Albumin 3.0 L, Globulin 4.3 H, Albumin/Globulin Ratio 0.7 L 01/22/20 18:00: Phosphorus 2.9, Magnesium 2.1 01/22/20 18:00: Hemoglobin A1c 6.0 01/22/20 18:00: PTH Intact 25.0 01/22/20 18:50: Urine Color Yellow, Urine Clarity Sl. Cloudy, Urine pH 6.0, Ur Specific [place] 1.015, Urine Protein 15 H, Urine Glucose (UA) Normal, Urine Ketones Negative, Urine Occult Blood 50 H, Urine Nitrite Negative, Urine Bilirubin Negative, Urine Urobilinogen Normal, Ur Leukocyte Esterase 500 H, Urine RBC 5-10 SEEN, Urine WBC 25-50 SEEN, Ur Squamous Epith Cells 5-10 SEEN, Amorphous Sediment 2+ URATE, Urine Bacteria 2+, Urine Mucus 0 SEEN 01/23/20 00:40: Vitamin D 25-Hydroxy 130.9 01/23/20 00:40: Ionized Calcium Pending 01/23/20 00:40: Vit D 1,25-Dihydroxy Pending 01/23/20 06:05: Ur Random Calcium 9.3 01/23/20 06:52: WBC 16.7 H, RBC 3.64 L, Hgb 9.7 L, Hct 31.8 L, MCV 87.4, MCH 26.6 L, MCHC 30.5 L, RDW Std Deviation 46.0 H, RDW Coeff of Sondra 14.4, Plt Count 350, MPV 10.0, Immature Gran % (Auto) 0.500, Neut % (Auto) 81.4 H, Lymph % (Auto) 7.6 L, [place] % (Auto) 6.6, Eos % (Auto) 3.7, Baso % (Auto) 0.2, Absolute Neuts (auto) 13.6 H, Absolute Lymphs (auto) 1.27, Nucleated RBC % 0 01/23/20 06:52: Sodium 147 H, Potassium 2.7 L*, Chloride 109 H, Carbon Dioxide 32.0, Anion Gap 6, BUN 20 H, Creatinine 0.72, Estim Creat Clear Calc 24.73, Est GFR (MDRD) Af Amer 99, Est GFR (MDRD) Non-Af 82, BUN/Creatinine Ratio 27.7 H, Glucose 116 H, Calcium 10.4 H, Total Bilirubin 0.40, AST 16, ALT 9 L, Alkaline Phosphatase 61, Total Protein 5.9 L, Albumin 2.4 L, Globulin 3.5, Albumin/Globulin Ratio 0.7 L, TSH 0.65 Current Medications Acetaminophen (Tylenol) 650 mg PO Q6H PRN PRN PRN Reason: Pain Score 1-10/Temp > 100.7 F Al Hydroxide/Mg Hydroxide (Mylanta Ii) 30 ml PO Q6H PRN PRN PRN Reason: Gastric Burning Albuterol Sulfate (Ventolin Aerosols) 2.5 mg INHALATION Q2H PRN PRN PRN Reason: DYSPNEA Albuterol Sulfate (Ventolin Aerosols) 2.5 mg INHALATION Q6HWA.RT [facility] Last Admin: 01/23/20 13:43 Dose: 2.5 mg Documented by: Bisacodyl (Dulcolax) 5 mg PO DAILY PRN PRN PRN Reason: Constipation Budesonide (Pulmicort Aerosol) 0.5 mg INHALATION Q12H.RT [facility] Last Admin: 01/23/20 07:29 Dose: 0.5 mg Documented by: Dextrose (D50w Syringe) 0 gm IV X1 PRN; Protocol PRN Reason: Hypoglycemia Donepezil HCl (Aricept) 10 mg PO QHS [facility] Last Admin: 01/23/20 01:22 Dose: 10 mg Documented by: Escitalopram Oxalate (Lexapro) 20 mg PO DAILY [facility] Last Admin: 01/23/20 09:42 Dose: 20 mg Documented by: Glucagon () 1 mg IM .X1 PRN PRN Reason: Hypoglycemia Guaifenesin (Robitussin) 20 ml PO Q4H PRN PRN PRN Reason: COUGH Hydralazine HCl (Apresoline Iv) 10 mg IV Q4H PRN PRN PRN Reason: SBP > 160 Last Admin: 01/23/20 13:52 Dose: 10 mg Documented by: Sodium Chloride () 1,000 mls @ 75 mls/hr IV .[id number] [facility] Last Admin: 01/23/20 13:52 Dose: Not Given Documented by: Ceftriaxone Sodium (Rocephin) 1 gm in 50 mls @ 100 mls/hr IV Q24H [facility] Stop: 01/30/20 22:01 Lisinopril (Zestril) 10 mg PO DAILY [facility] Last Admin: 01/23/20 09:41 Dose: 10 mg Documented by: Lorazepam (Ativan) 0.5 mg PO BID [facility] Last Admin: 01/23/20 09:42 Dose: 0.5 mg Documented by: Magnesium Hydroxide (Milk Of Magnesia) 30 ml PO DAILY PRN PRN PRN Reason: Constipation Melatonin (Melatonin) 3 mg PO QHS PRN PRN PRN Reason: INSOMNIA Morphine Sulfate () 2 mg IV Q3H PRN PRN PRN Reason: Pain Score 6-10/10 Nitroglycerin (Nitrostat) 0.4 mg SUBLINGUAL Q5M PRN PRN Reason: CARDIAC/CHEST PAIN Nutritional Formula (Lactose Free) (Ensure Enlive) 120 ml PO 4X/DAY [facility] Last Admin: 01/23/20 13:52 Dose: 120 ml Documented by: Ondansetron HCl (Zofran) 4 mg IV Q8H PRN PRN PRN Reason: NAUSEA/VOMITING Oxycodone HCl (Oxyir) 2.5 mg PO BREAKFAST [facility] Last Admin: 01/23/20 09:41 Dose: 2.5 mg Documented by: Pantoprazole Sodium (Protonix) 20 mg PO DAILY [facility] Last Admin: 01/23/20 09:41 Dose: 20 mg Documented by: Potassium Chloride (K-Dur) 40 meq PO Q3H [facility] Stop: 01/23/20 15:31 Last Admin: 04/09/20 11:45 Dose: 40 meq Documented by: Prochlorperazine Edisylate (Compazine Iv) 5 mg IV Q4H PRN PRN PRN Reason: Breakthrough Nausea/Vomiting Psyllium Hydrophilic Mucilloid (Metamucil) 1 packet PO DAILY PRN PRN PRN Reason: Constipation Senna/Docusate Sodium (Senokot-S, Arianna-Colace) 2 tablet PO BID PRN PRN PRN Reason: Constipation Sodium Chloride () 10 - 40 ml IV UD PRN PRN Reason: SALINE FLUSH Last Admin: 01/23/20 01:22 Dose: 10 ml Documented by: Throat Lozenges (Cepacol Sore Throat Lozenge) 1 lozenge MUCOUS MEM Q2H PRN PRN PRN Reason: SORE THROAT Medical Necessity - Tobacco Use Smoking Status: Current every day smoker Tobacco Use: Cigarettes Assessment/Plan All Active Problems (Last Reviewed 08/07/19 @ 16:34 by Veena Edgar) Altered mental status (Acute) Urinary tract infection (Acute) Leukocytosis (Acute) Ileus (Acute) Hypercalcemia (Acute) Pneumonia (Acute) Shortness of breath (Acute) Fracture, clavicle (Acute) Anemia due to blood loss, acute (Acute) Urinary retention (Acute) Hip fracture, right (Acute) Vitamin D deficiency (Acute) Right clavicle fracture (Acute) Closed right hip fracture (Acute) Fall (Acute) 1. Acute GNR UTI-continue IV Rocephin pending final culture. 2. Severe constipation-improved, continue bowel regimen. Patient has had multiple bowel movements. 3. Hypercalcemia, likely related to metastatic cancer-ionized calcium and vitamin D pending. Continue hydration. Continue home bisphosphonate regimen. 4. History of known lung cancer with metastatic disease-did not undergo evaluation by oncology. Patient and family agreeable to home with hospice at discharge. 5. Hypokalemia-replace per protocol. Trend BMP. 6. Chronic COPD-as needed albuterol aerosol. 7. Chronic kidney disease stage IV-stable. 8. Tobacco dependence-encourage cessation. 9. Hypertension-stable, continue lisinopril regimen. 10. Hyperlipidemia-not on regimen. 11. Dementia with unclear history of behavioral disturbance-continue Aricept regimen. 12. Chronic pain syndrome-as needed pain regimen. 13. GERD-continue PPI. DVT prophylaxis-SCDs Discharge planning: Plan for discharge home with hospice tomorrow. This patient was seen by ANTONIA Rose under the supervision of Dr. Hutton. <Maikel Hutton - Last Filed: 01/23/20 16:26> Subjective: Follow-up for UTI, hypercalcemia and ileus with diffuse fecal retention in the colon Patient does not have shortness of breath, fever or chills. Denies abdominal pain. - Physical Exam Vitals/I&O's: Vital Signs Temp Pulse Resp BP Pulse Ox 97.9 F 81 16 108/61 94 01/23/20 15:12 01/23/20 15:12 01/23/20 15:12 01/23/20 15:12 01/23/20 15:12 Oxygen Delivery Method Room Air Weight: 82 lb 7.246 oz Body Mass Index (BMI) 17.8 Intake and Output for Last 24 Hours 01/21/20 01/22/20 01/23/20 23:59 23:59 23:59 Intake Total 1050 / 1050 1660 / 1660 Output Total 200 / 200 Balance 1050 / 1050 1460 / 1460 General: Alert, Cooperative, Disoriented, - - Dementia HEENT: Atraumatic, PERRLA, EOMI, Normocephalic Oral: Moist Mucosa, No Gingival or Mucosal Lesions/ Ulcerations Neck: Supple, No JVD, Negative Carotid Bruits Lungs: Clear to auscultation, No rhonchi, No wheeze, No rales, Diminished Cardiovascular: Regular rate, Regular Rhythm, Normal S1, Normal S2, No murmurs Abdomen: Bowel Sounds Present, Soft, Non Tender, Non-Distended Extremities: No edema, Capillary Refill Less than 3 Seconds Skin: No rashes, No breakdown Musculoskeletal: No Tenderness to Palpation of Joints or Extremities, Arthritic Changes Neurological: Cranial nerves II-XII grossly intact, Deep Tendon Reflexes 2+/4 and Symmetrical, Neuro grossly intact Psych/Mental Status: Normal Affect, Appropriate Microbiology Past 72 Hours 01/22/20 18:50 Urine Catheter - Pierce Urine Culture - Preliminary GNR lactose election assistant Laboratory Results 01/22/20 18:00: WBC 20.2 H, RBC 4.45, Hgb 12.2, Hct 40.1, MCV 90.1, MCH 27.4, MCHC 30.4 L, RDW Std Deviation 47.3 H, RDW Coeff of Sondra 14.5, Plt Count 428, MPV 10.0, Immature Gran % (Auto) 1.400 H, Neut % (Auto) 83.2 H, Lymph % (Auto) 6.0 L, [place] % (Auto) 6.3, Eos % (Auto) 2.9, Baso % (Auto) 0.2, Absolute Neuts (auto) 16.8 H, Absolute Lymphs (auto) 1.22, Nucleated RBC % 0 01/22/20 18:00: Sodium 147 H, Potassium 2.9 L, Chloride 109 H, Carbon Dioxide 34.0 H, Anion Gap 4 L, BUN 24 H, Creatinine 1.03 H, Estim Creat Clear Calc 26.12, Est GFR (MDRD) Af Amer 66, Est GFR (MDRD) Non-Af 54 L, BUN/Creatinine Ratio 23.3 H, Glucose 158 H, Calcium 12.8 H*, Total Bilirubin 0.50, AST 16, ALT 10 L, Alkaline Phosphatase 69, Total Protein 7.3, Albumin 3.0 L, Globulin 4.3 H, Albumin/Globulin Ratio 0.7 L 01/22/20 18:00: Phosphorus 2.9, Magnesium 2.1 01/22/20 18:00: Hemoglobin A1c 6.0 01/22/20 18:00: PTH Intact 25.0 01/22/20 18:50: Urine Color Yellow, Urine Clarity Sl. Cloudy, Urine pH 6.0, Ur Specific [place] 1.015, Urine Protein 15 H, Urine Glucose (UA) Normal, Urine Ketones Negative, Urine Occult Blood 50 H, Urine Nitrite Negative, Urine Bilirubin Negative, Urine Urobilinogen Normal, Ur Leukocyte Esterase 500 H, Urine RBC 5-10 SEEN, Urine WBC 25-50 SEEN, Ur Squamous Epith Cells 5-10 SEEN, Amorphous Sediment 2+ URATE, Urine Bacteria 2+, Urine Mucus 0 SEEN 01/23/20 00:40: Vitamin D 25-Hydroxy 130.9 01/23/20 00:40: Ionized Calcium Pending 01/23/20 00:40: Vit D 1,25-Dihydroxy Pending 01/23/20 06:05: Ur Random Calcium 9.3 01/23/20 06:52: WBC 16.7 H, RBC 3.64 L, Hgb 9.7 L, Hct 31.8 L, MCV 87.4, MCH 26.6 L, MCHC 30.5 L, RDW Std Deviation 46.0 H, RDW Coeff of Sondra 14.4, Plt Count 350, MPV 10.0, Immature Gran % (Auto) 0.500, Neut % (Auto) 81.4 H, Lymph % (Auto) 7.6 L, [place] % (Auto) 6.6, Eos % (Auto) 3.7, Baso % (Auto) 0.2, Absolute Neuts (auto) 13.6 H, Absolute Lymphs (auto) 1.27, Nucleated RBC % 0 01/23/20 06:52: Sodium 147 H, Potassium 2.7 L*, Chloride 109 H, Carbon Dioxide 32.0, Anion Gap 6, BUN 20 H, Creatinine 0.72, Estim Creat Clear Calc 24.73, Est GFR (MDRD) Af Amer 99, Est GFR (MDRD) Non-Af 82, BUN/Creatinine Ratio 27.7 H, Glucose 116 H, Calcium 10.4 H, Total Bilirubin 0.40, AST 16, ALT 9 L, Alkaline Phosphatase 61, Total Protein 5.9 L, Albumin 2.4 L, Globulin 3.5, Albumin/Globulin Ratio 0.7 L, TSH 0.65 Current Medications Acetaminophen (Tylenol) 650 mg PO Q6H PRN PRN PRN Reason: Pain Score 1-10/Temp > 100.7 F Al Hydroxide/Mg Hydroxide (Mylanta Ii) 30 ml PO Q6H PRN PRN PRN Reason: Gastric Burning Albuterol Sulfate (Ventolin Aerosols) 2.5 mg INHALATION Q2H PRN PRN PRN Reason: DYSPNEA Albuterol Sulfate (Ventolin Aerosols) 2.5 mg INHALATION Q6HWA.RT [facility] Last Admin: 01/23/20 13:43 Dose: 2.5 mg Documented by: Bisacodyl (Dulcolax) 5 mg PO DAILY PRN PRN PRN Reason: Constipation Budesonide (Pulmicort Aerosol) 0.5 mg INHALATION Q12H.RT [facility] Last Admin: 01/23/20 07:29 Dose: 0.5 mg Documented by: Dextrose (D50w Syringe) 0 gm IV X1 PRN; Protocol PRN Reason: Hypoglycemia Donepezil HCl (Aricept) 10 mg PO QHS [facility] Last Admin: 01/23/20 01:22 Dose: 10 mg Documented by: Escitalopram Oxalate (Lexapro) 20 mg PO DAILY [facility] Last Admin: 01/23/20 09:42 Dose: 20 mg Documented by: Glucagon () 1 mg IM .X1 PRN PRN Reason: Hypoglycemia Guaifenesin (Robitussin) 20 ml PO Q4H PRN PRN PRN Reason: COUGH Sodium Chloride () 1,000 mls @ 75 mls/hr IV .[id number] [facility] Last Admin: 01/23/20 13:52 Dose: Not Given Documented by: Ceftriaxone Sodium (Rocephin) 1 gm in 50 mls @ 100 mls/hr IV Q24H [facility] Stop: 01/30/20 22:01 Lisinopril (Zestril) 10 mg PO DAILY [facility] Last Admin: 01/23/20 09:41 Dose: 10 mg Documented by: Lorazepam (Ativan) 0.5 mg PO BID [facility] Last Admin: 01/23/20 09:42 Dose: 0.5 mg Documented by: Melatonin (Melatonin) 3 mg PO QHS PRN PRN PRN Reason: INSOMNIA Morphine Sulfate () 2 mg IV Q3H PRN PRN PRN Reason: Pain Score 6-10/10 Nitroglycerin (Nitrostat) 0.4 mg SUBLINGUAL Q5M PRN PRN Reason: CARDIAC/CHEST PAIN Nutritional Formula (Lactose Free) (Ensure Enlive) 120 ml PO 4X/DAY [facility] Last Admin: 01/23/20 13:52 Dose: 120 ml Documented by: Ondansetron HCl (Zofran) 4 mg IV Q8H PRN PRN PRN Reason: NAUSEA/VOMITING Oxycodone HCl (Oxyir) 2.5 mg PO BREAKFAST [facility] Last Admin: 01/23/20 09:41 Dose: 2.5 mg Documented by: Pantoprazole Sodium (Protonix) 20 mg PO DAILY [facility] Last Admin: 01/23/20 09:41 Dose: 20 mg Documented by: Prochlorperazine Edisylate (Compazine Iv) 5 mg IV Q4H PRN PRN PRN Reason: Breakthrough Nausea/Vomiting Psyllium Hydrophilic Mucilloid (Metamucil) 1 packet PO DAILY PRN PRN PRN Reason: Constipation Senna/Docusate Sodium (Senokot-S, Arianna-Colace) 2 tablet PO BID PRN PRN PRN Reason: Constipation Sodium Chloride () 10 - 40 ml IV UD PRN PRN Reason: SALINE FLUSH Last Admin: 01/23/20 01:22 Dose: 10 ml Documented by: Throat Lozenges (Cepacol Sore Throat Lozenge) 1 lozenge MUCOUS MEM Q2H PRN PRN PRN Reason: SORE THROAT Assessment/Plan This patient was seen in conjunction with Trish MAHER. I have independently interviewed and examined the patient and reviewed pertinent history, examination findings, laboratory and plan of management. I have reviewed the note and agree with the documented findings with the few additional points. In brief, patient is 84-year-old female who was admitted constipation, could not move bowels for 9 days along with UTI, leukocytosis and CT finding of nonspecific ileus with diffuse fecal retention in the colon. Patient is admitted to PCU. UA is positive of pyuria 20-50 cells per hpf, bacteria, nitrite negative and urine culture positive of gram-negative rods lactose election assistant more than 100,000. On IV Rocephin. Patient had multiple bowel movements. Patient also has electrolyte abnormality of hypokalemia, hypercalcemia possible secondary to metastatic cancer. On IV fluid hydration. Other comorbidities include lung cancer with metastatic disease, CKD stage IV, hypertension, dyslipidemia, dementia, chronic pain syndrome and GERD: Home medication reconciliation done. Palliative care consult, planning for discharge home with home hospice care I have discussed my assessment with Trish MAHER and orders have been reviewed. Inpatient E&M: [id number] [facility] Hosp L2
[2020-01-23] MEDS: Ceftriaxone 1 GM/50 ML BAG IV (21:05)
[2020-01-24] VITALS (9 sets, daily range): BP systolic 156–189; BP diastolic 74–89; PULSE 77–94; RESP 16–18; TEMP 36.3–37.2; O2SAT 92–95
[2020-01-24] MEDS: hydrALAZINE 20 MG/ML Vial 10 MG IV (03:23)
[2020-01-24] MEDS: Albuterol 2.5 MG/3 ML VIAL.NEB. INHALATION (07:24)
[2020-01-24] MEDS: Budesonide Respules 0.5 MG/2 ML AMPUL.NEB. INHALATION (07:24)
[2020-01-24 07:25] LABS: Hematocrit 32.3 % (37-47); Mean Corpuscular Hgb 27.2 pg (27.0-32.0); Mean Platelet Vol. 9.9 fl (6.2-12.0); Platelet Count 355 K/mm3 (150-450); RBC Distribution Width CV 14.9 % (11.6-14.6); RBC Distribution Width SD 48.1 fl (35.1-43.9); Red Blood Count 3.67 M/mm3 (4.2-5.4); White Blood Count 17.9 K/mm3 (4.4-11.0)
[2020-01-24 07:46] LABS: Anion Gap 6 (5-15); BUN 18 mg/dL (7-18); BUN/Creat Ratio 24.8 RATIO (10-20); Calcium,Total 10.7 mg/dL (8.5-10.1); Chloride 117 mmol/L (98-107); Creatinine, Serum 0.72 mg/dL (0.55-1.02); EST Glomerular Filtration Rate 81 mL/min (>60); Est Glom Filt Rate - Afr Amer 98 mL/min (>60); Estimated Creatinine Clearance 24.73 ml/min; Glucose 128 mg/dL (74-106); Potassium 3.2 mmol/L (3.5-5.1); Sodium Level 152 mmol/L (136-145)
[2020-01-24] MEDS: oxyCODONE 5 MG Tablet 2.5 MG PO (08:28)
[2020-01-24] MEDS: Lisinopril 10 MG Tablet PO (08:29)
[2020-01-24] MEDS: Escitalopram Oxalate 20 MG Tablet PO (08:29)
[2020-01-24] MEDS: Pantoprazole Sodium 20 MG Tablet PO (08:29)
[2020-01-24] MEDS: LORazepam 0.5 MG Tablet PO (10:12)
[2020-01-24] MEDS: Potassium Chloride 10mEq/100mL 10 MEQ/100 ML IV.SOLN. 100 MEQ IV BOLUS ×2 (10:13→11:36)
--- NOTE | 2020-01-24 11:49 | PCM.DC ---
- Discharge Diagnoses Current Active Problems: Current Active and Chronic Problems (Last Reviewed 08/07/19 @ 16:34 by Veena Edgar) Urinary tract infection (Acute) Leukocytosis (Acute) HLD (hyperlipidemia) (Chronic) Hypercalcemia (Acute) CKD (chronic kidney disease), stage IV (Chronic) Dementia (Chronic) You will use the following diet at home:: No restrictions Discharge Activity: Return to Normal Activity Allergies/Adverse Reactions: Allergies acetaminophen [From Percocet] Adverse Reaction (Verified 09/20/19 15:41) Nausea/Vom/Diarrhea hydrocodone [From Vicodin] Adverse Reaction (Verified 09/20/19 15:41) Nausea/Vom/Diarrhea oxycodone [From Percocet] Adverse Reaction (Verified 09/20/19 15:41) Nausea/Vom/Diarrhea Medications to take at Discharge Budesonide/Formoterol 160/4.5 [Symbicort 160/4.5 Mcg Inhaler (SP)] 2 puff INHALATION BID 08/05/14 Lorazepam 0.5 mg PO BID 08/05/14 Tiotropium [place] [Spiriva] 1 puff INHALATION DAILY 08/05/14 Ergocalciferol [Vitamin D] 50,000 unit PO JOSE 10/31/17 Peg 400/Hypromellose/Glycerin [Artificial Tears] 1 drp EACH EYE Q1H PRN 10/31/17 Travoprost 0.004% [Travatan-Z 0.004% Eye Drop] 1 drp EACHEYE QHS 10/31/17 Pantoprazole Sodium [Protonix] 20 mg PO DAILY #60 tab 12/05/17 Donepezil HCl [Aricept] 10 mg PO QHS 04/02/19 albuterol sulfate 2.5 mg INHALATION Q2H PRN PRN #120 vial.neb. 05/28/19 Methenamine 1 gm MC DAILY 09/20/19 Ascorbic Acid [Vitamin C] 500 mg PO DAILY 01/22/20 Docusate Sodium [Dok] 100 mg PO BID 01/22/20 Escitalopram Oxalate [Lexapro] 20 mg PO DAILY 01/22/20 Lisinopril [Zestril] 10 mg PO DAILY 01/22/20 Oxycodone [Oxyir] 2.5 mg PO BREAKFAST 01/22/20 Oxycodone [Oxyir] 5 mg PO QHS 01/23/20 Cephalexin [Keflex] 500 mg PO Q8 #15 cap 01/24/20 The following prescriptions were given: Cephalexin [Keflex] 500 mg PO Q8 #15 cap Transmission Status: Pending to [facility] Primary Care Physician: Mauricio Leyva DO [Primary Care Provider] - Please follow up with your Primary Care Physician in: As needed Test Results: Test results from this visit will be discussed in further detail at your follow-up appointment, if applicable. Please Follow Up With: Ton Jones DO When: Home with hospice at discharge Proposed Discharge Date: 01/24/20
--- NOTE | 2020-01-24 12:21 | PCM.DC.SUM ---
<Trish Carpenter - Last Filed: 01/24/20 12:28> Discharge Date and Diagnosis Date of Admission: 01/22/20 Date of Discharge: 01/24/20 - Primary Discharge Diagnosis Active and Suspected Problems (Last Reviewed 08/07/19 @ 16:34 by Veena Edgar) 1. Acute E. coli UTI 2. Severe constipation, ileus ruled out 3. Hypercalcemia, likely related to metastatic cancer 4. Acute kidney injury- no history of chronic kidney disease. Acute kidney injury resolved. 5. Hypokalemia 6. Chronic COPD 7. History of known lung cancer with metastatic disease 8. Tobacco dependence 9. Hypertension 10. Hyperlipidemia 11. Dementia with unclear history of behavioral disturbance 12. Chronic pain syndrome- 13. GERD 14. Severe protein calorie malnutrition 15. Hospice transition, home with hospice at discharge - Secondary Discharge Diagnosis Chronic Problems (Last Reviewed 08/07/19 @ 16:34 by Veena Edgar) HLD (hyperlipidemia) (Chronic) CKD (chronic kidney disease), stage IV (Chronic) Dementia (Chronic) COPD with exacerbation (Chronic) Mass of right lung (Chronic) enlarging since CT scan in 2014 Generalized anxiety disorder (Chronic) Macular degeneration (Chronic) COPD (chronic obstructive pulmonary disease) (Chronic) Osteoporosis (Chronic) Compression fracture of lumbar vertebra (Chronic) Compression fracture of thoracic vertebra (Chronic) Glaucoma (Chronic) Neuropathic pain (Chronic) Hypertension (Chronic) Anxiety (Chronic) Tobacco abuse (Chronic) Hospital Course and Treatment Imaging Results: Diagnostic Data Abdomen/Pelvis CT 01/22/20 18:06 IMPRESSION: Nonspecific ileus with diffuse fecal retention in the colon. Bilateral lung masses and adrenal masses consistent with known neoplasm.. 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 Probable small left pleural effusion and mild basilar atelectasis Electronically Signed: Eldon Isaac MD at 19:49 EDT , Service support , Operations: None Procedures: None Summary of Care Provided: The patient is a 84 year old F admitted 01/22/2020 due to constipation, questionable hemoptysis. 1. Acute E. coli UTI-urine culture grew E. coli, pansensitive. Transition from IV Rocephin to oral Keflex to complete course. 2. Severe constipation, ileus ruled out-patient has had multiple bowel movements during admission. Continue bowel regimen. 3. Hypercalcemia, likely related to metastatic cancer-ionized calcium and vitamin D pending. Continue hydration. Continue home bisphosphonate regimen. 4. Acute kidney injury-resolved. No history of chronic kidney disease. 5. Hypokalemia-replaced per protocol. 6. Chronic COPD-as needed albuterol aerosol. 7. History of known lung cancer with metastatic disease-did not undergo evaluation by oncology. Patient and family agreeable to home with hospice at discharge. 8. Tobacco dependence-encourage cessation. 9. Hypertension-stable, continue lisinopril regimen. 10. Hyperlipidemia-not on regimen. 11. Dementia with unclear history of behavioral disturbance-continue Aricept regimen. 12. Chronic pain syndrome-as needed pain regimen. 13. GERD-continue PPI. 14. Severe protein calorie malnutrition 15. Hospice transition-home with hospice services at discharge. General: Alert, Cooperative, No apparent distress HEENT: Atraumatic, PERRLA, EOMI, Normocephalic Neck: Supple, No JVD, Negative Carotid Bruits Lungs: Clear to auscultation, Normal air movement Cardiovascular: Regular rate, No murmurs Abdomen: Bowel Sounds Present, Soft, Non Tender Extremities: No clubbing, No cyanosis, No edema, Capillary Refill Less than 3 Seconds Skin: No rashes, No breakdown Musculoskeletal: No Tenderness to Palpation of Joints or Extremities Neurological: Cranial nerves II-XII grossly intact, Neuro grossly intact Psych/Mental Status: Normal Affect, Appropriate Patient seen and examined prior to discharge. Physical assessment as noted above. Patient is stable for discharge with follow up recommendations as noted above. This patient was seen by ANTONIA Rose under the supervision of Dr. Hutton. - Physical Exam Vitals/I&O's: Vital Signs Temp Pulse Resp BP Pulse Ox 98.9 F 94 18 170/74 H 92 01/24/20 08:24 01/24/20 08:24 01/24/20 08:24 01/24/20 08:24 01/24/20 08:24 Oxygen Delivery Method Room Air Weight: 82 lb 7.246 oz Body Mass Index (BMI) 17.8 Intake and Output for Last 24 Hours 01/22/20 01/23/20 01/24/20 23:59 23:59 23:59 Intake Total 1050 / 1050 2947.5 / 2947.5 938.75 / 938.75 Output Total 200 / 200 Balance 1050 / 1050 2747.5 / 2747.5 938.75 / 938.75 Microbiology Past 72 Hours 01/22/20 18:50 Urine Catheter - Pierce Urine Culture - Final Escherichia coli Laboratory Results 01/24/20 07:14: WBC 17.9 H, RBC 3.67 L, Hgb 10.0 L, Hct 32.3 L, MCV 88.0, MCH 27.2, MCHC 31.0 L, RDW Std Deviation 48.1 H, RDW Coeff of Sondra 14.9 H, Plt Count 355, MPV 9.9 01/24/20 07:14: Sodium 152 H, Potassium 3.2 L, Chloride 117 H, Carbon Dioxide 29.0, Anion Gap 6, BUN 18, Creatinine 0.72, Estim Creat Clear Calc 24.73, Est GFR (MDRD) Af Amer 98, Est GFR (MDRD) Non-Af 81, BUN/Creatinine Ratio 24.8 H, Glucose 128 H, Calcium 10.7 H Current Medications Acetaminophen (Tylenol) 650 mg PO Q6H PRN PRN PRN Reason: Pain Score 1-10/Temp > 100.7 F Al Hydroxide/Mg Hydroxide (Mylanta Ii) 30 ml PO Q6H PRN PRN PRN Reason: Gastric Burning Albuterol Sulfate (Ventolin Aerosols) 2.5 mg INHALATION Q2H PRN PRN PRN Reason: DYSPNEA Albuterol Sulfate (Ventolin Aerosols) 2.5 mg INHALATION Q6HWA.RT [facility] Last Admin: 01/24/20 07:24 Dose: 2.5 mg Documented by: Bisacodyl (Dulcolax) 5 mg PO DAILY PRN PRN PRN Reason: Constipation Budesonide (Pulmicort Aerosol) 0.5 mg INHALATION Q12H.RT [facility] Last Admin: 01/24/20 07:24 Dose: 0.5 mg Documented by: Dextrose (D50w Syringe) 0 gm IV X1 PRN; Protocol PRN Reason: Hypoglycemia Donepezil HCl (Aricept) 10 mg PO QHS [facility] Last Admin: 01/23/20 21:05 Dose: 10 mg Documented by: Escitalopram Oxalate (Lexapro) 20 mg PO DAILY [facility] Last Admin: 01/24/20 08:29 Dose: 20 mg Documented by: Glucagon () 1 mg IM .X1 PRN PRN Reason: Hypoglycemia Guaifenesin (Robitussin) 20 ml PO Q4H PRN PRN PRN Reason: COUGH Hydralazine HCl (Apresoline Iv) 10 mg IV Q4H PRN PRN PRN Reason: SBP > 180 Last Admin: 01/24/20 03:23 Dose: 10 mg Documented by: Ceftriaxone Sodium (Rocephin) 1 gm in 50 mls @ 100 mls/hr IV Q24H [facility] Stop: 01/30/20 22:01 Last Infusion: 01/23/20 21:35 Dose: Infused Documented by: Lisinopril (Zestril) 10 mg PO DAILY [facility] Last Admin: 01/24/20 08:29 Dose: 10 mg Documented by: Lorazepam (Ativan) 0.5 mg PO BID [facility] Last Admin: 01/24/20 10:12 Dose: 0.5 mg Documented by: Melatonin (Melatonin) 3 mg PO QHS PRN PRN PRN Reason: INSOMNIA Morphine Sulfate () 2 mg IV Q3H PRN PRN PRN Reason: Pain Score 6-10/10 Nitroglycerin (Nitrostat) 0.4 mg SUBLINGUAL Q5M PRN PRN Reason: CARDIAC/CHEST PAIN Nutritional Formula (Lactose Free) (Ensure Enlive) 120 ml PO 4X/DAY [facility] Last Admin: 01/24/20 08:36 Dose: 120 ml Documented by: Ondansetron HCl (Zofran) 4 mg IV Q8H PRN PRN PRN Reason: NAUSEA/VOMITING Oxycodone HCl (Oxyir) 2.5 mg PO BREAKFAST [facility] Last Admin: 01/24/20 08:28 Dose: 2.5 mg Documented by: Pantoprazole Sodium (Protonix) 20 mg PO DAILY [facility] Last Admin: 01/24/20 08:29 Dose: 20 mg Documented by: Prochlorperazine Edisylate (Compazine Iv) 5 mg IV Q4H PRN PRN PRN Reason: Breakthrough Nausea/Vomiting Psyllium Hydrophilic Mucilloid (Metamucil) 1 packet PO DAILY PRN PRN PRN Reason: Constipation Senna/Docusate Sodium (Senokot-S, Arianna-Colace) 2 tablet PO BID PRN PRN PRN Reason: Constipation Sodium Chloride () 10 - 40 ml IV UD PRN PRN Reason: SALINE FLUSH Last Admin: 01/23/20 01:22 Dose: 10 ml Documented by: Throat Lozenges (Cepacol Sore Throat Lozenge) 1 lozenge MUCOUS MEM Q2H PRN PRN PRN Reason: SORE THROAT Discharge Activity: Return to Normal Activity Home Medications: Medications to take at Discharge Budesonide/Formoterol 160/4.5 [Symbicort 160/4.5 Mcg Inhaler (SP)] 2 puff INHALATION BID 08/05/14 Lorazepam 0.5 mg PO BID 08/05/14 Tiotropium [place] [Spiriva] 1 puff INHALATION DAILY 08/05/14 Ergocalciferol [Vitamin D] 50,000 unit PO JOSE 10/31/17 Peg 400/Hypromellose/Glycerin [Artificial Tears] 1 drp EACH EYE Q1H PRN 10/31/17 Travoprost 0.004% [Travatan-Z 0.004% Eye Drop] 1 drp EACHEYE QHS 10/31/17 Pantoprazole Sodium [Protonix] 20 mg PO DAILY #60 tab 12/05/17 Donepezil HCl [Aricept] 10 mg PO QHS 04/02/19 albuterol sulfate 2.5 mg INHALATION Q2H PRN PRN #120 vial.neb. 05/28/19 Methenamine 1 gm MC DAILY 09/20/19 Ascorbic Acid [Vitamin C] 500 mg PO DAILY 01/22/20 Docusate Sodium [Dok] 100 mg PO BID 01/22/20 Escitalopram Oxalate [Lexapro] 20 mg PO DAILY 01/22/20 Lisinopril [Zestril] 10 mg PO DAILY 01/22/20 Oxycodone [Oxyir] 2.5 mg PO BREAKFAST 01/22/20 Oxycodone [Oxyir] 5 mg PO QHS 01/23/20 Cephalexin [Keflex] 500 mg PO Q8 #15 cap 01/24/20 Following Prescrptions Were Given to Patient: Cephalexin [Keflex] 500 mg PO Q8 #15 cap Transmission Status: Received by [facility][id number] Primary Care Physician: Mauricio Leyva DO [Primary Care Provider] - Please follow up with your Primary Care Physician in: As needed Please Follow Up With: Ton Jones DO When: Home with hospice at discharge Disposition: Home with Hospice Minutes spent on discharge:: 35 Patient Condition:: Fair Medical Necessity - Tobacco Use Smoking Status: Current every day smoker Tobacco Use: Cigarettes Meaningful Use Info Meaningful Use Diagnoses (Choose all that apply): None applicable <Maikel Hutton - Last Filed: 01/24/20 14:21> Discharge Date and Diagnosis - Secondary Discharge Diagnosis Chronic Problems (Last Reviewed 08/07/19 @ 16:34 by Veena Edgar) HLD (hyperlipidemia) (Chronic) CKD (chronic kidney disease), stage IV (Chronic) Dementia (Chronic) COPD with exacerbation (Chronic) Mass of right lung (Chronic) enlarging since CT scan in 2014 Generalized anxiety disorder (Chronic) Macular degeneration (Chronic) COPD (chronic obstructive pulmonary disease) (Chronic) Osteoporosis (Chronic) Compression fracture of lumbar vertebra (Chronic) Compression fracture of thoracic vertebra (Chronic) Glaucoma (Chronic) Neuropathic pain (Chronic) Hypertension (Chronic) Anxiety (Chronic) Tobacco abuse (Chronic) Hospital Course and Treatment Summary of Care Provided: This patient was seen in conjunction with SNUFF GRINDER AND SCREENER, Trish. I have independently interviewed and examined the patient and reviewed pertinent history, examination findings, laboratory and plan of management. I have reviewed the note and agree with the documented findings with the few additional points. In brief, patient is 84-year-old female who was admitted constipation, could not move bowels for 9 days along with UTI, leukocytosis and CT finding of nonspecific ileus with diffuse fecal retention in the colon. Patient is admitted to PCU. 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 On IV Rocephin. Patient had multiple bowel movements and clinically no signs or symptoms of bowel obstruction. Patient also has electrolyte abnormality of hypokalemia, hypercalcemia possible secondary to metastatic cancer. On IV fluid hydration. Repeat calcium 10.7. Other comorbidities include lung cancer with metastatic disease, CKD stage IV, hypertension, dyslipidemia, dementia, chronic pain syndrome and GERD: Home medication reconciliation done. Patient was seen by hospice care Discharge medication reconciliation done. Discharge follow-up instructions completed. Discharge process discussed with the patient and all questions were answered to patient's satisfaction. Discharged to home with home hospice care Total time spent, exact 35 minutes on discharge meds reconciliation, examination, coordination of care with nurses and ancillary staff, review of imaging and blood test and discussion with the patient on follow-up instructions I have discussed my assessment with [employer] GR[employer]ER [employer] SCREENER, Trish and orders have been reviewed.[] Objective: General: Alert, Cooperative, Dementia. It is hard to assess orientation as patient has advanced dementia and does not understand the questions. HEENT: Atraumatic, PERRLA, EOMI, Normocephalic Oral: Moist Mucosa, No Gingival or Mucosal Lesions/ Ulcerations Neck: Supple, No JVD, Negative Carotid Bruits Lungs: Clear to auscultation, No rhonchi, No wheeze, No rales, Diminished Cardiovascular: Regular rate, Regular Rhythm, Normal S1, Normal S2, No murmurs Abdomen: Bowel Sounds Present, Soft, Non Tender, Non-Distended Extremities: No edema, Capillary Refill Less than 3 Seconds Skin: No rashes, No breakdown Musculoskeletal: No Tenderness to Palpation of Joints or Extremities, Arthritic Changes Neurological: Cranial nerves II-XII grossly intact, Deep Tendon Reflexes 2+/4 and Symmetrical Psych/Mental Status: Normal Affect, Appropriate - Physical Exam Vitals/I&O's: Vital Signs Temp Pulse Resp BP Pulse Ox 98.3 F 83 18 189/80 H 95 01/24/20 12:30 01/24/20 12:30 01/24/20 12:30 01/24/20 12:30 01/24/20 12:30 Oxygen Delivery Method Room Air Weight: 82 lb 7.246 oz Body Mass Index (BMI) 17.8 Intake and Output for Last 24 Hours 01/22/20 01/23/20 01/24/20 23:59 23:59 23:59 Intake Total 1050 / 1050 2947.5 / 2947.5 1818.75 / 1818.75 Output Total 200 / 200 Balance 1050 / 1050 2747.5 / 2747.5 1818.75 / 1818.75 Microbiology Past 72 Hours 01/22/20 18:50 Urine Catheter - Pierce Urine Culture - Final Escherichia coli Laboratory Results 01/24/20 07:14: WBC 17.9 H, RBC 3.67 L, Hgb 10.0 L, Hct 32.3 L, MCV 88.0, MCH 27.2, MCHC 31.0 L, RDW Std Deviation 48.1 H, RDW Coeff of Sondra 14.9 H, Plt Count 355, MPV 9.9 01/24/20 07:14: Sodium 152 H, Potassium 3.2 L, Chloride 117 H, Carbon Dioxide 29.0, Anion Gap 6, BUN 18, Creatinine 0.72, Estim Creat Clear Calc 24.73, Est GFR (MDRD) Af Amer 98, Est GFR (MDRD) Non-Af 81, BUN/Creatinine Ratio 24.8 H, Glucose 128 H, Calcium 10.7 H Inpatient E&M: [id number] Disch Hosp
--- NOTE | 2020-01-24 12:46 | CASEMGMT ---
Social Work Pt ready for discharge on this date and plans to return home with hospice services. Phone call to pt daughter Mariela who confirms pt will be discharged to her home and that Mariela is there and ready for pt to come home. Phone call to Radha at Hospice and notified of discharge time and faxed d/c orders. Radha to contact family. Transportation set up with [facility] for cot transport home with 1:30 pickle maker. RN notified. Dgt and Hospice notified of time of discharge. DEJUAN Carmen
== END 2020-01-24 13:41 | disposition hospice, home (50) | DRG 690 ==
LOC: ED 21:29 → PCU 21:42
PROVIDERS: Nurse Practitioner Family; Admitting Provider Family Medicine; Emergency Provider Emergency Medicine; PCP Family Medicine; Visit Provider Internal Medicine
DX: N39.0 Urinary tract infection, site not specified (principal); C34.90 Malignant neoplasm of unspecified part of unspecified bronchus or lung; C79.9 Secondary malignant neoplasm of unspecified site; J98.11 Atelectasis; N17.9 Acute kidney failure, unspecified; F03.91 Unspecified dementia, unspecified severity, with behavioral disturbance; Z68.1 Body mass index [BMI] 19.9 or less, adult; B96.20 Unspecified Escherichia coli [E. coli] as the cause of diseases classified elsewhere; K59.00 Constipation, unspecified; E83.52 Hypercalcemia; E87.6 Hypokalemia; F41.1 Generalized anxiety disorder; E78.5 Hyperlipidemia, unspecified; F32.9 Major depressive disorder, single episode, unspecified; G89.4 Chronic pain syndrome; J44.9 Chronic obstructive pulmonary disease, unspecified; I10 Essential (primary) hypertension; K21.9 Gastro-esophageal reflux disease without esophagitis; M81.0 Age-related osteoporosis without current pathological fracture; H40.9 Unspecified glaucoma; H35.30 Unspecified macular degeneration; Z51.5 Encounter for palliative care; F17.210 Nicotine dependence, cigarettes, uncomplicated; Z66 Do not resuscitate; Z79.51 Long term (current) use of inhaled steroids; Z79.83 Long term (current) use of bisphosphonates; Z80.3 Family history of malignant neoplasm of breast; Z85.118 Personal history of other malignant neoplasm of bronchus and lung
CPT/HCPCS: 36415; 71045; 74177; 80048; 80053; 81001; 82306; 82330; 82340; 82652; 83036; 83735; 83970; 84100; 84443; 85025; 85027; 87040; 87077; 87086; 87088; 87186; 94640; 97110; 97161; 97166; 97530; 97802; 99285; J7030; Q9967; A4216